=== PATIENT | female | born 1930 | race Caucasian/White ===

== ENCOUNTER 2018-06-17 11:48 | Inpatient (IN) | payer MEDICARE ==
--- NOTE | 2018-06-17 12:09 | ED ---
General Adult HPI - General Stated complaint: Bradycardia Time Seen by Provider: 06/17/18 11:54 Source: patient, EMS, RN notes reviewed, old records reviewed - History of Present Illness Initial comments: 88-year-old female presenting with syncopal episode and altered level of consciousness. Patient found by EMS to be bradycardic with a long periods of sinus pause in asystole. This did correspond with her altered level consc iousness and syncope and near syncope. History is limited by the patient. She denies chest pain. She is alert and oriented although slow to respond. EMS reports stable blood pressure during transport. She had recent admission at an outside hospital, unknown exactly what this admission was related to. I will attempt to obtain further history from patient's family. - Related Data Home Medications Medication Instructions Recorded Confirmed ALPRAZolam [Xanax] 0.25 mg PO BID 06/17/18 06/17/18 Acarbose [Precose] 25 mg PO AC-SUPPER 06/17/18 06/17/18 Aspirin EC [Ecotrin Low Dose] 81 mg PO DAILY 06/17/18 06/17/18 Atorvastatin [Lipitor] 20 mg PO HS 06/17/18 06/17/18 Cholecalciferol [Vitamin D3 (25 1,000 unit PO DAILY 06/17/18 06/17/18 Mcg = 1000 Iu)] Diltiazem HCl [Cartia Xt] 180 mg PO DAILY 06/17/18 06/17/18 Gabapentin [Neurontin] 100 mg PO HS 06/17/18 06/17/18 Hydrocortisone Pr Cream 1 applic RECTAL DAILY 06/17/18 06/17/18 [Proctosol-Hc 2.5%] Levothyroxine Sodium [Synthroid] 88 mcg PO DAILY 06/17/18 06/17/18 Lisinopril [Zestril] 20 mg PO BID 06/17/18 06/17/18 Magnesium Oxide [Mag-Ox] 250 mg PO DAILY 06/17/18 06/17/18 Nitroglycerin [Nitro-Time] 2.5 mg PO DAILY 06/17/18 06/17/18 Omeprazole [PriLOSEC] 20 mg PO AC-BID 06/17/18 06/17/18 Sertraline HCl [Zoloft] 25 mg PO DAILY 06/17/18 06/17/18 Simethicone [Gas-X] 125 mg PO HS 06/17/18 06/17/18 glipiZIDE [Glucotrol] 5 mg PO DAILY 06/17/18 06/17/18 metFORMIN HCL [Glucophage] 1,000 mg PO BID 06/17/18 06/17/18 traMADol HCL [Ultram] 50 mg PO Q6HR PRN 06/17/18 06/17/18 Allergies Allergy/AdvReac Type Severity Reaction Status Date / Time amoxicillin Allergy Unknown Verified 06/17/18 12:00 Iodinated Contrast- Oral and Allergy Unknown Verified 06/17/18 12:00 IV Dye sulfamethoxazole Allergy Unknown Verified 06/17/18 12:00 [From ] trimethoprim [From ] Allergy Unknown Verified 06/17/18 12:00 Review of Systems ROS Statement: Those systems with pertinent positive or pertinent negative responses have been documented in the HPI. ROS Other: All systems not noted in ROS Statement are negative. General Exam General appearance: lethargic Head exam: Present: atraumatic, normocephalic Eye exam: Present: normal appearance, PERRL ENT exam: Present: mucous membranes dry Neck exam: Present: normal inspection. Absent: tenderness, meningismus Respiratory exam: Present: normal lung sounds bilaterally. Absent: respiratory distress, wheezes Cardiovascular Exam: Present: regular rate, normal rhythm Extremities exam: Present: normal capillary refill, pedal edema (trace) Neurological exam: Present: alert, oriented X3 (Slow to respond). Absent: motor sensory deficit Skin exam: Present: warm, intact, diaphoretic. Absent: cyanosis Course Vital Signs 06/17/18 11:56 Temperature 97.6 F Pulse Rate 90 Respiratory 18 Rate Blood Pressure 149/85 O2 Sat by Pulse 95 Oximetry EKG Findings - EKG Comments: EKG Findings:: EKG: Normal sinus rhythm, right bundle-branch block T-wave inversion, no ST segment elevation. Rate of 93, VA interval 192, QRS duration 138, QTC 489 Medical Decision Making - Medical Decision Making 88-year-old female with syncopal episode, bradycardia with sinus as. Patient is evaluated upon arrival by EMS. She is in normal sinus rhythm at this time. Blood pressure stable. She is alert and oriented but slow to respond. While in the emergency department, patient does have prolonged period of sinus pause in asystole. This is intermixed with sinus rhythm. Patient does become diaphoretic, pale with these episodes. She is given atropine with minimal improvement. She is started on dopamine and transcutaneous pacing. I discussed case with Dr. Ybarra , patient will be taken emergently to the [facility] for intravenous pacing. She will be maintained on transcutaneous pacing. I did have a long discussion with the patient's family regarding CODE STATUS, patient does not want intubation, she is okay with pacemaker. Patient's given morphine, Versed, and calcium gluconate, magnesium, and dopamine in the emergency department. Case discussed with admitting physician Dr. Guerra. - Lab Data Result diagrams: 06/17/18 12:15 06/17/18 12:15 Lab Results 06/17/18 06/17/18 06/17/18 Range/Units 12:15 12:15 12:15 WBC 11.1 H (3.8-10.6) k/uL RBC 4.58 (3.80-5.40) m/uL Hgb 12.2 (11.4-16.0) gm/dL Hct 37.9 (34.0-46.0) % MCV 82.7 (80.0-100.0) fL MCH 26.7 (25.0-35.0) pg MCHC 32.2 (31.0-37.0) g/dL RDW 16.8 H (11.5-15.5) % Plt Count 243 (150-450) k/uL Neutrophils % 73 % Lymphocytes % 17 % Monocytes % 6 % Eosinophils % 1 % Basophils % 0 % Neutrophils # 8.1 H (1.3-7.7) k/uL Lymphocytes # 1.9 (1.0-4.8) k/uL Monocytes # 0.7 (0-1.0) k/uL Eosinophils # 0.1 (0-0.7) k/uL Basophils # 0.0 (0-0.2) k/uL Anisocytosis Slight PT (9.0-12.0) sec INR (<1.2) APTT (22.0-30.0) sec Sodium 133 L (137-145) mmol/L Potassium 4.9 (3.5-5.1) mmol/L Chloride 99 (98-107) mmol/L Carbon Dioxide 23 (22-30) mmol/L Anion Gap 11 mmol/L BUN 21 H (7-17) mg/dL Creatinine 0.79 (0.52-1.04) mg/dL Est GFR (CKD-EPI)AfAm 79 (>60 ml/min/1.73 sqM) Est GFR (CKD-EPI)NonAf 69 (>60 ml/min/1.73 sqM) Glucose 116 H (74-99) mg/dL Calcium 9.6 (8.4-10.2) mg/dL Magnesium 1.5 L (1.6-2.3) mg/dL Total Bilirubin 0.4 (0.2-1.3) mg/dL AST 19 (14-36) U/L ALT 29 (9-52) U/L Alkaline Phosphatase 129 H (38-126) U/L Troponin I <0.012 (0.000-0.034) ng/mL Total Protein 6.8 (6.3-8.2) g/dL Albumin 4.1 (3.5-5.0) g/dL 06/17/18 Range/Units 12:26 WBC (3.8-10.6) k/uL RBC (3.80-5.40) m/uL Hgb (11.4-16.0) gm/dL Hct (34.0-46.0) % MCV (80.0-100.0) fL MCH (25.0-35.0) pg MCHC (31.0-37.0) g/dL RDW (11.5-15.5) % Plt Count (150-450) k/uL Neutrophils % % Lymphocytes % % Monocytes % % Eosinophils % % Basophils % % Neutrophils # (1.3-7.7) k/uL Lymphocytes # (1.0-4.8) k/uL Monocytes # (0-1.0) k/uL Eosinophils # (0-0.7) k/uL Basophils # (0-0.2) k/uL Anisocytosis PT 10.2 (9.0-12.0) sec INR 0.9 (<1.2) APTT 20.9 L (22.0-30.0) sec Sodium (137-145) mmol/L Potassium (3.5-5.1) mmol/L Chloride (98-107) mmol/L Carbon Dioxide (22-30) mmol/L Anion Gap mmol/L BUN (7-17) mg/dL Creatinine (0.52-1.04) mg/dL Est GFR (CKD-EPI)AfAm (>60 ml/min/1.73 sqM) Est GFR (CKD-EPI)NonAf (>60 ml/min/1.73 sqM) Glucose (74-99) mg/dL Calcium (8.4-10.2) mg/dL Magnesium (1.6-2.3) mg/dL Total Bilirubin (0.2-1.3) mg/dL AST (14-36) U/L ALT (9-52) U/L Alkaline Phosphatase (38-126) U/L Troponin I (0.000-0.034) ng/mL Total Protein (6.3-8.2) g/dL Albumin (3.5-5.0) g/dL Critical Care Time Critical Care Time: Yes Total Critical Care Time: 35 Disposition Clinical Impression: Bradycardia, Sinus pause Disposition: ADMITTED IP TO THIS [facility] Condition: Serious Is patient prescribed a controlled substance at d/c from ED?: No Referrals: David Guerra MD [Primary Care Provider] - 1-2 days Decision to Admit Reason: Admit from EC Decision Date: 06/17/18 Decision Time: 13:19
[2018-06-17 12:29] LABS: Anisocytosis Slight; Basophils % (A) 0 %; Eosinophils # (A) 0.1 k/uL (0-0.7); Eosinophils % (A) 1 %; HCT 37.9 % (34.0-46.0); HGB 12.2 gm/dL (11.4-16.0); Lymphocytes # (A) 1.9 k/uL (1.0-4.8); Lymphocytes % (A) 17 %; MCH 26.7 pg (25.0-35.0); MCHC 32.2 g/dL (31.0-37.0); MCV 82.7 fL (80.0-100.0); Mean Platelet Volume 7.5; Monocytes # (A) 0.7 k/uL (0-1.0); Monocytes % (A) 6 %; Neutrophils # (A) 8.1 k/uL (1.3-7.7); Neutrophils % (A) 73 %; Platelet Count 243 k/uL (150-450); RBC 4.58 m/uL (3.80-5.40); RDW 16.8 % (11.5-15.5); WBC 11.1 k/uL (3.8-10.6)
[2018-06-17 12:50] LABS: Albumin 4.1 g/dL (3.5-5.0); Calcium 9.6 mg/dL (8.4-10.2); Magnesium 1.5 mg/dL (1.6-2.3); Potassium 4.9 mmol/L (3.5-5.1); Total Bilirubin 0.4 mg/dL (0.2-1.3); Total Protein 6.8 g/dL (6.3-8.2)
[2018-06-17] MEDS ORDERED: CALCIUM GLUCONATE 1 GM in SODIUM CHLORIDE 0.9% 100 ML IVPB ONE (12:55)
[2018-06-17] MEDS ORDERED: MORPHINE SULFATE 2 MG/ML SYRINGE IVP STA (12:58)
[2018-06-17] MEDS ORDERED: MIDAZOLAM (PF) 2 MG/2 ML VIAL IV ONE (12:59)
[2018-06-17] MEDS ORDERED: MIDAZOLAM 1 MG/ML 5 ML VIAL IV STA (12:59)
[2018-06-17] MEDS ORDERED: MORPHINE SULFATE 2 MG/ML SYRINGE IVP PRN (12:59)
[2018-06-17 13:01] LABS: INR 0.9 (<1.2); Prothrombin Time 10.2 sec (9.0-12.0)
[2018-06-17 13:07] LABS: Partial Thromboplastin Time 20.9 sec (22.0-30.0)
[2018-06-17] MEDS ORDERED: DOPamine DRIP 800 MG in DEXTROSE/WATER 1 250ML.BAG IV ONE (13:11)
--- NOTE | 2018-06-17 13:12 | XR ---
EXAMINATION TYPE: XR chest 1V portable DATE OF EXAM: 06/17/2018 COMPARISON: NONE HISTORY: Dysrhythmia, bradycardia TECHNIQUE: Single frontal view of the chest is obtained. FINDINGS: Exam is expiratory and rotated. Heart may be enlarged. Patchy perihilar density is present , difficult to exclude retrocardiac density. There is no evident pneumothorax. There are overlying ca rdiac leads and artifact. Interstitium appears prominently. Arthropathy noted in the left shoulder. IMPRESSION: Expiratory rotated exam. Difficult to exclude pulmonary venous hypertension and intersti tial edema, possible left lower lobe pneumonia or atelectasis, follow-up PA and lateral chest x-ray r ecommended.
[2018-06-17] MEDS ORDERED: NALOXONE 0.4 MG/ML 1 ML VIAL IV PRN (13:13)
[2018-06-17] MEDS ORDERED: MORPHINE SULFATE 4 MG/ML SYRINGE IVP PRN (13:14)
[2018-06-17] MEDS: MAGNESIUM SULFATE-D5W PMX 1 GM in DEXTROSE/WATER 1 100ML.BAG IVPB SCH ×2 (13:32→17:07)
[2018-06-17] MEDS ORDERED: LIDOCAINE 2% INJ 20 MG/ML SQ ONE (14:36)
--- NOTE | 2018-06-17 14:45 | P.CRDCN ---
History of Present Illness Consult date: 06/17/18 Requesting physician: David Guerra Consult reason: sycope Chief complaint: Syncope History of present illness: This is an 88 stroke female who follows regularly with Dr. Brooks in [facility] office. She has a known history of severe aortic stenosis, she also underwent a cardiac catheterization which revealed severe disease involving the distal left main with a complex plaque involving the takeoff of the circumflex and LAD. History of diabetes, hypertension, hyperlipidemia. Patient presents to the hospital on this occasion with a syncopal episode and altered level of consciousness. On EMS arrival the patient was found to be bradycardic with long periods of sinus pauses and asystole. These episodes didn't correspond with her altered level of consciousness as well as syncope or near syncope. Most of the history was obtained from the daughter and who are at bedside. In the emergency room, patient did go into asystole, external pacemaker was applied. Chest x-ray showed expiratory rotated exam. Difficult to exclude pulmonary venous hypertension and interstitial edema, possible left lower lobe pneumonia or atelectasis. Initial EKG prior to the asystole showed a normal sinus rhythm with a right bundle branch block pattern and nonspecific ST-T wave changes. B lood pressure at present 148/80 with a heart rate 50, 90% on room air. White blood cell count 11.1, hemoglobin 12.2, platelet count 243. Sodium 133, potassium 4.9, BUN 21 and creatinine 0.7. Magnesium on admission 1.5. Troponin 0.012. Past Medical History Past Medical History: Diabetes Mellitus, Hyperlipidemia, Hypertension Additional Past Medical History / Comment(s): arterial stenosis History of Any Multi-Drug Resistant Organisms: None Reported Past Surgical History: Cholecystectomy, Orthopedic Surgery Past Psychological History: No Psychological Hx Reported Smoking Status: Former smoker Past Alcohol Use History: None Reported Past Drug Use History: None Reported Medications and Allergies Home Medications Medication Instructions Recorded Confirmed Type ALPRAZolam [Xanax] 0.25 mg PO BID 06/17/18 06/17/18 History Acarbose [Precose] 25 mg PO AC-SUPPER 06/17/18 06/17/18 History Aspirin EC [Ecotrin Low Dose] 81 mg PO DAILY 06/17/18 06/17/18 History Atorvastatin [Lipitor] 20 mg PO HS 06/17/18 06/17/18 History Cholecalciferol [Vitamin D3 (25 1,000 unit PO DAILY 06/17/18 06/17/18 History Mcg = 1000 Iu)] Diltiazem HCl [Cartia Xt] 180 mg PO DAILY 06/17/18 06/17/18 History Gabapentin [Neurontin] 100 mg PO HS 06/17/18 06/17/18 History Hydrocortisone Pr Cream 1 applic RECTAL DAILY 06/17/18 06/17/18 History [Proctosol-Hc 2.5%] Levothyroxine Sodium [Synthroid] 88 mcg PO DAILY 06/17/18 06/17/18 History Lisinopril [Zestril] 20 mg PO BID 06/17/18 06/17/18 History Magnesium Oxide [Mag-Ox] 250 mg PO DAILY 06/17/18 06/17/18 History Nitroglycerin [Nitro-Time] 2.5 mg PO DAILY 06/17/18 06/17/18 History Omeprazole [PriLOSEC] 20 mg PO AC-BID 06/17/18 06/17/18 History Sertraline HCl [Zoloft] 25 mg PO DAILY 06/17/18 06/17/18 History Simethicone [Gas-X] 125 mg PO HS 06/17/18 06/17/18 History glipiZIDE [Glucotrol] 5 mg PO DAILY 06/17/18 06/17/18 History metFORMIN HCL [Glucophage] 1,000 mg PO BID 06/17/18 06/17/18 History traMADol HCL [Ultram] 50 mg PO Q6HR PRN 06/17/18 06/17/18 History Allergies Allergy/AdvReac Type Severity Reaction Status Date / Time amoxicillin Allergy Unknown Verified 06/17/18 12:00 Iodinated Contrast- Oral and Allergy Unknown Verified 06/17/18 12:00 IV Dye sulfamethoxazole Allergy Unknown Verified 06/17/18 12:00 [From ] trimethoprim [From ] Allergy Unknown Verified 06/17/18 12:00 Physical Exam Vitals: Vital Signs Temp Pulse Resp BP Pulse Ox 06/17/18 11:56 97.6 F 90 18 149/85 95 Intake and Output 06/16/18 06/17/18 06/17/18 22:59 06:59 14:59 Other: Weight 103.873 kg PHYSICAL EXAMINATION: GENERAL: 88-year-old female, mildly sedated, in no acute distress at the time of my examination HEENT: Head is atraumatic, normocephalic. Pupils equal, round. Sclera anicter ic. Conjunctiva are clear. Mucous membranes of the mouth are moist. Neck is supple. There is no elevated jugular venous pressure. No carotid bruit is heard. HEART EXAMINATION: S1 and S2 1 systolic ejection murmur is heard CHEST EXAMINATION: Lungs are clear to auscultation and precussion. No chest wall tenderness is noted on palpation or with deep breathing. ABDOMEN: Soft, obese, nontender. Bowel sounds are heard. No organomegaly noted. EXTREMITIES: 2+ peripheral pulses with no evidence of peripheral edema and no calf tenderness noted. NEUROLOGIC [patient is mildly sedated Results 06/17/18 12:15 06/17/18 12:15 Cardiac Enzymes 06/17/18 06/17/18 Range/Units 12:15 12:15 AST 19 (14-36) U/L Troponin I <0.012 (0.000-0.034) ng/mL Coagulation 06/17/18 Range/Units 12:26 PT 10.2 (9.0-12.0) sec APTT 20.9 L (22.0-30.0) sec CBC 06/17/18 Range/Units 12:15 WBC 11.1 H (3.8-10.6) k/uL RBC 4.58 (3.80-5.40) m/uL Hgb 12.2 (11.4-16.0) gm/dL Hct 37.9 (34.0-46.0) % Plt Count 243 (150-450) k/uL Comprehensive Metabolic Panel 06/17/18 Range/Units 12:15 Sodium 133 L (137-145) mmol/L Potassium 4.9 (3.5-5.1) mmol/L Chloride 99 (98-107) mmol/L Carbon Dioxide 23 (22-30) mmol/L BUN 21 H (7-17) mg/dL Creatinine 0.79 (0.52-1.04) mg/dL Glucose 116 H (74-99) mg/dL Calcium 9.6 (8.4-10.2) mg/dL AST 19 (14-36) U/L ALT 29 (9-52) U/L Alkaline Phosphatase 129 H (38-126) U/L Total Protein 6.8 (6.3-8.2) g/dL Albumin 4.1 (3.5-5.0) g/dL Current Medications Generic Name Dose Route Start Last Admin Trade Name Freq PRN Reason Stop Dose Admin Magnesium Sulfate/Dextrose 1 100 mls @ 100 mls/hr 06/17/18 13:00 06/17/18 13:32 gm/ IV Solution IVPB 06/17/18 14:59 100 mls/hr Q1H FRANK Administration Dopamine HCl/Dextrose 800 mg/ 250 mls @ 3.895 mls/hr 06/17/18 13:11 06/17/18 13:15 IV Solution IV 06/18/18 13:10 2 mcg/kg/min .Q24H ONE 3.895 mls/hr Administration Protocol 2 MCG/KG/MIN Morphine Sulfate 2 mg 06/17/18 12:59 06/17/18 13:01 Morphine Sulfate (Inj) IVP 2 mg ONCE PRN Administration Pain Morphine Sulfate 4 mg 06/17/18 13:14 06/17/18 13:17 Morphine Sulfate (Inj) IVP 4 mg ONCE PRN Administration Pain Naloxone HCl 0.2 mg 06/17/18 13:13 Narcan IV Q2M PRN Opioid Reversal Intake and Output 06/16/18 06/17/18 06/17/18 22:59 06:59 14:59 Other: Weight 103.873 kg Patient Weight 06/18/18 06:59 Weight 103.873 kg 06/17/18 12:15 06/17/18 12:15 EKG Interpretations (text) Initial EKG on presentation showed normal sinus rhythm with right bundle branch block pattern, subsequent EKG showed asystole Assessment and Plan Plan: Assessment and plan #1 syncope, evidence of asystole on EKG. External pacemaker has been applied and dopamine was initiated. #2 severe aortic stenosis #3 coronary artery disease, patient's cardiac catheterization revealed severe disease involving the distal left main with a complex plaque involving the takeoff of the circumflex and LAD #3 diabetes #4 hypertension #5 hyperlipidemia Plan Patient will be taken to the cardiac catheterization lab to undergo temporary pacemaker implantation, she will require permanent pacemaker. This was discussed with the and the daughter in detail. The patient is otherwise in no code and does not want to have any invasive procedures performed, they are willing to have a pacemaker placed. DNP note has been reviewed, I agree with a documented findings and plan of care. Patient was seen and examined.
[2018-06-17 15:28] LABS: Glucose,Whole Blood 169 mg/dL (75-99)
[2018-06-17 17:06] LABS: Amorphous Sediment,Urine Rare /hpf; Appearance,Urine Clear (Clear); Bilirubin,Urine Negative (Negative); Blood,Urine Negative (Negative); Color,Urine Yellow; Glucose,Urine (UA) Negative (Negative); Hyaline Casts,Urine 3 /lpf (0-2); Ketones,Urine Negative (Negative); Leukocyte Esterase,Urine Moderate (Negative); Mucus,Urine Rare /hpf; Nitrite,Urine Negative (Negative); Protein,Urine Negative (Negative); RBC,Urine <1 /hpf (0-5); Specific Gravity,Urine 1.012 (1.001-1.035); Squamous Epithelial Cell,Urine <1 /hpf (0-4); Urobilinogen,Urine <2.0 mg/dL (<2.0)
[2018-06-17] MEDS ORDERED: metFORMIN 500 MG TAB PO SCH (17:30)
[2018-06-17] MEDS: ACARBOSE 25 MG TAB PO SCH (18:00)
[2018-06-17] MEDS: metFORMIN 500 MG TAB PO SCH (18:00)
[2018-06-17] MEDS ORDERED: LISINOPRIL 20 MG TAB PO SCH (21:00)
[2018-06-17] MEDS ORDERED: SODIUM CHLORIDE 0.9% 1,000 ML IV SCH (21:45)
[2018-06-17] MEDS: SODIUM CHLORIDE 0.9% 1,000 ML IV SCH (22:04)
[2018-06-17] MEDS: DOPamine DRIP 800 MG in DEXTROSE/WATER 1 250ML.BAG IV SCH (22:13)
[2018-06-17] MEDS: ASPIRIN 81 MG PO SCH (22:20)
[2018-06-17] MEDS: ATORVASTATIN 20 MG TAB PO SCH (22:21)
[2018-06-17] MEDS: GABAPENTIN 100 MG CAP PO SCH (22:21)
--- NOTE | 2018-06-17 22:34 | HP ---
HISTORY AND PHYSICAL HISTORY: Mrs. Zhou is an 88-year-old female is brought in for syncope. HISTORY OF PRESENT ILLNESS: The patient apparently was at home this morning, visiting nurse was coming into the house. Her went to open the door and when he came back apparently patient had slumped over in her chair and was unable to be aroused. EMS was called. She was found apparently to be bradycardic and was brought by EMS to the emergency room here at [facility]. The patient has had a temporary pacemaker placed. PAST MEDICAL HISTORY: Positive for severe aortic stenosis and also underlying coronary artery disease with some left main involvement and she was deemed to be a nonsurgical candidate. She does have underlying comorbidities with being treated for diabetes, hypertension, hyperlipidemia. She is obese. She does have polyarthritis and she does have an essential tremor. History of hypothyroidism. HOME MEDICATIONS: 1. Alprazolam 0.25 twice a day. 2. Acarbose 25 mg before supper. 3. Aspirin 81 mg daily. 4. Lipitor 20 mg. 5. Vitamin D3, 1000 units daily. 6. Diltiazem 180 mg daily. 7. Neurontin 100 mg at bedtime. 8. Hydrocortisone cream as needed. 9. Levothyroxine 88 mcg. 10.Lisinopril 20 mg twice a day. 11.Mag-Ox 250 daily. 12.Nitroglycerin 2.5 mg has been started recently because of recurrent chest pain. 13.Prilosec 20 mg before meals twice a day. 14.Zoloft 25 mg daily recently started for depression and anxiety. 15.Simethicone 125 mg at bedtime. 16.Glucotrol 5 mg daily for her blood sugar. 17.Metformin 1000 mg twice a day. 18.Tramadol 500 mg every 6 hours for her chronic polyarthritis pain. ALLERGIES: PENICILLIN, CONTRAST, SULFA. PREVIOUS SURGERIES: Cholecystectomy and previous orthopedic surgery. REVIEW OF SYSTEMS: As mentioned in history of present illness. Patient has had some recurrent chest discomfort somewhat with exertion. No unusual headaches. She was nauseated today with this episode, but on the whole no unusual nausea, vomiting or unusual bowel symptomatology. She does has had some recent frequent urination and possible urinary tract infection. Cultures are pending. FAMILY HISTORY: Positive for heart disease, diabetes. There is a history of alcoholism. SOCIAL HISTORY: She is a former smoker. She lives locally in the area with her along with a daughter that watches over them too. PHYSICAL EXAMINATION: Presently, she is lying in bed in the intensive care unit. Overall, appears comfortable, in no acute distress. Responding appropriately. Last vital signs showed a pulse in the 70s, respirations of 12, blood pressure 116/96, and she was 94% saturated. Temperature 97.5. Head and neck exam unremarkable. Extraocular movements intact. Neck is not stiff. Lungs were clear to auscultation. Heart tones were for the most part regular without murmur, although somewhat distant. Abdomen is obese but nontender. Breast and pelvic exam deferred. Extremities revealed grade 1 pedal edema. Neurologically she is alert and oriented. Cranial nerves intact. No focal deficits noted. LAB TESTING: White count of 11, hemoglobin 12.2 and a platelet count of 243. INR 0.9 with a PTT of 20.9. Sodium 133, potassium 4.9, BUN of 21, creatinine 0.79, giving her GFR 69, blood sugar of 116, calcium was 9.6, magnesium slightly low at 1.5, alkaline phosphatase was 129. Troponin was less than 0.012. TSH was normal at 3.8. Urinalysis has revealed moderate leukocytes, leukocyte esterase, but only 14 white cells. The patient's chest x-ray is reported as rotated exam. Possible left lower lobe atelectasis. Her EKG revealed a sinus rhythm, right bundle branch block pattern. IMPRESSION: Syncope with asystole apparently on monitor pattern, now status post temporary pacemaker placed. She does have underlying severe aortic stenosis and coronary artery disease, which is considered to be nonoperable. She does have comorbidities and is being treated for diabetes, hypertension, hyperlipidemia. She does have underlying obesity and polyarthritis resulting in gait disturbances and underlying hypothyroidism on replacement therapy. At this point, discussed with the patient's spouse and daughter at bedside. Will await further recommendations from Cardiology regarding pacemaker. Urine culture is pending. Continue other home medications as per Cardiology. Prognosis guarded at this point. MMODL / IJN: [id number] / MTDD
[2018-06-17] MEDS: SIMETHICONE 80 MG CHEWABLE PO SCH (23:01)
--- NOTE | 2018-06-17 23:49 | PCN ---
PROCEDURE NOTE DATE OF SERVICE: June 17, 2018 PERFORMING PHYSICIAN: Dominick Ybarra MD. PROCEDURE PERFORMED: Successful placement of transvenous temporary pacemaker from right femoral right fem femoral approach. 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 COMPLICATION: None. LEVEL OF SEDATION: Moderate with sedation length of 10 minutes. PROCEDURE DESCRIPTION: After obtaining an informed consent, the patient was brought to cardiac lab engineer. The right common femoral vein was cannulated using micropuncture technique and a micropuncture wire passed easily. Then I placed a 6-[place] sheath in the right common femoral vein. After that I did advanced transvenous temporary pacemaker under fluoroscopy guidance to the right atrial and the right ventricle. I did set up the pacemaker to be at rate of 70 as a backup as well as at 5 of number. Going. CONCLUSION: 1. Successful placement of transvenous temporary pacemaker from right femoral approach. POSTPROCEDURE MANAGEMENT: 1. The patient needs to have a permanent pacemaker. 2. Follow up with the patient indication. MMODL / IJN: [id number] /
[2018-06-18 06:21] LABS: Anisocytosis Slight; Basophils % (A) 0 %; Eosinophils # (A) 0.1 k/uL (0-0.7); Eosinophils % (A) 1 %; HCT 34.9 % (34.0-46.0); Lymphocytes # (A) 1.2 k/uL (1.0-4.8); Lymphocytes % (A) 10 %; MCH 26.5 pg (25.0-35.0); MCHC 31.7 g/dL (31.0-37.0); MCV 83.6 fL (80.0-100.0); Mean Platelet Volume 7.1; Monocytes # (A) 0.7 k/uL (0-1.0); Monocytes % (A) 6 %; Neutrophils # (A) 9.6 k/uL (1.3-7.7); Neutrophils % (A) 82 %; Platelet Count 219 k/uL (150-450); RBC 4.17 m/uL (3.80-5.40); RDW 16.4 % (11.5-15.5); WBC 11.8 k/uL (3.8-10.6)
[2018-06-18] MEDS: ACETAMINOPHEN TAB 325 MG TAB PO PRN (06:32)
[2018-06-18] MEDS: LEVOTHYROXINE 88 MCG TAB PO SCH (06:32)
[2018-06-18] MEDS: PANTOPRAZOLE 40 MG TABLET PO SCH (06:32)
[2018-06-18 06:33] LABS: Calcium 9.3 mg/dL (8.4-10.2); Magnesium 2.2 mg/dL (1.6-2.3); Potassium 5.6 mmol/L (3.5-5.1)
--- NOTE | 2018-06-18 07:19 | P.PN ---
Subjective Progress Note Date: 06/18/18 Principal diagnosis: Complete heart block This is a pleasant 88-year-old female patient with a past medical history significant for severe aortic stenosis, severe coronary artery disease involving the left main, as well as multiple comorbid conditions, was admitted to the hospital with syncopal episode. She was found to be in and out complete heart block. She underwent yesterday a temporary pacemaker. In the past, the patient refused to have any treatment for the aortic stenosis. On follow-up with her today, she is feeling overall better. She denies any chest pain or chest discomfort at this point. She still requiring the temporary pacer. She is in process to undergo permanent pacemaker later on today. The creatinine is a slightly worse and her blood pressure has been on the low side. Part of it, that she was having intermittent episodes of complete heart block. Objective - Vital Signs Vital signs: Vital Signs Temp 97.6 F 06/18/18 04:00 Pulse 70 06/18/18 07:00 Resp 18 06/18/18 07:00 BP 108/55 06/18/18 07:00 Pulse Ox 95 06/18/18 07:00 Intake & Output 06/17/18 06/18/18 06/18/18 18:59 06:59 18:59 Intake Total 1405 100 Output Total 335 215 15 Balance -335 1190 85 Weight 103.873 kg 110.2 kg Intake: IV 1155 100 Magnesium Sulfate-D5w Pmx 100 1 gm In Dextrose/Water 1 100ml.bag @ 100 mls/hr IVPB Q1H FR[facility] Rx#: [id number] Sodium Chloride 0.9% 1, 675 100 000 ml @ 100 mls/hr IV . Q10H FRANK Rx#:[id number] Sodium Chloride 0.9% 1, 380 000 ml @ 20 mls/hr IV . Q24H FRANK Rx#:[id number] Oral 250 Output: Urine 335 215 15 Other: Voiding Method Indwelling Catheter Indwelling Catheter - Constitutional General appearance: Present: no acute distress - Respiratory Respiratory: bilateral: CTA - Cardiovascular Rhythm: regular Heart sounds: normal: S1, S2 - Labs CBC & Chem 7: 06/18/18 05:36 06/18/18 05:36 Labs: Abnormal Lab Results - Last 24 Hours (Table) 06/17/18 06/17/18 06/17/18 Range/Units 12:15 12:15 12:26 WBC 11.1 H (3.8-10.6) k/uL Hgb (11.4-16.0) gm/dL RDW 16.8 H (11.5-15.5) % Neutrophils # 8.1 H (1.3-7.7) k/uL APTT 20.9 L (22.0-30.0) sec Sodium 133 L (137-145) mmol/L Potassium (3.5-5.1) mmol/L BUN 21 H (7-17) mg/dL Glucose 116 H (74-99) mg/dL POC Glucose (mg/dL) (75-99) mg/dL Magnesium 1.5 L (1.6-2.3) mg/dL Alkaline Phosphatase 129 H (38-126) U/L Ur Leukocyte Esterase (Negative) Urine WBC (0-5) /hpf Urine WBC Clumps (None) /hpf Amorphous Sediment (None) /hpf Hyaline Casts (0-2) /lpf Urine Mucus (None) /hpf 06/17/18 06/17/18 06/18/18 Range/Units 15:00 15:24 05:36 WBC 11.8 H (3.8-10.6) k/uL Hgb 11.0 L (11.4-16.0) gm/dL RDW 16.4 H (11.5-15.5) % Neutrophils # 9.6 H (1.3-7.7) k/uL APTT (22.0-30.0) sec Sodium (137-145) mmol/L Potassium (3.5-5.1) mmol/L BUN (7-17) mg/dL Glucose (74-99) mg/dL POC Glucose (mg/dL) 169 H (75-99) mg/dL Magnesium (1.6-2.3) mg/dL Alkaline Phosphatase (38-126) U/L Ur Leukocyte Esterase Moderate H (Negative) Urine WBC 14 H (0-5) /hpf Urine WBC Clumps Occasional H (None) /hpf Amorphous Sediment Rare H (None) /hpf Hyaline Casts 3 H (0-2) /lpf Urine Mucus Rare H (None) /hpf 06/18/18 Range/Units 05:36 WBC (3.8-10.6) k/uL Hgb (11.4-16.0) gm/dL RDW (11.5-15.5) % Neutrophils # (1.3-7.7) k/uL APTT (22.0-30.0) sec Sodium 131 L (137-145) mmol/L Potassium 5.6 H (3.5-5.1) mmol/L BUN 29 H (7-17) mg/dL Glucose 137 H (74-99) mg/dL POC Glucose (mg/dL) (75-99) mg/dL Magnesium (1.6-2.3) mg/dL Alkaline Phosphatase (38-126) U/L Ur Leukocyte Esterase (Negative) Urine WBC (0-5) /hpf Urine WBC Clumps (None) /hpf Amorphous Sediment (None) /hpf Hyaline Casts (0-2) /lpf Urine Mucus (None) /hpf Microbiology - Last 24 Hours (Table) 06/17/18 15:00 Urine Culture - Preliminary Urine,Voided Assessment and Plan Assessment: Assessment #1 complete heart block #2 intermittent episodes of syncope secondary to complete heart block #3 known severe aortic stenosis, patient refused any further intervention on the aortic valve #4 known severe coronary artery disease involving the left main coronary artery #5 acute on chronic renal failure Plan #1 hold the blood pressure medications #2 increase the IV fluid 100 mL per hour #3 continue the dopamine for now #4 the patient is going to undergo a permanent pacemaker later on today
[2018-06-18] MEDS ORDERED: fentaNYL (PF) 50 MCG/ML 2 ML AMP IVP PRN (08:01)
[2018-06-18] MEDS: metFORMIN 500 MG TAB PO SCH ×2 (08:30→17:08)
[2018-06-18] MEDS: glipiZIDE 5 MG TAB PO SCH (08:31)
--- NOTE | 2018-06-18 08:31 | P.PN ---
Progress Note - Text The patient is an 88-year-old female who was brought in by EMS yesterday from home with syncopal episodes and complete heart block. The patient underwent temporary pacemaker placement yesterday. She is presently in the intensive care unit. She is on low flow dopamine. Patient remains in the intensive care unit. She is alert and oriented and responding well to questions. She complains of some back pain but denies any chest pain or unusual shortness of breath. She did have some nausea yesterday with her medications. Feels better in that regard today. The patient is a obese female with aortic stenosis and coronary artery disease for which patient and family have declined surgical intervention because of the risk involved. She also has underlying diabetes, hypertension and hyperlipidemia along with diffuse osteoarthritis and limited mobility. Vital signs reveal temperature 97.6 with a pulse of 70 and respirations 18. Blood pressure 108/55 and she is 95% saturated. Lung and heart exam was clear and regular at this time. Abdomen is obese but soft and nontender. No unusual edema. She is alert and oriented without cranial nerves are focal deficits. Intention tremors present. Laboratory White count 11.8 with a hemoglobin 11 and a platelet count of 219. Sodium is 131 with an elevated potassium of 5.6. BUN of 29 with creatinine of 1.04 given her GFR of 49. Blood sugar this morning was 137. Urine culture report pending. Urine output apparently has been 20-30 mL an hour. Impression and plans Discussed with patient and nursing staff today. Plans are for permanent pacemaker as per cardiology. Discussed with staff regarding holding her diabetic medications and doing Accu- Cheks and coverage as needed through the day. Further recommendations pending clinical response and results. Prognosis is guarded.
[2018-06-18] MEDS ORDERED: ASPIRIN 81 MG PO SCH (09:00)
[2018-06-18] MEDS ORDERED: DILTIAZEM CD 180 MG CAP.ER.24H PO SCH (09:00)
[2018-06-18] MEDS ORDERED: ONDANSETRON 4 MG/2 ML VIAL IVP STA (09:51)
--- NOTE | 2018-06-18 10:17 | CDI ---
Documentation Clarification Form Date: 06/18/2018 10:07:16 AM From: Nelsy Esquivel RN CCDS Admit Date: 06/17/2018 1:13:00 PM Patient Name: Lea Zhou I Visit Number: [id number] Discharge Date: ATTENTION: The Clinical Documentation Specialists (CDI) and [facility] Coding Staff appreciate your assistance in clarifying documentation. Please respond to the clarification below the line at the bottom and electronically sign. The CDI & [facility] Coding staff will review the response and follow-up if needed. Please note: Queries are made part of the Legal Health Record. If you have any questions, please contact the author of this message via ITS. Dr. Dominick Ybarra Patient was admitted with complete heart block. History/Risk Factors: 88 year old female presents to the ED via EMS for altered level of consciousness. Medical History DM, Severe Aortic Stenosis , CAD, HTN Clinical Indicators: On admission BUN 21, / CR 0.79 / GFR 69 Current BUN 29, /CR 1.04 /GFR 49: Patients Baseline BUN/CR/GFR: Unknown/ Not documented Treatment: increased 0.9ns ivfl from 20cc/hr to 100cc/hr, In order to capture the severity of condition, please clarify if the condition signifies: * CKD Stage 1 (GFR > 90) * CKD Stage 2 (GFR 60-89) * CKD Stage 3 (GFR 30-59) * Other, please specify * Unable to determine (Last Revision: May 2017) MTDD
[2018-06-18] MEDS: NITROGLYCERIN EXTENDED RELEASE 2.5 MG CAPSULE.ER PO SCH (10:44)
[2018-06-18] MEDS: MAGNESIUM OXIDE 400 MG TAB PO SCH (10:45)
[2018-06-18] MEDS: HYDROCORTISONE 2.5% RECTAL CREAM 30 GM TUBE RECTAL SCH (10:45)
[2018-06-18] MEDS: CHOLECALCIFEROL 1,000 UNIT TAB PO SCH (10:45)
[2018-06-18] MEDS: SERTRALINE 25 MG TAB PO SCH (11:36)
[2018-06-18] MEDS: traMADol 50 MG TAB PO PRN ×2 (11:36→19:26)
[2018-06-18 11:58] LABS: Glucose,Whole Blood 145 mg/dL (75-99)
[2018-06-18] MEDS: INSULIN ASPART (NovoLOG) 100 UNIT/ML VIAL SQ SCH ×2 (12:23→17:16)
[2018-06-18] MEDS: DOCUSATE 100 MG CAP PO SCH ×2 (14:38→21:17)
[2018-06-18 16:48] LABS: Glucose,Whole Blood 148 mg/dL (75-99)
[2018-06-18] MEDS: ACARBOSE 25 MG TAB PO SCH (17:07)
[2018-06-18] MEDS: SODIUM CHLORIDE 0.9% 1,000 ML IV SCH ×5 (17:17→21:17)
[2018-06-18 20:30] LABS: Glucose,Whole Blood 119 mg/dL (75-99)
[2018-06-18] MEDS ORDERED: DOCUSATE 100 MG CAP PO SCH (21:00)
[2018-06-18] MEDS: ATORVASTATIN 20 MG TAB PO SCH (21:17)
[2018-06-18] MEDS: GABAPENTIN 100 MG CAP PO SCH (21:17)
[2018-06-18] MEDS: ASPIRIN 81 MG PO SCH (21:17)
[2018-06-18] MEDS: SIMETHICONE 80 MG CHEWABLE PO SCH (21:17)
[2018-06-18] MEDS: ONDANSETRON 4 MG/2 ML VIAL IVP PRN (22:25)
[2018-06-18] MEDS: DOPamine DRIP 800 MG in DEXTROSE/WATER 1 250ML.BAG IV SCH (22:34)
[2018-06-19] MEDS: INSULIN ASPART (NovoLOG) 100 UNIT/ML VIAL SQ SCH ×5 (00:57→23:41)
[2018-06-19 01:08] LABS: Glucose,Whole Blood 117 mg/dL (75-99)
[2018-06-19 06:33] LABS: Glucose,Whole Blood 111 mg/dL (75-99)
--- NOTE | 2018-06-19 06:43 | P.PN ---
Subjective Progress Note Date: 06/19/18 Principal diagnosis: Complete heart block This is a pleasant 88-year-old female patient with a past medical history significant for severe aortic stenosis, severe coronary artery disease involving the left main, as well as multiple comorbid conditions, was admitted to the hospital with syncopal episode. She was found to be in and out complete heart block. She underwent yesterday a temporary pacemaker. In the past, the patient refused to have any treatment for the aortic stenosis. On follow-up with the patient today, June 192018, the patient is feeling better overall. Her intrinsic rhythm is overriding the pacemaker and currently she is in normal sinus rhythm with heart rate in the 80s. She is going to undergo a permanent pacemaker later on today. The urine output has improved compared to yesterday. Objective - Vital Signs Vital signs: Vital Signs Temp 98.4 F 06/19/18 04:01 Pulse 81 06/19/18 06:00 Resp 11 L 06/19/18 06:00 BP 148/57 06/19/18 06:00 Pulse Ox 97 06/19/18 06:00 Intake & Output 06/18/18 06/18/18 06/19/18 06:59 18:59 06:59 Intake Total 1405 1200 1200 Output Total 566 724 8196 Balance 1190 795 -945 Weight 110.2 kg 109.3 kg Intake: IV 1155 1200 1200 Magnesium Sulfate-D5w Pmx 100 1 gm In Dextrose/Water 1 100ml.bag @ 100 mls/hr IVPB Q1H [facility]ANK Rx#: [id number] Sodium Chloride 0.9% 1, 675 1200 1200 000 ml @ 100 mls/hr IV . Q10H [facility]ANK Rx#:[id number] Sodium Chloride 0.9% 1, 380 000 ml @ 20 mls/hr IV . Q24H FRANK Rx#:[id number] Oral 250 Output: Urine 542 226 5567 Other: Voiding Method Indwelling Catheter Indwelling Catheter Indwelling Catheter - Constitutional General appearance: Present: no acute distress - Respiratory Respiratory: bilateral: CTA - Cardiovascular Rhythm: regular Heart sounds: normal: S1, S2 Abnormal Heart Sounds: Present: systolic murmur - Labs CBC & Chem 7: 06/18/18 05:36 06/18/18 05:36 Labs: Abnormal Lab Results - Last 24 Hours (Table) 05/05/0406/18/18 06/18/18 Range/Units 11:54 16:45 20:27 POC Glucose (mg/dL) 145 H 148 H 119 H (75-99) mg/dL 06/19/18 06/19/18 Range/Units 00:54 06:29 POC Glucose (mg/dL) 117 H 111 H (75-99) mg/dL Microbiology - Last 24 Hours (Table) 06/17/18 15:00 Urine Culture - Preliminary Urine,Voided Group D Enterococcus Assessment and Plan Assessment: Assessment #1 complete heart block #2 intermittent episodes of syncope secondary to complete heart block #3 known severe aortic stenosis, patient refused any further intervention on the aortic valve #4 known severe coronary artery disease involving the left main coronary artery #5 acute on chronic renal failure Plan #1 continue the current medical regimen #2 the patient is going to undergo permanent pacemaker later on today
[2018-06-19] MEDS: SODIUM CHLORIDE 0.9% 1,000 ML IV SCH ×6 (06:44→23:30)
[2018-06-19 06:57] LABS: Anisocytosis Slight; Basophils % (A) 0 %; Eosinophils # (A) 0.1 k/uL (0-0.7); Eosinophils % (A) 1 %; HCT 35.8 % (34.0-46.0); HGB 11.7 gm/dL (11.4-16.0); Lymphocytes # (A) 1.4 k/uL (1.0-4.8); Lymphocytes % (A) 17 %; MCH 27.3 pg (25.0-35.0); MCHC 32.8 g/dL (31.0-37.0); MCV 83.2 fL (80.0-100.0); Mean Platelet Volume 6.5; Monocytes # (A) 0.6 k/uL (0-1.0); Monocytes % (A) 7 %; Neutrophils # (A) 6.1 k/uL (1.3-7.7); Neutrophils % (A) 72 %; Platelet Count 189 k/uL (150-450); RDW 16.1 % (11.5-15.5); WBC 8.4 k/uL (3.8-10.6)
[2018-06-19] MEDS ORDERED: diphenhydrAMINE 50 MG/ML 1 ML VIAL IVP ONE ×2 (07:00→08:34)
[2018-06-19] MEDS ORDERED: methylPREDNISolone SOD SUCCI 125 MG/2 ML VIAL IV ONE (07:00)
[2018-06-19 07:11] LABS: Glucose,Whole Blood 107 mg/dL (75-99)
[2018-06-19 07:19] LABS: Albumin 3.5 g/dL (3.5-5.0); Calcium 8.8 mg/dL (8.4-10.2); Potassium 5.2 mmol/L (3.5-5.1); Total Bilirubin 0.5 mg/dL (0.2-1.3)
[2018-06-19] MEDS ORDERED: fentaNYL (PF) 50 MCG/ML 2 ML AMP ONE (07:54)
[2018-06-19] MEDS ORDERED: LIDOCAINE 1% INJ 10MG/ML (20 ML MDV) ONE ×2 (07:54)
[2018-06-19] MEDS ORDERED: CLINDAMYCIN 600 MG in SODIUM CHLORIDE 0.9% IRRIGATIO 250 ML IRRIGATION ONE (08:00)
[2018-06-19] MEDS ORDERED: CLINDAMYCIN 900 MG in DEXTROSE 5% IN WATER 50 ML IVPB ONE ×2 (08:00)
[2018-06-19] MEDS ORDERED: SODIUM CHLORIDE 0.9% 250 ML IV ONE (08:20)
[2018-06-19] MEDS ORDERED: SODIUM CHLORIDE 0.9% 500 ML 500 ML IV ONE (08:20)
[2018-06-19] MEDS ORDERED: diphenhydrAMINE 50 MG/ML 1 ML VIAL ONE (08:33)
[2018-06-19] MEDS: fentaNYL (PF) 50 MCG/ML 2 ML AMP IV ONE ×2 (08:34→09:31)
[2018-06-19] MEDS ORDERED: IOPAMIDOL-250 50ML BTL IV ONE (08:38)
[2018-06-19 08:45] LABS: Partial Thromboplastin Time 24.8 sec (22.0-30.0); Prothrombin Time 10.4 sec (9.0-12.0)
[2018-06-19] MEDS ORDERED: LIDOCAINE 1% INJ 10MG/ML (20 ML MDV) SQ ONE ×2 (08:53→08:58)
[2018-06-19] MEDS ORDERED: HYDROmorphone 1 MG/ML 1 ML SYRINGE IVP ONE (09:00)
--- NOTE | 2018-06-19 10:10 | P.PCN ---
Date of Procedure: 06/19/18 Preoperative Diagnosis: Asystole, syncope Postoperative Diagnosis: The same Procedure(s) Performed: Single-chamber permanent pacemaker implantation, axillary venography Description of Procedure: HISTORY: This is a 88-year-old female with history of coronary artery disease including left main and also severe aortic stenosis being evaluated for possible TAVR. She is admitted now to the hospital with episodes of asystole and syn cope. Patient had a temporary pacemaker. She is advised to have permanent pacemaker implantation. Patient has severe back problem and having trouble staying on the bed. We decided to proceed with a single-chamber permanent pacemaker implantation. Patient currently having her own sinus rhythm with right bundle-branch block. CONSENT:I have discussed the risks, benefits and alternative therapies for the above-mentioned procedure and for both sedation/analgesia as well as necessary blood product administration, if indicated, as they pertain to this patient. The patient has indicated understanding and acceptance of the risks and procedures discussed. PROCEDURE: Patient was brought to the lab in a fasting state. Patient was prepped and draped in the usual fashion. Patient was given IV sedation with fentanyl and landed. The skin below the left clavicle was infiltrated with lidocaine. An incision was made parallel to deltopectoral groove was deepened until the pectoral fascia was exposed. A pocket was created by blunt dissection and cautery. Axillary venography was performed to delineate the course of the axillary vein. A single venous stick was performed into extrathoracic portion of the axillary vein and a single sheath was advanced over the guidewires and left in subclavian vein. Conscious Sedation: Versed []mg Fentanyl 75 g and 0.5 of Dilaudid Duration 65 minutes LEADS: VENTRICULAR: Is is manufactured by [employer]. Model number is 5076-52. Serial number is [id number]. The ventricular lead is maneuvered l with help of a straight and curved stylets into the left ventricle apical region. Satisfactory position was obtained and threshold measurements were made. THRESHOLDS: VENTRICLE:The minimum patient threshold was 0.5 at pulse width of 0.4. The impedance is 11:30. R-wave: 18. The leads and pulse generator remained in the pocket after it was washed with antibiotics. Pocket was closed in the usual fashion. The fascia was closed with 2-0 Prolene ,the subcutaneous tissue was closed with 3-0 Prolene and the skin was closed with 4-0 Prolene.The temporary pacemaker was removed under fluoroscopy the end of the procedure PROGRAMMING: MODE: VVI RATE: 50- 110 OUTPUT: Ventricle: 3.5 V FINAL IMPRESSION: #1. Successful implantation of single-chamber permanent pacemaker #2. Axillary venography #3. Removal of temporary pacemaker under fluoroscopy. COMPLICATIONS: None PLAN: A monitored on the telemetry unit. Prophylactic antibacterial be continued. Chest x-ray in the morning
--- NOTE | 2018-06-19 10:37 | P.PN ---
Progress Note - Text The patient is a 88-year-old female who was brought in 2 days previous from home with complete heart block and syncopal episodes. Patient immediately had a temporary pacemaker placed and today is to have a permanent pace maker placed. Vital signs reveal temperature 98.4 with a pulse of 77 respirations 22 and blood pressure 144/66 and she is 98% saturated. Overall she is alert and oriented. In no acute distress. Laboratory Sodium is 134 with a potassium of 5.2. BUN of 19 with a creatinine 0.83 given a GFR of 64. Blood sugar this morning was 111. Calcium 8.8. INR 1.0 with a PTT of 24.8 White count of 8.4 with a hemoglobin 11.7 and a platelet count of 189. Impressions and plans Patient for a permanent pacemaker placement today. Continue present medications as per cardiology. Occupational physical therapies have been consulted. Dr. Goldberg cloud automation tester for me over the weekend if any concerns or problems should arise.
[2018-06-19 10:41] LABS: Glucose,Whole Blood 164 mg/dL (75-99)
[2018-06-19] MEDS: ONDANSETRON 4 MG/2 ML VIAL IVP PRN ×2 (11:15→18:34)
[2018-06-19] MEDS: PANTOPRAZOLE 40 MG TABLET PO SCH (11:15)
[2018-06-19] MEDS: NITROGLYCERIN EXTENDED RELEASE 2.5 MG CAPSULE.ER PO SCH (11:47)
[2018-06-19] MEDS: LEVOTHYROXINE 88 MCG TAB PO SCH (12:04)
[2018-06-19] MEDS: MAGNESIUM OXIDE 400 MG TAB PO SCH (12:04)
[2018-06-19] MEDS: metFORMIN 500 MG TAB PO SCH ×2 (12:05→18:27)
[2018-06-19] MEDS: glipiZIDE 5 MG TAB PO SCH (12:05)
[2018-06-19] MEDS: HYDROCORTISONE 2.5% RECTAL CREAM 30 GM TUBE RECTAL SCH (12:06)
[2018-06-19 12:18] LABS: Glucose,Whole Blood 172 mg/dL (75-99)
[2018-06-19] MEDS: SERTRALINE 25 MG TAB PO SCH (12:43)
[2018-06-19] MEDS: DOCUSATE 100 MG CAP PO SCH ×2 (15:07→19:49)
[2018-06-19] MEDS: CHOLECALCIFEROL 1,000 UNIT TAB PO SCH (15:07)
[2018-06-19] MEDS: CLINDAMYCIN 900 MG in DEXTROSE 5% IN WATER 50 ML IVPB SCH ×4 (15:27→21:11)
[2018-06-19 17:38] LABS: Glucose,Whole Blood 176 mg/dL (75-99)
[2018-06-19] MEDS: ACARBOSE 25 MG TAB PO SCH (18:27)
[2018-06-19 19:39] LABS: Glucose,Whole Blood 221 mg/dL (75-99)
[2018-06-19] MEDS: ATORVASTATIN 20 MG TAB PO SCH (19:48)
[2018-06-19] MEDS: GABAPENTIN 100 MG CAP PO SCH (19:49)
[2018-06-19] MEDS: ASPIRIN 81 MG PO SCH (19:49)
[2018-06-19] MEDS: SIMETHICONE 80 MG CHEWABLE PO SCH (19:49)
[2018-06-19 23:54] LABS: Glucose,Whole Blood 185 mg/dL (75-99)
[2018-06-20] MEDS: CLINDAMYCIN 900 MG in DEXTROSE 5% IN WATER 50 ML IVPB SCH ×4 (02:28→12:30)
[2018-06-20] MEDS: SODIUM CHLORIDE 0.9% 1,000 ML IV SCH ×4 (03:41→19:36)
[2018-06-20 06:13] LABS: Glucose,Whole Blood 132 mg/dL (75-99)
[2018-06-20] MEDS: LEVOTHYROXINE 88 MCG TAB PO SCH (06:15)
[2018-06-20] MEDS: PANTOPRAZOLE 40 MG TABLET PO SCH (06:15)
[2018-06-20] MEDS: metFORMIN 500 MG TAB PO SCH ×2 (06:15→18:23)
[2018-06-20] MEDS: INSULIN ASPART (NovoLOG) 100 UNIT/ML VIAL SQ SCH ×2 (06:15→18:22)
[2018-06-20] MEDS: ONDANSETRON 4 MG/2 ML VIAL IVP PRN ×2 (06:20→12:30)
[2018-06-20 06:49] LABS: Anisocytosis Slight; Basophils % (A) 0 %; Eosinophils % (A) 0 %; HCT 32.5 % (34.0-46.0); HGB 10.6 gm/dL (11.4-16.0); Lymphocytes # (A) 1.3 k/uL (1.0-4.8); Lymphocytes % (A) 8 %; MCH 26.9 pg (25.0-35.0); MCHC 32.8 g/dL (31.0-37.0); Mean Platelet Volume 6.9; Monocytes # (A) 1.3 k/uL (0-1.0); Monocytes % (A) 7 %; Neutrophils # (A) 14.6 k/uL (1.3-7.7); Neutrophils % (A) 83 %; Platelet Count 233 k/uL (150-450); RBC 3.96 m/uL (3.80-5.40); RDW 16.2 % (11.5-15.5); WBC 17.5 k/uL (3.8-10.6)
[2018-06-20 07:02] LABS: Calcium 8.3 mg/dL (8.4-10.2)
[2018-06-20 07:03] LABS: Prothrombin Time 10.6 sec (9.0-12.0)
--- NOTE | 2018-06-20 08:01 | XR ---
EXAMINATION TYPE: XR chest 2V DATE OF EXAM: 06/20/2018 HISTORY: Lead placement check. REFERENCE: Previous study dated 06/17/2018. FINDINGS: A unipolar pacemaker is been inserted via a left subclavian approach. Its tip overlies the right ventricle. There is no evidence of pneumothorax. The heart is mildly enlarged. The lungs are clear. Pleural spaces are clear. Note is made of an azygo s lobe and fissure. IMPRESSION: SATISFACTORY PACEMAKER LEAD PLACEMENT.
[2018-06-20] MEDS: CHOLECALCIFEROL 1,000 UNIT TAB PO SCH (09:38)
[2018-06-20] MEDS: SERTRALINE 25 MG TAB PO SCH (09:38)
[2018-06-20] MEDS: glipiZIDE 5 MG TAB PO SCH (09:38)
[2018-06-20] MEDS: MAGNESIUM OXIDE 400 MG TAB PO SCH (09:38)
[2018-06-20] MEDS: NITROGLYCERIN EXTENDED RELEASE 2.5 MG CAPSULE.ER PO SCH (09:41)
[2018-06-20] MEDS: HYDROCORTISONE 2.5% RECTAL CREAM 30 GM TUBE RECTAL SCH (09:41)
--- NOTE | 2018-06-20 10:36 | P.PN ---
Subjective Progress Note Date: 06/20/18 Principal diagnosis: Complete heart block This is a pleasant 88-year-old female patient with a past medical history significant for severe aortic stenosis, severe coronary artery disease involving the left main, as well as multiple comorbid conditions, was admitted to the hospital with syncopal episode. She was found to be in and out complete heart block. She underwent yesterday a temporary pacemaker. In the past, the patient refused to have any treatment for the aortic stenosis. On follow-up with the patient today, June 202018, the patient overall is feeling better. She has been struggling was constipation. She underwent a permanent pacemaker implantation yesterday. The chest x-ray from today came in to be unremarkable with satisfactory lead placement. Objective - Vital Signs Vital signs: Vital Signs Temp 98.2 F 06/20/18 05:00 Pulse 59 L 06/20/18 05:00 Resp 20 06/20/18 05:00 BP 115/60 06/20/18 05:00 Pulse Ox 94 L 06/20/18 05:00 Intake & Output 06/19/18 06/20/18 06/20/18 18:59 06:59 18:59 Intake Total 741 1800 Output Total 435 603 Balance 306 1197 Weight 109.3 kg 105.5 kg Intake: IV 691 1100 Sodium Chloride 0.9% 1, 260 1100 000 ml @ 100 mls/hr IV . Q10H FRANK Rx#:[id number] Intake, IV Titration 50 100 Amount Clindamycin 900 mg In 50 100 Dextrose 5% in Water 50 ml @ 50 mls/hr IVPB Q6H FRANK Rx#:[id number] Oral 600 Output: Urine 435 600 Stool 3 Other: Voiding Method Indwelling Catheter Indwelling Catheter # Bowel Movements 4 - Constitutional General appearance: Present: no acute distress - Respiratory Respiratory: bilateral: CTA - Cardiovascular Rhythm: regular Heart sounds: normal: S1 Abnormal Heart Sounds: Present: systolic murmur - Labs CBC & Chem 7: 06/20/18 06:02 06/20/18 06:02 Labs: Abnormal Lab Results - Last 24 Hours (Table) 06/19/18 06/19/18 06/19/18 Range/Units 10:38 12:15 17:24 WBC (3.8-10.6) k/uL Hgb (11.4-16.0) gm/dL Hct (34.0-46.0) % RDW (11.5-15.5) % Neutrophils # (1.3-7.7) k/uL Monocytes # (0-1.0) k/uL Sodium (137-145) mmol/L BUN (7-17) mg/dL Glucose (74-99) mg/dL POC Glucose (mg/dL) 164 H 172 H 176 H (75-99) mg/dL Calcium (8.4-10.2) mg/dL 06/19/18 06/19/18 06/20/18 Range/Units 19:37 23:34 05:46 WBC (3.8-10.6) k/uL Hgb (11.4-16.0) gm/dL Hct (34.0-46.0) % RDW (11.5-15.5) % Neutrophils # (1.3-7.7) k/uL Monocytes # (0-1.0) k/uL Sodium (137-145) mmol/L BUN (7-17) mg/dL Glucose (74-99) mg/dL POC Glucose (mg/dL) 221 H 185 H 132 H (75-99) mg/dL Calcium (8.4-10.2) mg/dL 06/20/18 06/20/18 Range/Units 06:02 06:02 WBC 17.5 H (3.8-10.6) k/uL Hgb 10.6 L (11.4-16.0) gm/dL Hct 32.5 L (34.0-46.0) % RDW 16.2 H (11.5-15.5) % Neutrophils # 14.6 H (1.3-7.7) k/uL Monocytes # 1.3 H (0-1.0) k/uL Sodium 133 L (137-145) mmol/L BUN 24 H (7-17) mg/dL Glucose 126 H (74-99) mg/dL POC Glucose (mg/dL) (75-99) mg/dL Calcium 8.3 L (8.4-10.2) mg/dL Microbiology - Last 24 Hours (Table) 06/17/18 15:00 Urine Culture - Final Urine,Voided Enterococcus faecalis Assessment and Plan Assessment: Assessment #1 complete heart block and status post permanent pacemaker #2 intermittent episodes of syncope secondary to complete heart block #3 known severe aortic stenosis, patient refused any further intervention on the aortic valve #4 known severe coronary artery disease involving the left main coronary artery #5 acute on chronic renal failure Plan #1 continue the current medical regimen #2 follow-up with the patient
--- NOTE | 2018-06-20 11:01 | P.PN ---
Progress Note - Text The patient is a 88-year-old female who presented to 3 days previous with the episodes of complete heart block associated with syncope. The patient has undergone immediate temporary pacemaker placed and yesterday underwent permanent pacemaker placement. Patient is alert and oriented this morning. Denies any chest pain or shortness of breath. Mostly complaining of abdominal discomfort and nausea. Apparently she had some constipation which cleared earlier today. She still having some cramps. Coronary to family member she has had some anxiety also. Vital signs show a temperature 98.2 with a pulse of 59 respiratory rate of 20 and blood pressure 115/60 and she is 94% saturated on 2 L. Lung and heart exam is clear and regular. Abdomen is obese with positive bowel sounds. Mild lower quadrant tenderness but no rebound or guarding. Patient does have some [id number] distal edema in the extremities. No neurological deficits. Laboratory White count is elevated at 17.5 with a hemoglobin 10.6 and a platelet count of 233. INR was 1.0. Sodium is 133 with potassium of 5.0. BUN of 24 with creatinine 0.85 giving her a GFR of 63. Blood sugar was 126. Chest x-ray this morning showed good lead placement for her pacemaker. Impressions and plans The patient is now status post pacemaker placement. Hopefully we can increase her activity although she does have comorbidities with under her underlying obesity and degenerative joint disease along with aortic stenosis left main coronary artery disease which she has declined surgical intervention in the past due to risks involved. Discussed with patient and spouse and daughter in the room this morning. Further recommendations pending clinical improvement.
[2018-06-20 11:50] LABS: Glucose,Whole Blood 97 mg/dL (75-99)
[2018-06-20] MEDS: ALPRAZolam 0.25 MG TAB PO SCH ×2 (12:30→22:55)
[2018-06-20 17:21] LABS: Glucose,Whole Blood 73 mg/dL (75-99)
[2018-06-20] MEDS: DOCUSATE 100 MG CAP PO SCH ×2 (18:22→19:48)
[2018-06-20] MEDS: ACARBOSE 25 MG TAB PO SCH (18:23)
[2018-06-20] MEDS ORDERED: MENTHOL-ZINC OXIDE OINT 113 GM TUBE TOPICAL PRN (18:44)
[2018-06-20] MEDS: SIMETHICONE 80 MG CHEWABLE PO SCH (19:47)
[2018-06-20] MEDS: ATORVASTATIN 20 MG TAB PO SCH (19:47)
[2018-06-20] MEDS: GABAPENTIN 100 MG CAP PO SCH (19:47)
[2018-06-20] MEDS: ASPIRIN 81 MG PO SCH (19:47)
[2018-06-20 20:08] LABS: Glucose,Whole Blood 134 mg/dL (75-99)
[2018-06-20] MEDS: ACETAMINOPHEN TAB 325 MG TAB PO PRN (20:51)
[2018-06-20] MEDS ORDERED: ALPRAZolam 0.25 MG TAB PO SCH (21:00)
[2018-06-20 22:58] LABS: Glucose,Whole Blood 103 mg/dL (75-99)
[2018-06-21] MEDS: SODIUM CHLORIDE 0.9% 1,000 ML IV SCH ×2 (00:54→11:53)
[2018-06-21] MEDS: INSULIN ASPART (NovoLOG) 100 UNIT/ML VIAL SQ SCH ×5 (00:54→23:05)
[2018-06-21 06:42] LABS: Glucose,Whole Blood 109 mg/dL (75-99)
[2018-06-21] MEDS: metFORMIN 500 MG TAB PO SCH ×2 (06:44→17:19)
[2018-06-21] MEDS: LEVOTHYROXINE 88 MCG TAB PO SCH (06:44)
[2018-06-21] MEDS: PANTOPRAZOLE 40 MG TABLET PO SCH ×2 (06:44→20:52)
[2018-06-21] MEDS ORDERED: VANCOMYCIN IV PER PHARMACY 1 EACH MISC MISCELLANE PRN (08:28)
--- NOTE | 2018-06-21 08:30 | P.PN ---
Progress Note - Text The patient is an 88-year-old female who 4 days ago presented to the emergency room with complete heart block intermittently and syncopal episodes at home. Patient had a permanent pacemaker placed 2 days ago. This morning she is sitting at the side of the bed. She states she feels better. No complaints of chest pain or shortness of breath. is present. Patient does relate some urinary incontinence. Vital signs show a temperature 98.2 with a pulse of 82 and respirations 18. Blood pressure 135/66 and she is 95% saturated Lung and heart examination is clear. Abdomen nontender. She does have some grade 1 edema No neurological deficits although she has a upper extremity tremor more so on the right. Blood sugars 109 this morning. Impressions and plans Patient has grown out an enterococcus on her urinalysis. She is ALLERGIC to penicillin. Vancomycin to be added per pharmacy. Physical therapy to evaluate today. Continue present cardiac medications pending cardiac review.
[2018-06-21 08:47] LABS: Anisocytosis Slight; Basophils % (A) 0 %; Eosinophils # (A) 0.1 k/uL (0-0.7); Eosinophils % (A) 1 %; HCT 30.4 % (34.0-46.0); HGB 9.7 gm/dL (11.4-16.0); Lymphocytes # (A) 1.1 k/uL (1.0-4.8); Lymphocytes % (A) 11 %; MCH 26.7 pg (25.0-35.0); MCHC 31.9 g/dL (31.0-37.0); MCV 83.7 fL (80.0-100.0); Monocytes # (A) 0.6 k/uL (0-1.0); Monocytes % (A) 6 %; Neutrophils # (A) 7.8 k/uL (1.3-7.7); Neutrophils % (A) 81 %; Platelet Count 183 k/uL (150-450); RBC 3.62 m/uL (3.80-5.40); RDW 16.4 % (11.5-15.5); WBC 9.7 k/uL (3.8-10.6)
[2018-06-21] MEDS: glipiZIDE 5 MG TAB PO SCH (09:00)
[2018-06-21] MEDS: CHOLECALCIFEROL 1,000 UNIT TAB PO SCH (09:00)
[2018-06-21] MEDS: SERTRALINE 25 MG TAB PO SCH (09:00)
[2018-06-21] MEDS: MAGNESIUM OXIDE 400 MG TAB PO SCH (09:00)
[2018-06-21] MEDS: NITROGLYCERIN EXTENDED RELEASE 2.5 MG CAPSULE.ER PO SCH ×2 (09:00→22:23)
[2018-06-21 09:01] LABS: Calcium 8.3 mg/dL (8.4-10.2); Potassium 4.5 mmol/L (3.5-5.1)
[2018-06-21] MEDS: DOCUSATE 100 MG CAP PO SCH ×2 (09:01→20:53)
[2018-06-21] MEDS: ALPRAZolam 0.25 MG TAB PO SCH ×3 (09:01→20:56)
[2018-06-21] MEDS: VANCOMYCIN 1,750 MG in SODIUM CHLORIDE 0.9% 500 ML 500 ML IVPB SCH (09:41)
[2018-06-21] MEDS: ACETAMINOPHEN TAB 325 MG TAB PO PRN ×2 (11:47→18:25)
[2018-06-21] MEDS: HYDROCORTISONE 2.5% RECTAL CREAM 30 GM TUBE RECTAL SCH (11:51)
--- NOTE | 2018-06-21 12:17 | P.PN ---
Subjective Progress Note Date: 06/21/18 This is an 88 stroke female who follows regularly with Dr. Brooks in the office. She has a known history of severe aortic stenosis, she also underwent a cardiac catheterization which revealed severe disease involving the distal left main with a complex plaque involving the takeoff of the circumflex and LAD. History of diabetes, hypertension, hyperlipidemia. Patient presents to the hospital on this occasion with a syncopal episode and altered level of consciousness. On EMS arrival the patient was found to be bradycardic with long periods of sinus pauses and asystole. These episodes didn't correspond with her altered level of consciousness as well as syncope or near syncope. Most of the history was obtained from the daughter and who are at bedside. In the emergency room, patient did go into asystole, external pacemaker was applied. Chest x-ray showed expiratory rotated exam. Difficult to exclude pulmonary venous hypertension and interstitial edema, possible left lower lobe pneumonia or atelectasis. Initial EKG prior to the asystole showed a normal sinus rhythm with a right bundle branch block pattern and nonspecific ST-T wave changes. Blood pressure at present 148/80 with a heart rate 50, 90% on room air. White blood cell count 11.1, hemoglobin 12.2, platelet count 243. Sodium 133, potassium 4.9, BUN 21 and creatinine 0.7. Magnesium on admission 1.5. Troponin 0.012. 06/21/2018 Patient underwent implantation of a permanent pacemaker, device was interrogated and is functioning appropriately. Chest x-ray did not reveal any evidence of a pneumothorax. She was seen and examined this morning, has been up ambulating with physical therapy or [facility]sey today. Overall feels well. She does state that she had some mild nausea earlier. No dizziness or lightheadedness. Blood pressure 146/60 with a heart rate in the 80s, 98% on room air. Objective - Vital Signs Vital signs: Vital Signs Temp 97.5 F L 06/21/18 11:58 Pulse 82 06/21/18 11:58 Resp 18 06/21/18 11:58 BP 147/65 06/21/18 11:58 Pulse Ox 98 06/21/18 11:58 Intake & Output 06/20/18 06/21/18 06/21/18 18:59 06:59 18:59 Intake Total 1700 240 Output Total 3 0 Balance -3 1700 240 Weight 107.9 kg Intake: IV 1100 Sodium Chloride 0.9% 1, 1100 000 ml @ 100 mls/hr IV . Q10H [facility] Rx#:[id number] Oral 600 240 Output: Urine 2 Stool 1 0 Other: Voiding Method Indwelling Catheter Diaper Diaper Incontinent Incontinent # Voids 1 # Bowel Movements 1 - Exam PHYSICAL EXAMINATION: GENERAL: 88-year-old female, in no acute distress at the time of my examination HEENT: Head is atraumatic, normocephalic. Pupils equal, round. Sclera anicteric. Conjunctiva are clear. Mucous membranes of the mouth are moist. Neck is supple. There is no elevated jugular venous pressure. No carotid bruit is heard. HEART EXAMINATION: S1 and S2 1 systolic ejection murmur is heard CHEST EXAMINATION: Lungs are clear to auscultation and precussion. No chest wall tenderness is noted on palpation or with deep breathing. It of pacemaker implantation dressing is dry and intact ABDOMEN: Soft, obese, nontender. Bowel sounds are heard. No organomegaly noted. EXTREMITIES: 2+ peripheral pulses with no evidence of peripheral edema and no calf tenderness noted. NEUROLOGIC alert and oriented 3 - Labs CBC & Chem 7: 06/21/18 07:55 06/21/18 07:55 Labs: Abnormal Lab Results - Last 24 Hours (Table) 06/20/18 06/20/18 06/20/18 Range/Units 17:02 20:07 22:57 RBC (3.80-5.40) m/uL Hgb (11.4-16.0) gm/dL Hct (34.0-46.0) % RDW (11.5-15.5) % Neutrophils # (1.3-7.7) k/uL Sodium (137-145) mmol/L Carbon Dioxide (22-30) mmol/L Glucose (74-99) mg/dL POC Glucose (mg/dL) 73 L 134 H 103 H (75-99) mg/dL Calcium (8.4-10.2) mg/dL 06/21/18 06/21/18 06/21/18 Range/Units 06:41 07:55 07:55 RBC 3.62 L (3.80-5.40) m/uL Hgb 9.7 L (11.4-16.0) gm/dL Hct 30.4 L (34.0-46.0) % RDW 16.4 H (11.5-15.5) % Neutrophils # 7.8 H (1.3-7.7) k/uL Sodium 131 L (137-145) mmol/L Carbon Dioxide 21 L (22-30) mmol/L Glucose 157 H (74-99) mg/dL POC Glucose (mg/dL) 109 H (75-99) mg/dL Calcium 8.3 L (8.4-10.2) mg/dL Assessment and Plan Plan: Assessment and plan #1 syncope, evidence of asystole on EKG. EVELINE post implantation of a permanent pacemaker. #2 severe aortic stenosis #3 coronary artery disease, patient's cardiac catheterization revealed severe disease involving the distal left main with a complex plaque involving the takeoff of the circumflex and LAD #3 diabetes #4 hypertension #5 hyperlipidemia Plan From cardiology's perspective, we'll recommend to continue the patient on her current medications. DNP note has been reviewed, I agree with a documented findings and plan of care. Patient was seen and examined.
[2018-06-21 12:40] LABS: Glucose,Whole Blood 99 mg/dL (75-99)
[2018-06-21] MEDS: NITROGLYCERIN SL TABS 0.4 MG TAB SUBLINGUAL PRN ×2 (15:06→15:13)
[2018-06-21 17:07] LABS: Glucose,Whole Blood 102 mg/dL (75-99)
[2018-06-21] MEDS: ACARBOSE 25 MG TAB PO SCH (17:19)
[2018-06-21 20:24] LABS: Glucose,Whole Blood 116 mg/dL (75-99)
[2018-06-21] MEDS: ASPIRIN 81 MG PO SCH (20:52)
[2018-06-21] MEDS: ATORVASTATIN 20 MG TAB PO SCH (20:52)
[2018-06-21] MEDS: GABAPENTIN 100 MG CAP PO SCH (20:52)
[2018-06-21] MEDS: SIMETHICONE 80 MG CHEWABLE PO SCH (22:25)
[2018-06-21 22:58] LABS: Glucose,Whole Blood 96 mg/dL (75-99)
[2018-06-22 06:01] LABS: Glucose,Whole Blood 102 mg/dL (75-99)
[2018-06-22] MEDS: INSULIN ASPART (NovoLOG) 100 UNIT/ML VIAL SQ SCH ×4 (06:07→23:40)
[2018-06-22] MEDS: LEVOTHYROXINE 88 MCG TAB PO SCH (06:32)
[2018-06-22] MEDS: metFORMIN 500 MG TAB PO SCH ×2 (06:33→17:11)
[2018-06-22] MEDS: PANTOPRAZOLE 40 MG TABLET PO SCH ×2 (06:33→17:12)
[2018-06-22 07:34] LABS: Anisocytosis Slight; Basophils % (A) 0 %; Eosinophils # (A) 0.2 k/uL (0-0.7); Eosinophils % (A) 2 %; HGB 9.9 gm/dL (11.4-16.0); Lymphocytes # (A) 1.2 k/uL (1.0-4.8); Lymphocytes % (A) 15 %; MCH 27.3 pg (25.0-35.0); MCHC 32.9 g/dL (31.0-37.0); Mean Platelet Volume 7.6; Monocytes # (A) 0.5 k/uL (0-1.0); Monocytes % (A) 6 %; Neutrophils # (A) 6.1 k/uL (1.3-7.7); Neutrophils % (A) 75 %; Platelet Count 186 k/uL (150-450); RBC 3.61 m/uL (3.80-5.40); RDW 16.6 % (11.5-15.5); WBC 8.2 k/uL (3.8-10.6)
[2018-06-22 07:37] LABS: Calcium 8.5 mg/dL (8.4-10.2); Potassium 4.4 mmol/L (3.5-5.1)
--- NOTE | 2018-06-22 07:49 | P.PN ---
Progress Note - Text The patient is an 88-year-old female who presented to the emergency room with complete heart block and syncopal episodes at home. Patient has received a permanent pacemaker 3 days previous. Yesterday afternoon she developed some anterior chest pain after eating. She did have some soreness to percussion in the area. Patient was given nitroglycerin. Her Protonix was increased. She was given Tylenol for pain. Apparently EKG did not show any changes. Long- acting nitroglycerin was increased in dosage. This morning she is sitting up in her chair in her room. States she feels better. States she slept well. Temperature 98.3 with a pulse of 75 and respirations 19. Blood pressure 130/69 and she is 95% saturated on 2 L nasal cannula. Lung and heart exam are generally clear Heart tones were regular. Abdomen nontender. Grade 1 edema present. No neurological deficits except for a tension tremor. Laboratory White count 8.2 with a hemoglobin 9.9 and platelet count 186. Sodium 136 with a potassium 4.4. BUN of 11 with a creatinine of 0.82 given her GFR of 65. Blood sugar 102. Impressions and plans Patient presented with complete heart block and syncope and now with permanent pacemaker placed. She does have underlying coronary artery disease and aortic stenosis. Has declined surgery because of the risk involved at her age. We will attempt with physical therapy today to see if she can ambulate. Social service and discharge planning. She does have some postsurgical blood loss anemia with hemoglobin 9.9. Ferrous sulfate lunches been initiated. Presently we'll continue vancomycin for her resistant enterococcus urinary tract infection.
[2018-06-22] MEDS: DOPamine DRIP 800 MG in DEXTROSE/WATER 1 250ML.BAG IV SCH (08:01)
--- NOTE | 2018-06-22 08:06 | CDI ---
Documentation Clarification Form Date: 06/22/2018 7:55:54 AM From: Nelsy Esquivel RN CCDS Admit Date: 06/17/2018 1:13:00 PM Patient Name: Lea Zhou I Visit Number: [id number] Discharge Date: ATTENTION: The Clinical Documentation Specialists (CDI) and [facility] Coding Staff appreciate your assistance in clarifying documentation. Please respond to the clarification below the line at the bottom and electronically sign. The CDI & [facility] Coding staff will review the response and follow-up if needed. Please note: Queries are made part of the Legal Health Record. If you have any questions, please contact the author of this message via ITS. Dr. David Guerra The possible UTI was documented in the H & P , but is not consistently noted in subsequent documentation. History/Risk Factors: 88 year old female presents to the ED with complete heart block. Clinical Indicators: Urinary incontinence. Urine Culture Enterococcus faecalis Treatment: Vancomycin ivpb Please clarify if the above diagnosis was: * Present/active and treated this admission * Ruled out * Other, please specify * Clinically unable to determine (Last Revision: November 2017-New) positive cystitis POA and treated on this admission. RRD MTDD
[2018-06-22] MEDS: NITROGLYCERIN EXTENDED RELEASE 2.5 MG CAPSULE.ER PO SCH ×3 (08:23→21:37)
[2018-06-22] MEDS: ALPRAZolam 0.25 MG TAB PO SCH ×2 (08:23→20:29)
[2018-06-22] MEDS: SERTRALINE 25 MG TAB PO SCH (08:23)
[2018-06-22] MEDS: CHOLECALCIFEROL 1,000 UNIT TAB PO SCH (08:23)
[2018-06-22] MEDS: MAGNESIUM OXIDE 400 MG TAB PO SCH (08:23)
[2018-06-22] MEDS: VANCOMYCIN 1,750 MG in SODIUM CHLORIDE 0.9% 500 ML 500 ML IVPB SCH (08:24)
[2018-06-22] MEDS: glipiZIDE 5 MG TAB PO SCH (08:24)
[2018-06-22] MEDS: DOCUSATE 100 MG CAP PO SCH ×2 (08:24→20:29)
[2018-06-22] MEDS: ACETAMINOPHEN TAB 325 MG TAB PO PRN (08:25)
[2018-06-22] MEDS: HYDROCORTISONE 2.5% RECTAL CREAM 30 GM TUBE RECTAL SCH (08:30)
[2018-06-22 11:40] LABS: Glucose,Whole Blood 91 mg/dL (75-99)
[2018-06-22] MEDS: FERROUS SULFATE 325 MG TAB PO SCH (12:09)
--- NOTE | 2018-06-22 12:35 | P.PN ---
Subjective Progress Note Date: 06/22/18 This is an 88 stroke female who follows regularly with Dr. Brooks in the office. She has a known history of severe aortic stenosis, she also underwent a cardiac catheterization which revealed severe disease involving the distal left main with a complex plaque involving the takeoff of the circumflex and LAD. History of diabetes, hypertension, hyperlipidemia. Patient presents to the hospital on this occasion with a syncopal episode and altered level of consciousness. On EMS arrival the patient was found to be bradycardic with long periods of sinus pauses and asystole. These episodes didn't correspond with her altered level of consciousness as well as syncope or near syncope. Most of the history was obtained from the daughter and who are at bedside. In the emergency room, patient did go into asystole, external pacemaker was applied. Chest x-ray showed expiratory rotated exam. Difficult to exclude pulmonary venous hypertension and interstitial edema, possible left lower lobe pneumonia or atelectasis. Initial EKG prior to the asystole showed a normal sinus rhythm with a right bundle branch block pattern and nonspecific ST-T wave changes. Blood pressure at present 148/80 with a heart rate 50, 90% on room air. White blood cell count 11.1, hemoglobin 12.2, platelet count 243. Sodium 133, potassium 4.9, BUN 21 and creatinine 0.7. Magnesium on admission 1.5. Troponin 0.012. 06/21/2018 Patient underwent implantation of a permanent pacemaker, device was interrogated and is functioning appropriately. Chest x-ray did not reveal any evidence of a pneumothorax. She was seen and examined this morning, has been up ambulating with physical therapy or [facility]sey today. Overall feels well. She does state that she had some mild nausea earlier. No dizziness or lightheadedness. Blood pressure 146/60 with a heart rate in the 80s, 98% on room air. 06/22/2018 Patient seen and examined this morning, blood pressure 144/60 with a heart rate in the 70s, 99% on room air. Arrangements are being made for discharge. We'll make her a follow-up appointment in the office and with the device clinic. Objective - Vital Signs Vital signs: Vital Signs Temp 97.5 F L 06/22/18 12:00 Pulse 72 06/22/18 12:00 Resp 20 06/22/18 12:00 BP 144/62 06/22/18 12:00 Pulse Ox 99 06/22/18 12:00 Intake & Output 06/21/18 06/22/18 06/22/18 18:59 06:59 18:59 Intake Total 360 1450 120 Output Total 0 150 Balance 360 1300 120 Weight 107.8 kg Intake: Intake, IV Titration 550 Amount Sodium Chloride 0.9% 1, 550 000 ml @ 50 mls/hr IV . Q20H [facility] Rx#:[id number] Oral 360 900 120 Output: Urine 150 Stool 0 Other: Voiding Method Diaper Diaper Diaper Incontinent Incontinent Incontinent # Voids 3 1 # Bowel Movements 1 - Exam PHYSICAL EXAMINATION: GENERAL: 88-year-old female, in no acute distress at the time of my examination HEENT: Head is atraumatic, normocephalic. Pupils equal, round. Sclera anicteric. Conjunctiva are clear. Mucous membranes of the mouth are moist. Neck is supple. There is no elevated jugular venous pressure. No carotid brui t is heard. HEART EXAMINATION: S1 and S2 1 systolic ejection murmur is heard CHEST EXAMINATION: Lungs are clear to auscultation and precussion. No chest wall tenderness is noted on palpation or with deep breathing. It of pacemaker implantation dressing is dry and intact ABDOMEN: Soft, obese, nontender. Bowel sounds are heard. No organomegaly noted. EXTREMITIES: 2+ peripheral pulses with no evidence of peripheral edema and no calf tenderness noted. NEUROLOGIC alert and oriented 3 - Labs CBC & Chem 7: 06/22/18 06:00 06/22/18 06:00 Labs: Abnormal Lab Results - Last 24 Hours (Table) 06/21/18 06/21/18 06/22/18 Range/Units 17:05 20:22 05:59 RBC (3.80-5.40) m/uL Hgb (11.4-16.0) gm/dL Hct (34.0-46.0) % RDW (11.5-15.5) % Sodium (137-145) mmol/L POC Glucose (mg/dL) 102 H 116 H 102 H (75-99) mg/dL 06/22/18 06/22/18 Range/Units 06:00 06:00 RBC 3.61 L (3.80-5.40) m/uL Hgb 9.9 L (11.4-16.0) gm/dL Hct 30.0 L (34.0-46.0) % RDW 16.6 H (11.5-15.5) % Sodium 136 L (137-145) mmol/L POC Glucose (mg/dL) (75-99) mg/dL Assessment and Plan Plan: Assessment and plan #1 syncope, evidence of asystole on EKG. EVELINE post implantation of a permanent pacemaker. #2 severe aortic stenosis #3 coronary artery disease, patient's cardiac catheterization revealed severe disease involving the distal left main with a complex plaque involving the takeoff of the circumflex and LAD #3 diabetes #4 hypertension #5 hyperlipidemia Plan From cardiology's perspective, we'll recommend to continue the patient on her current medications. She may be able to be discharged once cleared by primary. We'll make her a follow-up appointment with Dr. Brooks in the device clinic in the office. DNP note has been reviewed, I agree with a documented findings and plan of care. Patient was seen and examined.
[2018-06-22 16:52] LABS: Glucose,Whole Blood 78 mg/dL (75-99)
[2018-06-22] MEDS: ACARBOSE 25 MG TAB PO SCH (17:11)
[2018-06-22] MEDS: SODIUM CHLORIDE 0.9% 1,000 ML IV SCH (17:12)
[2018-06-22] MEDS: ATORVASTATIN 20 MG TAB PO SCH (20:29)
[2018-06-22] MEDS: GABAPENTIN 100 MG CAP PO SCH (20:29)
[2018-06-22] MEDS: ASPIRIN 81 MG PO SCH (20:29)
[2018-06-22] MEDS: SIMETHICONE 80 MG CHEWABLE PO SCH (20:35)
[2018-06-22 23:41] LABS: Glucose,Whole Blood 105 mg/dL (75-99)
[2018-06-23] MEDS: traMADol 50 MG TAB PO PRN (05:24)
[2018-06-23] MEDS: LEVOTHYROXINE 88 MCG TAB PO SCH (05:24)
[2018-06-23 06:51] LABS: Glucose,Whole Blood 126 mg/dL (75-99)
[2018-06-23] MEDS: INSULIN ASPART (NovoLOG) 100 UNIT/ML VIAL SQ SCH ×3 (06:53→16:20)
[2018-06-23] MEDS: metFORMIN 500 MG TAB PO SCH ×2 (06:59→17:15)
[2018-06-23] MEDS: PANTOPRAZOLE 40 MG TABLET PO SCH ×2 (07:00→17:15)
[2018-06-23 07:21] LABS: Calcium 8.9 mg/dL (8.4-10.2); Potassium 4.5 mmol/L (3.5-5.1)
--- NOTE | 2018-06-23 07:50 | P.PN ---
Progress Note - Text The patient is a 88-year-old female who resented to the emergency room with syncopal episodes at home and complete heart block. Patient has had a permanent pacemaker placed. She is sitting up in her chair eating breakfast. Denies chest pain or shortness of breath. No nausea or vomiting. Vital signs show a temperature 90.8 with a pulse of 76 and respirations 16. Blood pressure 143/66 and she is 99% saturated on room air. Lung and heart exam was clear. Abdomen nontender. No unusual edema. Laboratory Sodium is 135 with a potassium 4.5. GFR 69 and blood sugar 105 this morning. Yesterday her Precose and metformin were held in the evening. Impressions and plans Patient overall is slowly improving. Review of physical therapy notes are recommending subacute rehab. Discussed with patient and she is somewhat hesitant and is wondering whether she can return home with home physical therapy. 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 In his elderly state and a he can handle her at her present condition. Apparently she is getting up to the bathroom with assistance at this time. Possible discharge soon but we'll await further recommendations from physical therapy and discharge planning. Likely can DC her antibiotics upon discharge so patient would not need discharge IV antibiotics.
[2018-06-23] MEDS: MAGNESIUM OXIDE 400 MG TAB PO SCH (09:02)
[2018-06-23] MEDS: FERROUS SULFATE 325 MG TAB PO SCH (09:02)
[2018-06-23] MEDS: NITROGLYCERIN EXTENDED RELEASE 2.5 MG CAPSULE.ER PO SCH ×3 (09:02→21:48)
[2018-06-23] MEDS: SERTRALINE 25 MG TAB PO SCH (09:03)
[2018-06-23] MEDS: VANCOMYCIN 1,750 MG in SODIUM CHLORIDE 0.9% 500 ML 500 ML IVPB SCH (09:03)
[2018-06-23] MEDS: glipiZIDE 5 MG TAB PO SCH (09:03)
[2018-06-23] MEDS: CHOLECALCIFEROL 1,000 UNIT TAB PO SCH (09:03)
[2018-06-23] MEDS: DOCUSATE 100 MG CAP PO SCH ×2 (09:03→19:51)
[2018-06-23] MEDS: ALPRAZolam 0.25 MG TAB PO SCH ×2 (09:03→20:03)
[2018-06-23] MEDS: ACETAMINOPHEN TAB 325 MG TAB PO PRN ×2 (09:05→21:50)
[2018-06-23 11:30] LABS: Glucose,Whole Blood 113 mg/dL (75-99)
[2018-06-23] MEDS: SODIUM CHLORIDE 0.9% 1,000 ML IV SCH (11:33)
--- NOTE | 2018-06-23 13:02 | P.PN ---
Subjective Progress Note Date: 06/23/18 This is an 88 stroke female who follows regularly with Dr. Brooks in the office. She has a known history of severe aortic stenosis, she also underwent a cardiac catheterization which revealed severe disease involving the distal left main with a complex plaque involving the takeoff of the circumflex and LAD. History of diabetes, hypertension, hyperlipidemia. Patient presents to the hospital on this occasion with a syncopal episode and altered level of consciousness. On EMS arrival the patient was found to be bradycardic with long periods of sinus pauses and asystole. These episodes didn't correspond with her altered level of consciousness as well as syncope or near syncope. Most of the history was obtained from the daughter and who are at bedside. In the emergency room, patient did go into asystole, external pacemaker was applied. Chest x-ray showed expiratory rotated exam. Difficult to exclude pulmonary venous hypertension and interstitial edema, possible left lower lobe pneumonia or atelectasis. Initial EKG prior to the asystole showed a normal sinus rhythm with a right bundle branch block pattern and nonspecific ST-T wave changes. Blood pressure at present 148/80 with a heart rate 50, 90% on room air. White blood cell count 11.1, hemoglobin 12.2, platelet count 243. Sodium 133, potassium 4.9, BUN 21 and creatinine 0.7. Magnesium on admission 1.5. Troponin 0.012. 06/21/2018 Patient underwent implantation of a permanent pacemaker, device was interrogated and is functioning appropriately. Chest x-ray did not reveal any evidence of a pneumothorax. She was seen and examined this morning, has been up ambulating with physical therapy or [facility] today. Overall feels well. She does state that she had some mild nausea earlier. No dizziness or lightheadedness. Blood pressure 146/60 with a heart rate in the 80s, 98% on room air. 06/22/2018 Patient seen and examined this morning, blood pressure 144/60 with a heart rate in the 70s, 99% on room air. Arrangements are being made for discharge. We'll make her a follow-up appointment in the office and with the device clinic. 06/23/2018 Patient seen and examined this morning, up ambulating with physical therapy and doing quite well. Anticipating discharge home soon Objective - Vital Signs Vital signs: Vital Signs Temp 97.5 F L 06/23/18 11:37 Pulse 64 06/23/18 11:37 Resp 18 06/23/18 11:37 BP 161/68 06/23/18 11:37 Pulse Ox 97 06/23/18 11:37 Intake & Output 06/22/18 06/23/18 06/23/18 18:59 06:59 18:59 Intake Total 360 120 Output Total 0 Balance 360 0 120 Weight 107.8 kg 107.4 kg Intake: Oral 360 120 Output: Stool 0 Other: Voiding Method Diaper Diaper Toilet Incontinent Incontinent Diaper Incontinent # Voids 1 2 1 # Bowel Movements 1 1 0 - Exam PHYSICAL EXAMINATION: GENERAL: 88-year-old female, in no acute distress at the time of my examination HEENT: Head is atraumatic, normocephalic. Pupils equal, round. Sclera anicteric. Conjunctiva are clear. Mucous membranes of the mouth are moist. Neck is supple. There is no elevated jugular venous pressure. No carotid bruit is heard. HEART EXAMINATION: S1 and S2 1 systolic ejection murmur is heard CHEST EXAMINATION: Lungs are clear to auscultation and precussion. No chest wall tenderness is noted on palpation or with deep breathing. It of pacemaker implantation dressing is dry and intact ABDOMEN: Soft, obese, nontender. Bowel sounds are heard. No organomegaly noted. EXTREMITIES: 2+ peripheral pulses with no evidence of peripheral edema and no calf tenderness noted. NEUROLOGIC alert and oriented 3 - Labs CBC & Chem 7: 06/22/18 06:00 06/23/18 06:27 Labs: Abnormal Lab Results - Last 24 Hours (Table) 06/22/18 06/23/18 06/23/18 Range/Units 23:39 06:27 06:50 Sodium 135 L (137-145) mmol/L Glucose 104 H (74-99) mg/dL POC Glucose (mg/dL) 105 H 126 H (75-99) mg/dL 06/23/18 Range/Units 11:28 Sodium (137-145) mmol/L Glucose (74-99) mg/dL POC Glucose (mg/dL) 113 H (75-99) mg/dL Assessment and Plan Plan: Assessment and plan #1 syncope, evidence of asystole on EKG. EVELINE post implantation of a permanent pacemaker. #2 severe aortic stenosis #3 coronary artery disease, patient's cardiac catheterization revealed severe disease involving the distal left main with a complex plaque involving the takeoff of the circumflex and LAD #3 diabetes #4 hypertension #5 hyperlipidemia Plan From cardiology's perspective, we'll recommend to continue the patient on her current medications. She may be able to be discharged once cleared by primary. We'll make her a follow-up appointment with Dr. Brooks in the device clinic in the office. We will follow her along with you now on an as-needed basis only, please don't hesitate to call with any questions. DNP note has been reviewed, I agree with a documented findings and plan of care. Patient was seen and examined.
[2018-06-23 16:16] LABS: Glucose,Whole Blood 119 mg/dL (75-99)
[2018-06-23] MEDS: ACARBOSE 25 MG TAB PO SCH (17:15)
[2018-06-23] MEDS: HYDROCORTISONE 2.5% RECTAL CREAM 30 GM TUBE RECTAL SCH (17:17)
[2018-06-23] MEDS: ASPIRIN 81 MG PO SCH (20:04)
[2018-06-23] MEDS: GABAPENTIN 100 MG CAP PO SCH (20:04)
[2018-06-23] MEDS: SIMETHICONE 80 MG CHEWABLE PO SCH (20:04)
[2018-06-23] MEDS: ATORVASTATIN 20 MG TAB PO SCH (20:04)
[2018-06-23 23:30] LABS: Glucose,Whole Blood 109 mg/dL (75-99)
[2018-06-24] MEDS: INSULIN ASPART (NovoLOG) 100 UNIT/ML VIAL SQ SCH ×3 (00:09→12:25)
[2018-06-24] MEDS: LEVOTHYROXINE 88 MCG TAB PO SCH (06:27)
[2018-06-24 06:48] LABS: Glucose,Whole Blood 127 mg/dL (75-99)
[2018-06-24 07:21] LABS: Calcium 9.2 mg/dL (8.4-10.2); Potassium 4.5 mmol/L (3.5-5.1)
[2018-06-24] MEDS: SODIUM CHLORIDE 0.9% 1,000 ML IV SCH (07:27)
--- NOTE | 2018-06-24 07:36 | P.PN ---
Progress Note - Text The patient is an 88-year-old female who was admitted with syncopal episodes related to complete heart block. Patient initially received temporary and then a permanent pacemaker. She does have multiple comorbidities that include her obesity, degenerative joint disease. Patient also had underlying coronary artery disease and severe aortic stenosis for which she has declined surgical intervention. Patient also does have a urinary tract infection that has been treated with vancomycin for enterococcus faecalis. This morning she is sitting up in her recliner in her room. States she had a good night he rested well. Denies any unusual shortness of breath or chest pain. Vital signs show temperature 97.5 with a pulse of 73 and respirations 15. Blood pressure 139/68 and she is 97% saturated on room air. Lung and heart examination is clear and regular. Abdomen is nontender. No edema. She is alert and oriented without focal deficits neurologically. Laboratory Sodium was 135 with potassium 4.5 and a BUN of 10 with a creatinine 0.76 given her GFR of 72. Blood sugar was 108. Calcium normal at 9.2. Vancomycin level XIII.7. Impressions and plans As stated above. Discussed with patient and this morning. Personal social service family has declined subacute rehab and would like patient to return to home with home nursing and home physical therapies. She will be continued on her previous home medications. She is to follow up in office early next week. Family can call if any questions or concerns. Once again discussed with family and nursing staff this morning. Overall prognosis is still guarded in light of her age and multiple medical concerns as stated above. Patient will not be continued on any further antibiotics upon discharge.
[2018-06-24] MEDS ORDERED: VANCOMYCIN TROUGH DUE 1 EACH MISC MISCELLANE ONE (08:00)
[2018-06-24 08:05] VITALS: TEMP 98.7
[2018-06-24] MEDS: DOCUSATE 100 MG CAP PO SCH (08:06)
[2018-06-24] MEDS: metFORMIN 500 MG TAB PO SCH (08:12)
[2018-06-24] MEDS ORDERED: LISINOPRIL 10 MG TAB PO STA ×2 (08:12→12:31)
[2018-06-24] MEDS: NITROGLYCERIN EXTENDED RELEASE 2.5 MG CAPSULE.ER PO SCH ×2 (08:13→15:05)
[2018-06-24] MEDS: ALPRAZolam 0.25 MG TAB PO SCH (08:13)
[2018-06-24] MEDS: CHOLECALCIFEROL 1,000 UNIT TAB PO SCH (08:13)
[2018-06-24] MEDS: PANTOPRAZOLE 40 MG TABLET PO SCH (08:13)
[2018-06-24] MEDS: SERTRALINE 25 MG TAB PO SCH (08:13)
[2018-06-24] MEDS: glipiZIDE 5 MG TAB PO SCH (08:13)
[2018-06-24] MEDS: MAGNESIUM OXIDE 400 MG TAB PO SCH (08:13)
[2018-06-24] MEDS: ACETAMINOPHEN TAB 325 MG TAB PO PRN (08:57)
[2018-06-24] MEDS: VANCOMYCIN 1,750 MG in SODIUM CHLORIDE 0.9% 500 ML 500 ML IVPB SCH (10:20)
[2018-06-24] MEDS ORDERED: amLODIPine 5 MG TAB PO SCH (10:30)
[2018-06-24] MEDS: HYDROCORTISONE 2.5% RECTAL CREAM 30 GM TUBE RECTAL SCH (10:55)
[2018-06-24 11:44] VITALS: PULSE 61; RESP 18
[2018-06-24 11:57] VITALS: BMI 44.6
[2018-06-24 12:01] LABS: Glucose,Whole Blood 77 mg/dL (75-99)
[2018-06-24] MEDS ORDERED: amLODIPine 5 MG TAB PO ONE (12:30)
[2018-06-24] MEDS: FERROUS SULFATE 325 MG TAB PO SCH (12:56)
[2018-06-24 15:04] VITALS: BP 154/65
--- NOTE | 2018-06-25 08:50 | DS ---
DISCHARGE SUMMARY Mrs. Zhou is an 88-year-old female who presented after episodes of passing out at home, found to be in complete heart block and was brought by EMS to the emergency room. Initially, Cardiology was consulted and patient was taken for a temporary pacemaker placement, subsequently requiring a permanent pacemaker placed. Please see notes by Cardiology. The patient was initially cared for a few days in the intensive care unit, then moved to the stepdown cardiac floor where she was seen by Physical and Occupational therapy. She was also found to have a Enterococcus faecalis urinary track infection, which was fairly resistant and treated with IV vancomycin. With her therapy and with some time graduall patient's physical stamina improved and she was able to ambulate Subacute rehab was initially offered, but patient's and family wanted patient to return home with home care and arrangements were made for full medications headache. MEDICATIONS: Consisted of lisinopril 20 mg daily and amlodipine 10 mg daily. She is also on Xanax, alprazolam 0.25 twice a day. Carbos 25 mg before supper, aspirin 81 mg daily, atorvastatin 20 mg at bedtime, vitamin D3 one thousand units daily, Neurontin 100 mg at bedtime. She uses Proctosol cream rectally as needed, levothyroxine 88 mcg daily, Mag oxide 125 mg 2 a day, nitroglycerin 2.5 extended release daily, omeprazole twp 20 mg tablets at bedtime. Zoloft 20 mg daily. Simethicone or Gas-X 125 mg, glipizide 5 mg 2 tablets daily, metformin 2 tablets twice a day, and tramadol 50 mg q.6 hours p.r.n. for pain. She was to stop her diltiazem 180 mg daily and lisinopril. FINAL DISCHARGE DIAGNOSIS: 1. Complete heart block with syncopal episodes and now status post permanent pacemaker placement. 2. Urinary tract infection with enterococcus, resolved and treated. 3. There is a history of severe aortic stenosis and also history of underlying coronary artery disease with some left main involvement. The patient has declined surgical intervention. Also diabetes, hypertension, obesity, hyperlipidemia, polyarthritis, essential tremor, and hypothyroidism. 4. Diet will be diabetic diet. ACTIVITIES: As tolerated. Follow up in office with myself and Cardiology associates over the next week. Patient to call if any questions, concerns, or problems. MMODL / IJN: [id number] / MIGUEL ANGEL
[2018-06-25] MEDS ORDERED: amLODIPine 10 MG TAB PO SCH (09:00)
== END 2018-06-24 15:40 | disposition home health service (06) | DRG 242 ==
LOC: EC 11:48 → 2SICU 13:13 → 3SCARD 06-19 15:01 → 2SICU 06-19 15:02 → 3SCARD 06-19 16:20
PROVIDERS: ADMIT Internal Medicine; ATTEND Internal Medicine
PROC: 5A1223Z Performance of Cardiac Pacing, Continuous (ICD-10-PCS; 2018-06-17)
PROC: 02HK3JZ Insertion of Pacemaker Lead into Right Ventricle, Percutaneous Approach (ICD-10-PCS; 2018-06-19)
PROC: 0JH604Z Insertion of Pacemaker, Single Chamber into Chest Subcutaneous Tissue and Fascia, Open Approach (ICD-10-PCS; principal; 2018-06-19 08:30)
DX: I44.2 Atrioventricular block, complete (principal); I46.9 Cardiac arrest, cause unspecified; N17.9 Acute kidney failure, unspecified; Z68.41 Body mass index [BMI] 40.0-44.9, adult; D62 Acute posthemorrhagic anemia; R00.1 Bradycardia, unspecified; E11.22 Type 2 diabetes mellitus with diabetic chronic kidney disease; N30.90 Cystitis, unspecified without hematuria; I45.10 Unspecified right bundle-branch block; I35.0 Nonrheumatic aortic (valve) stenosis; I25.10 Atherosclerotic heart disease of native coronary artery without angina pectoris; N18.9 Chronic kidney disease, unspecified; I12.9 Hypertensive chronic kidney disease with stage 1 through stage 4 chronic kidney disease, or unspecified chronic kidney disease; E78.5 Hyperlipidemia, unspecified; E66.9 Obesity, unspecified; K59.00 Constipation, unspecified; R60.9 Edema, unspecified; M19.90 Unspecified osteoarthritis, unspecified site; R32 Unspecified urinary incontinence; F32.9 Major depressive disorder, single episode, unspecified; F41.9 Anxiety disorder, unspecified; G25.0 Essential tremor; E03.9 Hypothyroidism, unspecified; B95.2 Enterococcus as the cause of diseases classified elsewhere; Z71.3 Dietary counseling and surveillance; Z79.82 Long term (current) use of aspirin; Z79.899 Other long term (current) drug therapy; Z79.890 Hormone replacement therapy; Z79.84 Long term (current) use of oral hypoglycemic drugs; Z90.49 Acquired absence of other specified parts of digestive tract; Z87.891 Personal history of nicotine dependence; Z88.2 Allergy status to sulfonamides; Z88.8 Allergy status to other drugs, medicaments and biological substances; Z88.0 Allergy status to penicillin; Z91.041 Radiographic dye allergy status; Z83.3 Family history of diabetes mellitus; Z81.1 Family history of alcohol abuse and dependence
CPT/HCPCS: 33207; 33210; 36415; 71045; 71046; 80048; 80053; 80202; 81001; 83735; 84443; 84484; 85025; 85610; 85730; 87077; 87086; 87186; 96365; 96368; 96372; 96375; 99291

== ENCOUNTER 2018-06-29 07:53 | Observation (INO) | payer MEDICARE ==
[2018-06-29] MEDS ORDERED: ASPIRIN 81 MG PO STA (08:16)
[2018-06-29] MEDS ORDERED: NITROGLYCERIN OINT 1 INCH/GM PACKET TOPICAL STA (08:16)
--- NOTE | 2018-06-29 08:23 | ED ---
General Adult HPI - General Chief complaint: Dizziness Stated complaint: chest heaviness/vertigo/near syncope Time Seen by Provider: 06/29/18 08:00 Source: patient, EMS, RN notes reviewed Mode of arrival: EMS Limitations: physical limitation - History of Present Illness Initial comments: This is an 88-year-old female presents emergency Department complaining of being very lightheaded and thought she might pass out. Patient states she also had chest heaviness at this time and it lasted for an hour until she received nitroglycerin from the emesis. Patient states the sensation as a heaviness on her upper chest. Patient states she did not radiate anywhere. Patient states she was more short of breath when it was ongoing. Patient denied any diaph oretic episodes patient denies any nausea. Patient any vomiting. Patient denies any recent fever chills or cough per patient denies any syncopal episode but didn't feel like she might pass out. Patient denied headache patient denies any numbness weakness. Patient denies abdominal pain patient denies any vomiting or diarrhea. Patient states she has no chest heaviness at this time. - Related Data Home Medications Medication Instructions Recorded Confirmed ALPRAZolam [Xanax] 0.25 mg PO BID 06/17/18 06/29/18 Acarbose [Precose] 25 mg PO AC-SUPPER 06/17/18 06/29/18 Aspirin EC [Ecotrin Low Dose] 81 mg PO AC-SUPPER 06/17/18 06/29/18 Atorvastatin [Lipitor] 20 mg PO HS 06/17/18 06/29/18 Cholecalciferol [Vitamin D3 (25 1,000 unit PO DAILY 06/17/18 06/29/18 Mcg = 1000 Iu)] Gabapentin [Neurontin] 100 mg PO HS 06/17/18 06/29/18 Hydrocortisone Pr Cream 1 applic RECTAL DAILY 06/17/18 06/29/18 [Proctosol-Hc 2.5%] Levothyroxine Sodium [Synthroid] 88 mcg PO DAILY 06/17/18 06/29/18 Magnesium Oxide [Mag-Ox] 125 mg PO BID 06/17/18 06/29/18 Nitroglycerin [Nitro-Time] 2.5 mg PO DAILY 06/17/18 06/29/18 Omeprazole [PriLOSEC] 40 mg PO HS 06/17/18 06/29/18 Sertraline HCl [Zoloft] 25 mg PO DAILY 06/17/18 06/29/18 Simethicone [Gas-X] 125 mg PO HS 06/17/18 06/29/18 glipiZIDE [Glucotrol] 5 mg PO DAILY 06/17/18 06/29/18 metFORMIN HCL [Glucophage] 250 mg PO BID 06/17/18 06/29/18 traMADol HCL [Ultram] 50 mg PO Q6HR PRN 06/17/18 06/29/18 Previous Rx's Medication Instructions Recorded Lisinopril [Prinivil] 20 mg PO DAILY #30 tablet 06/24/18 amLODIPine BESYLATE [Norvasc] 10 mg PO DAILY #30 tablet 06/24/18 Allergies Allergy/AdvReac Type Severity Reaction Status Date / Time amoxicillin Allergy Unknown Verified 06/29/18 08:07 Iodinated Contrast- Oral and Allergy Unknown Verified 06/29/18 08:07 IV Dye metoclopramide [From Reglan] Allergy Unknown Verified 06/29/18 08:07 sulfamethoxazole Allergy Unknown Verified 06/29/18 08:07 [From Septra] trimethoprim [From Septra] Allergy Unknown Verified 06/29/18 08:07 ampicillin AdvReac Nausea & Verified 06/29/18 08:07 Vomiting cephalexin AdvReac Nausea & Verified 06/29/18 08:07 Vomiting Review of Systems ROS Statement: Those systems with pertinent positive or pertinent negative responses have been documented in the HPI. ROS Other: All systems not noted in ROS Statement are negative. Past Medical History Past Medical History: Diabetes Mellitus, Hyperlipidemia, Hypertension Additional Past Medical History / Comment(s): arterial stenosis History of Any Multi-Drug Resistant Organisms: None Reported Past Surgical History: Cholecystectomy, Orthopedic Surgery Past Anesthesia/Blood Transfusion Reactions: No Reported Reaction Past Psychological History: No Psychological Hx Reported Smoking Status: Former smoker Past Alcohol Use History: None Reported Past Drug Use History: None Reported General Exam - General Exam Comments Initial Comments: GENERAL: Patient is well-developed and well-nourished. Patient is nontoxic and well- hydrated and is in mild distress. ENT: Neck is soft and supple. No significant lymphadenopathy is noted. Oropharynx is clear. Moist mucous membranes. Neck has full range of motion without eliciting any pain. EYES: The sclera were anicteric and conjunctiva were pink and moist. Extraocular movements were intact and pupils were equal round and reactive to light. Eyelids were unremarkable. PULMONARY: Unlabored respirations. Good breath sounds bilaterally. No audible rales rhonchi or wheezing was noted. CARDIOVASCULAR: There is a regular rate and rhythm without any murmurs gallops or rubs. ABDOMEN: Soft and nontender with normal bowel sounds. SKIN: Skin is clear with no lesions or rashes and otherwise unremarkable. NEUROLOGIC: Patient is alert and oriented x3. Cranial nerves II through XII are grossly intact. Motor and sensory are also intact. Normal speech, volume and content. Symmetrical smile. MUSCULOSKELETAL: Normal extremities with adequate strength and full range of motion. No lower extremity swelling or edema. No calf tenderness. LYMPHATICS: No significant lymphadenopathy is noted PSYCHIATRIC: Normal psychiatric evaluation. Normal interpersonal interactions appears functionally intact in deals appropriately with others. No signs of depression. No signs of anxiety. Limitations: physical limitation Course Vital Signs 06/29/18 06/29/18 06/29/18 08:00 08:02 09:00 Temperature 97.9 F Pulse Rate 71 89 78 Respiratory 18 19 20 Rate Blood Pressure 150/77 150/77 155/87 O2 Sat by Pulse 97 98 96 Oximetry 06/29/18 06/29/18 09:30 10:00 Temperature Pulse Rate 63 58 L Respiratory 19 18 Rate Blood Pressure 125/64 129/57 O2 Sat by Pulse 97 98 Oximetry Medical Decision Making - Medical Decision Making EKG shows normal sinus rhythm at 94 bpm NH interval is 166 QRS is 132 QT interval 390 QTC is 487. Patient's EKG shows a right bundle branch block. Patient's EKG is unchanged from previous EKGs. Chest x-ray shows no acute abnormality. Patient has unstable angina and nitroglycerin did help her pain. I started her on heparin emergency department continued heparin and aspirin and Nitropaste on the floor. I spoke with Dr. Guerra he agreed to admit the patient admitted the patient wrote admitting orders I consult cardiology. - Lab Data Result diagrams: 06/29/18 08:14 06/29/18 08:14 Lab Results 06/29/18 06/29/18 06/29/18 Range/Units 08:14 08:14 08:14 WBC 9.9 (3.8-10.6) k/uL RBC 4.15 (3.80-5.40) m/uL Hgb 11.3 L (11.4-16.0) gm/dL Hct 34.8 (34.0-46.0) % MCV 83.6 (80.0-100.0) fL MCH 27.2 (25.0-35.0) pg MCHC 32.5 (31.0-37.0) g/dL RDW 17.0 H (11.5-15.5) % Plt Count 220 (150-450) k/uL Neutrophils % 72 % Lymphocytes % 20 % Monocytes % 5 % Eosinophils % 1 % Basophils % 0 % Neutrophils # 7.1 (1.3-7.7) k/uL Lymphocytes # 2.0 (1.0-4.8) k/uL Monocytes # 0.5 (0-1.0) k/uL Eosinophils # 0.1 (0-0.7) k/uL Basophils # 0.0 (0-0.2) k/uL Anisocytosis Slight PT 10.2 (9.0-12.0) sec INR 0.9 (<1.2) APTT 23.4 (22.0-30.0) sec Sodium 135 L (137-145) mmol/L Potassium 4.7 (3.5-5.1) mmol/L Chloride 98 (98-107) mmol/L Carbon Dioxide 26 (22-30) mmol/L Anion Gap 11 mmol/L BUN 19 H (7-17) mg/dL Creatinine 0.82 (0.52-1.04) mg/dL Est GFR (CKD-EPI)AfAm 75 (>60 ml/min/1.73 sqM) Est GFR (CKD-EPI)NonAf 65 (>60 ml/min/1.73 sqM) Glucose 163 H (74-99) mg/dL Calcium 9.9 (8.4-10.2) mg/dL Magnesium 1.5 L (1.6-2.3) mg/dL Total Bilirubin 0.4 (0.2-1.3) mg/dL AST 18 (14-36) U/L ALT 22 (9-52) U/L Alkaline Phosphatase 98 (38-126) U/L Troponin I (0.000-0.034) ng/mL Total Protein 6.4 (6.3-8.2) g/dL Albumin 3.9 (3.5-5.0) g/dL 06/29/18 Range/Units 08:14 WBC (3.8-10.6) k/uL RBC (3.80-5.40) m/uL Hgb (11.4-16.0) gm/dL Hct (34.0-46.0) % MCV (80.0-100.0) fL MCH (25.0-35.0) pg MCHC (31.0-37.0) g/dL RDW (11.5-15.5) % Plt Count (150-450) k/uL Neutrophils % % Lymphocytes % % Monocytes % % Eosinophils % % Basophils % % Neutrophils # (1.3-7.7) k/uL Lymphocytes # (1.0-4.8) k/uL Monocytes # (0-1.0) k/uL Eosinophils # (0-0.7) k/uL Basophils # (0-0.2) k/uL Anisocytosis PT (9.0-12.0) sec INR (<1.2) APTT (22.0-30.0) sec Sodium (137-145) mmol/L Potassium (3.5-5.1) mmol/L Chloride (98-107) mmol/L Carbon Dioxide (22-30) mmol/L Anion Gap mmol/L BUN (7-17) mg/dL Creatinine (0.52-1.04) mg/dL Est GFR (CKD-EPI)AfAm (>60 ml/min/1.73 sqM) Est GFR (CKD-EPI)NonAf (>60 ml/min/1.73 sqM) Glucose (74-99) mg/dL Calcium (8.4-10.2) mg/dL Magnesium (1.6-2.3) mg/dL Total Bilirubin (0.2-1.3) mg/dL AST (14-36) U/L ALT (9-52) U/L Alkaline Phosphatase (38-126) U/L Troponin I <0.012 (0.000-0.034) ng/mL Total Protein (6.3-8.2) g/dL Albumin (3.5-5.0) g/dL Critical Care Time Critical Care Time: Yes Total Critical Care Time: 35 Disposition Clinical Impression: Unstable angina, Near syncope Disposition: ADMITTED IP TO THIS HOSP Referrals: David Guerra MD [Primary Care Provider] - 1-2 days Time of Disposition: 10:14
[2018-06-29 08:32] LABS: Anisocytosis Slight; Basophils % (A) 0 %; Eosinophils # (A) 0.1 k/uL (0-0.7); Eosinophils % (A) 1 %; HCT 34.8 % (34.0-46.0); HGB 11.3 gm/dL (11.4-16.0); Lymphocytes % (A) 20 %; MCH 27.2 pg (25.0-35.0); MCHC 32.5 g/dL (31.0-37.0); MCV 83.6 fL (80.0-100.0); Mean Platelet Volume 7.3; Monocytes # (A) 0.5 k/uL (0-1.0); Monocytes % (A) 5 %; Neutrophils # (A) 7.1 k/uL (1.3-7.7); Neutrophils % (A) 72 %; Platelet Count 220 k/uL (150-450); RBC 4.15 m/uL (3.80-5.40); WBC 9.9 k/uL (3.8-10.6)
[2018-06-29 08:37] LABS: Albumin 3.9 g/dL (3.5-5.0); Calcium 9.9 mg/dL (8.4-10.2); Magnesium 1.5 mg/dL (1.6-2.3); Potassium 4.7 mmol/L (3.5-5.1); Total Bilirubin 0.4 mg/dL (0.2-1.3); Total Protein 6.4 g/dL (6.3-8.2)
[2018-06-29 08:38] LABS: INR 0.9 (<1.2); Partial Thromboplastin Time 23.4 sec (22.0-30.0); Prothrombin Time 10.2 sec (9.0-12.0)
--- NOTE | 2018-06-29 08:40 | XR ---
EXAMINATION TYPE: XR chest 2V DATE OF EXAM: 06/29/2018 COMPARISON: 06/20/2018 HISTORY: 88-year-old female with chest pain TECHNIQUE: AP and lateral views FINDINGS: Left anterior chest wall pacemaker generator with right ventricular lead. Heart mildly enlarged. Norm al variant azygos fissure. There is some perihilar densities. No sizable effusion. Possible posterior basilar opacity on the lateral view though assessment is limited due to large patient body habitus a nd low lung volumes. IMPRESSION: Low lung volumes and mild cardiomegaly and perihilar densities, possible mild pulmonary vascular allie estion. Posterior basilar opacity on the lateral view could represent atelectasis or developing infil trate.
[2018-06-29] MEDS ORDERED: NITROGLYCERIN SL TABS 0.4 MG TAB SUBLINGUAL PRN (10:14)
[2018-06-29] MEDS ORDERED: HEPARIN SODIUM,PORCINE 5,000 UNIT/ML 1 ML VIAL IV ONE (10:14)
[2018-06-29] MEDS ORDERED: HEPARIN SOD,PORK IN 0.45% NACL 25,000 UNIT in 0.45% NACL 1 250ML.BAG IV SCH (10:15)
[2018-06-29 11:40] VITALS: BMI 44.3
[2018-06-29] MEDS ORDERED: NITROGLYCERIN OINT 1 INCH/GM PACKET TOPICAL SCH (12:00)
[2018-06-29 16:45] LABS: Glucose,Whole Blood 77 mg/dL (75-99)
[2018-06-29] MEDS: ACARBOSE 25 MG TAB PO SCH (18:58)
[2018-06-29] MEDS ORDERED: HEPARIN SODIUM,PORCINE 5,000 UNIT/ML 1 ML VIAL IV PRN (19:26)
[2018-06-29] MEDS: SIMETHICONE 80 MG CHEWABLE PO SCH (20:17)
[2018-06-29] MEDS: PANTOPRAZOLE 40 MG TABLET PO SCH (20:17)
[2018-06-29] MEDS: METOPROLOL TARTRATE 12.5 MG TAB PO SCH (20:17)
[2018-06-29] MEDS: ATORVASTATIN 20 MG TAB PO SCH (20:17)
[2018-06-29] MEDS: ALPRAZolam 0.25 MG TAB PO SCH (20:17)
[2018-06-29] MEDS: MAG HYDROX/AL HYDROX/SIMETH 30 ML CUP PO PRN (20:19)
[2018-06-29 20:44] LABS: Glucose,Whole Blood 147 mg/dL (75-99)
[2018-06-29] MEDS ORDERED: GABAPENTIN 100 MG CAP PO SCH (21:00)
[2018-06-29] MEDS: MAGNESIUM OXIDE PO SCH (22:27)
--- NOTE | 2018-06-30 04:09 | HP ---
HISTORY AND PHYSICAL Mrs. Zhou is an 88-year-old female who this morning was getting up and developed chest pressure, lightheadedness and some vertigo type sensations. HISTORY OF PRESENT ILLNESS: The patient had was hospitalized recently with complete heart block requiring a pacemaker placed and she does have underlying history of aortic stenosis and coronary artery disease with involvement of the left main for which in the past, she has declined any surgical intervention. The patient had done well at home until the episode of chest pressure. She apparently was very weak and EMS in transport had given her some nitroglycerin. The pressure lasted at least until she got to the emergency room. She was somewhat nauseated and short of breath associated with this. She did not have any vomiting, cough, or hemoptysis, fever or chills. PAST MEDICAL HISTORY: As stated above with the history of recent permanent pacemaker placed for complete heart block and syncope, and the underlying history of atherosclerotic heart disease and aortic stenosis with some apparent left main involvement on previous catheterization. She does have underlying diabetes, hypertension, hyperlipidemia, obesity, some polyosteoarthritis. She does have hypothyroidism and essential tremor. HOME MEDICATIONS: Include acarbose 25 mg daily at supper, Maalox 30 mL q.4 hours p.r.n. for heart pain, alprazolam 0.25 twice a day. Amlodipine 10 mg daily, aspirin 325 mg daily, Lipitor 20 mg at q.h.s., vitamin D 3000 units daily, Neurontin 100 mg at q.h.s., Glucotrol/glipizide 5 mg daily. Levothyroxine 88 mcg daily. Lisinopril 20 mg daily. Mag-Ox 125 mg twice a day. Nitroglycerin or nitro time 2.5 mg once a day. Omeprazole 40 mg at bedtime. Zoloft 20 mg daily. She takes simethicone Gas-X 125 mg at q.h.s., metformin 250 mg twice a day, and tramadol 50 mg q.6 hours p.r.n. for pain. ALLERGIES: THERE IS HISTORY OF PREVIOUS REACTIONS ALLERGIES TO AMOXICILLIN AND SULFA. SHE ALSO HAS PROBLEMS WITH CONTRAST DYE, ALLERGY REACTION TO REGLAN AND CEPHALEXIN, AMOXICILLIN. REVIEW OF SYSTEMS: As mentioned in history of present illness. She denied any unusual headache or visual disturbance. No fever, chills, or cough. No actual vomiting. No urinary or bowel symptoms. She does have some chronic grade 1-2 edema. FAMILY HISTORY: Positive for heart disease, diabetes. SOCIAL HISTORY: She is a former smoker. She does live with locally with her who is a primary errand runner and has a daughter and watches over them. PHYSICAL EXAMINATION: She is alert and oriented. Lying in bed, does not appear to be in any acute distress. VITAL SIGNS: Temperature 97.6, pulse 64, respirations 18, blood pressure 123/62, and she is 97% saturated on room air. HEENT is unremarkable. NECK is not stiff. No adenopathy, thyromegaly or bruits detected. LUNGS were clear. HEART tones were positive for systolic murmur. Regular rhythm. Otherwise, no marked chest wall tenderness elicited. BREASTS and pelvic exam deferred. ABDOMEN: Obese, but soft and nontender. EXTREMITIES revealed grade 1 edema and stasis changes. NEUROLOGICALLY, she is alert and oriented. Cranial nerves intact. No focal neurological changes noted. LABORATORY: Reveal a white count of 9 9, hemoglobin 11.3 and a platelet count of 220. INR was 0.9. Sodium is 135 with potassium 4.7, CO2 content 26, BUN of 19 with a creatinine of 0.82. Blood sugar was 163. Magnesium slightly low at 1.5. Troponins have been less than 0.012 twice so far. Albumin normal at 3.9. Other liver function testing was satisfactory. Chest x-ray is reported as low lung volumes, some posterior basilar opacity was consider possible atelectasis. There is also some increase in possible mild pulmonary vascular congestion. The EKG showed a normal sinus rhythm with a right bundle branch block pattern, but no definite acute ischemic changes. IMPRESSION: At this point is severe anterior chest pain associated with weakness and shortness of breath, relieved with nitroglycerin in the ambulance, consistent with a angina with this lady with previous history as stated above. Plans are to monitor. Nitrates have been initiated and she is on heparin. Further enzymes to be obtained. Cardiology consult and further recommendations and treatment pending clinical response and results of above . MMODL / IJN: [id number] / MTDD
[2018-06-30] MEDS: LEVOTHYROXINE 88 MCG TAB PO SCH (05:36)
[2018-06-30 06:41] LABS: Glucose,Whole Blood 110 mg/dL (75-99)
[2018-06-30 06:50] LABS: Cholesterol 121 mg/dL (<200); HDL Cholesterol 48 mg/dL (40-60); LDL Cholesterol,Calculated 37 mg/dL (0-99); Triglycerides 179 mg/dL (<150)
[2018-06-30 07:46] VITALS: RESP 18
--- NOTE | 2018-06-30 08:32 | P.PN ---
Progress Note - Text The patient is an 88-year-old female who presented yesterday by EMS to the emergency room with chest pressure associated with lightheadedness and some vertigo-type sensations. Patient does have a recent history of complete heart block for which a permanent pacemaker was placed. There is also history of significant aortic stenosis and coronary artery disease with left main involvement for which she has declined surgical intervention in the past. This morning patient does not have any chest pressure. States she slept well through the night. Denies any shortness of breath at rest. Vital signs show temperature 97.7 with a pulse of 59 and respirations 18. Blood pressure 123/56 and she is 97% saturated on room air. Lung and heart exam is clear and regular. Abdomen is nontender. Chronic grade 1 edema. No new focal neurological changes. Laboratory Troponin this morning is 0.015. Cholesterol total was 121 with an LDL cholesterol 37. Triglycerides mildly elevated at 179. Blood sugar was 110. PTT on heparin 51.5 Impressions This 88 showed female with a previous cardiac history of developing further chest pressure at rest. Consistent with unstable angina-type picture. Presently appears to be stable on nitrates and beta blockers. Discussed with patient and . She is presently on heparin. We'll wait for further recommendations from cardiology today. Overall prognosis still guarded.
[2018-06-30] MEDS ORDERED: NITROGLYCERIN EXTENDED RELEASE 2.5 MG CAPSULE.ER PO SCH (09:00)
[2018-06-30] MEDS ORDERED: LISINOPRIL 20 MG TAB PO SCH (09:00)
[2018-06-30] MEDS ORDERED: amLODIPine 10 MG TAB PO SCH (09:00)
[2018-06-30] MEDS ORDERED: ASPIRIN 325 MG TAB PO SCH (09:00)
[2018-06-30] MEDS: ALPRAZolam 0.25 MG TAB PO SCH ×2 (09:10→20:56)
[2018-06-30] MEDS: glipiZIDE 5 MG TAB PO SCH (09:10)
[2018-06-30] MEDS: METOPROLOL TARTRATE 12.5 MG TAB PO SCH (09:11)
[2018-06-30] MEDS: HYDROCORTISONE 2.5% RECTAL CREAM 30 GM TUBE RECTAL SCH (09:11)
[2018-06-30] MEDS: CHOLECALCIFEROL 1,000 UNIT TAB PO SCH (09:11)
[2018-06-30] MEDS: SERTRALINE 25 MG TAB PO SCH (09:12)
[2018-06-30] MEDS: MAGNESIUM OXIDE PO SCH ×2 (09:12→20:57)
[2018-06-30] MEDS ORDERED: Magnesium Replacement Protocol 1 EACH MISC MISCELLANE PRN (10:52)
--- NOTE | 2018-06-30 10:55 | P.CRDCN ---
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 She follows in the office with Dr. Ybarra and recently had a [employer] pacemaker placed with Dr. Ochoa 06/19/2018. She states she was at the office for her initial post-op check and was told her pacemaker was functioning normally, however there were some adjustments being made. She overall had been feeling well until yesterday morning while getting ready for the day she started feeling lightheaded. She states it felt she was going to pass out. There was no actual syncope or loss of consciousness. She sat down to try and catch her bearings. She then started feeling a heaviness in her chest in the midsternal region. This persisted for approximately 45 minutes and EMS was called. Upon arrival she was continuing to have chest discomfort and she was given nitroglycerin per EMS. Her symptoms sub sided shortly thereafter. She has had no further symptoms of dizziness or chest pain. She denies associated shortness of breath, palpitations, nausea, vomiting or diaphoresis. EKG reveals sinus mechanism with a right bundle branch block. Chest x-ray reveals low lung volumes, mild cardiomegaly, mild pulmonary vascular congestion and possible developing infiltrate. Laboratory data reviewed, LDL 37, HDL 48, cardiac enzymes negative 3, WBC 9.9, hemoglobin 11.3, platelets 220, sodium 135, potassium 4.7, creatinine 0.82, magnesium 1.5. Current cardiac medications include aspirin 81 mg daily, atorvastatin 20 mg daily, lisinopril 20 mg daily, amlodipine 10 mg daily. At the time of my exam: CONSTITUTIONAL: Denies fever. Denies chills. EYES: Denies blurred vision. Denies vision changes. Denies eye pain. EARS, NOSE, MOUTH & THROAT: Denies headache. Denies sore throat. Denies ear pain. CARDIOVASCULAR: Denies chest pain. Denies shortness of breath. Denies orthopnea. Denies PND. Denies palpitations. RESPIRATORY: Denies cough. GASTROINTESTINAL: Denies abdominal pain. Denies diarrhea. Denies constipation. Denies nausea. Denies vomiting. MUSCULOSKELETAL: Denies myalgias. INTEGUMENTARY: Denies pruitis. Denies rash. NEUROLOGIC: Denies numbness. Denies tingling. Denies weakness. PSYCHIATRIC: Denies anxiety. Denies depression. ENDOCRINE: Denies fatigue. Denies weight change. Denies polydipsia. Denies polyurina. GENITOURINARY: Denies burning, hematuria or urgency with micturation. HEMATOLOGIC: Denies history of anemia. Denies bleeding. Blood pressure 123/56 heart rate 59 afebrile maintaining oxygen saturation on room air GENERAL: This is a 88-year-old female in no apparent distress at the time of my examination. Morbidly obese. HEENT: Head is atraumatic, normocephalic. Pupils are equal, round. Sclerae anicteric. Conjunctivae are clear. Mucous membranes of the mouth are moist. Neck is supple. There is no jugular venous distention. No carotid bruit is heard. LUNGS: Clear to auscultation no wheezes, rales or rhonchi. No chest wall tenderness is noted on palpation or with deep breathing. Diminished bilaterally. HEART: Regular rate and rhythm with systolic ejection murmur at the base, no rubs or gallops. S1 and S2 heard. Left anterior pacemaker insertion site is cl page, dry and intact with no evidence of erythema, drainage and is nontender. ABDOMEN: Soft, nontender. Bowel sounds are heard. No organomegaly noted. EXTREMITIES: 1+ bilateral lower extremity pitting edema. No calf tenderness noted. VASCULAR: Radial and dorsalis pedis pulses palpated, no evidence of clubbing. NEUROLOGIC: Patient is awake, alert and oriented x3. ASSESSMENT Presyncopal episode, no loss of consciousness Chest discomfort, atypical for angina. An acute coronary event has been ruled out. Hypomagnesemia Aortic stenosis Coronary artery disease, maximum medical therapy recommended Hypertension Dyslipidemia PLAN An acute coronary event has been ruled out. Discontinue heparin infusion and nitro-paste. Interrogate pacemaker. Discussion had with the office and when she was in for her initial pacemaker evaluation it was determined her pacemaker lower rate is set at 50 and at that time she was utilizing her pacemaker only 1% of the time. There were no changes made at that time. Obtain 2D echocardiogram and doppler study to assess cardiac structure and function. Replace magnesium per protocol. Symptoms possibly related to an acute arrhythmia or secondary to aortic steno sis. Further recommendations to follow based on clinical course. Thank you kindly for this consultation. Nurse Practitioner note has been reviewed, I agree with a documented findings and plan of care. Patient was seen and examined. Past Medical History Past Medical History: Coronary Artery Disease (CAD), Diabetes Mellitus, Eye Disorder, GERD/Reflux, Hyperlipidemia, Hypertension, Osteoarthritis (OA), Syncope, Thyroid Disorder Additional Past Medical History / Comment(s): Pt recently admitted to [facility] on 06/17/18 with syncope/CHB and had temporary then permanent pacemaker insertions, she also had a UTI/Enteroccal faecalis. Other hx: Current decub on coccyx per pt/mindy, NIDDM type II, diabetic neuropathy bilateral feet, severe aortic stenosis, polyarthritis, essential tremors, hypothyroid, bilateral cataracts, incontinence or urine and occasionally stool, constipation. History of Any Multi-Drug Resistant Organisms: None Reported Past Surgical History: Cholecystectomy, Orthopedic Surgery, Pacemaker Additional Past Surgical History / Comment(s): 06/17/18 temporary pacemaker, 06/19/18 permanent pacemaker, R knee arthrotomy d/t chip, colonoscopy. Past Anesthesia/Blood Transfusion Reactions: No Reported Reaction Type of Cardiac Device: Permanent Pacemaker Device Placement Date:: 06/19/18 Smoking Status: Former smoker - Past Family History Father Additional Family Medical History / Comment(s): Father was an alcoholic Mother Family Medical History: Asthma Additional Family Medical History / Comment(s): Mother at the age of 54yrs- pt unsure from what. Medications and Allergies Home Medications Medication Instructions Recorded Confirmed Type ALPRAZolam [Xanax] 0.25 mg PO BID 06/17/18 06/29/18 History Acarbose [Precose] 25 mg PO AC-SUPPER 06/17/18 06/29/18 History Aspirin EC [Ecotrin Low Dose] 81 mg PO AC-SUPPER 06/17/18 06/29/18 History Atorvastatin [Lipitor] 20 mg PO HS 06/17/18 06/29/18 History Cholecalciferol [Vitamin D3 (25 1,000 unit PO DAILY 06/17/18 06/29/18 History Mcg = 1000 Iu)] Gabapentin [Neurontin] 100 mg PO HS 06/17/18 06/29/18 History Hydrocortisone Pr Cream 1 applic RECTAL DAILY 06/17/18 06/29/18 History [Proctosol-Hc 2.5%] Levothyroxine Sodium [Synthroid] 88 mcg PO DAILY 06/17/18 06/29/18 History Magnesium Oxide [Mag-Ox] 125 mg PO BID 06/17/18 06/29/18 History Nitroglycerin [Nitro-Time] 2.5 mg PO DAILY 06/17/18 06/29/18 History Omeprazole [PriLOSEC] 40 mg PO HS 06/17/18 06/29/18 History Sertraline HCl [Zoloft] 25 mg PO DAILY 06/17/18 06/29/18 History Simethicone [Gas-X] 125 mg PO HS 06/17/18 06/29/18 History glipiZIDE [Glucotrol] 5 mg PO DAILY 06/17/18 06/29/18 History metFORMIN HCL [Glucophage] 250 mg PO BID 06/17/18 06/29/18 History traMADol HCL [Ultram] 50 mg PO Q6HR PRN 06/17/18 06/29/18 History Lisinopril [Prinivil] 20 mg PO DAILY #30 tablet 06/24/18 06/29/18 Rx amLODIPine BESYLATE [Norvasc] 10 mg PO DAILY #30 tablet 06/24/18 06/29/18 Rx Allergies Allergy/AdvReac Type Severity Reaction Status Date / Time amoxicillin Allergy Unknown Verified 06/29/18 08:07 Iodinated Contrast- Oral and Allergy Unknown Verified 06/29/18 08:07 IV Dye metoclopramide [From Reglan] Allergy Unknown Verified 06/29/18 08:07 sulfamethoxazole Allergy Unknown Verified 06/29/18 08:07 [From Septra] trimethoprim [From Septra] Allergy Unknown Verified 06/29/18 08:07 ampicillin AdvReac Nausea & Verified 06/29/18 08:07 Vomiting cephalexin AdvReac Nausea & Verified 06/29/18 08:07 Vomiting Physical Exam Vitals: Vital Signs Temp Pulse Pulse Resp BP BP Pulse Ox 06/30/18 07:00 97.7 F 59 L 18 123/56 97 06/30/18 04:00 97.4 F L 55 L 16 149/63 97 06/30/18 00:00 97.3 F L 55 L 16 119/50 96 06/29/18 22:21 18 06/29/18 20:00 97.6 F 64 18 123/62 97 06/29/18 16:00 98.1 F 74 17 148/74 99 06/29/18 14:34 97.3 F L 68 152/79 99 06/29/18 13:30 61 19 121/60 99 06/29/18 13:00 64 18 123/59 98 06/29/18 12:30 61 17 126/62 98 06/29/18 12:00 60 17 132/58 06/29/18 11:30 64 17 130/48 97 06/29/18 11:00 70 18 127/56 98 06/29/18 10:30 62 16 114/63 98 Intake and Output 06/29/18 06/30/18 06/30/18 22:59 06:59 14:59 Intake Total 240 Output Total 2 Balance 238 Intake: Oral 240 Output: Urine/Stool Mix 2 Other: Voiding Method Toilet Toilet Incontinent Diaper Incontinent Results 06/29/18 08:14 06/29/18 08:14 Cardiac Enzymes 06/29/18 06/29/18 Range/Units 14:54 20:30 Troponin I <0.012 0.015 (0.000-0.034) ng/mL Coagulation 06/29/18 06/30/18 Range/Units 18:35 06:01 APTT 48.9 H 51.5 H (22.0-30.0) sec Lipids 06/30/18 Range/Units 06:01 Triglycerides 179 H (<150) mg/dL Cholesterol 121 (<200) mg/dL HDL Cholesterol 48 (40-60) mg/dL Current Medications Generic Name Dose Route Start Last Admin Trade Name Freq PRN Reason Stop Dose Admin Acarbose 25 mg 06/29/18 17:30 06/29/18 18:58 Precose PO Not Given AC-SUPPER FRANK Al Hydroxide/Mg Hydroxide 30 ml 06/29/18 18:59 06/29/18 20:19 Maalox PO 30 ml Q4HR PRN Administration GI Upset Alprazolam 0.25 mg 06/29/18 21:00 06/30/18 09:10 Xanax PO 0.25 mg BID FRANK Administration Amlodipine Besylate 10 mg 06/30/18 09:00 06/30/18 09:10 Norvasc PO 10 mg DAILY FRANK Administration Aspirin 325 mg 06/30/18 09:00 06/30/18 09:10 Aspirin PO 325 mg DAILY FRANK Administration Atorvastatin Calcium 20 mg 06/29/18 21:00 06/29/18 20:17 Lipitor PO 20 mg HS FRANK Administration Cholecalciferol 1,000 unit 06/30/18 09:00 06/30/18 09:11 Vitamin D3 (25 Mcg = 1000 Iu) PO 1,000 unit DAILY FRANK Administration Gabapentin 100 mg 06/29/18 21:00 06/29/18 20:17 Neurontin PO 100 mg HS FRANK Administration Glipizide 5 mg 06/30/18 09:00 06/30/18 09:10 Glucotrol PO 5 mg DAILY FRANK Administration Heparin Sodium (Porcine) 0 unit 06/29/18 19:26 Heparin IV PER PROTOCOL PRN Low PTT Protocol Hydrocortisone 1 applic 06/30/18 09:00 06/30/18 09:11 Proctosol-Hc 2.5% RECTAL Not Given DAILY [facility] Levothyroxine Sodium 88 mcg 06/30/18 06:30 06/30/18 05:36 Synthroid PO 88 mcg DAILY@0630 FRANK Administration Lisinopril 20 mg 06/30/18 09:00 06/30/18 09:10 Zestril PO 20 mg DAILY [facility] Administration Metoprolol Tartrate 12.5 mg 06/29/18 21:00 06/30/18 09:11 Lopressor PO 12.5 mg BID [facility] Administration Nitroglycerin 0.4 mg 06/29/18 10:14 Nitrostat SUBLINGUAL Q5M PRN Chest Pain Nitroglycerin 2.5 mg 06/30/18 09:00 06/30/18 09:10 Nitro-Bid PO 2.5 mg DAILY [facility] Administration Non-Formulary Medication 125 mg 06/29/18 21:00 06/30/18 09:12 Magnesium Oxide PO Not Given BID [facility] Pantoprazole Sodium 40 mg 06/29/18 21:00 06/29/18 20:17 Protonix PO 40 mg HS FRANK Administration Sertraline HCl 25 mg 06/30/18 09:00 06/30/18 09:12 Zoloft PO 25 mg DAILY FRANK Administration Simethicone 80 mg 06/29/18 21:00 06/29/18 20:17 Mylicon Chew PO 80 mg HS FRANK Administration Tramadol HCl 50 mg 06/29/18 12:43 Ultram PO Q6HR PRN Pain Intake and Output 06/29/18 06/30/18 06/30/18 22:59 06:59 14:59 Intake Total 240 Output Total 2 Balance 238 Intake: Oral 240 Output: Urine/Stool Mix 2 Other: Voiding Method Toilet Toilet Incontinent Diaper Incontinent 06/29/18 08:14 06/29/18 08:14
[2018-06-30 11:41] LABS: Glucose,Whole Blood 180 mg/dL (75-99)
--- NOTE | 2018-06-30 12:54 | ECHOF ---
Referral Reason:cp, sob, hx aortic stenosis MEASUREMENTS -------- HEIGHT: 157.5 cm WEIGHT: 109.8 kg BP: 123/56 RVIDd: 2.9 cm (< 3.3) IVSd: 1.2 cm (0.6 - 1.1) LVIDd: 4.5 cm (3.9 - 5.3) LVPWd: 1.4 cm (0.6 - 1.1) IVSs: 1.8 cm LVIDs: 3.6 cm LVPWs: 1.8 cm LA Diam: 4.3 cm (2.7 - 3.8) LAESV Index (A-L): 35.90 ml/m Ao Diam: 3.1 cm (2.0 - 3.7) AV Cusp: 1.7 cm (1.5 - 2.6) MV EXCURSION: 6.247 mm (> 18.000) MV EF SLOPE: 18 mm/s (70 - 150) EPSS: 1.6 cm MV E Shawn: 1.65 m/s MV DecT: 530 ms MV A Shawn: 1.74 m/s MV E/A Ratio: 0.95 AV maxP.53 mmHg AV meanP.11 mmHg AR PHT: 794 ms RAP: 5.00 mmHg RVSP: 33.43 mmHg FINDINGS -------- Paced rhythm. Resting bradycardia (HR<60bpm). This was a technically adequate study. The left ventricular size is normal. There is moderate concentric left ventricular hypertrophy. O verall left ventricular systolic function is normal with, an EF between 60 - 65 %. The right ventricle is normal in size. LA is moderately dilated 34-39 ml/m2 The right atrium is normal in size. Lipomatous Hypertrophy of the atrial septum is present There is severe aortic valve sclerosis. There is mild aortic regurgitation. There is severe aorti c stenosis present. Peak/mean gradient across the Aortic Valve is 95.53mmHg / 57.11mmHg. The mitral valve leaflets are moderately thickened. Moderate mitral annular calcification present. Mild mitral regurgitation is present. The peak and mean MV gradients are 16.05mmHg 3.94mmHg as m easured by doppler. Mild mitral stenosis. Mild tricuspid regurgitation present. Right ventricular systolic pressure is normal at < 35 mmHg. The pulmonic valve was not well visualized. The aortic root size is normal. Normal inferior vena cava with normal inspiratory collapse consistent with estimated right atrial pre ssure of 5 mmHg. There is no pericardial effusion. CONCLUSIONS -------- 1. Paced rhythm. 2. Resting bradycardia (HR<60bpm). 3. This was a technically adequate study. 4. The left ventricular size is normal. 5. There is moderate concentric left ventricular hypertrophy. 6. Overall left ventricular systolic function is normal with, an EF between 60 - 65 %. 7. The right ventricle is normal in size. 8. LA is moderately dilated 34-39 ml/m2 9. The right atrium is normal in size. 10. Lipomatous Hypertrophy of the atrial septum is present 11. There is severe aortic valve sclerosis. 12. There is mild aortic regurgitation. 13. There is severe aortic stenosis present. 14. Peak/mean gradient across the Aortic Valve is 95.53mmHg / 57.11mmHg. 15. The mitral valve leaflets are moderately thickened. 16. Moderate mitral annular calcification present. 17. Mild mitral regurgitation is present. 18. The peak and mean MV gradients are 16.05mmHg 3.94mmHg as measured by doppler. 19. Mild mitral stenosis. 20. Mild tricuspid regurgitation present. 21. Right ventricular systolic pressure is normal at < 35 mmHg. 22. The pulmonic valve was not well visualized. 23. The aortic root size is normal. 24. Normal inferior vena cava with normal inspiratory collapse consistent with estimated right atrial pressure of 5 mmHg. 25. There is no pericardial effusion. WATER OPERATOR: Marva Brambila RDCS
[2018-06-30] MEDS: MAGNESIUM SULFATE-D5W PMX 1 GM in DEXTROSE/WATER 1 100ML.BAG IVPB SCH ×2 (13:38→15:19)
[2018-06-30] MEDS: FUROSEMIDE 20 MG TAB PO SCH (13:40)
[2018-06-30 16:51] LABS: Glucose,Whole Blood 103 mg/dL (75-99)
[2018-06-30] MEDS: ACARBOSE 25 MG TAB PO SCH (17:15)
[2018-06-30 20:05] LABS: Glucose,Whole Blood 134 mg/dL (75-99)
[2018-06-30] MEDS: PANTOPRAZOLE 40 MG TABLET PO SCH (20:56)
[2018-06-30] MEDS: ATORVASTATIN 20 MG TAB PO SCH (20:56)
[2018-06-30] MEDS: MAG HYDROX/AL HYDROX/SIMETH 30 ML CUP PO PRN (20:56)
[2018-06-30] MEDS: SIMETHICONE 80 MG CHEWABLE PO SCH (20:57)
[2018-07-01] MEDS: traMADol 50 MG TAB PO PRN ×2 (00:45→07:58)
[2018-07-01 01:23] LABS: Appearance,Urine Turbid (Clear); Bacteria,Urine Few /hpf; Bilirubin,Urine Negative (Negative); Blood,Urine Small (Negative); Color,Urine Light Yellow; Glucose,Urine (UA) Negative (Negative); Ketones,Urine Negative (Negative); Leukocyte Esterase,Urine Large (Negative); Mucus,Urine Rare /hpf; Nitrite,Urine Negative (Negative); PH, Urine 6.5 (5.0-8.0); Protein,Urine Negative (Negative); Specific Gravity,Urine 1.013 (1.001-1.035); Squamous Epithelial Cell,Urine 5 /hpf (0-4); Urobilinogen,Urine <2.0 mg/dL (<2.0); WBC,Urine >182 /hpf (0-5)
[2018-07-01] MEDS: LEVOTHYROXINE 88 MCG TAB PO SCH (05:11)
[2018-07-01 06:41] LABS: Glucose,Whole Blood 120 mg/dL (75-99)
[2018-07-01 07:25] VITALS: BP 153/67; PULSE 61; TEMP 97.9
[2018-07-01] MEDS: SERTRALINE 25 MG TAB PO SCH (07:58)
[2018-07-01] MEDS: CHOLECALCIFEROL 1,000 UNIT TAB PO SCH (07:58)
[2018-07-01] MEDS: FUROSEMIDE 20 MG TAB PO SCH (07:59)
[2018-07-01] MEDS: glipiZIDE 5 MG TAB PO SCH (07:59)
[2018-07-01] MEDS: ALPRAZolam 0.25 MG TAB PO SCH (07:59)
[2018-07-01] MEDS: HYDROCORTISONE 2.5% RECTAL CREAM 30 GM TUBE RECTAL SCH (08:00)
[2018-07-01] MEDS: MAGNESIUM OXIDE PO SCH (08:03)
--- NOTE | 2018-07-01 08:44 | P.DS ---
Providers Date of admission: 06/29/18 10:15 Attending physician: David Guerra Consults: 06/29/18 10:15 Consult Physician Urgent Consulting Provider: [facility] Consult Reason/Comments: Unstable angina Do you want consulting provider notified?: Yes Primary care physician: David Guerra The patient is an 88-year-old female who presented 2 days previous to the emergency room with chest pressure along with weakness and presyncopal type symptomatology where she was feeling like passing out. Vertigo type sensations also. Patient has a history of coronary artery disease with a complex lesion involving circumflex and LAD along with history of aortic stenosis and recent permanent pacemaker placement for syncope and complete heart block. Other underlying comorbidities include her obesity, diabetes, hypertension, hyperlipidemia and probably osteoarthritis. She does have hypothyroidism and an essential tremor. Initial laboratory workup was negative for acute ischemia as her troponins remained normal. The CBC was unremarkable. Sodium 135 with a potassium 4.7. BUN of 19 with creatinine 0.8 to and initial blood sugar 163. Slightly low magnesium at 1.5. Chest x-ray showed some possible atelectasis. Some possible congestion. EKG showed a normal sinus rhythm and a right bundle alexx block without acute changes. Patient was seen by cardiology and it was felt that her pain was atypical for angina. She was placed on beta blockers. She has not had recurrence of her chest pressure symptomatology. At this point plans are to discharge to home and we will continue her metoprolol succinate 25 mg daily Other home medications include Acarbose 25 mg at supper Maalox 30 mL as needed for gastroesophageal reflux Amlodipine 5 mg daily Lisinopril 10 mg daily Tramadol 50 mg every 6 hours when necessary for pain Metformin 250 mg twice a day for her diabetes Glipizide 5 mg daily Génesis: 25 mg at at bedtime Zoloft 25 mg daily Prilosec 40 mg at at bedtime Mag-Ox 125 mg twice a day Levothyroxine 88 g daily Hydrocortisone cream applied perirectally daily as needed Vitamin D 3000 units daily Atorvastatin 20 mg at at bedtime Aspirin 81 mg daily Alprazolam 0.25 twice a day for anxiety. Continue her diabetic diet at home and activities as tolerated without exertional or strenuous activities. Discharge diagnoses 1. New onset chest pain atypical in nature, related to arrhythmia or secondary to aortic stenosis per cardiology. 2. Coronary artery disease and aortic stenosis as previously described at heart catheterization. Patient has declined in the past for surgical intervention. 3. Permanent pace maker placement for complete heart block and syncope earlier this month. 4. Diabetes type 2 5. Hypertension 6. Hyperlipidemia 7. Obesity 8. Polio osteoarthritis 9. Hypothyroidism 10. Essential tremor The patient will be set up for follow-up in my office along with cardiology follow-up. Prognosis still overall guarded in light of advanced AIDS and serious medical problems as delineated above. Plan - Discharge Summary Discharge Rx Participant: No New Discharge Prescriptions: Discontinued Nitroglycerin [Nitro-Time] 2.5 mg PO DAILY No Action Cholecalciferol [Vitamin D3 (25 Mcg = 1000 Iu)] 1,000 unit PO DAILY traMADol HCL [Ultram] 50 mg PO Q6HR PRN PRN Reason: Pain Omeprazole [PriLOSEC] 40 mg PO HS Magnesium Oxide [Mag-Ox] 125 mg PO BID Aspirin EC [Ecotrin Low Dose] 81 mg PO AC-SUPPER Sertraline HCl [Zoloft] 25 mg PO DAILY Hydrocortisone Pr Cream [Proctosol-Hc 2.5%] 1 applic RECTAL DAILY Atorvastatin [Lipitor] 20 mg PO HS Levothyroxine Sodium [Synthroid] 88 mcg PO DAILY ALPRAZolam [Xanax] 0.25 mg PO BID metFORMIN HCL [Glucophage] 250 mg PO BID glipiZIDE [Glucotrol] 5 mg PO DAILY Simethicone [Gas-X] 125 mg PO HS Acarbose [Precose] 25 mg PO AC-SUPPER amLODIPine [Norvasc] 5 mg PO DAILY Metoprolol Succinate (ER) [Toprol XL] 25 mg PO DAILY Lisinopril [Zestril] 10 mg PO DAILY Discharge Medication List ALPRAZolam [Xanax] 0.25 mg PO BID 06/17/18 [History] Acarbose [Precose] 25 mg PO AC-SUPPER 06/17/18 [History] Aspirin EC [Ecotrin Low Dose] 81 mg PO AC-SUPPER 06/17/18 [History] Atorvastatin [Lipitor] 20 mg PO HS 06/17/18 [History] Cholecalciferol [Vitamin D3 (25 Mcg = 1000 Iu)] 1,000 unit PO DAILY 06/17/18 [History] Hydrocortisone Pr Cream [Proctosol-Hc 2.5%] 1 applic RECTAL DAILY 06/17/18 [History] Levothyroxine Sodium [Synthroid] 88 mcg PO DAILY 06/17/18 [History] Magnesium Oxide [Mag-Ox] 125 mg PO BID 06/17/18 [History] Omeprazole [PriLOSEC] 40 mg PO HS 06/17/18 [History] Sertraline HCl [Zoloft] 25 mg PO DAILY 06/17/18 [History] Simethicone [Gas-X] 125 mg PO HS 06/17/18 [History] glipiZIDE [Glucotrol] 5 mg PO DAILY 06/17/18 [History] metFORMIN HCL [Glucophage] 250 mg PO BID 06/17/18 [History] traMADol HCL [Ultram] 50 mg PO Q6HR PRN 06/17/18 [History] Lisinopril [Zestril] 10 mg PO DAILY 06/30/18 [History] Metoprolol Succinate (ER) [Toprol XL] 25 mg PO DAILY 06/30/18 [History] amLODIPine [Norvasc] 5 mg PO DAILY 06/30/18 [History] Follow up Appointment(s)/Referral(s): Dominick Ybarra MD [STAFF PHYSICIAN] - 2 Weeks David Guerra MD [Primary Care Provider] - 1-2 days
[2018-07-01] MEDS ORDERED: amLODIPine 5 MG TAB PO SCH (09:00)
[2018-07-01] MEDS ORDERED: ASPIRIN 81 MG PO SCH (09:00)
[2018-07-01] MEDS ORDERED: METOPROLOL SUCCINATE (ER) 25 MG TAB.ER.24H PO SCH (09:00)
[2018-07-01] MEDS ORDERED: LISINOPRIL 10 MG TAB PO SCH (09:00)
== END 2018-07-01 11:15 | disposition home or self-care (01) ==
LOC: EC 07:53 → 1SOBS 10:15
PROVIDERS: ADMIT Internal Medicine; ATTEND Internal Medicine
DX: R07.89 Other chest pain (principal); I11.9 Hypertensive heart disease without heart failure; I35.0 Nonrheumatic aortic (valve) stenosis; E83.42 Hypomagnesemia; I25.10 Atherosclerotic heart disease of native coronary artery without angina pectoris; R55 Syncope and collapse; R11.0 Nausea; G25.0 Essential tremor; E11.40 Type 2 diabetes mellitus with diabetic neuropathy, unspecified; E03.9 Hypothyroidism, unspecified; E78.5 Hyperlipidemia, unspecified; K21.9 Gastro-esophageal reflux disease without esophagitis; I45.10 Unspecified right bundle-branch block; M15.9 Polyosteoarthritis, unspecified; R53.1 Weakness; E66.9 Obesity, unspecified; R60.9 Edema, unspecified; R32 Unspecified urinary incontinence; K59.00 Constipation, unspecified; E66.01 Morbid (severe) obesity due to excess calories; Z68.41 Body mass index [BMI] 40.0-44.9, adult; F41.9 Anxiety disorder, unspecified; Z95.0 Presence of cardiac pacemaker; Z79.84 Long term (current) use of oral hypoglycemic drugs; Z79.890 Hormone replacement therapy; Z79.82 Long term (current) use of aspirin; Z79.899 Other long term (current) drug therapy; Z88.0 Allergy status to penicillin; Z88.1 Allergy status to other antibiotic agents; Z88.2 Allergy status to sulfonamides; Z88.8 Allergy status to other drugs, medicaments and biological substances; Z91.041 Radiographic dye allergy status; Z90.49 Acquired absence of other specified parts of digestive tract; Z87.440 Personal history of urinary (tract) infections; Z87.891 Personal history of nicotine dependence; Z83.3 Family history of diabetes mellitus; Z82.49 Family history of ischemic heart disease and other diseases of the circulatory system; Z81.1 Family history of alcohol abuse and dependence; Z82.5 Family history of asthma and other chronic lower respiratory diseases
CPT/HCPCS: 96366 ×3; 96367; 96376; 96365; 99291; 36415; 94760 ×2; 93005; 93306; 97162; 80061; 80053; 83735 ×2; 84484; 85025; 85610; 85730 ×2; 81001; 71046; G0378 ×3; J1644 ×2; J3475

== ENCOUNTER 2018-11-24 05:13 | Observation (INO) | payer MEDICARE ==
--- NOTE | 2018-11-24 05:37 | ED ---
SOB HPI - History of Present Illness MD Complaint: shortness of breath Onset/Timin -: month(s) Severity: severe Consistency: constant Improves With: nothing Worsens With: nothing Known History Of: congestive heart failure Associated Symptoms: denies other symptoms <Jona Mcbride - Last Filed: 11/24/18 06:03> <Britany Juan - Last Filed: 11/25/18 12:05> - General Stated Complaint: SOB Time Seen by Provider: 11/24/18 05:30 - History of Present Illness Initial Comments: This patient is an 88-year-old woman who presents to emergency department to be evaluated for shortness of breath. The patient states this is been going on for number of months, since she had a pacemaker placed in June. The patient is not having chest pain. She has not noticed any fevers, chill or cough. There is an element of orthopnea. Patient has not noted any increase in leg edema. She does have some bilateral edema at baseline. The patient has not noted a change in urination or bowel movements. (Jona Mcbride) - Related Data Home Medications Medication Instructions Recorded Confirmed ALPRAZolam [Xanax] 0.25 mg PO BID 06/17/18 11/24/18 Acarbose [Precose] 25 mg PO AC-SUPPER 06/17/18 11/24/18 Aspirin EC [Ecotrin Low Dose] 81 mg PO AC-SUPPER 06/17/18 11/24/18 Atorvastatin [Lipitor] 20 mg PO HS 06/17/18 11/24/18 Cholecalciferol [Vitamin D3 (25 1,000 unit PO HS 06/17/18 11/24/18 Mcg = 1000 Iu)] Hydrocortisone Pr Cream 1 applic RECTAL DAILY 06/17/18 11/24/18 [Proctosol-Hc 2.5%] Levothyroxine Sodium [Synthroid] 88 mcg PO DAILY 06/17/18 11/24/18 Magnesium Oxide [Mag-Ox] 125 mg PO BID 06/17/18 11/24/18 Sertraline HCl [Zoloft] 25 mg PO DAILY 06/17/18 11/24/18 Simethicone [Gas-X] 125 mg PO HS 06/17/18 11/24/18 metFORMIN HCL [Glucophage] 250 mg PO BID 06/17/18 11/24/18 traMADol HCL [Ultram] 50 mg PO Q6HR PRN 06/17/18 11/24/18 Lisinopril [Zestril] 10 mg PO DAILY 06/30/18 11/24/18 Metoprolol Succinate (ER) [Toprol 25 mg PO DAILY 06/30/18 11/24/18 XL] Gabapentin [Neurontin] 100 mg PO HS 11/24/18 11/24/18 Maalox 2 tab PO PC-SUPPER 11/24/18 11/24/18 amLODIPine [Norvasc] 10 mg PO DAILY 11/24/18 11/24/18 Previous Rx's Medication Instructions Recorded Furosemide [Lasix] 40 mg PO BID #45 tablet 11/25/18 Omeprazole 40 mg PO DAILY #30 capsule. 11/25/18 Allergies Allergy/AdvReac Type Severity Reaction Status Date / Time amoxicillin Allergy Unknown Verified 11/24/18 07:22 Iodinated Contrast Media Allergy Unknown Verified 11/24/18 07:22 [Iodinated Contrast- Oral and IV Dye] metoclopramide [From Reglan] Allergy Unknown Verified 11/24/18 07:22 sulfamethoxazole Allergy Unknown Verified 11/24/18 07:22 [From Septra] trimethoprim [From Septra] Allergy Unknown Verified 11/24/18 07:22 ampicillin AdvReac Nausea & Verified 11/24/18 07:22 Vomiting cephalexin AdvReac Nausea & Verified 11/24/18 07:22 Vomiting levofloxacin AdvReac SHAKING,PUGA Verified 11/24/18 07:22 ICS Review of Systems ROS Other: All systems not noted in ROS Statement are negative. Constitutional: Denies: fever, chills Respiratory: Reports: dyspnea. Denies: cough, wheezes, hemoptysis Cardiovascular: Reports: orthopnea, edema. Denies: chest pain, palpitations, syncope Gastrointestinal: Denies: abdominal pain, vomiting, diarrhea Genitourinary: Denies: dysuria, hematuria Musculoskeletal: Denies: back pain Skin: Denies: rash Neurological: Denies: headache <Jona Mcbride - Last Filed: 11/24/18 06:03> ROS Other: All systems not noted in ROS Statement are negative. <Britany Juan - Last Filed: 11/25/18 12:05> ROS Statement: Those systems with pertinent positive or pertinent negative responses have been documented in the HPI. Past Medical History Past Medical History: Coronary Artery Disease (CAD), Diabetes Mellitus, Eye Disorder, GERD/Reflux, Hyperlipidemia, Hypertension, Osteoarthritis (OA), Syncope, Thyroid Disorder Additional Past Medical History / Comment(s): Pt recently admitted to [facility] on 06/17/18 with syncope/CHB and had temporary then permanent pacemaker insertions, she also had a UTI/Enteroccal faecalis. Other hx: Current decub on coccyx per pt/mindy, NIDDM type II, diabetic neuropathy bilateral feet, severe aortic stenosis, polyarthritis, essential tremors, hypothyroid, bilateral cataracts, incontinence or urine and occasionally stool, constipation. History of Any Multi-Drug Resistant Organisms: ESBL Date of last positivie culture/infection: 07/21/18 MDRO Source:: ESBL URINE Past Surgical History: Cholecystectomy, Orthopedic Surgery, Pacemaker Additional Past Surgical History / Comment(s): 06/17/18 temporary pacemaker, 06/19/18 permanent pacemaker, R knee arthrotomy d/t chip, colonoscopy. Past Anesthesia/Blood Transfusion Reactions: No Reported Reaction Type of Cardiac Device: Permanent Pacemaker Device Placement Date:: 06/19/18 Smoking Status: Former smoker - Past Family History Father Additional Family Medical History / Comment(s): Father was an alcoholic Mother Family Medical History: Asthma Additional Family Medical History / Comment(s): Mother at the age of 54yrs- pt unsure from what. <KarizullyJona - Last Filed: 11/24/18 06:03> General Exam General appearance: alert, in no apparent distress, obese Head exam: Present: atraumatic, normocephalic Eye exam: Present: normal appearance. Absent: scleral icterus, conjunctival injection ENT exam: Present: normal oropharynx Respiratory exam: Present: rales (Bilateral bases). Absent: respiratory distress, wheezes, rhonchi, stridor, accessory muscle use, decreased breath sounds Cardiovascular Exam: Present: regular rate, normal rhythm, systolic murmur. Absent: diastolic murmur, rubs, gallop GI/Abdominal exam: Present: soft. Absent: distended, tenderness, guarding, rebound, mass Extremities exam: Present: normal inspection, normal capillary refill, pedal edema (There is mild edema up to the mid pretibial areas bilaterally). Absent: calf tenderness Back exam: Present: normal inspection Neurological exam: Present: alert Skin exam: Present: warm, dry, intact, normal color. Absent: rash <Jona Mcbride - Last Filed: 11/24/18 06:03> Course Vital Signs 11/24/18 11/24/18 05:14 06:30 Temperature 97.4 F L 98.7 F Pulse Rate 60 60 Respiratory 18 18 Rate Blood Pressure 145/64 147/54 O2 Sat by Pulse 96 96 Oximetry Medical Decision Making - Lab Data Result diagrams: 11/24/18 05:34 11/24/18 05:34 - EKG Data -: EKG Interpreted by Nv Rate: normal (Paced rhythm at 67 bpm) <Jona Mcbride - Last Filed: 11/24/18 06:03> - Lab Data Result diagrams: 11/24/18 05:34 11/25/18 06:42 <Britany Juan - Last Filed: 11/25/18 12:05> - Medical Decision Making I spoke with Dr. Cason regarding Dr. Do admission and she accepted the patient. Orders had already been placed by Dr. Do (Britany Juan) - Lab Data Lab Results 11/24/18 11/24/18 11/24/18 Range/Units 05:34 05:34 05:34 WBC 9.2 (3.8-10.6) k/uL RBC 4.77 (3.80-5.40) m/uL Hgb 11.6 (11.4-16.0) gm/dL Hct 36.3 (34.0-46.0) % MCV 76.0 L (80.0-100.0) fL MCH 24.4 L (25.0-35.0) pg MCHC 32.1 (31.0-37.0) g/dL RDW 17.0 H (11.5-15.5) % Plt Count 235 (150-450) k/uL Neutrophils % 72 % Lymphocytes % 20 % Monocytes % 5 % Eosinophils % 1 % Basophils % 0 % Neutrophils # 6.6 (1.3-7.7) k/uL Lymphocytes # 1.8 (1.0-4.8) k/uL Monocytes # 0.5 (0-1.0) k/uL Eosinophils # 0.1 (0-0.7) k/uL Basophils # 0.0 (0-0.2) k/uL Hypochromasia Slight Anisocytosis Slight Microcytosis Slight PT 10.9 (9.0-12.0) sec INR 1.0 (<1.2) APTT 23.3 (22.0-30.0) sec Sample Site ABG pH (7.35-7.45) ABG pCO2 (35-45) mmHg ABG pO2 (83-108) mmHg ABG HCO3 (21-25) mmol/L ABG Total CO2 (19-24) mmol/L ABG O2 Saturation (94-97) % ABG Base Excess mmol/L Zeferino Test FiO2 % Sodium 134 L (137-145) mmol/L Potassium 4.3 (3.5-5.1) mmol/L Chloride 95 L (98-107) mmol/L Carbon Dioxide 28 (22-30) mmol/L Anion Gap 11 mmol/L BUN 14 (7-17) mg/dL Creatinine 0.90 (0.52-1.04) mg/dL Est GFR (CKD-EPI)AfAm 67 (>60 ml/min/1.73 sqM) Est GFR (CKD-EPI)NonAf 58 (>60 ml/min/1.73 sqM) Glucose 142 H (74-99) mg/dL Calcium 9.2 (8.4-10.2) mg/dL Magnesium 1.4 L (1.6-2.3) mg/dL Total Bilirubin 0.6 (0.2-1.3) mg/dL AST 14 (14-36) U/L ALT 13 (9-52) U/L Alkaline Phosphatase 126 (38-126) U/L Troponin I (0.000-0.034) ng/mL NT-Pro-B Natriuret Pep pg/mL Total Protein 6.5 (6.3-8.2) g/dL Albumin 3.8 (3.5-5.0) g/dL 11/24/18 11/24/18 11/24/18 Range/Units 05:34 05:34 05:55 WBC (3.8-10.6) k/uL RBC (3.80-5.40) m/uL Hgb (11.4-16.0) gm/dL Hct (34.0-46.0) % MCV (80.0-100.0) fL MCH (25.0-35.0) pg MCHC (31.0-37.0) g/dL RDW (11.5-15.5) % Plt Count (150-450) k/uL Neutrophils % % Lymphocytes % % Monocytes % % Eosinophils % % Basophils % % Neutrophils # (1.3-7.7) k/uL Lymphocytes # (1.0-4.8) k/uL Monocytes # (0-1.0) k/uL Eosinophils # (0-0.7) k/uL Basophils # (0-0.2) k/uL Hypochromasia Anisocytosis Microcytosis PT (9.0-12.0) sec INR (<1.2) APTT (22.0-30.0) sec Sample Site Right Radial ABG pH 7.47 H (7.35-7.45) ABG pCO2 38 (35-45) mmHg ABG pO2 79 L (83-108) mmHg ABG HCO3 28 H (21-25) mmol/L ABG Total CO2 29 H (19-24) mmol/L ABG O2 Saturation 94.4 (94-97) % ABG Base Excess 3.9 mmol/L Zeferino Test Yes FiO2 28 % Sodium (137-145) mmol/L Potassium (3.5-5.1) mmol/L Chloride (98-107) mmol/L Carbon Dioxide (22-30) mmol/L Anion Gap mmol/L BUN (7-17) mg/dL Creatinine (0.52-1.04) mg/dL Est GFR (CKD-EPI)AfAm (>60 ml/min/1.73 sqM) Est GFR (CKD-EPI)NonAf (>60 ml/min/1.73 sqM) Glucose (74-99) mg/dL Calcium (8.4-10.2) mg/dL Magnesium (1.6-2.3) mg/dL Total Bilirubin (0.2-1.3) mg/dL AST (14-36) U/L ALT (9-52) U/L Alkaline Phosphatase (38-126) U/L Troponin I 0.016 (0.000-0.034) ng/mL NT-Pro-B Natriuret Pep 4300 pg/mL Total Protein (6.3-8.2) g/dL Albumin (3.5-5.0) g/dL Disposition <Jona Mcbride - Last Filed: 11/24/18 06:03> Is patient prescribed a controlled substance at d/c from ED?: No Decision to Admit Reason: Admit from EC Decision Date: 11/24/18 Decision Time: 07:12 <Britany Juan - Last Filed: 11/25/18 12:05> Clinical Impression: Congestive heart failure Disposition: ADMITTED IP TO THIS HOSP Condition: Stable
[2018-11-24 05:47] LABS: Anisocytosis Slight; Basophils % (A) 0 %; Eosinophils # (A) 0.1 k/uL (0-0.7); Eosinophils % (A) 1 %; HCT 36.3 % (34.0-46.0); HGB 11.6 gm/dL (11.4-16.0); Hypochromasia Slight; Lymphocytes # (A) 1.8 k/uL (1.0-4.8); Lymphocytes % (A) 20 %; MCH 24.4 pg (25.0-35.0); MCHC 32.1 g/dL (31.0-37.0); Mean Platelet Volume 6.6; Microcytosis Slight; Monocytes # (A) 0.5 k/uL (0-1.0); Monocytes % (A) 5 %; Neutrophils # (A) 6.6 k/uL (1.3-7.7); Neutrophils % (A) 72 %; Platelet Count 235 k/uL (150-450); RBC 4.77 m/uL (3.80-5.40); WBC 9.2 k/uL (3.8-10.6)
--- NOTE | 2018-11-24 05:48 | XR ---
EXAMINATION TYPE: XR chest 1V portable DATE OF EXAM: 11/24/2018 COMPARISON: 06/29/2018 HISTORY: Dyspnea TECHNIQUE: Single frontal view of the chest is obtained. FINDINGS: There is mild pulmonary vascular congestion. There is some blunting of the costophrenic an gles. There is left axillary pacemaker. There are chest leads. IMPRESSION: There is mild congestive heart failure with right pleural effusion slightly worse than l ast exam. Small left pleural effusion.
[2018-11-24 05:56] LABS: Albumin 3.8 g/dL (3.5-5.0); Calcium 9.2 mg/dL (8.4-10.2); Magnesium 1.4 mg/dL (1.6-2.3); Partial Thromboplastin Time 23.3 sec (22.0-30.0); Potassium 4.3 mmol/L (3.5-5.1); Prothrombin Time 10.9 sec (9.0-12.0); Total Bilirubin 0.6 mg/dL (0.2-1.3); Total Protein 6.5 g/dL (6.3-8.2)
[2018-11-24 05:59] LABS: ABG Base Excess 3.9 mmol/L; ABG HCO3 28 mmol/L (21-25); ABG Oxygen Saturation 94.4 % (94-97); ABG PCO2 38 mmHg (35-45); ABG PH 7.47 (7.35-7.45); ABG PO2 79 mmHg (83-108); ABG TCO2 29 mmol/L (19-24); Allen Test Performed? Yes
[2018-11-24] MEDS ORDERED: FUROSEMIDE 10 MG/ML 4 ML VIAL IV STA (06:54)
[2018-11-24] MEDS: FUROSEMIDE 10 MG/ML 4 ML VIAL IV SCH ×2 (07:28→16:30)
[2018-11-24] MEDS ORDERED: metFORMIN 500 MG TAB PO SCH (07:30)
[2018-11-24] MEDS: LEVOTHYROXINE 88 MCG TAB PO SCH (08:27)
[2018-11-24] MEDS: HEPARIN SODIUM,PORCINE 5,000 UNIT/ML 1 ML VIAL SQ SCH ×2 (08:27→20:19)
[2018-11-24 08:28] LABS: Glucose,Whole Blood 124 mg/dL (75-99)
[2018-11-24] MEDS: amLODIPine 5 MG TAB PO SCH (08:28)
[2018-11-24] MEDS: METOPROLOL SUCCINATE (ER) 25 MG TAB.ER.24H PO SCH (08:28)
[2018-11-24] MEDS: LISINOPRIL 10 MG TAB PO SCH (08:28)
[2018-11-24] MEDS ORDERED: ALPRAZolam 0.25 MG TAB PO PRN (09:00)
[2018-11-24] MEDS ORDERED: glipiZIDE 5 MG TAB PO SCH (09:00)
[2018-11-24] MEDS ORDERED: INFLUENZA VACCINE (6 MOS+) 60 MCG/0.5 ML SYRINGE IM ONE (09:30)
--- NOTE | 2018-11-24 10:50 | P.CRDCN ---
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 She follows in the office with Dr. Ybarra , patient underwent im plantation of a permanent pacemaker, [employer], with Dr. Ochoa in June of this year, according to the daughter, since that time the patient has had some symptoms of shortness of breath but never seemed to really improve. Recently the patient has. To be more short of breath than her usual and for this reason came to the emergency room for further evaluation and treatment. Chest x-ray on presentation here did show mild congestive cardiac failure with a right-sided pleural effusion, worse than prior exam, small left pleural effusion. EKG showed a ventricular paced rhythm. Patient had an echo cardiac gram with Doppler study performed in June which revealed an ejection fraction of 60-65%. Lipomatous hypertrophy of the atrial septum present, severe aortic stenosis. Blood pressure 146/50 with a heart rate in the 60s, 96% on 2 L of oxygen. White blood cell count 9.2, hemoglobin 11.6, platelet count 235. Sodium 134, potassium 4.3, BUN 14 and creatinine 0.9. Magnesium 1.4, troponin 0.016, BNP level 4300. At the time of my examination this morning, the patient continues to complain of feeling short of breath Past Medical History Past Medical History: Coronary Artery Disease (CAD), Diabetes Mellitus, Eye Disorder, GERD/Reflux, Hyperlipidemia, Hypertension, Osteoarthritis (OA), Syncope, Thyroid Disorder Additional Past Medical History / Comment(s): Syncope/CHB and had temporary then permanent pacemaker, currently has 3 small decub on coccyx per pt/mindy, NIDDM type II, diabetic neuropathy bilateral feet, severe aortic stenosis, polyarthritis, essential tremors, hypothyroid, bilateral cataracts, incontinence or urine and occasionally stool, constipation, UTI. History of Any Multi-Drug Resistant Organisms: ESBL Date of last positivie culture/infection: 07/21/18 MDRO Source:: ESBL URINE Past Surgical History: Cholecystectomy, Heart Catheterization, Orthopedic Surgery, Pacemaker Additional Past Surgical History / Comment(s): 06/17/18 temporary pacemaker, 06/19/18 permanent pacemaker, R knee arthrotomy d/t chip, colonoscopy. Past Anesthesia/Blood Transfusion Reactions: No Reported Reaction Type of Cardiac Device: Permanent Pacemaker Device Placement Date:: 06/19/18 Smoking Status: Former smoker - Past Family History Father Additional Family Medical History / Comment(s): Father was an alcoholic Mother Family Medical History: Asthma Additional Family Medical History / Comment(s): Mother at the age of 54yrs- pt unsure from what. Medications and Allergies Home Medications Medication Instructions Recorded Confirmed Type ALPRAZolam [Xanax] 0.25 mg PO BID 06/17/18 11/24/18 History Acarbose [Precose] 25 mg PO AC-SUPPER 06/17/18 11/24/18 History Aspirin EC [Ecotrin Low Dose] 81 mg PO AC-SUPPER 06/17/18 11/24/18 History Atorvastatin [Lipitor] 20 mg PO HS 06/17/18 11/24/18 History Cholecalciferol [Vitamin D3 (25 1,000 unit PO HS 06/17/18 11/24/18 History Mcg = 1000 Iu)] Hydrocortisone Pr Cream 1 applic RECTAL DAILY 06/17/18 11/24/18 History [Proctosol-Hc 2.5%] Levothyroxine Sodium [Synthroid] 88 mcg PO DAILY 06/17/18 11/24/18 History Magnesium Oxide [Mag-Ox] 125 mg PO BID 06/17/18 11/24/18 History Omeprazole [PriLOSEC] 40 mg PO HS 06/17/18 11/24/18 History Sertraline HCl [Zoloft] 25 mg PO DAILY 06/17/18 11/24/18 History Simethicone [Gas-X] 125 mg PO HS 06/17/18 11/24/18 History metFORMIN HCL [Glucophage] 250 mg PO BID 06/17/18 11/24/18 History traMADol HCL [Ultram] 50 mg PO Q6HR PRN 06/17/18 11/24/18 History Lisinopril [Zestril] 10 mg PO DAILY 06/30/18 11/24/18 History Metoprolol Succinate (ER) [Toprol 25 mg PO DAILY 06/30/18 11/24/18 History XL] Furosemide [Lasix] 20 mg PO DAILY 11/24/18 11/24/18 History Gabapentin [Neurontin] 100 mg PO HS 11/24/18 11/24/18 History Maalox 2 tab PO PC-SUPPER 11/24/18 11/24/18 History amLODIPine [Norvasc] 10 mg PO DAILY 11/24/18 11/24/18 History Allergies Allergy/AdvReac Type Severity Reaction Status Date / Time amoxicillin Allergy Unknown Verified 11/24/18 07:22 Iodinated Contrast Media Allergy Unknown Verified 11/24/18 07:22 [Iodinated Contrast- Oral and IV Dye] metoclopramide [From Reglan] Allergy Unknown Verified 11/24/18 07:22 sulfamethoxazole Allergy Unknown Verified 11/24/18 07:22 [From Septra] trimethoprim [From Septra] Allergy Unknown Verified 11/24/18 07:22 ampicillin AdvReac Nausea & Verified 11/24/18 07:22 Vomiting cephalexin AdvReac Nausea & Verified 11/24/18 07:22 Vomiting levofloxacin AdvReac SHAKING,PUGA Verified 11/24/18 07:22 ICS Physical Exam Vitals: Vital Signs Temp Pulse Resp BP Pulse Ox 11/24/18 06:30 98.7 F 60 18 147/54 96 11/24/18 05:14 97.4 F L 60 18 145/64 96 Intake and Output 11/23/18 11/24/18 11/24/18 22:59 06:59 14:59 Other: Weight 98.883 kg GENERAL: This is a 88-year-old female in no apparent distress at the time of my examination. Morbidly obese. HEENT: Head is atraumatic, normocephalic. Pupils are equal, round. Sclerae anicteric. Conjunctivae are clear. Mucous membranes of the mouth are moist. Neck is supple. There is no jugular venous distention. No carotid bruit is heard. LUNGS: Clear to auscultation no wheezes, rales or rhonchi. No chest wall tenderness is noted on palpation or with deep breathing. Diminished bilaterally. HEART: Regular rate and rhythm with systolic ejection murmur at the base, no rubs or gallops. S1 and S2 heard. Left anterior pacemaker insertion site is clean, dry and intact with no evidence of erythema, drainage and is nontender. ABDOMEN: Soft, nontender. Bowel sounds are heard. No organomegaly noted. EXTREMITIES: 1+ bilateral lower extremity pitting edema. No calf tenderness noted. VASCULAR: Radial and dorsalis pedis pulses palpated, no evidence of clubbing. NEUROLOGIC: Patient is awake, alert and oriented x3. Results 11/24/18 05:34 11/24/18 05:34 Cardiac Enzymes 11/24/18 11/24/18 Range/Units 05:34 05:34 AST 14 (14-36) U/L Troponin I 0.016 (0.000-0.034) ng/mL Coagulation 11/24/18 Range/Units 05:34 PT 10.9 (9.0-12.0) sec APTT 23.3 (22.0-30.0) sec CBC 11/24/18 Range/Units 05:34 WBC 9.2 (3.8-10.6) k/uL RBC 4.77 (3.80-5.40) m/uL Hgb 11.6 (11.4-16.0) gm/dL Hct 36.3 (34.0-46.0) % Plt Count 235 (150-450) k/uL Comprehensive Metabolic Panel 11/24/18 Range/Units 05:34 Sodium 134 L (137-145) mmol/L Potassium 4.3 (3.5-5.1) mmol/L Chloride 95 L (98-107) mmol/L Carbon Dioxide 28 (22-30) mmol/L BUN 14 (7-17) mg/dL Creatinine 0.90 (0.52-1.04) mg/dL Glucose 142 H (74-99) mg/dL Calcium 9.2 (8.4-10.2) mg/dL AST 14 (14-36) U/L ALT 13 (9-52) U/L Alkaline Phosphatase 126 (38-126) U/L Total Protein 6.5 (6.3-8.2) g/dL Albumin 3.8 (3.5-5.0) g/dL Current Medications Generic Name Dose Route Start Last Admin Trade Name Freq PRN Reason Stop Dose Admin Acarbose 25 mg 11/24/18 17:30 Precose PO AC-SUPPER FRANK Alprazolam 0.25 mg 11/24/18 09:00 Xanax PO BID PRN Anxiety Amlodipine Besylate 5 mg 11/24/18 09:00 11/24/18 08:28 Norvasc PO 5 mg DAILY [facility] Administration Aspirin 81 mg 11/24/18 17:30 Aspirin PO AC-SUPPER [facility] Atorvastatin Calcium 20 mg 11/24/18 21:00 Lipitor PO HS [facility] Cholecalciferol 1,000 unit 11/24/18 09:00 Vitamin D3 (25 Mcg = 1000 Iu) PO DAILY [facility] Furosemide 40 mg 11/24/18 07:00 11/24/18 07:28 Lasix IV Not Given Q12H [facility] Glipizide 5 mg 11/24/18 09:00 11/24/18 08:50 Glucotrol PO Not Given DAILY [facility] Heparin Sodium (Porcine) 5,000 unit 11/24/18 09:00 11/24/18 08:27 Heparin SQ 5,000 unit Q12HR [facility] Administration Influenza Virus Vaccine Quadrival 60 mcg 11/24/18 09:30 Flulaval Vaccine [id number] IM 11/24/18 09:31 .ONCE ONE Levothyroxine Sodium 88 mcg 11/24/18 09:00 11/24/18 08:27 Synthroid PO 88 mcg DAILY@0630 [facility] Administration Lisinopril 10 mg 11/24/18 09:00 11/24/18 08:28 Zestril PO 10 mg DAILY [facility] Administration Magnesium Oxide 400 mg 11/24/18 09:00 Mag-Ox PO DAILY [facility] Metformin HCl 250 mg 11/24/18 07:30 11/24/18 08:49 Glucophage PO Not Given BID-W/MEALS [facility] Metoprolol Succinate 25 mg 11/24/18 09:00 11/24/18 08:28 Toprol Xl PO 25 mg DAILY [facility] Administration Pantoprazole Sodium 40 mg 11/24/18 21:00 Protonix PO HS [facility] Sertraline HCl 25 mg 11/24/18 09:00 Zoloft PO DAILY [facility] Sodium Chloride 10 ml 11/24/18 09:00 11/24/18 08:50 Saline Flush IV Not Given BID [facility] Tramadol HCl 50 mg 11/24/18 06:58 Ultram PO Q6HR PRN Pain Intake and Output 11/23/18 11/24/18 11/24/18 22:59 06:59 14:59 Other: Weight 98.883 kg 11/24/18 05:34 11/24/18 05:34 EKG Interpretations (text) EKG shows a ventricular paced rhythm. Assessment and Plan Plan: ASSESSMENT and plan #1 shortness of breath, just a cardiac failure, diastolic acute on chronic #2 severe Aortic stenosis #3 Coronary artery disease, maximum medical therapy recommended #4 Hypertension #5 Dyslipidemia #6 prior pacemaker implantation Plan We will obtain an echocardiogram with Doppler study, continue IV Lasix and interrogate pacemaker, plan for possible discharge home in 24 hours if stable. DNP note has been reviewed, I agree with a documented findings and plan of care. Patient was seen and examined.
[2018-11-24 11:45] VITALS: BMI 41.7
[2018-11-24 11:50] LABS: Glucose,Whole Blood 120 mg/dL (75-99)
--- NOTE | 2018-11-24 12:28 | ECHOF ---
Referral Reason:Heart Failure MEASUREMENTS -------- HEIGHT: 157.5 cm WEIGHT: 98.9 kg BP: 147/54 RVIDd: 3.5 cm (< 3.3) IVSd: 1.1 cm (0.6 - 1.1) LVIDd: 5.6 cm (3.9 - 5.3) LVPWd: 1.3 cm (0.6 - 1.1) IVSs: 1.6 cm LVIDs: 4.2 cm LVPWs: 1.7 cm LA Diam: 5.5 cm (2.7 - 3.8) LAESV Index (A-L): 46.49 ml/m Ao Diam: 1.9 cm (2.0 - 3.7) LA Diam: 4.6 cm (2.7 - 3.8) MV E Shawn: 0.69 m/s MV DecT: 344 ms MV A Shawn: 0.88 m/s MV E/A Ratio: 0.78 AV maxP.02 mmHg AV meanP.25 mmHg FINDINGS -------- Paced rhythm. This was a techncally difficult study with suboptimal views, , Lumason utilized for enhancement of im ages. The left ventricular size is normal. There is mild concentric left ventricular hypertrophy. Overa ll left ventricular systolic function is mildly impaired with, an EF between 45 - 50 %. Left ventri cular fillimg pressure cannot be estimated due to paced rhythm. Septal wall motion is delayed, and consistent with ventricular pacing. The right ventricle is mild to moderately enlarged. The left atrium is markedly dilated. LA is severely dilated >40 ml/m2 The right atrial size is normal. 5.0mg OF Lumason UTLIZED: 2 OR MORE WALL SEGMENTS NOT VISUALIZED. There is severe aortic stenosis present. Peak/mean gradient across the Aortic Valve is 120.02mmHg / 75.25mmHg. Mild mitral annular calcification present. Cfgn-ct-maochmve mitral regurgitation is present. The peak and mean MV gradients are 15.19mmHg 5.00mmHg as measured by doppler. Mild mitral stenosis. Mild tricuspid regurgitation present. Right ventricular systolic pressure is normal at < 35 mmHg. There is no evidence of pulmonary hypertension. The pulmonic valve was not well visualized. The aortic root size is normal. There is no pericardial effusion. CONCLUSIONS -------- 1. Paced rhythm. 2. This was a techncally difficult study with suboptimal views, , Lumason utilized for enhancement of images. 3. The left ventricular size is normal. 4. There is mild concentric left ventricular hypertrophy. 5. Left ventricular fillimg pressure cannot be estimated due to paced rhythm. 6. Septal wall motion is delayed, and consistent with ventricular pacing. 7. The right ventricle is mild to moderately enlarged. 8. The left atrium is markedly dilated. 9. LA is severely dilated >40 ml/m2 10. The right atrial size is normal. 11. 5.0mg OF Lumason UTLIZED: 2 OR MORE WALL SEGMENTS NOT VISUALIZED. 12. There is severe aortic stenosis present. 13. Peak/mean gradient across the Aortic Valve is 120.02mmHg / 75.25mmHg. 14. Mild mitral annular calcification present. 15. Cnsa-po-rpsjspip mitral regurgitation is present. 16. The peak and mean MV gradients are 15.19mmHg 5.00mmHg as measured by doppler. 17. Mild tricuspid regurgitation present. 18. Right ventricular systolic pressure is normal at < 35 mmHg. 19. There is no evidence of pulmonary hypertension. 20. The pulmonic valve was not well visualized. 21. The aortic root size is normal. 22. There is no pericardial effusion. CHECKER AND PACKER: Christine Hankins RDCS
[2018-11-24] MEDS: MAGNESIUM OXIDE 400 MG TAB PO SCH (13:53)
[2018-11-24] MEDS: SERTRALINE 25 MG TAB PO SCH (13:53)
[2018-11-24] MEDS: CHOLECALCIFEROL 1,000 UNIT TAB PO SCH (13:53)
[2018-11-24] MEDS ORDERED: MAG HYDROX/AL HYDROX/SIMETH 30 ML CUP PO PRN (13:54)
--- NOTE | 2018-11-24 14:45 | P.HPIM ---
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 She reports that over the past 1 month in particular, the SOB has been limiting even the most basic ADLs such as going to the bathroom. The patient notes some chest heaviness though denied nausea, vomiting, diaphoresis, or dizziness. The patient underwent an extensive evaluation in the ED w/ WBC count 9.2, Hgb 11.6, platelets 235, Trop 126, BNP 4300, BUN 14, and Cr 0.90. CXR revealed mild CHF w/ small L pleural effusion. EKG as reviewed by me revealed a V-paced rhythm @ 67 bpm. The patient was admitted for acute CHF exacerbation and cardiology evaluation. Review of Systems Pertinent positives and negatives as discussed in HPI, a complete review of s ystems was performed and all other systems are negative. Past Medical History Past Medical History: Coronary Artery Disease (CAD), Diabetes Mellitus, Eye Disorder, GERD/Reflux, Hyperlipidemia, Hypertension, Osteoarthritis (OA), Syncope, Thyroid Disorder Additional Past Medical History / Comment(s): Syncope/CHB and had temporary then permanent pacemaker, currently has 3 small decub on coccyx per pt/mindy, NIDDM type II, diabetic neuropathy bilateral feet, severe aortic stenosis, polyarthritis, essential tremors, hypothyroid, bilateral cataracts, incontinence or urine and occasionally stool, constipation, UTI. History of Any Multi-Drug Resistant Organisms: ESBL Date of last positivie culture/infection: 07/21/18 MDRO Source:: ESBL URINE Past Surgical History: Cholecystectomy, Heart Catheterization, Orthopedic Surgery, Pacemaker Additional Past Surgical History / Comment(s): 06/17/18 temporary pacemaker, 06/19/18 permanent pacemaker, R knee arthrotomy d/t chip, colonoscopy. Past Anesthesia/Blood Transfusion Reactions: No Reported Reaction Type of Cardiac Device: Permanent Pacemaker Device Placement Date:: 06/19/18 Smoking Status: Former smoker - Past Family History Father Additional Family Medical History / Comment(s): Father was an alcoholic Mother Family Medical History: Asthma Additional Family Medical History / Comment(s): Mother at the age of 54yrs- pt unsure from what. Medications and Allergies Home Medications Medication Instructions Recorded Confirmed Type ALPRAZolam [Xanax] 0.25 mg PO BID 06/17/18 11/24/18 History Acarbose [Precose] 25 mg PO AC-SUPPER 06/17/18 11/24/18 History Aspirin EC [Ecotrin Low Dose] 81 mg PO AC-SUPPER 06/17/18 11/24/18 History Atorvastatin [Lipitor] 20 mg PO HS 06/17/18 11/24/18 History Cholecalciferol [Vitamin D3 (25 1,000 unit PO HS 06/17/18 11/24/18 History Mcg = 1000 Iu)] Hydrocortisone Pr Cream 1 applic RECTAL DAILY 06/17/18 11/24/18 History [Proctosol-Hc 2.5%] Levothyroxine Sodium [Synthroid] 88 mcg PO DAILY 06/17/18 11/24/18 History Magnesium Oxide [Mag-Ox] 125 mg PO BID 06/17/18 11/24/18 History Omeprazole [PriLOSEC] 40 mg PO HS 06/17/18 11/24/18 History Sertraline HCl [Zoloft] 25 mg PO DAILY 06/17/18 11/24/18 History Simethicone [Gas-X] 125 mg PO HS 06/17/18 11/24/18 History metFORMIN HCL [Glucophage] 250 mg PO BID 06/17/18 11/24/18 History traMADol HCL [Ultram] 50 mg PO Q6HR PRN 06/17/18 11/24/18 History Lisinopril [Zestril] 10 mg PO DAILY 06/30/18 11/24/18 History Metoprolol Succinate (ER) [Toprol 25 mg PO DAILY 06/30/18 11/24/18 History XL] Furosemide [Lasix] 20 mg PO DAILY 11/24/18 11/24/18 History Gabapentin [Neurontin] 100 mg PO HS 11/24/18 11/24/18 History Maalox 2 tab PO PC-SUPPER 11/24/18 11/24/18 History amLODIPine [Norvasc] 10 mg PO DAILY 11/24/18 11/24/18 History Allergies Allergy/AdvReac Type Severity Reaction Status Date / Time amoxicillin Allergy Unknown Verified 11/24/18 07:22 Iodinated Contrast Media Allergy Unknown Verified 11/24/18 07:22 [Iodinated Contrast- Oral and IV Dye] metoclopramide [From Reglan] Allergy Unknown Verified 11/24/18 07:22 sulfamethoxazole Allergy Unknown Verified 11/24/18 07:22 [From Septra] trimethoprim [From Septra] Allergy Unknown Verified 11/24/18 07:22 ampicillin AdvReac Nausea & Verified 11/24/18 07:22 Vomiting cephalexin AdvReac Nausea & Verified 11/24/18 07:22 Vomiting levofloxacin AdvReac SHAKING,PUGA Verified 11/24/18 07:22 ICS Physical Exam Vitals: Vital Signs Temp Pulse Pulse Resp BP BP Pulse Ox 11/24/18 12:00 97.4 F L 50 L 16 140/65 98 11/24/18 09:45 97.6 F 54 L 16 175/72 98 11/24/18 06:30 98.7 F 60 18 147/54 96 11/24/18 05:14 97.4 F L 60 18 145/64 96 Intake and Output 11/23/18 11/24/18 11/24/18 22:59 06:59 14:59 Other: # Voids 1 Weight 98.883 kg 103.5 kg General: non toxic, no distress, appears at stated age, obese Derm: no unusual rashes/lesions no unusual ecchymoses, warm, dry Head: atraumatic, normocephalic, symmetric Eyes: EOMI, no lid lag, anicteric sclera, pupils equal round reactive to light ENT: Nose and ears atraumatic, no thrush, no pharyngeal erythema Neck: No thyromegaly, no cervical lymphadenopathy, trachea midline, supple Mouth: no lip lesion, mucus membranes moist Cardiovascular: S1S2 reg, systolic ejection murmur, positive posterior tibial pulse bilateral, 1 + sarahy LE edema, capillary refill less than 2 seconds Lungs: CTA bilateral, no rhonchi, no rales , no accessory muscle use Abdominal: soft, nontender to palpation, no guarding, no appreciable organomegaly, normal bowel sounds Ext: no gross muscle atrophy, muscle strength 4 out of 5 in all 4 extremities grossly, no contractures, Neuro: CN II-XI grossly intact, light touch intact all 4 extremities, finger to nose within normal limits, Psych: Alert, oriented, appropriate affect Results CBC & Chem 7: 11/24/18 05:34 11/24/18 05:34 Labs: Abnormal Lab Results - Last 24 Hours (Table) 11/24/18 11/24/18 11/24/18 Range/Units 05:34 05:34 05:55 MCV 76.0 L (80.0-100.0) fL MCH 24.4 L (25.0-35.0) pg RDW 17.0 H (11.5-15.5) % ABG pH 7.47 H (7.35-7.45) ABG pO2 79 L (83-108) mmHg ABG HCO3 28 H (21-25) mmol/L ABG Total CO2 29 H (19-24) mmol/L Sodium 134 L (137-145) mmol/L Chloride 95 L (98-107) mmol/L Glucose 142 H (74-99) mg/dL POC Glucose (mg/dL) (75-99) mg/dL Magnesium 1.4 L (1.6-2.3) mg/dL 11/24/18 11/24/18 Range/Units 08:27 11:47 MCV (80.0-100.0) fL MCH (25.0-35.0) pg RDW (11.5-15.5) % ABG pH (7.35-7.45) ABG pO2 (83-108) mmHg ABG HCO3 (21-25) mmol/L ABG Total CO2 (19-24) mmol/L Sodium (137-145) mmol/L Chloride (98-107) mmol/L Glucose (74-99) mg/dL POC Glucose (mg/dL) 124 H 120 H (75-99) mg/dL Magnesium (1.6-2.3) mg/dL Thrombosis Risk Factor Assmnt - Choose All That Apply Any of the Below Risk Factors Present?: Yes Each Factor Represents 1 point: Heart failure (<1month), Obesity (BMI >25), Swollen legs (current) Other Risk Factors: Yes Each Risk Factor Represents 3 Points: Age 75 years or older Other congenital or acquired thrombophilia - If yes, enter type in comment: No Thrombosis Risk Factor Assessment Total Risk Factor Score: 6 Thrombosis Risk Factor Assessment Level: High Risk Assessment and Plan Plan: 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 in setting of severe aortic stenosis -Cardiology recommendations appreciated -Continue with Lasix 40 mg IV push every 12 hourly -Monitor electrolytes -Daily weights, fluid restriction -Echocardiogram reviewed Coronary artery disease -C/w Aspirin, Lipitor Type 2 DM -Hold oral hypoglycemics -TODD with FS HTN -C/w Norvasc, Lisinopril, Toprol HLD -C/w Lipitor Hypothyroidism -C/w Levothyroxin DVT prophylaxis -Heparin The patient is admitted with an anticipated less than 2 midnight stay for evaluation of CHF exacerbation CODE STATUS: No Code Discussed with: Patient, Daughter Anticipated discharge date: 11/26/[address]: Home A total of 40 minutes was spent on the care of this complex patient more than 5 0% of the time was spent in counseling and care coordination.
[2018-11-24 16:29] LABS: Glucose,Whole Blood 115 mg/dL (75-99)
[2018-11-24] MEDS: traMADol 50 MG TAB PO PRN ×2 (16:33→21:49)
[2018-11-24] MEDS: INSULIN ASPART (NovoLOG) 100 UNIT/ML VIAL SQ SCH (16:35)
[2018-11-24] MEDS ORDERED: ACARBOSE 25 MG TAB PO SCH (17:30)
[2018-11-24] MEDS ORDERED: ASPIRIN 81 MG PO SCH (17:30)
[2018-11-24] MEDS ORDERED: PANTOPRAZOLE 40 MG TABLET PO SCH (21:00)
[2018-11-24] MEDS ORDERED: ATORVASTATIN 20 MG TAB PO SCH (21:00)
[2018-11-24 21:19] LABS: Glucose,Whole Blood 109 mg/dL (75-99)
[2018-11-24] MEDS: MAGNESIUM SULFATE-D5W PMX 1 GM in DEXTROSE/WATER 1 100ML.BAG IVPB SCH ×2 (22:00→22:54)
[2018-11-25] MEDS: MAGNESIUM SULFATE-D5W PMX 1 GM in DEXTROSE/WATER 1 100ML.BAG IVPB SCH
[2018-11-25 05:27] VITALS: RESP 16
[2018-11-25] MEDS: LEVOTHYROXINE 88 MCG TAB PO SCH (06:17)
[2018-11-25] MEDS: INSULIN ASPART (NovoLOG) 100 UNIT/ML VIAL SQ SCH ×2 (06:17→12:17)
[2018-11-25] MEDS: FUROSEMIDE 10 MG/ML 4 ML VIAL IV SCH (06:17)
[2018-11-25 06:30] LABS: Glucose,Whole Blood 94 mg/dL (75-99)
[2018-11-25] MEDS ORDERED: PANTOPRAZOLE 40 MG TABLET PO SCH (06:30)
[2018-11-25 07:50] LABS: Magnesium 2.2 mg/dL (1.6-2.3)
[2018-11-25] MEDS: LISINOPRIL 10 MG TAB PO SCH (08:25)
[2018-11-25] MEDS: amLODIPine 5 MG TAB PO SCH (08:25)
[2018-11-25] MEDS: MAGNESIUM OXIDE 400 MG TAB PO SCH (08:25)
[2018-11-25] MEDS: CHOLECALCIFEROL 1,000 UNIT TAB PO SCH (08:25)
[2018-11-25] MEDS: METOPROLOL SUCCINATE (ER) 25 MG TAB.ER.24H PO SCH (08:25)
[2018-11-25] MEDS: HEPARIN SODIUM,PORCINE 5,000 UNIT/ML 1 ML VIAL SQ SCH (08:26)
[2018-11-25] MEDS: SERTRALINE 25 MG TAB PO SCH (08:26)
[2018-11-25] MEDS ORDERED: FUROSEMIDE 40 MG TAB PO SCH (09:00)
[2018-11-25 11:38] VITALS: BP 138/64; PULSE 50; TEMP 97.3
--- NOTE | 2018-11-25 11:50 | PN ---
PROGRESS NOTE Mrs. Zhou is doing much better. Breathing is easier, denies chest pain. She has significant aortic stenosis and patient is reluctant and also she was thought not to be a good candidate for TAVR, reasons are unclear. However, patient is also reluctant. Vitals are stable. Breathing is easier. JVD is about 1 cm. No carotid bruit. S1, S2 with ejection systolic murmur audible, second heart sound is not very well heard. Lungs are clear. Abdomen and lower extremity exam unchanged. Plan is to switch her from IV to oral Lasix at 40 mg in the morning, 20 mg in the afternoon, increase activity and discharge her today. MMODL / IJN: [id number] /
[2018-11-25 11:56] LABS: Glucose,Whole Blood 104 mg/dL (75-99)
--- NOTE | 2018-11-25 12:35 | P.DS ---
Providers Date of admission: 11/24/18 07:14 Expected date of discharge: 11/25/18 Attending physician: Tang Watson MD Consults: 11/24/18 06:56 Consult Physician Routine Consulting Provider: Dominick Ybarra Consult Reason/Comments: CHF exacerbation. 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 She reported that over the past 1 month in particular, the SOB had been limiting even the most basic ADLs such as going to the bathroom. The patient noted some chest heaviness though denied nausea, vomiting, diaphoresis, or dizziness. The patient underwent an extensive evaluation in the ED w/ WBC count 9.2, Hgb 11.6, platelets 235, Trop 126, BNP 4300, BUN 14, and Cr 0.90. CXR revealed mild CHF w/ small L pleural effusion. EKG as reviewed by me revealed a V-paced rhythm @ 67 bpm. The patient was admitted for acute CHF exacerbation and cardiology evaluation. Cardiology evaluated the patient and increased her dose of Lasix. The patient's breathing status gradually improved. She was seen and evaluated at the bedside on the day of discharge. She noted that she feels her breathing is back to her baseline. She denied chest discomfort, nausea, vomiting, dizziness, or diaphoresis. She further denied fever, or chills. She is agreeable and ready for discharge to home. Physical Examination General: Non-toxic, in no acute distress, appears stated age, normal weight HEENT: NC/AT, anicteric sclerae, moist conjunctiva, no lid-lag, PERRLA Cardiovascular: S1/S2 wnl, no murmurs, rubs, or gallops Lungs: Clear to auscultation, normal respiratory effort, no accessory muscle use Abdominal: Soft, non-tender, non-distended, no guarding, rebound, or rigidity Skin: Warm, dry Extremities: Trace LE edema sarahy, no contractures Psychiatric: Alert and oriented to person, place and time, appropriate affect Neuro: CN II-XII grossly intact, Strength 4/5 in all 4 extremities, Speech intact, Sensation to light touch grossly intact throughout Discharge diagnosis: Acute combined systolic and diastolic CHF exacerbation in setting of severe aortic stenosis; coronary artery disease; type 2 diabetes mellitus; hypertension; hyperlipidemia; hypothyroidism A total of 35 minutes of time were spent preparing this complex discharge s manuel. Patient Condition at Discharge: Stable Plan - Discharge Summary Discharge Rx Participant: No New Discharge Prescriptions: New Furosemide [Lasix] 40 mg PO BID #45 tablet Omeprazole 40 mg PO DAILY #30 capsule.dr Continue Cholecalciferol [Vitamin D3 (25 Mcg = 1000 Iu)] 1,000 unit PO HS traMADol HCL [Ultram] 50 mg PO Q6HR PRN PRN Reason: Pain Magnesium Oxide [Mag-Ox] 125 mg PO BID Aspirin EC [Ecotrin Low Dose] 81 mg PO AC-SUPPER Sertraline HCl [Zoloft] 25 mg PO DAILY Hydrocortisone Pr Cream [Proctosol-Hc 2.5%] 1 applic RECTAL DAILY Atorvastatin [Lipitor] 20 mg PO HS Levothyroxine Sodium [Synthroid] 88 mcg PO DAILY ALPRAZolam [Xanax] 0.25 mg PO BID metFORMIN HCL [Glucophage] 250 mg PO BID Simethicone [Gas-X] 125 mg PO HS Acarbose [Precose] 25 mg PO AC-SUPPER Metoprolol Succinate (ER) [Toprol XL] 25 mg PO DAILY Lisinopril [Zestril] 10 mg PO DAILY Gabapentin [Neurontin] 100 mg PO HS amLODIPine [Norvasc] 10 mg PO DAILY Maalox 2 tab PO PC-SUPPER Discontinued Omeprazole [PriLOSEC] 40 mg PO HS Furosemide [Lasix] 20 mg PO DAILY Discharge Medication List ALPRAZolam [Xanax] 0.25 mg PO BID 06/17/18 [History] Acarbose [Precose] 25 mg PO AC-SUPPER 06/17/18 [History] Aspirin EC [Ecotrin Low Dose] 81 mg PO AC-SUPPER 06/17/18 [History] Atorvastatin [Lipitor] 20 mg PO HS 06/17/18 [History] Cholecalciferol [Vitamin D3 (25 Mcg = 1000 Iu)] 1,000 unit PO HS 06/17/18 [History] Hydrocortisone Pr Cream [Proctosol-Hc 2.5%] 1 applic RECTAL DAILY 06/17/18 [History] Levothyroxine Sodium [Synthroid] 88 mcg PO DAILY 06/17/18 [History] Magnesium Oxide [Mag-Ox] 125 mg PO BID 06/17/18 [History] Sertraline HCl [Zoloft] 25 mg PO DAILY 06/17/18 [History] Simethicone [Gas-X] 125 mg PO HS 06/17/18 [History] metFORMIN HCL [Glucophage] 250 mg PO BID 06/17/18 [History] traMADol HCL [Ultram] 50 mg PO Q6HR PRN 06/17/18 [History] Lisinopril [Zestril] 10 mg PO DAILY 06/30/18 [History] Metoprolol Succinate (ER) [Toprol XL] 25 mg PO DAILY 06/30/18 [History] Gabapentin [Neurontin] 100 mg PO HS 11/24/18 [History] Maalox 2 tab PO PC-SUPPER 11/24/18 [History] amLODIPine [Norvasc] 10 mg PO DAILY 11/24/18 [History] Furosemide [Lasix] 40 mg PO BID #45 tablet 11/25/18 [Rx] Omeprazole 40 mg PO DAILY #30 capsule. 11/25/18 [Rx] Follow up Appointment(s)/Referral(s): [facility], [NON-STAFF] - Dominick Ybarra MD [STAFF PHYSICIAN] - 12/07/18 2:45 pm (Thursday) Catherine Ricardo MD [STAFF PHYSICIAN] - 1-2 Days (Office will call you with a follow up appointment. Message left.) Patient Instructions/Handouts: Heart Failure (DC), Aortic Stenosis (DC) Activity/Diet/Wound Care/Special Instructions: Cardiology cleared patient for discharge. Take blood glucose twice daily and check blood pressure twice daily. Please bring these readings into your follow up appointments. Take your omeprazole in the morning instead of at bedtime to prevent stomach upset and nausea with meals throughout the day. Palliative Care through [facility] - [phone] - nurse practitioner only - will receive nursing and therapy services through [facility] Discharge Disposition: HOME WITH HOME HEALTH SERVICES
[2018-11-25] MEDS ORDERED: FUROSEMIDE 20 MG TAB PO SCH (15:00)
== END 2018-11-25 13:24 | disposition home health service (06) ==
LOC: EC 05:13 → 3SCARD 07:14
PROVIDERS: ADMIT Family Medicine; ATTEND Family Medicine
DX: I11.0 Hypertensive heart disease with heart failure (principal); I50.41 Acute combined systolic (congestive) and diastolic (congestive) heart failure; K21.9 Gastro-esophageal reflux disease without esophagitis; I25.10 Atherosclerotic heart disease of native coronary artery without angina pectoris; E78.5 Hyperlipidemia, unspecified; E11.40 Type 2 diabetes mellitus with diabetic neuropathy, unspecified; I35.0 Nonrheumatic aortic (valve) stenosis; G25.0 Essential tremor; E03.9 Hypothyroidism, unspecified; R32 Unspecified urinary incontinence; I44.30 Unspecified atrioventricular block; L89.152 Pressure ulcer of sacral region, stage 2; M13.0 Polyarthritis, unspecified; K59.00 Constipation, unspecified; H26.9 Unspecified cataract; E66.01 Morbid (severe) obesity due to excess calories; Z68.36 Body mass index [BMI] 36.0-36.9, adult; Z79.899 Other long term (current) drug therapy; Z79.82 Long term (current) use of aspirin; Z79.890 Hormone replacement therapy; Z79.84 Long term (current) use of oral hypoglycemic drugs; Z88.0 Allergy status to penicillin; Z88.2 Allergy status to sulfonamides; Z88.8 Allergy status to other drugs, medicaments and biological substances; Z88.1 Allergy status to other antibiotic agents; Z91.041 Radiographic dye allergy status; Z87.440 Personal history of urinary (tract) infections; Z86.79 Personal history of other diseases of the circulatory system; Z16.12 Extended spectrum beta lactamase (ESBL) resistance; Z90.49 Acquired absence of other specified parts of digestive tract; Z95.0 Presence of cardiac pacemaker; Z87.891 Personal history of nicotine dependence; Z81.1 Family history of alcohol abuse and dependence; Z82.5 Family history of asthma and other chronic lower respiratory diseases; Z66 Do not resuscitate; Z23 Encounter for immunization
CPT/HCPCS: 96376 ×2; 96365; 96366 ×2; 96372 ×2; 96375; 99285; 36415; 36600; 93005; 97162; 97166; 83880; 80053; 80048; 82805; 83735 ×2; 84484; 85025; 85610; 85730; 87086; 71045; 90686; G0378 ×2; C8929; G0008; J1644 ×2; J1940 ×2; J3475 ×2; Q9950; 93306

== ENCOUNTER 2018-12-10 13:18 | Emergency (ER) | payer MEDICARE ==
[2018-12-10 13:37] VITALS: TEMP 97.6
--- NOTE | 2018-12-10 14:20 | ED ---
Fall HPI - General Chief Complaint: Fall Stated Complaint: Fall with head injury Time Seen by Provider: 12/10/18 13:58 Source: patient, EMS Mode of arrival: EMS - History of Present Illness Initial Comments: Patient is a 88-year-old female presenting to the emergency department with a chief complaint of a fall. Patient reports she woke up this morning and felt lightheaded. She went to the bathroom and as she attempted to sit down on the toilet lightheadedness increased and she fell down and hitting her head on the shower door. Patient reports EMS was contacted and they brought her to the ED. Patient reports on the way here she developed nausea and was given 4 mg of Zo herberth. Currently patient reports a mild headache but denies any cervical pain, chest pain, shortness of breath, nausea, vomiting, abdominal pain or any extremity pain. Patient is not on blood thinners. Patient denies blurry vision. - Related Data Home Medications Medication Instructions Recorded Confirmed ALPRAZolam [Xanax] 0.25 mg PO BID 06/17/18 11/24/18 Acarbose [Precose] 25 mg PO AC-SUPPER 06/17/18 11/24/18 Aspirin EC [Ecotrin Low Dose] 81 mg PO AC-SUPPER 06/17/18 11/24/18 Atorvastatin [Lipitor] 20 mg PO HS 06/17/18 11/24/18 Cholecalciferol [Vitamin D3 (25 1,000 unit PO HS 06/17/18 11/24/18 Mcg = 1000 Iu)] Hydrocortisone Pr Cream 1 applic RECTAL DAILY 06/17/18 11/24/18 [Proctosol-Hc 2.5%] Levothyroxine Sodium [Synthroid] 88 mcg PO DAILY 06/17/18 11/24/18 Magnesium Oxide [Mag-Ox] 125 mg PO BID 06/17/18 11/24/18 Sertraline HCl [Zoloft] 25 mg PO DAILY 06/17/18 11/24/18 Simethicone [Gas-X] 125 mg PO HS 06/17/18 11/24/18 metFORMIN HCL [Glucophage] 250 mg PO BID 06/17/18 11/24/18 traMADol HCL [Ultram] 50 mg PO Q6HR PRN 06/17/18 11/24/18 Lisinopril [Zestril] 10 mg PO DAILY 06/30/18 11/24/18 Metoprolol Succinate (ER) [Toprol 25 mg PO DAILY 06/30/18 11/24/18 XL] Gabapentin [Neurontin] 100 mg PO HS 11/24/18 11/24/18 Maalox 2 tab PO PC-SUPPER 11/24/18 11/24/18 amLODIPine [Norvasc] 10 mg PO DAILY 11/24/18 11/24/18 Previous Rx's Medication Instructions Recorded Furosemide [Lasix] 40 mg PO BID #45 tablet 11/25/18 Omeprazole 40 mg PO DAILY #30 capsule. 11/25/18 Allergies Allergy/AdvReac Type Severity Reaction Status Date / Time amoxicillin Allergy Unknown Verified 11/24/18 07:22 Iodinated Contrast Media Allergy Unknown Verified 11/24/18 07:22 [Iodinated Contrast- Oral and IV Dye] metoclopramide [From Reglan] Allergy Unknown Verified 11/24/18 07:22 sulfamethoxazole Allergy Unknown Verified 11/24/18 07:22 [From Septra] trimethoprim [From Septra] Allergy Unknown Verified 11/24/18 07:22 ampicillin AdvReac Nausea & Verified 11/24/18 07:22 Vomiting cephalexin AdvReac Nausea & Verified 11/24/18 07:22 Vomiting levofloxacin AdvReac SHAKING,PUGA Verified 11/24/18 07:22 ICS Review of Systems ROS Statement: Those systems with pertinent positive or pertinent negative responses have been documented in the HPI. ROS Other: All systems not noted in ROS Statement are negative. Past Medical History Past Medical History: Coronary Artery Disease (CAD), Diabetes Mellitus, Eye Disorder, GERD/Reflux, Hyperlipidemia, Hypertension, Osteoarthritis (OA), Syncope, Thyroid Disorder Additional Past Medical History / Comment(s): Syncope/CHB and had temporary then permanent pacemaker, currently has 3 small decub on coccyx per pt/mindy, NIDDM type II, diabetic neuropathy bilateral feet, severe aortic stenosis, polyarthritis, essential tremors, hypothyroid, bilateral cataracts, incontinence or urine and occasionally stool, constipation, UTI. History of Any Multi-Drug Resistant Organisms: ESBL Date of last positivie culture/infection: 07/21/18 MDRO Source:: ESBL URINE Past Surgical History: Cholecystectomy, Heart Catheterization, Orthopedic Surge ry, Pacemaker Additional Past Surgical History / Comment(s): 06/17/18 temporary pacemaker, 06/19/18 permanent pacemaker, R knee arthrotomy d/t chip, colonoscopy. Past Anesthesia/Blood Transfusion Reactions: No Reported Reaction Type of Cardiac Device: Permanent Pacemaker Device Placement Date:: 06/19/18 Past Psychological History: Anxiety, Depression Smoking Status: Former smoker - Past Family History Father Additional Family Medical History / Comment(s): Father was an alcoholic Mother Family Medical History: Asthma Additional Family Medical History / Comment(s): Mother at the age of 54yrs- pt unsure from what. General Exam Limitations: no limitations General appearance: alert, in no apparent distress, obese Head exam: Present: atraumatic, normocephalic, normal inspection. Absent: other (Negative hemotympanum, negative Romo sign, negative periorbital ecchymosis.) Eye exam: Present: normal appearance, PERRL, EOMI. Absent: scleral icterus, conjunctival injection Pupils: Present: normal accommodation ENT exam: Present: normal exam, normal oropharynx, mucous membranes moist, TM's normal bilaterally, normal external ear exam Neck exam: Present: normal inspection, full ROM Respiratory exam: Present: normal lung sounds bilaterally Cardiovascular Exam: Present: regular rate, normal rhythm, systolic murmur Extremities exam: Present: normal inspection, full ROM Back exam: Present: normal inspection, full ROM Neurological exam: Present: alert, oriented X3 Psychiatric exam: Present: normal affect, normal mood Skin exam: Present: warm, intact, normal color Course Vital Signs 12/10/18 13:28 Temperature 97.6 F Pulse Rate 61 Respiratory 18 Rate Blood Pressure 116/59 O2 Sat by Pulse 97 Oximetry Medical Decision Making - Medical Decision Making Patient is an 88-year-old female presenting to the emergency department with a chief complaint of a fall. Patient felt lightheaded today and fell causing a head injury. On physical examination I cannot detect any signs of trauma on the head. CT of the brain and C-spine is negative for acute fractures, this locations, intracranial hemorrhage, space-occupying lesions or midline shift. Patient reports the lightheadedness gradually disappeared. Patient is not on blood thinners. Laboratory results indicate mild hyponatremia, hypochloremia and increased BUN. I suspect the patient to be mildly dehydrated which could be secondary to the Lasix that she takes daily. Patient given fluids. Orthostatics in supine and standing position were obtained. Patient denies any chest pain, shortness of breath, coughing, nausea, light headedness, dizziness at this time. The takes care of the patient at home and he is comfortable taking the patient home. Strict return parameters were thoroughly discussed with patient and who are understanding and agreeable. Case discussed physician. - Lab Data Result diagrams: 12/10/18 15:15 12/10/18 15:15 Lab Results 12/10/18 12/10/18 Range/Units 15:15 15:15 WBC 9.3 (3.8-10.6) k/uL RBC 4.96 (3.80-5.40) m/uL Hgb 11.9 (11.4-16.0) gm/dL Hct 37.6 (34.0-46.0) % MCV 75.8 L (80.0-100.0) fL MCH 23.9 L (25.0-35.0) pg MCHC 31.5 (31.0-37.0) g/dL RDW 16.5 H (11.5-15.5) % Plt Count 265 (150-450) k/uL Anisocytosis Slight Microcytosis Slight Sodium 131 L (137-145) mmol/L Potassium 5.1 (3.5-5.1) mmol/L Chloride 93 L (98-107) mmol/L Carbon Dioxide 28 (22-30) mmol/L Anion Gap 10 mmol/L BUN 23 H (7-17) mg/dL Creatinine 1.02 (0.52-1.04) mg/dL Est GFR (CKD-EPI)AfAm 58 (>60 ml/min/1.73 sqM) Est GFR (CKD-EPI)NonAf 50 (>60 ml/min/1.73 sqM) Glucose 109 H (74-99) mg/dL Calcium 9.3 (8.4-10.2) mg/dL Total Bilirubin 0.4 (0.2-1.3) mg/dL AST 16 (14-36) U/L ALT 13 (9-52) U/L Alkaline Phosphatase 117 (38-126) U/L Total Protein 6.5 (6.3-8.2) g/dL Albumin 3.6 (3.5-5.0) g/dL - EKG Data EKG Comments: Ventricular paced rhythm Ventricular rate 50, QRS duration 166, QT/QTC 530/483 Disposition Clinical Impression: Fall Disposition: HOME SELF-CARE Condition: Stable Instructions (If sedation given, give patient instructions): Fall Prevention for Older Adults (ED) Additional Instructions: Please follow up with primary care. Please return to emergency department if symptoms worsen. Please drink lots of fluids. Is patient prescribed a controlled substance at d/c from ED?: No Referrals: Catherine Ricardo MD [Primary Care Provider] - 1-2 days Time of Disposition: 16:52
--- NOTE | 2018-12-10 15:03 | CT ---
EXAMINATION TYPE: CT brain sherita lafleur DATE OF EXAM: 12/10/2018 COMPARISON: None HISTORY: fall CT DLP: 1428.[address] of the brain was performed. The ventricles, basal cisterns and sulci overlying the cerebral convexities demonstrate mild to moder ate enlargement. There is no evidence for intracranial hemorrhage or sulcal effacement. There is decreased attenuatio n about the periventricular white matter and deep white matter of both cerebral hemispheres, compatib le with chronic small vessel ischemia. No mass effects are seen. If symptoms persist consider MRI. Osseous calvarium is intact. IMPRESSION: 1. Age related atrophic and chronic small vessel ischemic change without acute intracranial process seen at this time. CT Cervical Spine: Unenhanced CT of the cervical spine was performed with bone and soft tissue window settings submitted . Coronal and sagittal reconstruction is obtained. There is normal alignment and prevertebral soft tissues. No evidence for acute cervical fracture . Mo derate to severe degenerative disc space narrowing and spondylosis noted both ventrally and dorsally. Biapical scarring. IMPRESSION: 1. No evidence for acute fracture or subluxation of the cervical spine.
[2018-12-10 15:25] LABS: Anisocytosis Slight; HCT 37.6 % (34.0-46.0); HGB 11.9 gm/dL (11.4-16.0); MCH 23.9 pg (25.0-35.0); MCHC 31.5 g/dL (31.0-37.0); MCV 75.8 fL (80.0-100.0); Mean Platelet Volume 6.6; Microcytosis Slight; Platelet Count 265 k/uL (150-450); RBC 4.96 m/uL (3.80-5.40); RDW 16.5 % (11.5-15.5); WBC 9.3 k/uL (3.8-10.6)
[2018-12-10 15:35] LABS: Albumin 3.6 g/dL (3.5-5.0); Calcium 9.3 mg/dL (8.4-10.2); Potassium 5.1 mmol/L (3.5-5.1); Total Bilirubin 0.4 mg/dL (0.2-1.3); Total Protein 6.5 g/dL (6.3-8.2)
[2018-12-10] MEDS ORDERED: SODIUM CHLORIDE 0.9% 500 ML 500 ML IV STA (16:24)
[2018-12-10 18:25] VITALS: BP 178/69; PULSE 85; RESP 20
== END 2018-12-10 18:25 | disposition home or self-care (01) ==
LOC: EC 13:18
DX: Z04.3 Encounter for examination and observation following other accident (principal); E87.1 Hypo-osmolality and hyponatremia; E87.8 Other disorders of electrolyte and fluid balance, not elsewhere classified; I25.10 Atherosclerotic heart disease of native coronary artery without angina pectoris; E11.40 Type 2 diabetes mellitus with diabetic neuropathy, unspecified; E78.5 Hyperlipidemia, unspecified; I10 Essential (primary) hypertension; K21.9 Gastro-esophageal reflux disease without esophagitis; E03.9 Hypothyroidism, unspecified; F41.9 Anxiety disorder, unspecified; F32.9 Major depressive disorder, single episode, unspecified; Z79.84 Long term (current) use of oral hypoglycemic drugs; Z79.890 Hormone replacement therapy; Z79.899 Other long term (current) drug therapy; Z79.82 Long term (current) use of aspirin; Z88.0 Allergy status to penicillin; Z88.1 Allergy status to other antibiotic agents; Z88.2 Allergy status to sulfonamides; Z91.041 Radiographic dye allergy status; Z88.8 Allergy status to other drugs, medicaments and biological substances; Z95.0 Presence of cardiac pacemaker
CPT/HCPCS: 36415; 70450; 72125; 80053; 85027; 93005; 96360; 99284

== ENCOUNTER 2019-02-25 08:46 | Inpatient (IN) | payer MEDICARE ==
[2019-02-25 09:49] LABS: Anisocytosis Slight; Basophils # (A) 0.1 k/uL (0-0.2); Basophils % (A) 1 %; Eosinophils # (A) 0.1 k/uL (0-0.7); Eosinophils % (A) 1 %; HCT 38.3 % (34.0-46.0); HGB 12.3 gm/dL (11.4-16.0); Lymphocytes # (A) 1.3 k/uL (1.0-4.8); Lymphocytes % (A) 14 %; MCH 24.8 pg (25.0-35.0); MCHC 32.1 g/dL (31.0-37.0); MCV 77.2 fL (80.0-100.0); Mean Platelet Volume 8.5; Microcytosis Slight; Monocytes # (A) 0.6 k/uL (0-1.0); Monocytes % (A) 7 %; Neutrophils # (A) 6.8 k/uL (1.3-7.7); Neutrophils % (A) 76 %; Platelet Count 261 k/uL (150-450); RBC 4.96 m/uL (3.80-5.40); RDW 16.6 % (11.5-15.5)
[2019-02-25 10:01] LABS: Partial Thromboplastin Time 22.9 sec (22.0-30.0); Prothrombin Time 10.6 sec (9.0-12.0)
[2019-02-25 10:02] LABS: Albumin 3.8 g/dL (3.5-5.0); Calcium 9.5 mg/dL (8.4-10.2); Magnesium 1.5 mg/dL (1.6-2.3); Potassium 4.8 mmol/L (3.5-5.1); Total Bilirubin 0.6 mg/dL (0.2-1.3); Total Protein 6.9 g/dL (6.3-8.2)
[2019-02-25 10:21] LABS: Appearance,Urine Cloudy (Clear); Bacteria,Urine Many /hpf; Bilirubin,Urine Negative (Negative); Blood,Urine Negative (Negative); Color,Urine Light Yellow; Glucose,Urine (UA) Negative (Negative); Hyaline Casts,Urine 7 /lpf (0-2); Ketones,Urine Negative (Negative); Leukocyte Esterase,Urine Large (Negative); Mucus,Urine Rare /hpf; Nitrite,Urine Negative (Negative); PH, Urine 6.5 (5.0-8.0); Protein,Urine Negative (Negative); RBC,Urine 1 /hpf (0-5); Specific Gravity,Urine 1.007 (1.001-1.035); Squamous Epithelial Cell,Urine <1 /hpf (0-4); Urobilinogen,Urine <2.0 mg/dL (<2.0); WBC,Urine 115 /hpf (0-5)
--- NOTE | 2019-02-25 10:23 | XR ---
EXAMINATION TYPE: XR chest 2V DATE OF EXAM: 02/25/2019 COMPARISON: Chest x-ray November 24, 2018 and older x-rays. HISTORY: Chest pain. TECHNIQUE: Frontal and lateral views of the chest are obtained. FINDINGS: Redemonstration of vesicles lobe/fissure. Persistent cardiomegaly with atherosclerotic aor ta and single lead pacemaker. Central vascular congestion identified similar to prior study. Persiste nt fairly moderate-sized right pleural effusion not significantly changed from most recent x-ray. Ass ociated right basilar atelectasis and/or infiltrate. Left lung remains clear. Deformity bilateral mark ulders again seen. IMPRESSION: Cardiomegaly with central vascular congestion redemonstrated. Correlate for CHF exacerba tion. Persistence of fairly moderate-sized right pleural effusion not significantly changed from prio r x-ray. Presence of unilateral effusion is concerning and may warrant further clinical workup. Unila teral effusion new from older studies June 2018.
--- NOTE | 2019-02-25 12:17 | ED ---
Female Urogenital HPI - General Chief complaint: Urogenital Stated complaint: Uti/not able to urinate Time Seen by Provider: 02/25/19 09:00 Source: patient Mode of arrival: ambulatory Limitations: no limitations - History of Present Illness Initial comments: The patient is an 89-year-old female with past medical history of coronary artery disease, heart failure, pacemaker placement who presents to the emergency department from Dr. Araujo's office and Dr. Araujo states that the patient came to her office today for increasing weight gain. She has gained approximately 7 pounds over this past week. She also has exertional shortness of breath and uri nary retention. Reports that she hasn't urinated well over the past 3 days. History of similar. Admits to increased lower extremity swelling. Denies any abdominal pain. No dysuria or hematuria. Denies any changes in her bowel movements to include diarrhea, constipation, melanotic stools or hematochezia. Reports to a history of congestive heart failure. She is on Lasix. Takes 40 mg in the morning and 20 mg at night. Has not missed any doses. He does not wear oxygen. No history of COPD. Denies any chest pain. No history of DVT or PE. Denies fevers, cough or congestion. Dr. Araujo did refer the patient to the ER for evaluation of congestive heart failure and urinary retention. There are no alleviating, precipitating or modifying factors - Related Data Home Medications Medication Instructions Recorded Confirmed ALPRAZolam [Xanax] 0.25 mg PO HS 06/17/18 03/06/19 Acarbose [Precose] 25 mg PO AC-SUPPER 06/17/18 03/06/19 Aspirin EC [Ecotrin Low Dose] 81 mg PO AC-SUPPER 06/17/18 03/06/19 Atorvastatin [Lipitor] 20 mg PO HS 06/17/18 03/06/19 Cholecalciferol [Vitamin D3 (25 1,000 unit PO HS 06/17/18 03/06/19 Mcg = 1000 Iu)] Hydrocortisone Pr Cream 1 applic RECTAL DAILY 06/17/18 03/06/19 [Proctosol-Hc 2.5%] Levothyroxine Sodium [Synthroid] 88 mcg PO DAILY 06/17/18 03/06/19 Magnesium Oxide [Mag-Ox] 125 mg PO BID 06/17/18 03/06/19 Sertraline HCl [Zoloft] 25 mg PO DAILY 06/17/18 03/06/19 Simethicone [Gas-X] 125 mg PO HS 06/17/18 03/06/19 metFORMIN HCL [Glucophage] 250 mg PO BID 06/17/18 03/06/19 traMADol HCL [Ultram] 50 mg PO BID 06/17/18 03/06/19 Lisinopril [Zestril] 10 mg PO DAILY 06/30/18 03/06/19 Metoprolol Succinate (ER) [Toprol 25 mg PO DAILY 06/30/18 03/06/19 XL] Gabapentin [Neurontin] 100 mg PO HS 11/24/18 03/06/19 Maalox 2 tab PO PC-SUPPER 11/24/18 03/06/19 amLODIPine [Norvasc] 10 mg PO DAILY 11/24/18 03/06/19 Furosemide [Lasix] 20 mg PO DAILY@1600 02/25/19 03/06/19 Furosemide [Lasix] 40 mg PO QAM 02/25/19 03/06/19 Omeprazole 40 mg PO DAILY@1900 03/06/19 03/06/19 Previous Rx's Medication Instructions Recorded Nitrofurantoin Monohyd/M-Cryst 100 mg PO BID #17 cap 02/27/19 [Macrobid] Allergies Allergy/AdvReac Type Severity Reaction Status Date / Time amoxicillin Allergy Unknown Verified 03/06/19 18:36 Iodinated Contrast Media Allergy Unknown Verified 03/06/19 18:36 [Iodinated Contrast- Oral and IV Dye] metoclopramide [From Reglan] Allergy Unknown Verified 03/06/19 18:36 sulfamethoxazole Allergy Unknown Verified 03/06/19 18:36 [From Septra] trimethoprim [From Septra] Allergy Unknown Verified 03/06/19 18:36 ampicillin AdvReac Nausea & Verified 03/06/19 18:36 Vomiting cephalexin AdvReac Nausea & Verified 03/06/19 18:36 Vomiting levofloxacin AdvReac SHAKING,PUGA Verified 03/06/19 18:36 ICS Review of Systems ROS Statement: Those systems with pertinent positive or pertinent negative responses have been documented in the HPI. ROS Other: All systems not noted in ROS Statement are negative. Past Medical History Past Medical History: Coronary Artery Disease (CAD), Diabetes Mellitus, Eye Disorder, GERD/Reflux, Hyperlipidemia, Hypertension, Osteoarthritis (OA), Syncope, Thyroid Disorder Additional Past Medical History / Comment(s): Syncope/CHB and had temporary then permanent pacemaker, currently has 3 small decub on coccyx per pt/mindy, NIDDM type II, diabetic neuropathy bilateral feet, severe aortic stenosis, polyarthritis, essential tremors, hypothyroid, bilateral cataracts, incontinence or urine and occasionally stool, constipation, UTI. History of Any Multi-Drug Resistant Organisms: ESBL Date of last positivie culture/infection: 07/21/18 MDRO Source:: ESBL URINE Past Surgical History: Cholecystectomy, Heart Catheterization, Orthopedic Surgery, Pacemaker Additional Past Surgical History / Comment(s): 06/17/18 temporary pacemaker, 06/19/18 permanent pacemaker, R knee arthrotomy d/t chip, colonoscopy. Past Anesthesia/Blood Transfusion Reactions: No Reported Reaction Type of Cardiac Device: Permanent Pacemaker Device Placement Date:: 06/19/18 Past Psychological History: Anxiety, Depression Smoking Status: Former smoker - Past Family History Father Additional Family Medical History / Comment(s): Father was an alcoholic Mother Family Medical History: Asthma Additional Family Medical History / Comment(s): Mother at the age of 54yrs- pt unsure from what. General Exam Limitations: no limitations General appearance: alert, in no apparent distress Head exam: Present: atraumatic, normocephalic, normal inspection Eye exam: Present: normal appearance, PERRL, EOMI. Absent: scleral icterus, conjunctival injection, periorbital swelling ENT exam: Present: normal exam, mucous membranes moist Neck exam: Present: normal inspection. Absent: tenderness, meningismus, lymphadenopathy Respiratory exam: Present: rales. Absent: respiratory distress, wheezes, rhonchi, stridor Cardiovascular Exam: Present: regular rate, normal rhythm, normal heart sounds. Absent: systolic murmur, diastolic murmur, rubs, gallop, clicks GI/Abdominal exam: Present: soft, normal bowel sounds. Absent: distended, tenderness, guarding, rebound, rigid Extremities exam: Present: full ROM, normal capillary refill, pedal edema. Absent: tenderness, joint swelling, calf tenderness Back exam: Present: normal inspection Neurological exam: Present: alert, oriented X3, CN II-XII intact Psychiatric exam: Present: normal affect, normal mood Skin exam: Present: warm, dry, intact, normal color. Absent: rash Course Vital Signs 02/25/19 02/25/19 02/25/19 08:59 11:04 12:06 Temperature 97.4 F L 97.4 F L 97.5 F L Pulse Rate 59 L 50 L 50 L Respiratory 18 16 16 Rate Blood Pressure 97/52 102/86 105/73 O2 Sat by Pulse 95 97 96 Oximetry 02/25/19 13:24 Temperature Pulse Rate 50 L Respiratory 18 Rate Blood Pressure 115/77 O2 Sat by Pulse 96 Oximetry Medical Decision Making - Medical Decision Making Upon arrival of the patient was placed into room 18. She is hooked up to continuous pulse ox and cardiac monitoring. Peripheral IV was established. Laboratory studies were conducted. The patient was bladder scanned and did reveal 410 mL of urine or bladder. Because of this we did insert a Price catheter. Laboratory studies demonstrate a normal CBC. Coag admission studies are normal. CMP shows a sodium of 133, chloride of 92. Glucose is 106. BNP is 4840. Troponin is negative. Urinalysis shows large leukocyte esterase, 1:15 white blood cells, few white blood cell clumps and many bacteria. I did obtain a blood culture. The patient was given a dose of Macrobid as I did review her previous culture results. It does demonstrate ESBL which did appear sensitive to Macrobid. The patient also has multiple medication ALLERGIES including antibiotics therefore I do believe this is the best treatment until culture is obtained. I did complete a chest x-ray which is demonstrating cardiomegaly with central vascular congestion. As the patient does take 40 mg of Lasix in the morning and 20 mg that night I did recommend providing the patient with 60 mg twice daily to help with her diuresis. I did recommend hospital admission for UTI and CHF exacerbation. A call discuss case with Dr. Roman who accepted admission. The patient does have a low magnesium level and therefore I did replace this. She was in agreement with her treatment plan and she was transferred to the floor in hemodynamically stable condition - Lab Data Result diagrams: 02/25/19 09:26 02/27/19 05:34 Lab Results 02/25/19 02/25/19 02/25/19 Range/Units 09:26 09:26 09:26 WBC 9.0 (3.8-10.6) k/uL RBC 4.96 (3.80-5.40) m/uL Hgb 12.3 (11.4-16.0) gm/dL Hct 38.3 (34.0-46.0) % MCV 77.2 L (80.0-100.0) fL MCH 24.8 L (25.0-35.0) pg MCHC 32.1 (31.0-37.0) g/dL RDW 16.6 H (11.5-15.5) % Plt Count 261 (150-450) k/uL Neutrophils % 76 % Lymphocytes % 14 % Monocytes % 7 % Eosinophils % 1 % Basophils % 1 % Neutrophils # 6.8 (1.3-7.7) k/uL Lymphocytes # 1.3 (1.0-4.8) k/uL Monocytes # 0.6 (0-1.0) k/uL Eosinophils # 0.1 (0-0.7) k/uL Basophils # 0.1 (0-0.2) k/uL Anisocytosis Slight Microcytosis Slight PT (9.0-12.0) sec INR (<1.2) APTT (22.0-30.0) sec Sodium 133 L (137-145) mmol/L Potassium 4.8 (3.5-5.1) mmol/L Chloride 92 L (98-107) mmol/L Carbon Dioxide 28 (22-30) mmol/L Anion Gap 13 mmol/L BUN 19 H (7-17) mg/dL Creatinine 1.02 (0.52-1.04) mg/dL Est GFR (CKD-EPI)AfAm 57 (>60 ml/min/1.73 sqM) Est GFR (CKD-EPI)NonAf 50 (>60 ml/min/1.73 sqM) Glucose 106 H (74-99) mg/dL Calcium 9.5 (8.4-10.2) mg/dL Magnesium 1.5 L (1.6-2.3) mg/dL Total Bilirubin 0.6 (0.2-1.3) mg/dL AST 20 (14-36) U/L ALT 11 (4-34) U/L Alkaline Phosphatase 142 H (38-126) U/L Troponin I (0.000-0.034) ng/mL NT-Pro-B Natriuret Pep 4840 pg/mL Total Protein 6.9 (6.3-8.2) g/dL Albumin 3.8 (3.5-5.0) g/dL Urine Color Urine Appearance (Clear) Urine pH (5.0-8.0) Ur Specific Bradley (1.001-1.035) Urine Protein (Negative) Urine Glucose (UA) (Negative) Urine Ketones (Negative) Urine Blood (Negative) Urine Nitrite (Negative) Urine Bilirubin (Negative) Urine Urobilinogen (<2.0) mg/dL Ur Leukocyte Esterase (Negative) Urine RBC (0-5) /hpf Urine WBC (0-5) /hpf Urine WBC Clumps (None) /hpf Ur Squamous Epith Cells (0-4) /hpf Urine Bacteria (None) /hpf Hyaline Casts (0-2) /lpf Urine Mucus (None) /hpf 02/25/19 02/25/19 02/25/19 Range/Units 09:26 09:26 09:45 WBC (3.8-10.6) k/uL RBC (3.80-5.40) m/uL Hgb (11.4-16.0) gm/dL Hct (34.0-46.0) % MCV (80.0-100.0) fL MCH (25.0-35.0) pg MCHC (31.0-37.0) g/dL RDW (11.5-15.5) % Plt Count (150-450) k/uL Neutrophils % % Lymphocytes % % Monocytes % % Eosinophils % % Basophils % % Neutrophils # (1.3-7.7) k/uL Lymphocytes # (1.0-4.8) k/uL Monocytes # (0-1.0) k/uL Eosinophils # (0-0.7) k/uL Basophils # (0-0.2) k/uL Anisocytosis Microcytosis PT 10.6 (9.0-12.0) sec INR 1.0 (<1.2) APTT 22.9 (22.0-30.0) sec Sodium (137-145) mmol/L Potassium (3.5-5.1) mmol/L Chloride (98-107) mmol/L Carbon Dioxide (22-30) mmol/L Anion Gap mmol/L BUN (7-17) mg/dL Creatinine (0.52-1.04) mg/dL Est GFR (CKD-EPI)AfAm (>60 ml/min/1.73 sqM) Est GFR (CKD-EPI)NonAf (>60 ml/min/1.73 sqM) Glucose (74-99) mg/dL Calcium (8.4-10.2) mg/dL Magnesium (1.6-2.3) mg/dL Total Bilirubin (0.2-1.3) mg/dL AST (14-36) U/L ALT (4-34) U/L Alkaline Phosphatase (38-126) U/L Troponin I <0.012 (0.000-0.034) ng/mL NT-Pro-B Natriuret Pep pg/mL Total Protein (6.3-8.2) g/dL Albumin (3.5-5.0) g/dL Urine Color Light Yellow Urine Appearance Cloudy H (Clear) Urine pH 6.5 (5.0-8.0) Ur Specific Bradley 1.007 (1.001-1.035) Urine Protein Negative (Negative) Urine Glucose (UA) Negative (Negative) Urine Ketones Negative (Negative) Urine Blood Negative (Negative) Urine Nitrite Negative (Negative) Urine Bilirubin Negative (Negative) Urine Urobilinogen <2.0 (<2.0) mg/dL Ur Leukocyte Esterase Large H (Negative) Urine RBC 1 (0-5) /hpf Urine WBC 115 H (0-5) /hpf Urine WBC Clumps Few H (None) /hpf Ur Squamous Epith Cells <1 (0-4) /hpf Urine Bacteria Many H (None) /hpf Hyaline Casts 7 H (0-2) /lpf Urine Mucus Rare H (None) /hpf - EKG Data EKG Comments: EKG demonstrates a ventricularly paced rhythm with a rate of 50. QRS 162. QTC of 474. Pacemaker appears to capture peripherally. There is a wide complex rhythm with no sgarbossa the criteria Disposition Clinical Impression: Urinary tract infection, Urinary retention, Pulmonary edema, CHF (congestive heart failure), Bradycardia Disposition: ADMITTED IP TO THIS [facility] Condition: Stable Is patient prescribed a controlled substance at d/c from ED?: No Decision to Admit Reason: Admit from EC Decision Date: 02/25/19 Decision Time: 12:50
[2019-02-25] MEDS ORDERED: FUROSEMIDE 10 MG/ML 10 ML VIAL IV STA (12:31)
[2019-02-25] MEDS ORDERED: NALOXONE 0.4 MG/ML 1 ML VIAL IV PRN (12:51)
[2019-02-25] MEDS ORDERED: MAGNESIUM SULFATE-D5W PMX 1 GM in DEXTROSE/WATER 1 100ML.BAG IVPB ONE ×2 (12:52→16:30)
[2019-02-25] MEDS: NITROFURANTOIN MONOHYD/M-CRYST 100 MG CAP PO SCH ×2 (14:00→21:05)
--- NOTE | 2019-02-25 16:08 | P.HPIM ---
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 The patient reports that she was in her usual state of health until 3 days ago when she suddenly couldn't urinate. She notes gaining weight during this time and states that this hasn't happened to her in the past. She states that with previous UTIs, she would normally get some dysuria. She currently is denying dysuria, frequency, or urgency. She further denied abdominal pain, chest pain, SOB, na usea, vomiting, diarrhea, or sick contacts. She ambulates with a walker at home and lives with her and has a home-health aid. She underwent an extensive evaluation in the ED w/ CXR showing R sided pleural effusion and UA which was consistent with UTI. Laboratory evaluation revealed a Troponin < 0.012, BNP 4840, Mg 1.5, WBC 9.0, Hgb 12.3, Na 13, K 4.8, BUN 19, Cr 1.02, and Glucose 106. She is being admitted to the medicine service for management of UTI. Review of Systems Pertinent positives and negatives as discussed in HPI, a complete review of systems was performed and all other systems are negative. Past Medical History Past Medical History: Coronary Artery Disease (CAD), Diabetes Mellitus, Eye Disorder, GERD/Reflux, Hyperlipidemia, Hypertension, Osteoarthritis (OA), Syncope, Thyroid Disorder Additional Past Medical History / Comment(s): Syncope/CHB and had temporary then permanent pacemaker, currently has 3 small decub on coccyx per pt/mindy, NIDDM type II, diabetic neuropathy bilateral feet, severe aortic stenosis, polyarthritis, essential tremors, hypothyroid, bilateral cataracts, incontinence or urine and occasionally stool, constipation, UTI. History of Any Multi-Drug Resistant Organisms: ESBL Date of last positivie culture/infection: 07/21/18 MDRO Source:: ESBL URINE Past Surgical History: Cholecystectomy, Heart Catheterization, Orthopedic Surgery, Pacemaker Additional Past Surgical History / Comment(s): 06/17/18 temporary pacemaker, 06/19/18 permanent pacemaker, R knee arthrotomy d/t chip, colonoscopy. Past Anesthesia/Blood Transfusion Reactions: No Reported Reaction Type of Cardiac Device: Permanent Pacemaker Device Placement Date:: 06/19/18 Past Psychological History: Anxiety, Depression Smoking Status: Former smoker - Past Family History Father Additional Family Medical History / Comment(s): Father was an alcoholic Mother Family Medical History: Asthma Additional Family Medical History / Comment(s): Mother at the age of 54yrs- pt unsure from what. Medications and Allergies Home Medications Medication Instructions Recorded Confirmed Type ALPRAZolam [Xanax] 0.25 mg PO HS 06/17/18 02/25/19 History Acarbose [Precose] 25 mg PO AC-SUPPER 06/17/18 02/25/19 History Aspirin EC [Ecotrin Low Dose] 81 mg PO AC-SUPPER 06/17/18 02/25/19 History Atorvastatin [Lipitor] 20 mg PO HS 06/17/18 02/25/19 History Cholecalciferol [Vitamin D3 (25 1,000 unit PO HS 06/17/18 02/25/19 History Mcg = 1000 Iu)] Hydrocortisone Pr Cream 1 applic RECTAL DAILY 06/17/18 02/25/19 History [Proctosol-Hc 2.5%] Levothyroxine Sodium [Synthroid] 88 mcg PO DAILY 06/17/18 02/25/19 History Magnesium Oxide [Mag-Ox] 125 mg PO BID 06/17/18 02/25/19 History Sertraline HCl [Zoloft] 25 mg PO DAILY 06/17/18 02/25/19 History Simethicone [Gas-X] 125 mg PO HS 06/17/18 02/25/19 History metFORMIN HCL [Glucophage] 250 mg PO BID 06/17/18 02/25/19 History traMADol HCL [Ultram] 50 mg PO BID 06/17/18 02/25/19 History Lisinopril [Zestril] 10 mg PO DAILY 06/30/18 02/25/19 History Metoprolol Succinate (ER) [Toprol 25 mg PO DAILY 06/30/18 02/25/19 History XL] Gabapentin [Neurontin] 100 mg PO HS 11/24/18 02/25/19 History Maalox 2 tab PO PC-SUPPER 11/24/18 02/25/19 History amLODIPine [Norvasc] 10 mg PO DAILY 11/24/18 02/25/19 History Omeprazole 40 mg PO DAILY #30 capsule. 11/25/18 02/25/19 Rx Furosemide [Lasix] 20 mg PO DAILY@1600 02/25/19 02/25/19 History Furosemide [Lasix] 40 mg PO QAM 02/25/19 02/25/19 History Allergies Allergy/AdvReac Type Severity Reaction Status Date / Time amoxicillin Allergy Unknown Verified 02/25/19 12:50 Iodinated Contrast Media Allergy Unknown Verified 02/25/19 12:50 [Iodinated Contrast- Oral and IV Dye] metoclopramide [From Reglan] Allergy Unknown Verified 02/25/19 12:50 sulfamethoxazole Allergy Unknown Verified 02/25/19 12:50 [From Septra] trimethoprim [From Septra] Allergy Unknown Verified 02/25/19 12:50 ampicillin AdvReac Nausea & Verified 02/25/19 12:50 Vomiting cephalexin AdvReac Nausea & Verified 02/25/19 12:50 Vomiting levofloxacin AdvReac SHAKING,PUGA Verified 02/25/19 12:50 ICS Physical Exam Vitals: Vital Signs Temp Pulse Pulse Resp BP BP Pulse Ox 02/25/19 13:59 97.7 F 50 L 18 119/51 94 L 02/25/19 13:43 98 F 02/25/19 13:24 50 L 18 115/77 96 02/25/19 12:06 97.5 F L 50 L 16 105/73 96 02/25/19 11:04 97.4 F L 50 L 16 102/86 97 02/25/19 08:59 97.4 F L 59 L 18 97/52 95 Intake and Output 02/25/19 02/25/19 02/25/19 06:59 14:59 22:59 Output Total 421 Balance -421 Output: Post Void Residual 421 Other: Weight 210 kg General: non toxic, no distress, appears at stated age, normal weight Derm: no unusual rashes/lesions no unusual ecchymoses, warm, dry Head: atraumatic, normocephalic, symmetric Eyes: EOMI, no lid lag, anicteric sclera, pupils equal round reactive to light ENT: Nose and ears atraumatic, no thrush, no pharyngeal erythema Neck: No thyromegaly, no cervical lymphadenopathy, trachea midline, supple Mouth: no lip lesion, mucus membranes moist Cardiovascular: S1S2 reg, no murmur, positive posterior tibial pulse bilateral, 2+ sarahy LE edema, capillary refill less than 2 seconds Lungs: Bibasilar rales R>L, no rhonchi, no accessory muscle use Abdominal: soft, nontender to palpation, no guarding, no appreciable organomegaly, normal bowel sounds Ext: no gross muscle atrophy, muscle strength 4 out of 5 in all 4 extremities grossly, no contractures, Neuro: CN II-XI grossly intact, light touch intact all 4 extremities, resting and active hand tremor Psych: Alert, oriented, appropriate affect Results CBC & Chem 7: 02/25/19 09:26 02/25/19 09:26 Labs: Abnormal Lab Results - Last 24 Hours (Table) 02/25/19 02/25/19 02/25/19 Range/Units 09:26 09:26 09:45 MCV 77.2 L (80.0-100.0) fL MCH 24.8 L (25.0-35.0) pg RDW 16.6 H (11.5-15.5) % Sodium 133 L (137-145) mmol/L Chloride 92 L (98-107) mmol/L BUN 19 H (7-17) mg/dL Glucose 106 H (74-99) mg/dL Magnesium 1.5 L (1.6-2.3) mg/dL Alkaline Phosphatase 142 H (38-126) U/L Urine Appearance Cloudy H (Clear) Ur Leukocyte Esterase Large H (Negative) Urine WBC 115 H (0-5) /hpf Urine WBC Clumps Few H (None) /hpf Urine Bacteria Many H (None) /hpf Hyaline Casts 7 H (0-2) /lpf Urine Mucus Rare H (None) /hpf Thrombosis Risk Factor Assmnt - Choose All That Apply Any of the Below Risk Factors Present?: Yes Each Factor Represents 1 point: Heart failure (<1month), Obesity (BMI >25) Other Risk Factors: Yes Each Risk Factor Represents 3 Points: Age 75 years or older Other congenital or acquired thrombophilia - If yes, enter type in comment: No Thrombosis Risk Factor Assessment Total Risk Factor Score: 5 Thrombosis Risk Factor Assessment Level: High Risk Assessment and Plan Plan: UTI w/ hx of ESBL Klebsiella -C/w Macrobid -F/u Urine cultures -C/w landis for now due to urinary retention and do a voiding trial in am Acute systolic CHF exacerbation -C/w Lasix 60 mg IVP q12h -Cardiac monitoring -Monitor BMP -I/Os, daily weights, fluid restriction Persistent R sided pleural effusion -Will plan for drainage Hypomagnasemia -Replace and monitor Chronic conditions: Hypothyroidism, HTN, HLD, CAD -C/w home meds DVT prophylaxis -Heparin The patient is admitted with an anticipated less than 2 midnight stay for evaluation of UTI CODE STATUS: No Code Discussed with: Patient, Anticipated discharge date: 1-[address]: Home A total of 40 minutes was spent on the care of this complex patient more than 50% of the time was spent in counseling and care coordination.
[2019-02-25 16:54] LABS: Glucose,Whole Blood 139 mg/dL (75-99)
[2019-02-25] MEDS: INSULIN ASPART (NovoLOG) 100 UNIT/ML VIAL SQ SCH (17:00)
[2019-02-25] MEDS: ASPIRIN 81 MG PO SCH (17:04)
[2019-02-25] MEDS: ACARBOSE 25 MG TAB PO SCH (17:57)
[2019-02-25 20:23] LABS: Glucose,Whole Blood 127 mg/dL (75-99)
[2019-02-25] MEDS: traMADol 50 MG TAB PO SCH (21:05)
[2019-02-25] MEDS: GABAPENTIN 100 MG CAP PO SCH (21:05)
[2019-02-25] MEDS: ATORVASTATIN 20 MG TAB PO SCH (21:05)
[2019-02-25] MEDS: ALPRAZolam 0.25 MG TAB PO SCH (21:05)
[2019-02-25] MEDS: FUROSEMIDE 10 MG/ML 10 ML VIAL IV SCH (21:06)
[2019-02-26] MEDS: HEPARIN SODIUM,PORCINE 5,000 UNIT/ML 1 ML VIAL SQ SCH ×4 (00:36→23:09)
[2019-02-26 06:18] LABS: Glucose,Whole Blood 110 mg/dL (75-99)
[2019-02-26] MEDS: INSULIN ASPART (NovoLOG) 100 UNIT/ML VIAL SQ SCH ×3 (06:19→17:10)
[2019-02-26] MEDS: LEVOTHYROXINE 88 MCG TAB PO SCH (06:40)
[2019-02-26 06:41] LABS: Calcium 8.8 mg/dL (8.4-10.2); Potassium 4.2 mmol/L (3.5-5.1)
[2019-02-26 09:12] VITALS: PULSE 50
[2019-02-26] MEDS: traMADol 50 MG TAB PO SCH ×2 (09:22→20:44)
[2019-02-26] MEDS: METOPROLOL SUCCINATE (ER) 25 MG TAB.ER.24H PO SCH (09:22)
[2019-02-26] MEDS: SERTRALINE 25 MG TAB PO SCH (09:24)
[2019-02-26] MEDS: NITROFURANTOIN MONOHYD/M-CRYST 100 MG CAP PO SCH ×2 (09:24→20:44)
[2019-02-26] MEDS: FUROSEMIDE 10 MG/ML 10 ML VIAL IV SCH ×2 (09:24→20:45)
[2019-02-26 12:16] LABS: Glucose,Whole Blood 119 mg/dL (75-99)
[2019-02-26] MEDS: amLODIPine 10 MG TAB PO SCH (12:44)
[2019-02-26 13:13] VITALS: BMI 38.5
[2019-02-26 15:47] LABS: Glucose,Whole Blood 114 mg/dL (75-99)
[2019-02-26] MEDS: LISINOPRIL 10 MG TAB PO SCH (16:41)
--- NOTE | 2019-02-26 17:00 | P.PN ---
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 The patient reported that she was in her usual state of health until 3 days prior when she suddenly couldn't urinate. She notes gaining weight during this time and states that this hasn't happened to her in the past. She states that with previous UTIs, she would normally get some dysuria. She currently is denying dysuria, frequency, or urgency. She further denied abdominal pain, chest pain, SOB, nausea, vomiting, diarrhea, or sick contacts. She ambulates with a walker at home and lives with her and has a home-health aid. She underwent an extensive evaluation in the ED w/ CXR showing R sided pleural effusion and UA which was consistent with UTI. Laboratory evaluation revealed a Troponin < 0.012, BNP 4840, Mg 1.5, WBC 9.0, Hgb 12.3, Na 13, K 4.8, BUN 19, Cr 1.02, and Glucose 106. She was admitted to the medicine service for management of UTI. The patient was seen and examined at the bedside on 02/26. She reported feeling well, though continues to have the Price and is eager to try to urinate on her own. She denied fever, chills, nausea, vomiting, chest pain, or shortness of breath. Objective - Vital Signs Vital signs: Vital Signs Temp 98.8 F 02/26/19 15:30 Pulse 50 L 02/26/19 15:30 Resp 20 02/26/19 15:30 BP 129/59 02/26/19 15:30 Pulse Ox 96 02/26/19 15:30 Intake & Output 02/25/19 02/26/19 02/26/19 18:59 06:59 18:59 Intake Total 840 720 Output Total 1321 825 600 Balance -481 -825 120 Weight 95.4 kg 95.4 kg Intake: Oral 840 720 Output: Urine 900 825 600 Post Void Residual 421 Other: Voiding Method Indwelling Catheter Indwelling Catheter Indwelling Catheter # Voids 1 # Bowel Movements 0 - Exam General: Non-toxic, in no acute distress, appears stated age HEENT: NC/AT, anicteric sclerae, moist conjunctiva, no lid-lag, PERRLA Cardiovascular: S1/S2 wnl, systolic murmur, rubs, or gallops Lungs: Mild bibasilar rales R>L, normal respiratory effort, no accessory muscle use Abdominal: Soft, non-tender, non-distended, no guarding, rebound, or rigidity Skin: Warm, dry Extremities: 1+ edema lower extremities bilaterally, no contractures Psychiatric: Alert and oriented to person, place and time, appropriate affect Neuro: CN II-XII grossly intact, Strength 4/5 in all 4 extremities, Speech intact, Sensation to light touch grossly intact throughout - Labs CBC & Chem 7: 02/25/19 09:26 02/26/19 05:50 Labs: Abnormal Lab Results - Last 24 Hours (Table) 02/25/19 02/26/19 02/26/19 Range/Units 20:22 05:50 06:17 Sodium 131 L (137-145) mmol/L Chloride 93 L (98-107) mmol/L BUN 19 H (7-17) mg/dL Glucose 104 H (74-99) mg/dL POC Glucose (mg/dL) 127 H 110 H (75-99) mg/dL 02/26/19 02/26/19 Range/Units 12:06 15:45 Sodium (137-145) mmol/L Chloride (98-107) mmol/L BUN (7-17) mg/dL Glucose (74-99) mg/dL POC Glucose (mg/dL) 119 H 114 H (75-99) mg/dL Microbiology - Last 24 Hours (Table) 02/25/19 09:45 Urine Culture - Final Urine,Voided Strep agalactiae - (group b) Assessment and Plan Plan: UTI w/ hx of ESBL Klebsiella -C/w Macrobid for now -F/u Urine cultures -Price removed following interview and the patient is currently incontinent. Will give patient some time to regain bladder control. Acute systolic CHF exacerbation -Decrease Lasix to 40 mg IVP q12h -Cardiac monitoring -Monitor BMP -I/Os, daily weights, fluid restriction Persistent R sided pleural effusion -Will plan for drainage Hypomagnasemia -Replace and monitor Chronic conditions: Hypothyroidism, HTN, HLD, CAD -C/w home meds DVT prophylaxis -Heparin Discussed with: Patient, Anticipated discharge date: 1-[address]: Home
[2019-02-26 17:06] LABS: Glucose,Whole Blood 118 mg/dL (75-99)
[2019-02-26] MEDS: ACARBOSE 25 MG TAB PO SCH (17:17)
[2019-02-26] MEDS: ASPIRIN 81 MG PO SCH (17:31)
[2019-02-26 20:01] LABS: Glucose,Whole Blood 127 mg/dL (75-99)
[2019-02-26] MEDS: ATORVASTATIN 20 MG TAB PO SCH (20:44)
[2019-02-26] MEDS: GABAPENTIN 100 MG CAP PO SCH (20:44)
[2019-02-26] MEDS: ALPRAZolam 0.25 MG TAB PO SCH (20:44)
[2019-02-27 06:17] LABS: Glucose,Whole Blood 107 mg/dL (75-99)
[2019-02-27] MEDS: INSULIN ASPART (NovoLOG) 100 UNIT/ML VIAL SQ SCH ×2 (06:18→12:19)
[2019-02-27 06:21] LABS: Calcium 8.7 mg/dL (8.4-10.2)
[2019-02-27] MEDS: LEVOTHYROXINE 88 MCG TAB PO SCH (07:00)
[2019-02-27 08:35] VITALS: RESP 20; TEMP 98.2
[2019-02-27] MEDS: NITROFURANTOIN MONOHYD/M-CRYST 100 MG CAP PO SCH (08:55)
[2019-02-27] MEDS: METOPROLOL SUCCINATE (ER) 25 MG TAB.ER.24H PO SCH (08:55)
[2019-02-27] MEDS: LISINOPRIL 10 MG TAB PO SCH (08:55)
[2019-02-27] MEDS: HEPARIN SODIUM,PORCINE 5,000 UNIT/ML 1 ML VIAL SQ SCH (08:55)
[2019-02-27] MEDS: traMADol 50 MG TAB PO SCH (08:55)
[2019-02-27] MEDS: SERTRALINE 25 MG TAB PO SCH ×2 (08:56→08:59)
[2019-02-27] MEDS: FUROSEMIDE 10 MG/ML 10 ML VIAL IV SCH (08:56)
[2019-02-27 12:13] VITALS: BP 105/56
[2019-02-27] MEDS: amLODIPine 10 MG TAB PO SCH (12:19)
[2019-02-27 12:33] LABS: Glucose,Whole Blood 127 mg/dL (75-99)
--- NOTE | 2019-02-27 15:24 | P.DS ---
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 The patient reported that she was in her usual state of health until 3 days prior when she suddenly couldn't urinate. She notes gaining weight during this time and states that this hasn't happened to her in the past. She states that with previous UTIs, she would normally get some dysuria. She currently is denying dysuria, frequency, or urgency. She further denied abdominal pain, chest pain, SOB, nausea, vomiting, diarrhea, or sick contacts. She ambulates with a walker at home and lives with her and has a home-health aid. She underwent an extensive evaluation in the ED w/ CXR showing R sided pleural effusion and UA which was consistent with UTI. Laboratory evaluation revealed a Troponin < 0.012, BNP 4840, Mg 1.5, WBC 9.0, Hgb 12.3, Na 13, K 4.8, BUN 19, Cr 1.02, and Glucose 106. She was admitted to the medicine service for management of UTI. A landis was placed on 02/25 which was subsequently removed on 02/26. The patient remained incontinent of her urine thereafter. She noted that she is normally incontinent and uses adult diapers at home continuously. Discussed with the patient that her incontinence will likely improve gradually. The patient noted that she wishes to be discharged home as she will be able to manage the incontinence and continue taking her oral abxs. She was in good spirits and denied active complaints. Also discussed the patient's persistent pleural effusion. The patient stated that at her current age, she doesn't wish to undergo any procedures. She noted that she will discuss it with her PCP. Denied dysuria, fever, chills, nausea, vomiting, chest pain, or SOB. Discussed with the patient the need for close follow-up with her PCP. The patient already has an appt with Dr Ricardo and Dr Ybarra and will be following up shortly. Physical Examination General: Non-toxic, in no acute distress, appears stated age HEENT: NC/AT, anicteric sclerae, moist conjunctiva, no lid-lag, PERRLA Cardiovascular: S1/S2 wnl, systolic murmur, rubs, or gallops Lungs: Mild bibasilar rales R>L, normal respiratory effort, no accessory muscle use Abdominal: Soft, non-tender, non-distended, no guarding, rebound, or rigidity Skin: Warm, dry Extremities: 1+ edema lower extremities bilaterally, no contractures Psychiatric: Alert and oriented to person, place and time, appropriate affect Neuro: CN II-XII grossly intact, Strength 4/5 in all 4 extremities, Speech intact, Sensation to light touch grossly intact throughout Discharge diagnosis: UTI; Urinary incontinence; Acute systolic CHF exacerbation; Hypomagasemia; HLD, HTN, CAD A total of 40 minutes of time were spent preparing this complex discharge summary. Patient Condition at Discharge: Stable Plan - Discharge Summary Discharge Rx Participant: No New Discharge Prescriptions: New Nitrofurantoin Monohyd/M-Cryst [Macrobid] 100 mg PO BID #17 cap Continue Cholecalciferol [Vitamin D3 (25 Mcg = 1000 Iu)] 1,000 unit PO HS traMADol HCL [Ultram] 50 mg PO BID Magnesium Oxide [Mag-Ox] 125 mg PO BID Aspirin EC [Ecotrin Low Dose] 81 mg PO AC-SUPPER Sertraline HCl [Zoloft] 25 mg PO DAILY Hydrocortisone Pr Cream [Proctosol-Hc 2.5%] 1 applic RECTAL DAILY Atorvastatin [Lipitor] 20 mg PO HS Levothyroxine Sodium [Synthroid] 88 mcg PO DAILY ALPRAZolam [Xanax] 0.25 mg PO HS metFORMIN HCL [Glucophage] 250 mg PO BID Simethicone [Gas-X] 125 mg PO HS Acarbose [Precose] 25 mg PO AC-SUPPER Metoprolol Succinate (ER) [Toprol XL] 25 mg PO DAILY Lisinopril [Zestril] 10 mg PO DAILY Gabapentin [Neurontin] 100 mg PO HS amLODIPine [Norvasc] 10 mg PO DAILY Maalox 2 tab PO PC-SUPPER Omeprazole 40 mg PO DAILY #30 capsule. Furosemide [Lasix] 20 mg PO DAILY@1600 Furosemide [Lasix] 40 mg PO QAM Discharge Medication List ALPRAZolam [Xanax] 0.25 mg PO HS 06/17/18 [History] Acarbose [Precose] 25 mg PO AC-SUPPER 06/17/18 [History] Aspirin EC [Ecotrin Low Dose] 81 mg PO AC-SUPPER 06/17/18 [History] Atorvastatin [Lipitor] 20 mg PO HS 06/17/18 [History] Cholecalciferol [Vitamin D3 (25 Mcg = 1000 Iu)] 1,000 unit PO HS 06/17/18 [History] Hydrocortisone Pr Cream [Proctosol-Hc 2.5%] 1 applic RECTAL DAILY 06/17/18 [History] Levothyroxine Sodium [Synthroid] 88 mcg PO DAILY 06/17/18 [History] Magnesium Oxide [Mag-Ox] 125 mg PO BID 06/17/18 [History] Sertraline HCl [Zoloft] 25 mg PO DAILY 06/17/18 [History] Simethicone [Gas-X] 125 mg PO HS 06/17/18 [History] metFORMIN HCL [Glucophage] 250 mg PO BID 06/17/18 [History] traMADol HCL [Ultram] 50 mg PO BID 06/17/18 [History] Lisinopril [Zestril] 10 mg PO DAILY 06/30/18 [History] Metoprolol Succinate (ER) [Toprol XL] 25 mg PO DAILY 06/30/18 [History] Gabapentin [Neurontin] 100 mg PO HS 11/24/18 [History] Maalox 2 tab PO PC-SUPPER 11/24/18 [History] amLODIPine [Norvasc] 10 mg PO DAILY 11/24/18 [History] Omeprazole 40 mg PO DAILY #30 capsule.dr 11/25/18 [Rx] Furosemide [Lasix] 20 mg PO DAILY@1600 02/25/19 [History] Furosemide [Lasix] 40 mg PO QAM 02/25/19 [History] Nitrofurantoin Monohyd/M-Cryst [Macrobid] 100 mg PO BID #17 cap 02/27/19 [Rx] Follow up Appointment(s)/Referral(s): Dominick Ybarra MD [STAFF PHYSICIAN] - 1 Week (PLEASE CALL THURSDAY AM WHEN OFFICES ARE OPEN FOR APPONTMENT TIME) Catherine Ricardo MD [Primary Care Provider] - 1-2 days (PLEASE CALL THURSDAY AM WHEN OFFICES ARE OPEN FOR APPOINTMENT TIME) Patient Instructions/Handouts: Heart Failure (DC), Urinary Tract Infection in Women (DC), Acute Urinary Retention in Women (GEN) Discharge Disposition: HOME SELF-CARE
[2019-02-27] MEDS ORDERED: SERTRALINE 25 MG TAB PO SCH (21:00)
== END 2019-02-27 13:13 | disposition home or self-care (01) | DRG 689 ==
LOC: EC 08:46 → 3SCARD 12:52
PROVIDERS: ADMIT Internal Medicine; ATTEND Internal Medicine
DX: N39.0 Urinary tract infection, site not specified (principal); I50.23 Acute on chronic systolic (congestive) heart failure; I44.2 Atrioventricular block, complete; B95.1 Streptococcus, group B, as the cause of diseases classified elsewhere; E03.9 Hypothyroidism, unspecified; E11.40 Type 2 diabetes mellitus with diabetic neuropathy, unspecified; E78.5 Hyperlipidemia, unspecified; E83.42 Hypomagnesemia; F32.9 Major depressive disorder, single episode, unspecified; F41.9 Anxiety disorder, unspecified; G25.0 Essential tremor; I11.0 Hypertensive heart disease with heart failure; I25.10 Atherosclerotic heart disease of native coronary artery without angina pectoris; I35.0 Nonrheumatic aortic (valve) stenosis; M13.0 Polyarthritis, unspecified; R32 Unspecified urinary incontinence; Z79.84 Long term (current) use of oral hypoglycemic drugs; Z79.890 Hormone replacement therapy; Z79.899 Other long term (current) drug therapy; Z81.1 Family history of alcohol abuse and dependence; Z82.5 Family history of asthma and other chronic lower respiratory diseases; Z86.19 Personal history of other infectious and parasitic diseases; Z87.440 Personal history of urinary (tract) infections; Z87.891 Personal history of nicotine dependence; Z95.0 Presence of cardiac pacemaker; H26.9 Unspecified cataract; Z66 Do not resuscitate; L89.152 Pressure ulcer of sacral region, stage 2; Z90.49 Acquired absence of other specified parts of digestive tract; Z88.0 Allergy status to penicillin; Z88.2 Allergy status to sulfonamides; Z88.1 Allergy status to other antibiotic agents; Z91.041 Radiographic dye allergy status
CPT/HCPCS: 36415; 51702; 51798; 71046; 80048; 80053; 81001; 83735; 83880; 84484; 85025; 85610; 85730; 87086; 93005; 96365; 96375; 99285

== ENCOUNTER 2019-03-06 18:28 | Inpatient (IN) | payer MEDICARE ==
[2019-03-06] MEDS ORDERED: SODIUM CHLORIDE 0.9% 1,000 ML IV STA (18:46)
--- NOTE | 2019-03-06 18:59 | ED ---
General Adult HPI - General Chief complaint: Shortness of Breath Stated complaint: OBDULIO Time Seen by Provider: 03/06/19 18:29 Source: patient Mode of arrival: EMS Limitations: no limitations - History of Present Illness Initial comments: Dictation was produced using [employer] dictation software. please excuse any grammatical, word or spelling errors. Chief Complaint: 89-year-old female with past medical history of coronary artery disease, aortic stenosis, diabetes, dyslipidemia hypertension presents with redness of breath. History of Present Illness: 89-year-old female presents today with shortness of breath. Patient was just discharged from the hospital one week ago for a similar complaint. She is here today for 1 day of shortness of breath. Patient is a poor historian. Patient reports that she's had shortness of breath like this in the past. States that this time is typical of her usual dyspnea. Patient denies history of COPD. She does report a history of coronary artery disease. Patient has a pain complaints at this time. EMS was concerned about COPD exacerbation provided her with a breathing treatment. Patient reports feeling better after breathing treatment. Patient does report swelling of feet. The ROS documented in this emergency department record has been reviewed and confirmed by me. Those systems with pertinent positive or negative responses have been documented in the HPI. All other systems are other negative and/or noncontributory. PHYSICAL EXAM: General Impression: Alert and oriented x3, not in acute distress HEENT: Normocephalic atraumatic, extra-ocular movements intact, pupils equal and reactive to light bilaterally, mucous membranes moist. Cardiovascular: Heart regular rate and rhythm, S1&S2 audible, no murmurs, rubs or gallops Chest: Mild lung freckling worse at the posterior lung bases Abdomen: Bowel sounds present, abdomen soft, non-tender, non-distended, no organomegaly Musculoskeletal: Pulses present and equal in all extremities, 2+ pitting edema Motor: no focal deficits noted Neurological: CN II-XII grossly intact, no focal motor or sensory deficits noted Skin: Intact with no visualized rashes Psych: Normal affect and mood ED course: 89-year-old female with multiple comorbidities presents today with chief complaint of dyspnea. All signs upon arrival shows heart rate of 56, rest of vital signs within acceptable limits. Patient's well-appearing at bedside. She does have pitting edema in freckling of the lungs. She doesn't appear significantly dyspneic at this time. EMS reports to give her breathing treatment with improvement of her breathing symptoms. Chart review was performed. Patient was just discharged one week ago she was admitted for urinary retention. In November of last year patient was found to have severe aortic stenosis however she is not a candidate for aortic valve replacement. Patient is on multiple medications. Her medications were reviewed. He does not take any anticoagulation medications. Daughter at bedside reports that there is significant concern about patient's care at home. She states that she lives by herself with her who is also advanced in age. and daughter report that is becoming increasingly difficult to care for the patient given that she requires a lot of assistance.Laboratory evaluation obtained. CBC is unremarkable. Coag panel unremarkable. D-dimer is 3.34. Sodium 131. Magnesium is 1.4. Prematurity peptide of 5000. Chest x-ray is nonacute however there is redundant demonstr ation of large right pleural effusion. Given elevated d-dimer CT angios obtained demonstrating large pleural effusion concerns for pulmonary edema. Patient given some Lasix. Patient reevaluated bedside. She does not appear to be in any sort of respiratory distress although she continues to complain of shortness of breath. It appears that her labs appear to be within her baseline. Disposition options were discussed with family. They requested that they be admitted to inpatient with request for possible alf or rehab facility transfer ultimately. I believe this is reasonable disposition given that patient does not have a safe discharge to home. EKG interpretation: Ventricular rate 6-7, paced rhythm, QRS 166. QT 483 No ID prolongation, no QTC prolongation, no ST or T-wave changes noted. EKG compared to 02/25/2019 showing no changes. Overall, this EKG is unremarkable - Related Data Home Medications Medication Instructions Recorded Confirmed ALPRAZolam [Xanax] 0.25 mg PO HS 06/17/18 03/06/19 Acarbose [Precose] 25 mg PO AC-SUPPER 06/17/18 03/06/19 Aspirin EC [Ecotrin Low Dose] 81 mg PO AC-SUPPER 06/17/18 03/06/19 Atorvastatin [Lipitor] 20 mg PO HS 06/17/18 03/06/19 Cholecalciferol [Vitamin D3 (25 1,000 unit PO HS 06/17/18 03/06/19 Mcg = 1000 Iu)] Hydrocortisone Pr Cream 1 applic RECTAL DAILY 06/17/18 03/06/19 [Proctosol-Hc 2.5%] Levothyroxine Sodium [Synthroid] 88 mcg PO DAILY 06/17/18 03/06/19 Magnesium Oxide [Mag-Ox] 125 mg PO BID 06/17/18 03/06/19 Sertraline HCl [Zoloft] 25 mg PO DAILY 06/17/18 03/06/19 Simethicone [Gas-X] 125 mg PO HS 06/17/18 03/06/19 metFORMIN HCL [Glucophage] 250 mg PO BID 06/17/18 03/06/19 traMADol HCL [Ultram] 50 mg PO BID 06/17/18 03/06/19 Lisinopril [Zestril] 10 mg PO DAILY 06/30/18 03/06/19 Metoprolol Succinate (ER) [Toprol 25 mg PO DAILY 06/30/18 03/06/19 XL] Gabapentin [Neurontin] 100 mg PO HS 11/24/18 03/06/19 Maalox 2 tab PO PC-SUPPER 11/24/18 03/06/19 amLODIPine [Norvasc] 10 mg PO DAILY 11/24/18 03/06/19 Furosemide [Lasix] 20 mg PO DAILY@1600 02/25/19 03/06/19 Furosemide [Lasix] 40 mg PO QAM 02/25/19 03/06/19 Omeprazole 40 mg PO DAILY@1900 03/06/19 03/06/19 Previous Rx's Medication Instructions Recorded Nitrofurantoin Monohyd/M-Cryst 100 mg PO BID #17 cap 02/27/19 [Macrobid] Allergies Allergy/AdvReac Type Severity Reaction Status Date / Time amoxicillin Allergy Unknown Verified 03/06/19 18:36 Iodinated Contrast Media Allergy Unknown Verified 03/06/19 18:36 [Iodinated Contrast- Oral and IV Dye] metoclopramide [From Reglan] Allergy Unknown Verified 03/06/19 18:36 sulfamethoxazole Allergy Unknown Verified 03/06/19 18:36 [From Septra] trimethoprim [From ] Allergy Unknown Verified 03/06/19 18:36 ampicillin AdvReac Nausea & Verified 03/06/19 18:36 Vomiting cephalexin AdvReac Nausea & Verified 03/06/19 18:36 Vomiting levofloxacin AdvReac SHAKING,PUGA Verified 03/06/19 18:36 ICS Review of Systems ROS Statement: Those systems with pertinent positive or pertinent negative responses have been documented in the HPI. ROS Other: All systems not noted in ROS Statement are negative. Past Medical History Past Medical History: Coronary Artery Disease (CAD), Diabetes Mellitus, Eye Disorder, GERD/Reflux, Hyperlipidemia, Hypertension, Osteoarthritis (OA), Syncope, Thyroid Disorder Additional Past Medical History / Comment(s): Syncope/CHB and had temporary then permanent pacemaker, currently has 3 small decub on coccyx per pt/mindy, NIDDM ty pe II, diabetic neuropathy bilateral feet, severe aortic stenosis, polyarthritis, essential tremors, hypothyroid, bilateral cataracts, incontinence or urine and occasionally stool, constipation, UTI. History of Any Multi-Drug Resistant Organisms: ESBL Date of last positivie culture/infection: 07/21/18 MDRO Source:: ESBL URINE Past Surgical History: Cholecystectomy, Heart Catheterization, Orthopedic Surgery, Pacemaker Additional Past Surgical History / Comment(s): 06/17/18 temporary pacemaker, 06/19/18 permanent pacemaker, R knee arthrotomy d/t chip, colonoscopy. Past Anesthesia/Blood Transfusion Reactions: No Reported Reaction Type of Cardiac Device: Permanent Pacemaker Device Placement Date:: 06/19/18 Past Psychological History: Anxiety, Depression Smoking Status: Former smoker - Past Family History Father Additional Family Medical History / Comment(s): Father was an alcoholic Mother Family Medical History: Asthma Additional Family Medical History / Comment(s): Mother at the age of 54yrs- pt unsure from what. General Exam Limitations: no limitations Course Vital Signs 03/06/19 03/06/19 03/06/19 18:31 19:10 20:06 Temperature 98.1 F 98.3 F Pulse Rate 56 L 49 L Respiratory 24 24 18 Rate Blood Pressure 122/56 123/81 O2 Sat by Pulse 100 98 Oximetry 03/06/19 21:04 Temperature Pulse Rate 51 L Respiratory 20 Rate Blood Pressure 120/47 O2 Sat by Pulse 99 Oximetry Medical Decision Making - Lab Data Result diagrams: 03/06/19 18:46 03/06/19 18:46 Lab Results 03/06/19 03/06/19 03/06/19 Range/Units 18:46 18:46 18:46 WBC 7.6 (3.8-10.6) k/uL RBC 5.18 (3.80-5.40) m/uL Hgb 12.9 (11.4-16.0) gm/dL Hct 40.4 (34.0-46.0) % MCV 78.0 L (80.0-100.0) fL MCH 24.9 L (25.0-35.0) pg MCHC 31.9 (31.0-37.0) g/dL RDW 17.0 H (11.5-15.5) % Plt Count 203 (150-450) k/uL Neutrophils % 66 % Lymphocytes % 21 % Monocytes % 8 % Eosinophils % 2 % Basophils % 1 % Neutrophils # 5.0 (1.3-7.7) k/uL Lymphocytes # 1.6 (1.0-4.8) k/uL Monocytes # 0.6 (0-1.0) k/uL Eosinophils # 0.1 (0-0.7) k/uL Basophils # 0.0 (0-0.2) k/uL Anisocytosis Slight Microcytosis Slight PT (9.0-12.0) sec INR (<1.2) APTT (22.0-30.0) sec D-Dimer (<0.60) mg/L FEU Sodium 131 L (137-145) mmol/L Potassium 4.3 (3.5-5.1) mmol/L Chloride 92 L (98-107) mmol/L Carbon Dioxide 28 (22-30) mmol/L Anion Gap 11 mmol/L BUN 23 H (7-17) mg/dL Creatinine 1.07 H (0.52-1.04) mg/dL Est GFR (CKD-EPI)AfAm 54 (>60 ml/min/1.73 sqM) Est GFR (CKD-EPI)NonAf 47 (>60 ml/min/1.73 sqM) Glucose 112 H (74-99) mg/dL Calcium 8.8 (8.4-10.2) mg/dL Magnesium 1.4 L (1.6-2.3) mg/dL Total Bilirubin 0.5 (0.2-1.3) mg/dL AST 19 (14-36) U/L ALT 12 (4-34) U/L Alkaline Phosphatase 136 H (38-126) U/L Troponin I (0.000-0.034) ng/mL NT-Pro-B Natriuret Pep 5010 pg/mL Total Protein 6.6 (6.3-8.2) g/dL Albumin 3.6 (3.5-5.0) g/dL 03/06/19 03/06/19 Range/Units 18:46 18:46 WBC (3.8-10.6) k/uL RBC (3.80-5.40) m/uL Hgb (11.4-16.0) gm/dL Hct (34.0-46.0) % MCV (80.0-100.0) fL MCH (25.0-35.0) pg MCHC (31.0-37.0) g/dL RDW (11.5-15.5) % Plt Count (150-450) k/uL Neutrophils % % Lymphocytes % % Monocytes % % Eosinophils % % Basophils % % Neutrophils # (1.3-7.7) k/uL Lymphocytes # (1.0-4.8) k/uL Monocytes # (0-1.0) k/uL Eosinophils # (0-0.7) k/uL Basophils # (0-0.2) k/uL Anisocytosis Microcytosis PT 10.3 (9.0-12.0) sec INR 1.0 (<1.2) APTT 21.2 L (22.0-30.0) sec D-Dimer 3.34 H (<0.60) mg/L FEU Sodium (137-145) mmol/L Potassium (3.5-5.1) mmol/L Chloride (98-107) mmol/L Carbon Dioxide (22-30) mmol/L Anion Gap mmol/L BUN (7-17) mg/dL Creatinine (0.52-1.04) mg/dL Est GFR (CKD-EPI)AfAm (>60 ml/min/1.73 sqM) Est GFR (CKD-EPI)NonAf (>60 ml/min/1.73 sqM) Glucose (74-99) mg/dL Calcium (8.4-10.2) mg/dL Magnesium (1.6-2.3) mg/dL Total Bilirubin (0.2-1.3) mg/dL AST (14-36) U/L ALT (4-34) U/L Alkaline Phosphatase (38-126) U/L Troponin I <0.012 (0.000-0.034) ng/mL NT-Pro-B Natriuret Pep pg/mL Total Protein (6.3-8.2) g/dL Albumin (3.5-5.0) g/dL Disposition Clinical Impression: Debility Disposition: ADMITTED IP TO THIS HOSP Condition: Fair Referrals: Catherine Ricardo MD [Primary Care Provider] - 1-2 days Decision Time: 22:39
[2019-03-06 19:18] LABS: Anisocytosis Slight; Basophils % (A) 1 %; Eosinophils # (A) 0.1 k/uL (0-0.7); Eosinophils % (A) 2 %; HCT 40.4 % (34.0-46.0); HGB 12.9 gm/dL (11.4-16.0); Lymphocytes # (A) 1.6 k/uL (1.0-4.8); Lymphocytes % (A) 21 %; MCH 24.9 pg (25.0-35.0); MCHC 31.9 g/dL (31.0-37.0); Mean Platelet Volume 7.8; Microcytosis Slight; Monocytes # (A) 0.6 k/uL (0-1.0); Monocytes % (A) 8 %; Neutrophils % (A) 66 %; Platelet Count 203 k/uL (150-450); RBC 5.18 m/uL (3.80-5.40); WBC 7.6 k/uL (3.8-10.6)
[2019-03-06 19:27] LABS: Albumin 3.6 g/dL (3.5-5.0); Calcium 8.8 mg/dL (8.4-10.2); Magnesium 1.4 mg/dL (1.6-2.3); Potassium 4.3 mmol/L (3.5-5.1); Total Bilirubin 0.5 mg/dL (0.2-1.3); Total Protein 6.6 g/dL (6.3-8.2)
[2019-03-06 19:57] LABS: D-Dimer 3.34 mg/L FEU (<0.60); Partial Thromboplastin Time 21.2 sec (22.0-30.0); Prothrombin Time 10.3 sec (9.0-12.0)
[2019-03-06] MEDS ORDERED: MAGNESIUM OXIDE 400 MG TAB PO STA (20:11)
--- NOTE | 2019-03-06 20:15 | XR ---
EXAMINATION: XR chest 2V DATE AND TIME: 03/06/2019 7:53 PM CLINICAL INDICATION: PHH; difficulty breathing TECHNIQUE: Departmental protocol COMPARISON: 02/25/2019 FINDINGS: Cardiac pacemaker and EKG leads. The previously seen massive right pleural effusion is redemonstrated; it rises up to the level of the right hilum, as it did on the prior study. It has similar overall appearance when compared to the pr ior study. If anything, slight interval increase in the right pleural effusion when compared to the p rior study. Currently, only the right upper lung zone is inflated. There is complete atelectasis of t he right mid and lower lobes. The mediastinum is midline. There is moderate enlargement of the cardiac silhouette, unchanged. On the left, the lung is clear and well expanded and the left pleural space is negative. No acute skeletal or soft tissue findings are evident. There are no abnormal gas collections. IMPRESSION: 1. Similar radiographic abnormalities, as discussed. 2. No new process.
[2019-03-06] MEDS ORDERED: diphenhydrAMINE 50 MG/ML 1 ML VIAL IVP STA (20:16)
[2019-03-06] MEDS ORDERED: FAMOTIDINE 20 MG/2 ML VIAL IV STA (20:16)
[2019-03-06] MEDS ORDERED: methylPREDNISolone SOD SUCCI 125 MG/2 ML VIAL IV STA (20:16)
[2019-03-06] MEDS ORDERED: LORazepam 2 MG/ML INJ IV STA (21:13)
--- NOTE | 2019-03-06 21:20 | CT ---
EXAMINATION TYPE: CT angio chest w con and with 3-D reconstruction renderings DATE OF EXAM: 03/06/2019 8:46 PM COMPARISON: None HISTORY: Dyspnea, elevated d-dimer. CT DLP: 716.1 mGycm Automated exposure control for dose reduction was used. CONTRAST: CTA scan of the thorax is performed with IV Contrast, patient injected with 80 mL of Isovue 370, pulmonary embolism protocol. . FINDINGS: There is prominent respiratory motion artifact limiting visualization. AIRWAYS AND LUNGS AND PLEURAL SPACES: There is a large right pleural effusion, with passive atelectas is of the right middle lobe and the right lower lobe and a component of the posterior segment right u pper lobe. The lungs demonstrate a dependent groundglass opacity pattern throughout the inflated lung parenchyma bilaterally, consistent with interstitial phase pulmonary edema. There are no abnormal gas collections. Partial filling defect noted dependently and contiguously within the lower most trachea and right robert nstem bronchus. Because of the respiratory motion artifact this is difficult to characterize. It coul d be phlegm. Repeat CT assessment following treatment recommended. MEDIASTINUM: Patient respiratory artifact limits visualization of the pulmonary arterial tree. There is satisfactory enhancement of the pulmonary artery and its branches, there are no definite defects t o suggest pulmonary embolism as seen. No acute aortic findings. There is moderate cardiomegaly. No pe ricardial effusion. Prominent left and right coronary calcifications noted in addition to mitral and aortic valve plane calcifications. No adenopathy. OTHER: No additional significant abnormality is seen. IMPRESSION: 1. NEGATIVE FOR PULMONARY EMBOLISM IS SEEN. 2. MASSIVE RIGHT PLEURAL EFFUSION WITH PASSIVE ATELECTASIS. 3. INTERSTITIAL PHASE CARDIOGENIC PULMONARY EDEMA PATTERN. Follow up CT advised as above.
[2019-03-06] MEDS ORDERED: FUROSEMIDE 10 MG/ML 4 ML VIAL IV STA (21:32)
[2019-03-06] MEDS ORDERED: NALOXONE 0.4 MG/ML 1 ML VIAL IV PRN (22:39)
--- NOTE | 2019-03-06 23:08 | P.HPIM ---
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 The patient is present with her family. Apparently the patient since her previous discharge has had no significant improvement despite being compliant discharge Lasix dosing, the patient has had difficulty breathing and lower extremity swelling and has been increasingly weak and fatigued. At baseline the patient is able to get up and transfer but is largely wheelchair- bound in the last few days she's been unable to get up and her has been unable to care for her. Daughter is stating that she's concerned for the patient's care and is open to fpc placement. The patient denies chest pain, denies palpitations, reports cough 1 day. Review of records indicate a echocardiogram done 11/24/18 that showed an EF of 45-50%, with severe aortic stenosis, severely dilated left atrium, mild to moderate MR In the ER the patient had a comprehensive workup sodium 131, BUN 23 creatinine 1.07, magnesium 1.4, troponin less than 0.012, NT proBNP 5010, d-dimer 3.34, EKG paced ventricular rate 67, chest x-ray showing new no new process similar appearance to prior study with slight interval increase in the right pleural effusion with complete atelectasis of the right mid and lower lobes, CTA of the chest was negative for pulmonary embolism, noted massive right pleural effusion with passive atelectasis, and interstitial phase Cardizem and pulmonary edema pattern. The patient was given a loading dose of Lasix and recommended for admission Review of Systems Pertinent positives per HPI all other review of systems are otherwise negative Past Medical History Past Medical History: Coronary Artery Disease (CAD), Diabetes Mellitus, Eye Disorder, GERD/Reflux, Hyperlipidemia, Hypertension, Osteoarthritis (OA), Syncope, Thyroid Disorder Additional Past Medical History / Comment(s): Syncope/CHB and had temporary then permanent pacemaker, currently has 3 small decub on coccyx per pt/mindy, NIDDM type II, diabetic neuropathy bilateral feet, severe aortic stenosis, polyarthritis, essential tremors, hypothyroid, bilateral cataracts, incontinence or urine and occasionally stool, constipation, UTI. History of Any Multi-Drug Resistant Organisms: ESBL Date of last positivie culture/infection: 07/21/18 MDRO Source:: ESBL URINE Past Surgical History: Cholecystectomy, Heart Catheterization, Orthopedic Surgery, Pacemaker Additional Past Surgical History / Comment(s): 06/17/18 temporary pacemaker, 06/19 permanent pacemaker, R knee arthrotomy d/t chip, colonoscopy. Past Anesthesia/Blood Transfusion Reactions: No Reported Reaction Type of Cardiac Device: Permanent Pacemaker Device Placement Date:: 06/19/18 Past Psychological History: Anxiety, Depression Smoking Status: Former smoker - Past Family History Father Additional Family Medical History / Comment(s): Father was an alcoholic Mother Family Medical History: Asthma Additional Family Medical History / Comment(s): Mother at the age of 54yrs- pt unsure from what. Medications and Allergies Home Medications Medication Instructions Recorded Confirmed Type ALPRAZolam [Xanax] 0.25 mg PO HS 06/17/18 03/06/19 History Acarbose [Precose] 25 mg PO AC-SUPPER 06/17/18 03/06/19 History Aspirin EC [Ecotrin Low Dose] 81 mg PO AC-SUPPER 06/17/18 03/06/19 History Atorvastatin [Lipitor] 20 mg PO HS 06/17/18 03/06/19 History Cholecalciferol [Vitamin D3 (25 1,000 unit PO HS 06/17/18 03/06/19 History Mcg = 1000 Iu)] Hydrocortisone Pr Cream 1 applic RECTAL DAILY 06/17/18 03/06/19 History [Proctosol-Hc 2.5%] Levothyroxine Sodium [Synthroid] 88 mcg PO DAILY 06/17/18 03/06/19 History Magnesium Oxide [Mag-Ox] 125 mg PO BID 06/17/18 03/06/19 History Sertraline HCl [Zoloft] 25 mg PO DAILY 06/17/18 03/06/19 History Simethicone [Gas-X] 125 mg PO HS 06/17/18 03/06/19 History metFORMIN HCL [Glucophage] 250 mg PO BID 06/17/18 03/06/19 History traMADol HCL [Ultram] 50 mg PO BID 06/17/18 03/06/19 History Lisinopril [Zestril] 10 mg PO DAILY 06/30/18 03/06/19 History Metoprolol Succinate (ER) [Toprol 25 mg PO DAILY 06/30/18 03/06/19 History XL] Gabapentin [Neurontin] 100 mg PO HS 11/24/18 03/06/19 History Maalox 2 tab PO PC-SUPPER 11/24/18 03/06/19 History amLODIPine [Norvasc] 10 mg PO DAILY 11/24/18 03/06/19 History Furosemide [Lasix] 20 mg PO DAILY@1600 02/25/19 03/06/19 History Furosemide [Lasix] 40 mg PO QAM 02/25/19 03/06/19 History Nitrofurantoin Monohyd/M-Cryst 100 mg PO BID #17 cap 02/27/19 03/06/19 Rx [Macrobid] Omeprazole 40 mg PO DAILY@1900 03/06/19 03/06/19 History Allergies Allergy/AdvReac Type Severity Reaction Status Date / Time amoxicillin Allergy Unknown Verified 03/06/19 18:36 Iodinated Contrast Media Allergy Unknown Verified 03/06/19 18:36 [Iodinated Contrast- Oral and IV Dye] metoclopramide [From Reglan] Allergy Unknown Verified 03/06/19 18:36 sulfamethoxazole Allergy Unknown Verified 03/06/19 18:36 [From Septra] trimethoprim [From Septra] Allergy Unknown Verified 03/06/19 18:36 ampicillin AdvReac Nausea & Verified 03/06/19 18:36 Vomiting cephalexin AdvReac Nausea & Verified 03/06/19 18:36 Vomiting levofloxacin AdvReac SHAKING,PUGA Verified 03/06/19 18:36 ICS Physical Exam Vitals: Vital Signs Temp Pulse Resp BP Pulse Ox 03/06/19 21:04 51 L 20 120/47 99 03/06/19 20:06 98.3 F 49 L 18 123/81 98 03/06/19 19:10 24 03/06/19 18:31 98.1 F 56 L 24 122/56 100 Intake and Output 03/06/19 03/06/19 03/06/19 06:59 14:59 22:59 Other: # Voids 1 Weight 91.626 kg Constitutional: No acute distress, conversant, pleasant Eyes: Anicteric sclerae, moist conjunctiva, no lid-lag, PERRLA ENMT: NC/AT,Oropharynx clear, no erythema, exudates Neck:Supple, FROM, no masses, or JVD, No carotid bruits; No thyromegaly Lungs: Diminished in the bases right greater than left, crackles in the left lower brennan Cardiovascular: Heart regular in rate and rhythm, holosystolic murmur, gallops, 2+ peripheral pitting edema Abdominal: Soft Nontender, nom distended, no guarding, no rebound or rigidity, Normoactive bowel sounds No hepatomegaly, No splenomegaly, No palpable mass No abdominal wall hernia noted Skin: Normal temperature, tone, texture, turgor, No induration No subcutaneous nodules, No rash, lesions, No ulcers Extremities:No digital cyanosis No clubbing, Pedal pulses intact and symmetrical Radial pulses intac, No calf tenderness Psychiatric: Alert and oriented to person, place and time, Appropriate affect Intact judgement Neuro: Muscles Strength 5/5 in all 4 extremities, Sensation to light touch grossly present throughout, Cranial nerves II-XII grossly intact. No focal sensory deficits Results CBC & Chem 7: 03/06/19 18:46 03/06/19 18:46 Labs: Abnormal Lab Results - Last 24 Hours (Table) 03/06/19 03/06/19 03/06/19 Range/Units 18:46 18:46 18:46 MCV 78.0 L (80.0-100.0) fL MCH 24.9 L (25.0-35.0) pg RDW 17.0 H (11.5-15.5) % APTT 21.2 L (22.0-30.0) sec D-Dimer 3.34 H (<0.60) mg/L FEU Sodium 131 L (137-145) mmol/L Chloride 92 L (98-107) mmol/L BUN 23 H (7-17) mg/dL Creatinine 1.07 H (0.52-1.04) mg/dL Glucose 112 H (74-99) mg/dL Magnesium 1.4 L (1.6-2.3) mg/dL Alkaline Phosphatase 136 H (38-126) U/L Assessment and Plan Assessment: Acute on chronic combined systolic and diastolic CHF exacerbation Right pleural effusion with atelectasis type 2 diabetes hypomagnesemia Severe aortic stenosis Valvular heart disease Plan: The patient is admitted anticipated greater than 2 midnight stay with acute on chronic combined systolic and diastolic CHF exacerbation after presenting with dyspnea elevated NT proBNP 5010, evidence on imaging of pulmonary edema along with large right pleural effusion and hypervolemic exam in the setting of valvular heart disease and severe aortic stenosis. We'll continue diuresis with Lasix 40 mg IV q12, with daily BMPs, resume ANGIE inhibitor, and Toprol-XL. Plan to consult cardiology, will consult pulmonary for possible thoracocentesis. We'll discontinue steroids as this is unlikely a COPD exacerbation. Replace her magnesium, Initiate Accu-Cheks every before meals at bedtime with correctional scale insulin coverage. Consult PTOT CODE STATUS: DO NOT INTUBATE Surrogate decision-maker Alexsander POA: Clemencia Andrea Discussed plan of care with: Patient family Anticipated discharge: 2-[address]: [facility] Prophylaxis: SCDs/PPI therapy
[2019-03-07] MEDS: ALPRAZolam 0.25 MG TAB PO SCH ×2 (00:52→20:24)
[2019-03-07] MEDS: PANTOPRAZOLE 40 MG TABLET PO SCH ×2 (01:12→20:25)
[2019-03-07] MEDS: GABAPENTIN 100 MG CAP PO SCH ×2 (01:12→20:26)
[2019-03-07] MEDS: CHOLECALCIFEROL 1,000 UNIT TAB PO SCH ×2 (01:13→20:25)
[2019-03-07] MEDS: ATORVASTATIN 20 MG TAB PO SCH ×2 (01:13→20:25)
[2019-03-07] MEDS: MAGNESIUM SULFATE-D5W PMX 1 GM in DEXTROSE/WATER 1 100ML.BAG IVPB SCH ×3 (01:13→03:45)
[2019-03-07] MEDS: LEVOTHYROXINE 88 MCG TAB PO SCH (05:50)
[2019-03-07 07:46] LABS: Calcium 8.4 mg/dL (8.4-10.2); Magnesium 2.7 mg/dL (1.6-2.3); Potassium 4.8 mmol/L (3.5-5.1)
[2019-03-07] MEDS: FUROSEMIDE 10 MG/ML 4 ML VIAL IV SCH ×2 (07:46→20:26)
[2019-03-07] MEDS: amLODIPine 10 MG TAB PO SCH (07:46)
[2019-03-07] MEDS: SERTRALINE 25 MG TAB PO SCH (07:46)
[2019-03-07] MEDS: LISINOPRIL 10 MG TAB PO SCH (07:46)
[2019-03-07] MEDS: traMADol 50 MG TAB PO SCH ×2 (07:46→20:24)
[2019-03-07] MEDS: METOPROLOL SUCCINATE (ER) 25 MG TAB.ER.24H PO SCH (07:46)
[2019-03-07 07:49] LABS: Glucose,Whole Blood 187 mg/dL (75-99)
[2019-03-07] MEDS: HYDROCORTISONE 2.5% RECTAL CREAM 30 GM TUBE RECTAL SCH (07:58)
[2019-03-07] MEDS: INSULIN ASPART (NovoLOG) 100 UNIT/ML VIAL SQ SCH ×4 (08:30→20:32)
[2019-03-07] MEDS ORDERED: MAGNESIUM OXIDE PO SCH (09:00)
[2019-03-07] MEDS ORDERED: LEVOTHYROXINE 88 MCG TAB PO SCH (09:00)
[2019-03-07] MEDS ORDERED: metFORMIN 500 MG TAB PO SCH (09:00)
[2019-03-07 12:01] LABS: Glucose,Whole Blood 148 mg/dL (75-99)
[2019-03-07] MEDS: SPIRONOLACTONE 25 MG TAB PO SCH (12:45)
--- NOTE | 2019-03-07 13:17 | US ---
EXAMINATION TYPE: US chest DATE OF EXAM: 03/07/2019 COMPARISON: CT dated 03/06/2019 CLINICAL HISTORY: Markings for thoracentesis by pulmonary staff. Right pleural effusion TECHNIQUE: Targeted ultrasound of the posterior lower right hemithorax EXAM MEASUREMENTS: Right Pleural Effusion pocket size: 11.6 cm Right skin surface to fluid distance: 4.5 cm Right side marked for possible thoracentesis outside the dept. Pulmonologists are able to review the images in the patient?s EMR. Limited scanning of the posterior right chest IMPRESSIONS: Large right pleural effusion
--- NOTE | 2019-03-07 14:40 | P.PN ---
Subjective Progress Note Date: 03/07/19 The patient is an 89-year-old female with a PMH of coronary artery disease, combined systolic and diastolic CHF, high-grade AV block status post pacemaker, severe aortic stenosis, hyperlipidemia, type 2 diabetes mellitus, hypertension, and hypothyroidism presented to the ED for SOB. The patient was recently admitted a week prior for UTI and CHF exacerbation. The patient reported that since discharge, she had worsening lower extremity edema and shortness of breath despite compliance with her Lasix. The patient lives with her who has been unable to care for her due to his own advanced age. The family noted that they are open to considering placement in a assisted due to the patient's advanced age and difficulty in her ADLs. The patient also reported continued urinary incontinence along with intermittent retention. The patient underwent an extensive evaluation in the emergency room with a chest CTA which revealed massive right-sided pleural effusion with atelectasis along with pulmonary edema. Laboratory evaluation revealed a troponin of less than 0.012, BNP 5010, BUN 23, creatinine 1.07, WBC count 7.6, hemoglobin 12.9, and platelets 203. The patient was admitted for further management. Pulmonary was consulted for possible thoracentesis and cardiology for acute CHF exacerbation. Patient was seen and examined with daughter (CRAIG) at the bedside and 03/07. She reported that her edema and her breathing has improved since admission. She denied chest pain, fever, chills, nausea, or vomiting. Objective - Vital Signs Vital signs: Vital Signs Temp 97.9 F 03/07/19 04:35 Pulse 56 L 03/07/19 04:35 Resp 20 03/07/19 04:35 BP 159/82 03/07/19 04:35 Pulse Ox 98 03/07/19 04:35 Intake & Output 03/06/19 03/07/19 03/07/19 18:59 06:59 18:59 Intake Total 100 240 Output Total 654 Balance -554 240 Weight 91.626 kg 94.347 kg Intake: Oral 100 240 Output: Post Void Residual 654 Other: Voiding Method Diaper Diaper Incontinent Incontinent # Voids 2 # Bowel Movements 0 - Exam General: Non-toxic, in no acute distress, appears stated age, obese HEENT: NC/AT, anicteric sclerae, moist conjunctiva, no lid-lag, PERRLA Cardiovascular: S1/S2 wnl, loud systolic murmur, rubs, or gallops Lungs: Bibasilar rales R>L, some scattered ronchi, normal respiratory effort, no accessory muscle use Abdominal: Soft, non-tender, non-distended, no guarding, rebound, or rigidity Skin: Warm, dry Extremities: 2+ sarahy LE edema to hips, no contractures Psychiatric: Alert and oriented to person, place and time, appropriate affect Neuro: CN II-XII grossly intact, no focal neuro deficits - Labs CBC & Chem 7: 03/06/19 18:46 03/07/19 07:07 Labs: Abnormal Lab Results - Last 24 Hours (Table) 03/06/19 03/06/19 03/06/19 Range/Units 18:46 18:46 18:46 MCV 78.0 L (80.0-100.0) fL MCH 24.9 L (25.0-35.0) pg RDW 17.0 H (11.5-15.5) % APTT 21.2 L (22.0-30.0) sec D-Dimer 3.34 H (<0.60) mg/L FEU Sodium 131 L (137-145) mmol/L Chloride 92 L (98-107) mmol/L BUN 23 H (7-17) mg/dL Creatinine 1.07 H (0.52-1.04) mg/dL Glucose 112 H (74-99) mg/dL POC Glucose (mg/dL) (75-99) mg/dL Magnesium 1.4 L (1.6-2.3) mg/dL Alkaline Phosphatase 136 H (38-126) U/L 03/07/19 03/07/19 Range/Units 07:07 07:48 MCV (80.0-100.0) fL MCH (25.0-35.0) pg RDW (11.5-15.5) % APTT (22.0-30.0) sec D-Dimer (<0.60) mg/L FEU Sodium 132 L (137-145) mmol/L Chloride 93 L (98-107) mmol/L BUN 24 H (7-17) mg/dL Creatinine 1.09 H (0.52-1.04) mg/dL Glucose 189 H (74-99) mg/dL POC Glucose (mg/dL) 187 H (75-99) mg/dL Magnesium 2.7 H (1.6-2.3) mg/dL Alkaline Phosphatase (38-126) U/L Assessment and Plan Plan: Acute combined systolic and diastolic CHF exacerbation -Cardiology consulted -C/w Lasix IV q12h -I/Os -Daily weights -Fluid restriction -Monitor electrolytes -C/w Spironolactone R sided pleural effusion -Pulmonary consulted for thoracentesis Urinary retention -Price placed due to concomitant I/Os -Urology consulted -Patient completed abx course from previous admission [facility] -Monitor BMP -Possibly due to cardiorenal syndrome Debility -PT consult -Social work/case management consult for possible placement Chronic conditions: HTN, HLD, CAD, Hypothyroidism, Type 2 DM -C/w home meds -Hold oral hypoglycemics -Lispro insulin sliding scale with blood glucose monitoring DVT prophylaxis -Heparin Discussed with: Patient, , daughter Anticipated discharge date: 2-[address]: [facility] A total of 35 minutes was spent on the care of this complex patient more than 50% of the time was spent in counseling and care coordination.
[2019-03-07 16:56] LABS: Glucose,Whole Blood 174 mg/dL (75-99)
[2019-03-07] MEDS: HEPARIN SODIUM,PORCINE 5,000 UNIT/ML 1 ML VIAL SQ SCH ×2 (17:03→23:18)
[2019-03-07] MEDS ORDERED: ASPIRIN 81 MG PO SCH (17:30)
[2019-03-07] MEDS: ACARBOSE 25 MG TAB PO SCH (17:37)
--- NOTE | 2019-03-07 18:00 | P.GSCN ---
History of Present Illness Consult date: 03/07/19 Reason for Consult: Urinary retention History of present illness: The patient is an 89-year-old female admitted through the emergency room last night for evaluation of increasing shortness of breath. The patient was found to have pulmonary edema and a large right pleural effusion. She has been treated with diuretics and there are plans for a thoracentesis tomorrow. The patient complained of the inability to void other than very small amounts and was bladder scanned several times this morning and had a persistently elevated postvoid residual of between 350 and 400 cc. A Price catheter was placed and I was asked to see the patient for further evaluation. The history is per my discussion with the patient, a discussion with her daughter and a review of the old records. She had been in the hospital between 02/25 and 02/27 and at that time also complained of difficulty voiding. A catheter was inserted on 02/25 and reportedly drained approximately 400 cc. She had no dysuria prior to being admitted and a urine culture grew group B strep which was treated with Macrobid. The patient's catheter was removed on 02/26 and according to the nursing notes the patient was voiding but was incontinent of urine. A post void residual was not checked prior to her discharge. The patient has a history of intermittent episodes of urinary retention in the past. She usually voids every 3-4 hours during the day and is incontinent at night. She has had periodic urinary tract infections in 2019 but many of these were not associated with symptoms. Her bowels have been moving normally over the last few days. Review of Systems - Constitutional Reports fatigue, Denies chills, Denies fever - Cardiovascular Reports edema, Reports shortness of breath - Gastrointestinal Denies abdominal pain, Denies change in bowel habits Past Medical History Past Medical History: Coronary Artery Disease (CAD), Diabetes Mellitus, Eye Disorder, GERD/Reflux, Hyperlipidemia, Hypertension, Osteoarthritis (OA), Sy ncope, Thyroid Disorder Additional Past Medical History / Comment(s): Syncope/CHB and had temporary then permanent pacemaker, currently has 3 small decub on coccyx per pt/mindy, NIDDM type II, diabetic neuropathy bilateral feet, severe aortic stenosis, polyarthritis, essential tremors, hypothyroid, bilateral cataracts, incontinence or urine and occasionally stool, constipation, UTI. History of Any Multi-Drug Resistant Organisms: ESBL Year Discovered:: 07/21/18 MDRO Source:: ESBL URINE Past Surgical History: Cholecystectomy, Heart Catheterization, Orthopedic Surgery, Pacemaker Additional Past Surgical History / Comment(s): 06/17/18 temporary pacemaker, 06/19/18 permanent pacemaker, R knee arthrotomy d/t chip, colonoscopy. Past Anesthesia/Blood Transfusion Reactions: No Reported Reaction Type of Cardiac Device: Permanent Pacemaker Device Placement Date:: 06/19/18 Past Psychological History: Anxiety, Depression Smoking Status: Former smoker - Past Family History Father Additional Family Medical History / Comment(s): Father was an alcoholic Mother Family Medical History: Asthma Additional Family Medical History / Comment(s): Mother at the age of 54yrs- pt unsure from what. Medications and Allergies Home Medications Medication Instructions Recorded Confirmed Type ALPRAZolam [Xanax] 0.25 mg PO HS 06/17/18 03/06/19 History Acarbose [Precose] 25 mg PO AC-SUPPER 06/17/18 03/06/19 History Aspirin EC [Ecotrin Low Dose] 81 mg PO AC-SUPPER 06/17/18 03/06/19 History Atorvastatin [Lipitor] 20 mg PO HS 06/17/18 03/06/19 History Cholecalciferol [Vitamin D3 (25 1,000 unit PO HS 06/17/18 03/06/19 History Mcg = 1000 Iu)] Hydrocortisone Pr Cream 1 applic RECTAL DAILY 06/17/18 03/06/19 History [Proctosol-Hc 2.5%] Levothyroxine Sodium [Synthroid] 88 mcg PO DAILY 06/17/18 03/06/19 History Magnesium Oxide [Mag-Ox] 125 mg PO BID 06/17/18 03/06/19 History Sertraline HCl [Zoloft] 25 mg PO DAILY 06/17/18 03/06/19 History Simethicone [Gas-X] 125 mg PO HS 06/17/18 03/06/19 History metFORMIN HCL [Glucophage] 250 mg PO BID 06/17/18 03/06/19 History traMADol HCL [Ultram] 50 mg PO BID 06/17/18 03/06/19 History Lisinopril [Zestril] 10 mg PO DAILY 06/30/18 03/06/19 History Metoprolol Succinate (ER) [Toprol 25 mg PO DAILY 06/30/18 03/06/19 History XL] Gabapentin [Neurontin] 100 mg PO HS 11/24/18 03/06/19 History Maalox 2 tab PO PC-SUPPER 11/24/18 03/06/19 History amLODIPine [Norvasc] 10 mg PO DAILY 11/24/18 03/06/19 History Furosemide [Lasix] 20 mg PO DAILY@1600 02/25/19 03/06/19 History Furosemide [Lasix] 40 mg PO QAM 02/25/19 03/06/19 History Nitrofurantoin Monohyd/M-Cryst 100 mg PO BID #17 cap 02/27/19 03/06/19 Rx [Macrobid] Omeprazole 40 mg PO DAILY@1900 03/06/19 03/06/19 History Allergies Allergy/AdvReac Type Severity Reaction Status Date / Time amoxicillin Allergy Unknown Verified 03/06/19 18:36 Iodinated Contrast Media Allergy Unknown Verified 03/06/19 18:36 [Iodinated Contrast- Oral and IV Dye] metoclopramide [From Reglan] Allergy Unknown Verified 03/06/19 18:36 sulfamethoxazole Allergy Unknown Verified 03/06/19 18:36 [From Septra] trimethoprim [From Octra] Allergy Unknown Verified 03/06/19 18:36 ampicillin AdvReac Nausea & Verified 03/06/19 18:36 Vomiting cephalexin AdvReac Nausea & Verified 03/06/19 18:36 Vomiting levofloxacin AdvReac SHAKING,PUGA Verified 03/06/19 18:36 ICS Surgical - Exam Vital Signs Temp Pulse Resp BP Pulse Ox 98.1 F 56 L 24 122/56 100 03/06/19 18:31 03/06/19 18:31 03/06/19 18:31 03/06/19 18:31 03/06/19 18:31 - General no distress, obese - ENT no hearing loss - Neck no masses, no lymphadectomy - Respiratory other (Minimal shortness of breath) - Abdomen Abdomen: soft, non tender, no organomegaly Results - Labs 03/06/19 18:46 03/07/19 07:07 Abnormal Lab Results - Last 24 Hours (Table) 03/06/19 03/06/19 03/06/19 Range/Units 18:46 18:46 18:46 MCV 78.0 L (80.0-100.0) fL MCH 24.9 L (25.0-35.0) pg RDW 17.0 H (11.5-15.5) % APTT 21.2 L (22.0-30.0) sec D-Dimer 3.34 H (<0.60) mg/L FEU Sodium 131 L (137-145) mmol/L Chloride 92 L (98-107) mmol/L BUN 23 H (7-17) mg/dL Creatinine 1.07 H (0.52-1.04) mg/dL Glucose 112 H (74-99) mg/dL POC Glucose (mg/dL) (75-99) mg/dL Magnesium 1.4 L (1.6-2.3) mg/dL Alkaline Phosphatase 136 H (38-126) U/L 03/07/19 03/07/19 03/07/19 Range/Units 07:07 07:48 11:59 MCV (80.0-100.0) fL MCH (25.0-35.0) pg RDW (11.5-15.5) % APTT (22.0-30.0) sec D-Dimer (<0.60) mg/L FEU Sodium 132 L (137-145) mmol/L Chloride 93 L (98-107) mmol/L BUN 24 H (7-17) mg/dL Creatinine 1.09 H (0.52-1.04) mg/dL Glucose 189 H (74-99) mg/dL POC Glucose (mg/dL) 187 H 148 H (75-99) mg/dL Magnesium 2.7 H (1.6-2.3) mg/dL Alkaline Phosphatase (38-126) U/L 03/07/19 Range/Units 16:55 MCV (80.0-100.0) fL MCH (25.0-35.0) pg RDW (11.5-15.5) % APTT (22.0-30.0) sec D-Dimer (<0.60) mg/L FEU Sodium (137-145) mmol/L Chloride (98-107) mmol/L BUN (7-17) mg/dL Creatinine (0.52-1.04) mg/dL Glucose (74-99) mg/dL POC Glucose (mg/dL) 174 H (75-99) mg/dL Magnesium (1.6-2.3) mg/dL Alkaline Phosphatase (38-126) U/L Diabetes panel 03/06/19 03/07/19 Range/Units 18:46 07:07 Sodium 131 L 132 L (137-145) mmol/L Potassium 4.3 4.8 (3.5-5.1) mmol/L Chloride 92 L 93 L (98-107) mmol/L Carbon Dioxide 28 30 (22-30) mmol/L BUN 23 H 24 H (7-17) mg/dL Creatinine 1.07 H 1.09 H (0.52-1.04) mg/dL Glucose 112 H 189 H (74-99) mg/dL Calcium 8.8 8.4 (8.4-10.2) mg/dL AST 19 (14-36) U/L ALT 12 (4-34) U/L Alkaline Phosphatase 136 H (38-126) U/L Total Protein 6.6 (6.3-8.2) g/dL Albumin 3.6 (3.5-5.0) g/dL Calcium panel 03/06/19 03/07/19 Range/Units 18:46 07:07 Calcium 8.8 8.4 (8.4-10.2) mg/dL Albumin 3.6 (3.5-5.0) g/dL Pituitary panel 03/06/19 03/07/19 Range/Units 18:46 07:07 Sodium 131 L 132 L (137-145) mmol/L Potassium 4.3 4.8 (3.5-5.1) mmol/L Chloride 92 L 93 L (98-107) mmol/L Carbon Dioxide 28 30 (22-30) mmol/L BUN 23 H 24 H (7-17) mg/dL Creatinine 1.07 H 1.09 H (0.52-1.04) mg/dL Glucose 112 H 189 H (74-99) mg/dL Calcium 8.8 8.4 (8.4-10.2) mg/dL Adrenal panel 03/06/19 03/07/19 Range/Units 18:46 07:07 Sodium 131 L 132 L (137-145) mmol/L Potassium 4.3 4.8 (3.5-5.1) mmol/L Chloride 92 L 93 L (98-107) mmol/L Carbon Dioxide 28 30 (22-30) mmol/L BUN 23 H 24 H (7-17) mg/dL Creatinine 1.07 H 1.09 H (0.52-1.04) mg/dL Glucose 112 H 189 H (74-99) mg/dL Calcium 8.8 8.4 (8.4-10.2) mg/dL Total Bilirubin 0.5 (0.2-1.3) mg/dL AST 19 (14-36) U/L ALT 12 (4-34) U/L Alkaline Phosphatase 136 H (38-126) U/L Total Protein 6.6 (6.3-8.2) g/dL Albumin 3.6 (3.5-5.0) g/dL Assessment and Plan (1) Incomplete bladder emptying Narrative/Plan: The patient has a long history of incomplete bladder emptying with periodic urinary retention. The source of this is not clear. The patient was not uncomfortable with 400 cc in her bladder and I suspect her bladder has been chronically overdistended which results in a persistently elevated postvoid residual. Unfortunately there are no great options for treatment. The patient is unable to perform self-catheterization due to her obesity and generalized we akness. She could be tried on an alpha-oscar like tamsulosin however this may worsen her fluid retention. For the time being a Price catheter should be left. This will help as far as monitoring the patient's diuresis. Once the need for the Price catheter as ended she can have a voiding trial but her postvoid residuals should be monitored with the bladder scan unit. According to the patient's daughter it is likely that she will be transferred to a rehabilitation unit when she is discharged from the hospital. If she remains unable to void then a longer period of catheter drainage may need to be considered. Current Visit: Yes Status: Acute Code(s): R33.9 - RETENTION OF URINE, UNSPECIFIED SNOMED Code(s): 641574443
--- NOTE | 2019-03-07 18:56 | CONS ---
CONSULTATION PULMONARY/CRITICAL CARE CONSULTATION: DATE OF SERVICE: 03/07/2019 This is an 89-year-old female who was admitted to the hospital via EMS through the emergency room with shortness of breath. She apparently has a history of CAD, aortic stenosis, diabetes, obesity, hyperlipidemia, hypertension, and presented and saw Dr. Nuñez in the emergency room with shortness of breath. She was discharged from the hospital one week prior for a similar complaint. The patient is a very poor historian. Much of the history is obtained from the chart and from the family members in the room. The patient does have on chest x-ray a large right-sided pleural effusion. We did an ultrasound. There was a tappable fluid accumulation in the right chest. The family would be in agreement to do the thoracentesis as long as there was adequate fluid to remove. This would certainly help her with her breathing. The patient denied any chest pain or chest discomfort. There was no fever or chills. There was no cough or phlegm production. No nausea, vomiting, diarrhea or any genitourinary complaints. She does have weight gain and swelling of the feet. The patient was admitted with a diagnosis of CHF. HOME MEDICATIONS: Reviewed. They include Xanax, Precose, low-dose aspirin, Lipitor, vitamin D3, hydrocortisone cream, levothyroxine, magnesium oxide, Zoloft, Gas-X, metformin, tramadol, lisinopril, metoprolol, gabapentin, Maalox, amlodipine, Lasix and omeprazole. The patient apparently was also on Macrobid in the past. ALLERGIES: MULTIPLE. They include AMOXICILLIN, IVP DYE, REGLAN, SULFA ANTIBIOTICS, TRIMETHOPRIM, AMPICILLIN, CEPHALEXIN AND LEVAQUIN. PAST MEDICAL HISTORY: Positive for CAD, diabetes mellitus, GERD, hyperlipidemia, hypertension, osteoarthritis, syncope, hypothyroidism, decubitus ulcers, diabetic neuropathy, severe aortic stenosis, polyarthritis, essential tremors, bilateral cataracts, urinary incontinence, fecal incontinence, occasional constipation and previous UTI. SURGICAL HISTORY: Includes cholecystectomy, heart catheterization, pacemaker insertion, right knee arthrotomy, colonoscopy and some other minor procedures. SOCIAL HISTORY: Positive for previous tobacco use. She does not smoke currently. No alcohol use or illicit drug use. FAMILY HISTORY: Positive for her father who was an alcoholic. Mother with a history of asthma. REVIEW OF SYSTEMS: Not reliable. CONSTITUTIONAL: Negative. NEUROLOGIC: Negative. HEENT: Negative. CARDIOVASCULAR: Negative. PULMONARY: Shortness of breath. GI: Negative. : Negative. RHEUMATOLOGIC: Negative. IMMUNOLOGIC: Negative. ENDOCRINOLOGIC: Negative. DERMATOLOGIC: Negative. PHYSICAL EXAMINATION: VITAL SIGNS: Current vital signs are reviewed. Temperature is 97.9, heart rate 56, respiratory rate 20, blood pressure 107/63. Saturations are 98% on 3 L. GENERAL APPEARANCE: She appears in no acute distress. HEENT: HEENT examination is grossly unremarkable. Nasal oxygen in place. NECK: Supple. Full range of motion. No adenopathy or thyromegaly. Neck veins are flat. CARDIOVASCULAR: Examination reveals distant heart sounds. Heart rate about 60 beats per minute. It is regular. S1, S2 normal. No distinct murmur is noted. Heart sounds are very distant, though. LUNGS: Lungs reveal diminished breath sounds throughout, particularly in the right base. A few scattered crackles. No rhonchi or wheezes. ABDOMEN: Obese. Bowel sounds are heard. EXTREMITIES: Intact. There is significant edema. SKIN: Without rash. NEUROLOGIC: Neurologic examination is difficult to assess but appears to be relatively normal. LABS/IMAGING: Reviewed. White count 7.6, hemoglobin 12.9, hematocrit 40.4, platelet count 203,000. PT/INR normal. PTT is 21.2. D-dimer 3.34. Sodium 132, potassium 4.8, chloride 93, CO2 30. Anion gap is 9. BUN and creatinine were 24 and 1.09. Magnesium is 2.7. N- terminal proBNP 5010. Troponins were negative x1. Ultrasound of the chest reveals a large right-sided pleural effusion. Chest x-ray shows a pattern which is very similar to the prior x-ray dated February 25. She has a large right-sided pleural effusion. There is cardiomegaly. The left lung is relatively clear. There may be some minimal basilar atelectasis. A CT angiogram was done. It shows no evidence of pulmonary embolism. There is a massive right-sided pleural effusion and some mild interstitial edema. Medications are reviewed. ASSESSMENT: 1. Right-sided pleural effusion with secondary shortness of breath. 2. Congestive heart failure. 3. Obesity. 4. Coronary artery disease. 5. Diabetes mellitus. 6. History of severe aortic stenosis. 7. Gastroesophageal reflux disease. 8. Hyperlipidemia. 9. History of hypertension. 10.Degenerative joint disease. 11.History of syncope. 12.Status post pacemaker placement. 13.History of bilateral cataracts. 14.Urinary and fecal incontinence. PLAN: The patient will have an attempted thoracentesis on this admission. It is done primarily for palliation and improved respiratory status. I did explain this to the daughter. No additional recommendations are made. Will get a consent on the chart. Will plan on doing this on Thursday or Thursday of this week. MARIELLAL / FRANCINEN: [id number] /
[2019-03-07] MEDS ORDERED: PANTOPRAZOLE 40 MG TABLET PO SCH (19:00)
[2019-03-07 20:21] LABS: Glucose,Whole Blood 153 mg/dL (75-99)
[2019-03-07] MEDS: SIMETHICONE 80 MG CHEWABLE PO SCH (20:25)
[2019-03-08] MEDS: LEVOTHYROXINE 88 MCG TAB PO SCH (05:45)
[2019-03-08 07:08] LABS: Glucose,Whole Blood 105 mg/dL (75-99)
[2019-03-08] MEDS: INSULIN ASPART (NovoLOG) 100 UNIT/ML VIAL SQ SCH ×4 (07:32→20:42)
[2019-03-08] MEDS: amLODIPine 10 MG TAB PO SCH (08:39)
[2019-03-08] MEDS: LISINOPRIL 10 MG TAB PO SCH (08:39)
[2019-03-08] MEDS: SPIRONOLACTONE 25 MG TAB PO SCH (08:40)
[2019-03-08] MEDS: SERTRALINE 25 MG TAB PO SCH (08:40)
[2019-03-08] MEDS: FUROSEMIDE 10 MG/ML 4 ML VIAL IV SCH ×2 (08:40→21:07)
[2019-03-08] MEDS: traMADol 50 MG TAB PO SCH ×2 (08:41→21:07)
[2019-03-08] MEDS: HEPARIN SODIUM,PORCINE 5,000 UNIT/ML 1 ML VIAL SQ SCH ×2 (08:41→16:35)
[2019-03-08] MEDS: METOPROLOL SUCCINATE (ER) 25 MG TAB.ER.24H PO SCH (08:41)
[2019-03-08] MEDS: HYDROCORTISONE 2.5% RECTAL CREAM 30 GM TUBE RECTAL SCH (09:12)
[2019-03-08 09:15] LABS: Calcium 8.5 mg/dL (8.4-10.2); Magnesium 2.2 mg/dL (1.6-2.3); Potassium 4.4 mmol/L (3.5-5.1)
[2019-03-08] MEDS ORDERED: HYDROmorphone 0.5 MG/0.5 ML SYRINGE IVP STA (10:12)
--- NOTE | 2019-03-08 10:38 | PCN ---
PROCEDURE NOTE PROCEDURE: Right thoracentesis. PREOPERATIVE DIAGNOSIS: Right pleural effusion. POSTOPERATIVE DIAGNOSIS: Right pleural effusion. OPERATORS: Dr. Ramos, Dr. Cortez and Falguni Dent. Indication Pleural effusion. A time-out was completed verifying correct patient, procedure, site, positioning , and implant (s) or special equipment if applicable. Ultrasound guidance was used and appropriate fluid pocket was identified and marked. Patient was positioned, prepped and draped in usual sterile fashion. Lidocaine was used to anesthetize the area. A Thoracentesis catheter was introduced into the pleural space and fluid was removed. Blood loss was none. A chest x-ray was ordered to evaluate for pneumothorax. Total Fluid Removed: 1300 mL Color of Fluid: Brownish fluid Fluid was sent for appropriate laboratory tests. Patient tolerated the procedure well and there were no complications. 1300 mL of brownish fluid was removed from the right pleural space. There was a timeout and informed consent. The patient tolerated the procedure well. A chest x-ray was ordered afterwards. The posterior right side was marked by ultrasound. The fluid will be sent for analysis. It will be cytology, microbiology and chemistry. There was no immediate complication. The patient tolerated the procedure well. MMODL / IJN: [id number] / MTDD
--- NOTE | 2019-03-08 10:47 | XR ---
EXAMINATION TYPE: XR chest 1V portable DATE OF EXAM: 03/08/2019 COMPARISON: Chest x-ray and chest CT 03/06/2019 HISTORY: Status post thoracentesis TECHNIQUE: Single frontal view of the chest is obtained. FINDINGS: There is improved aeration at the right lung base compared to prior exam. No evident pneum othorax. Heart remains enlarged. Pacemaker is stable. Azygos lobe noted incidentally. IMPRESSION: No evident complication status post thoracentesis.
--- NOTE | 2019-03-08 12:00 | P.PN ---
Subjective Progress Note Date: 03/08/19 Principal diagnosis: Dyspnea secondary to right-sided pleural effusion The patient is seen today 03/08/2019 in follow-up on the regular medical floor. Ultrasound of the chest did reveal a large right-sided pleural effusion. The left lung was relatively clear. She has history of coronary artery disease, aortic stenosis, diabetes, morbid obesity, hyperlipidemia, hypertension. She had presented here to the emergency room with increasing shortness of breath approximately a week before arrival. Right-sided pleural effusion was noted and she was admitted with a diagnosis of congestive heart failure due to mildly impaired left ventricular systolic function with ejection fraction 45-50%. She is currently sitting up in a chair at the bedside. Awake and alert in no acute distress. Maintaining O2 saturations in the mid 90s on 2 L/m per nasal cannula. Objective - Vital Signs Vital signs: Vital Signs Temp 97.8 F 03/08/19 05:03 Pulse 55 L 03/08/19 08:45 Resp 20 03/08/19 05:03 BP 120/60 03/08/19 08:45 Pulse Ox 96 03/08/19 05:03 Intake & Output 03/07/19 03/08/19 03/08/19 18:59 06:59 18:59 Intake Total 240 300 Output Total 1200 Balance 240 -900 Weight 94.3 kg Intake: Oral 240 300 Output: Urine 1200 Uretheral (Price) 600 Other: Voiding Method Diaper Indwelling Catheter Indwelling Catheter Incontinent # Voids 400 # Bowel Movements 1 - Exam GENERAL EXAM: Alert, obese, pleasant 89-year-old female, on 2 L nasal cannula comfortable in no apparent distress. HEAD: Normocephalic. EYES: Normal reaction of pupils, equal size. NOSE: Clear with pink turbinates. THROAT: No erythema or exudates. NECK: No masses, no JVD. CHEST: No chest wall deformity. LUNGS: Equal air entry with crackles in the right base, diminished. CVS: S1 and S2 normal with no audible murmur, regular rhythm. ABDOMEN: No hepatosplenomegaly, normal bowel sounds, no guarding or rigidity. SPINE: No scoliosis or deformity SKIN: No rashes CENTRAL NERVOUS SYSTEM: No focal deficits, tone is normal in all 4 extremities. EXTREMITIES: There is 1-2+ peripheral edema. No clubbing, no cyanosis. Peripheral pulses are intact. - Labs CBC & Chem 7: 03/06/19 18:46 03/08/19 08:27 Labs: Abnormal Lab Results - Last 24 Hours (Table) 03/07/19 03/07/19 03/07/19 Range/Units 11:59 16:55 20:17 Sodium (137-145) mmol/L Chloride (98-107) mmol/L BUN (7-17) mg/dL Creatinine (0.52-1.04) mg/dL Glucose (74-99) mg/dL POC Glucose (mg/dL) 148 H 174 H 153 H (75-99) mg/dL 03/08/19 03/08/19 Range/Units 07:00 08:27 Sodium 132 L (137-145) mmol/L Chloride 93 L (98-107) mmol/L BUN 31 H (7-17) mg/dL Creatinine 1.19 H (0.52-1.04) mg/dL Glucose 127 H (74-99) mg/dL POC Glucose (mg/dL) 105 H (75-99) mg/dL Assessment and Plan Assessment: 1 Acute exacerbation of systolic congestive heart failure with a large right pleural effusion 2 Large right pleural effusion 3 Coronary artery disease 4 Complete heart block status post permanent pacemaker implantation 5 Diabetes mellitus, type II 6 Hypertension 7 Hyperlipidemia. 8 History of ESBL urine 9 Anxiety/depression 10 Morbid obesity Plan: The patient was seen and evaluated by Dr. Ramos. Chest x-ray and ultrasound reviewed. He did go ahead and perform a right-sided thoracentesis with 1.3 L of fluid removed. Sent for analysis and cytology. Follow-up chest x-ray reveals no evidence of pneumothorax and improved right lung aeration. I, the cosigning physician, performed a history & physical examination of the patient. Lungs sounds with crackles in the right base, diminished Maintaining good O2 saturations in the 90s on 2 L/m per nasal cannula. I discussed the assessment and plan of care with my nurse practitioner, Desiree Cortez. I attest to the above note as dictated by her.
[2019-03-08 12:05] LABS: Glucose,Whole Blood 126 mg/dL (75-99)
--- NOTE | 2019-03-08 13:08 | P.CRDCN ---
History of Present Illness History of present illness: HISTORY OF PRESENTING ILLNESS This is a pleasant 89-year-old female past medical history significant for coronary artery disease with severe disease of the distal left main with co mplex plaque involving the takeoff of the circumflex and LAD, aortic stenosis, high degree AV block s/p permanent pacemaker implantation, hypertension, dyslipidemia, chronic diastolic heart failure and diabetes mellitus. She follows in the office with [facility]. We have been asked to see in consultation for CHF exacerbation. She presented to the hospital with increased shortness of breath. Chest xray revealed a right sided pleural effusion to the level of the hilum. Similar to previous study from the previous week. CTA chest negative for PE, massive right pleural effusion and pulmonary edema. Ultrasound of the chest measured the effusion at 11.6 cm. She was here in the hospital 02/25/19 and treated for heart failure at that time. No cardiology or pulmonary consultation at that time. Per the family she has had worsening shortness of breath since that time. She denies chest pain, dizziness or palpitations. EKG is ventricular paced. Current daily cardiac medications include amlodipine 10 mg daily, toprol 25 mg daily, lisinopril 10 mg daily, lasix 40 mg in the am and 20 mg at 1600, atorvastatin 20 mg daily and aspirin 81 mg daily. Most recent echocardiogram obtained November 2018 revealed mildly impaired LV systolic function with EF 45- 50%, septal wall motion delay secondary to pacing, severely dilated LA, severe aortic stenosis with mean gradient of 75 mmHg, mild-moderate MR wit mean gra dient of 5 mmHg and mild TR. Laboratory data reviewed, WBC 7.6, hemoglobin 12.9, platelets 203, d-dimer 3.34, sodium 131, potassium 4.3, creatinine 1.07, cardiac enzymes negative 1, magnesium 1.4 and and T proBNP 5010 REVIEW OF SYSTEMS At the time of my exam: CONSTITUTIONAL: Denies fever or chills. CARDIOVASCULAR: Complains of shortness of breath. Denies chest pain, orthopnea, PND or palpitations. RESPIRATORY: Denies cough. GASTROINTESTINAL: Denies abdominal pain, diarrhea, constipation, nausea or vomiting. MUSCULOSKELETAL: Denies myalgias. NEUROLOGIC: Denies numbness, tingling or weakness. ENDOCRINE: Denies fatigue, weight change, polydipsia or polyurina. GENITOURINARY: Denies burning, hematuria or urgency with micturation. HEMATOLOGIC: Denies history of anemia or bleeding. PHYSICAL EXAMINATION Blood pressure 159/82 heart rate 56 afebrile and maintaining oxygen saturation on nasal cannula. CONSTITUTIONAL: No apparent distress. Morbidly obese. HEENT: Head is normocephalic. Pupils are equal, round. Sclerae anicteric. Mucous membranes of the mouth are moist. No JVD. No carotid bruit. CHEST EXAMINATION: Bibasilar rales, diminished greater on the right. No wheezes or rhonchi. No chest wall tenderness is noted on palpation or with deep breathing. HEART EXAMINATION: Regular rate and rhythm. S1, S2 heard. Systolic ejection murmur at the base and left sternal border, no gallops or rub. ABDOMEN: Soft, nontender. Positive bowel sounds. EXTREMITIES: 2+ peripheral pulses, 3+ bilateral lower extremity pitting edema and no calf tenderness. NEUROLOGIC EXAMINATION: Patient is awake, alert and oriented x3. ASSESSMENT Acute on chronic diastolic heart failure Pleural effusion Hypomagnesemia Aortic stenosis Mitral regurgitation Hypertension Dyslipidemia Coronary artery disease Complete heart block s/p permanent pacemaker implantation Diabetes mellitus Morbid obesity, BMI 40 PLAN Agree with IV diuresis and likely will require thoracentesis. Add aldactone 25 mg daily to her regimen. Follow renal function and electrolytes in the morning. Document accurate intake and output along with daily weights. Further recommendations to follow based on clinical course. Thank you kindly for this consultation. Nurse Practitioner note has been reviewed, I agree with a documented findings and plan of care. Patient was seen and examined. Past Medical History Past Medical History: Coronary Artery Disease (CAD), Diabetes Mellitus, Eye D isorder, GERD/Reflux, Hyperlipidemia, Hypertension, Osteoarthritis (OA), Syncope, Thyroid Disorder Additional Past Medical History / Comment(s): Syncope/CHB and had temporary then permanent pacemaker, currently has 3 small decub on coccyx per pt/mindy, NIDDM type II, diabetic neuropathy bilateral feet, severe aortic stenosis, polyarthritis, essential tremors, hypothyroid, bilateral cataracts, incontinence or urine and occasionally stool, constipation, UTI. History of Any Multi-Drug Resistant Organisms: ESBL Date of last positivie culture/infection: 07/21/18 MDRO Source:: ESBL URINE Past Surgical History: Cholecystectomy, Heart Catheterization, Orthopedic Surgery, Pacemaker Additional Past Surgical History / Comment(s): 06/17/18 temporary pacemaker, 06/19/18 permanent pacemaker, R knee arthrotomy d/t chip, colonoscopy. Past Anesthesia/Blood Transfusion Reactions: No Reported Reaction Type of Cardiac Device: Permanent Pacemaker Device Placement Date:: 06/19/18 Past Psychological History: Anxiety, Depression Smoking Status: Former smoker - Past Family History Father Additional Family Medical History / Comment(s): Father was an alcoholic Mother Family Medical History: Asthma Additional Family Medical History / Comment(s): Mother at the age of 54yrs- pt unsure from what. Medications and Allergies Home Medications Medication Instructions Recorded Confirmed Type ALPRAZolam [Xanax] 0.25 mg PO HS 06/17/18 03/06/19 History Acarbose [Precose] 25 mg PO AC-SUPPER 06/17/18 03/06/19 History Aspirin EC [Ecotrin Low Dose] 81 mg PO AC-SUPPER 06/17/18 03/06/19 History Atorvastatin [Lipitor] 20 mg PO HS 06/17/18 03/06/19 History Cholecalciferol [Vitamin D3 (25 1,000 unit PO HS 06/17/18 03/06/19 History Mcg = 1000 Iu)] Hydrocortisone Pr Cream 1 applic RECTAL DAILY 06/17/18 03/06/19 History [Proctosol-Hc 2.5%] Levothyroxine Sodium [Synthroid] 88 mcg PO DAILY 06/17/18 03/06/19 History Magnesium Oxide [Mag-Ox] 125 mg PO BID 06/17/18 03/06/19 History Sertraline HCl [Zoloft] 25 mg PO DAILY 06/17/18 03/06/19 History Simethicone [Gas-X] 125 mg PO HS 06/17/18 03/06/19 History metFORMIN HCL [Glucophage] 250 mg PO BID 06/17/18 03/06/19 History traMADol HCL [Ultram] 50 mg PO BID 06/17/18 03/06/19 History Lisinopril [Zestril] 10 mg PO DAILY 06/30/18 03/06/19 History Metoprolol Succinate (ER) [Toprol 25 mg PO DAILY 06/30/18 03/06/19 History XL] Gabapentin [Neurontin] 100 mg PO HS 11/24/18 03/06/19 History Maalox 2 tab PO PC-SUPPER 11/24/18 03/06/19 History amLODIPine [Norvasc] 10 mg PO DAILY 11/24/18 03/06/19 History Furosemide [Lasix] 20 mg PO DAILY@1600 02/25/19 03/06/19 History Furosemide [Lasix] 40 mg PO QAM 02/25/19 03/06/19 History Nitrofurantoin Monohyd/M-Cryst 100 mg PO BID #17 cap 02/27/19 03/06/19 Rx [Macrobid] Omeprazole 40 mg PO DAILY@1900 03/06/19 03/06/19 History Allergies Allergy/AdvReac Type Severity Reaction Status Date / Time amoxicillin Allergy Unknown Verified 03/06/19 18:36 Iodinated Contrast Media Allergy Unknown Verified 03/06/19 18:36 [Iodinated Contrast- Oral and IV Dye] metoclopramide [From Reglan] Allergy Unknown Verified 03/06/19 18:36 sulfamethoxazole Allergy Unknown Verified 03/06/19 18:36 [From Septra] trimethoprim [From Octra] Allergy Unknown Verified 03/06/19 18:36 ampicillin AdvReac Nausea & Verified 03/06/19 18:36 Vomiting cephalexin AdvReac Nausea & Verified 03/06/19 18:36 Vomiting levofloxacin AdvReac SHAKING,PUGA Verified 03/06/19 18:36 ICS Physical Exam Vitals: Vital Signs Temp Pulse Resp BP Pulse Ox 03/08/19 08:45 55 L 120/60 03/08/19 05:03 97.8 F 51 L 20 104/63 96 03/07/19 21:08 97.6 F 50 L 20 108/58 97 03/07/19 15:00 98.7 F 50 L 18 101/48 98 Intake and Output 03/07/19 03/08/19 03/08/19 22:59 06:59 14:59 Intake Total 200 100 Output Total 1200 Balance 200 -1100 Intake: Oral 200 100 Output: Urine 1200 Uretheral (Price) 600 Other: Voiding Method Indwelling Catheter Indwelling Catheter Weight 94.3 kg Results 03/06/19 18:46 03/08/19 08:27 Comprehensive Metabolic Panel 03/08/19 Range/Units 08:27 Sodium 132 L (137-145) mmol/L Potassium 4.4 (3.5-5.1) mmol/L Chloride 93 L (98-107) mmol/L Carbon Dioxide 28 (22-30) mmol/L BUN 31 H (7-17) mg/dL Creatinine 1.19 H (0.52-1.04) mg/dL Glucose 127 H (74-99) mg/dL Calcium 8.5 (8.4-10.2) mg/dL Current Medications Generic Name Dose Route Start Last Admin Trade Name Freq PRN Reason Stop Dose Admin Acarbose 25 mg 03/07/19 17:30 03/07/19 17:37 Precose PO 25 mg AC-SUPPER [facility] Administration Alprazolam 0.25 mg 03/06/19 23:00 03/07/19 20:24 Xanax PO 0.25 mg HS [facility] Administration Amlodipine Besylate 10 mg 03/07/19 09:00 03/08/19 08:39 Norvasc PO Not Given DAILY [facility] Atorvastatin Calcium 20 mg 03/06/19 23:00 03/07/19 20:25 Lipitor PO 20 mg HS [facility] Administration Cholecalciferol 1,000 unit 03/06/19 23:00 03/07/19 20:25 Vitamin D3 (25 Mcg = 1000 Iu) PO 1,000 unit HS [facility] Administration Furosemide 40 mg 03/07/19 09:00 03/08/19 08:40 Lasix IV 40 mg Q12HR [facility] Administration Gabapentin 100 mg 03/06/19 23:00 03/07/19 20:26 Neurontin PO 100 mg HS [facility] Administration Heparin Sodium (Porcine) 5,000 unit 03/07/19 16:00 03/08/19 08:41 Heparin SQ 5,000 unit Q8HR [facility] Administration Hydrocortisone 1 applic 03/07/19 09:00 03/08/19 09:12 Proctosol-Hc 2.5% RECTAL Not Given DAILY [facility] Insulin Aspart 0 unit 03/07/19 07:30 03/08/19 12:18 Novolog SQ Not Given [facility] Protocol Levothyroxine Sodium 88 mcg 03/07/19 06:30 03/08/19 05:45 Synthroid PO 88 mcg DAILY@0630 [facility] Administration Lisinopril 10 mg 03/07/19 09:00 03/08/19 08:39 Zestril PO Not Given DAILY [facility] Metoprolol Succinate 25 mg 03/07/19 09:00 03/08/19 08:41 Toprol Xl PO 25 mg DAILY [facility] Administration Naloxone HCl 0.2 mg 03/06/19 22:39 Narcan IV Q2M PRN Opioid Reversal Pantoprazole Sodium 40 mg 03/07/19 00:44 03/07/19 20:25 Protonix PO 40 mg DAILY@1900 [facility] Administration Sertraline HCl 25 mg 03/07/19 09:00 03/08/19 08:40 Zoloft PO 25 mg DAILY [facility] Administration Simethicone 120 mg 03/07/19 21:00 03/07/19 20:25 Mylicon Chew PO 120 mg HS [facility] Administration Spironolactone 25 mg 03/07/19 12:45 03/08/19 08:40 Aldactone PO 25 mg DAILY [facility] Administration Tramadol HCl 50 mg 03/07/19 09:00 03/08/19 08:41 Ultram PO 50 mg BID [facility] Administration Intake and Output 03/07/19 03/08/19 03/08/19 22:59 06:59 14:59 Intake Total 200 100 Output Total 1200 Balance 200 -1100 Intake: Oral 200 100 Output: Urine 1200 Uretheral (Price) 600 Other: Voiding Method Indwelling Catheter Indwelling Catheter Weight 94.3 kg 03/06/19 18:46 03/08/19 08:27
--- NOTE | 2019-03-08 13:15 | P.PN ---
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 She follows in the office with [facility]. We have been asked to see in consultation for CHF exacerbation. She presented to the hospital with increased shortness of breath. Chest xray revealed a right sided pleural effusion to the level of the hilum. Similar to previous study from the previous week. CTA chest negative for PE, massive right pleural effusion and pulmonary edema. Ultrasound of the chest measured the effusion at 11.6 cm. She was here in the hospital 02/25/19 and treated for heart failure at that time. No cardiology or pulmonary consultation at that time. Per the family she has had worsening shortness of breath since that time. She denies chest pain, dizziness or palpitations. EKG is ventricular paced. Current daily cardiac medications include amlodipine 10 mg daily, toprol 25 mg daily, lisinopril 10 mg daily, lasix 40 mg in the am and 20 mg at 1600, atorvastatin 20 mg daily and aspirin 81 mg daily. Most recent echocardiogram obtained November 2018 revealed mildly impaired LV systolic function with EF 45- 50%, septal wall motion delay secondary to pacing, severely dilated LA, severe aortic stenosis with mean gradient of 75 mmHg, mild-moderate MR wit mean gradient of 5 mmHg and mild TR. Laboratory data reviewed, WBC 7.6, hemoglobin 12.9, platelets 203, d-dimer 3.34, sodium 131, potassium 4.3, creatinine 1.07, cardiac enzymes negative 1, magnesium 1.4 and and T proBNP 5010 03/08/2019 Patient is seen and examined sitting up in bed with daughter and at the bedside. She underwent thoracentesis this morning with Dr. Ramos. They removed 1,300 cc of fluid from the right pleural effusion. She states she noticed a significant improvement in her breathing almost immediately after the procedure. She denies chest pain, dizziness or palpitations. Blood pressure 120/60 heart rate 55 afebrile and maintaining oxygen saturation on nasal cannula. She still has lower extremity edema that is improving. Laboratory data reviewed, sodium 132, potassium 4.4, creatinine 1.19 and magnesium 2.2. Currently maintained on Lasix 40 mg IV twice a day, amlodipine 10 mg daily, atorvastatin 20 mg daily, lisinopril 10 mg daily, Toprol 25 mg daily and Aldactone 25 mg daily. She is maintaining a negative fluid balance. PHYSICAL EXAMINATION CONSTITUTIONAL: No apparent distress. Morbidly obese. HEENT: Head is normocephalic. Pupils are equal, round. Sclerae anicteric. Mucous membranes of the mouth are moist. No JVD. No carotid bruit. CHEST EXAMINATION: Bibasilar rales, diminished greater on the right. No wheezes or rhonchi. No chest wall tenderness is noted on palpation or with deep breathing. HEART EXAMINATION: Regular rate and rhythm. S1, S2 heard. Systolic ejection murmur at the base and left sternal border, no gallops or rub. EXTREMITIES: 2+ peripheral pulses, 3+ bilateral lower extremity pitting edema an d no calf tenderness. ASSESSMENT Acute on chronic diastolic heart failure, EF 45-50% Pleural effusion Hypomagnesemia Aortic stenosis Mitral regurgitation Hypertension Dyslipidemia Coronary artery disease Complete heart block s/p permanent pacemaker implantation Diabetes mellitus Morbid obesity, BMI 40 PLAN Continue IV diuresis for another 24 hours. Follow renal function in the AM. Repeat chest xray tomorrow. Further recommendations to follow. Nurse Practitioner note has been reviewed, I agree with a documented findings and plan of care. Patient was seen and examined. Objective - Vital Signs Vital signs: Vital Signs Temp 97.8 F 03/08/19 05:03 Pulse 55 L 03/08/19 08:45 Resp 20 03/08/19 05:03 BP 120/60 03/08/19 08:45 Pulse Ox 96 03/08/19 05:03 Intake & Output 03/07/19 03/08/19 03/08/19 18:59 06:59 18:59 Intake Total 240 300 Output Total 1200 Balance 240 -900 Weight 94.3 kg Intake: Oral 240 300 Output: Urine 1200 Uretheral (Price) 600 Other: Voiding Method Diaper Indwelling Catheter Indwelling Catheter Incontinent # Voids 400 # Bowel Movements 1 - Labs CBC & Chem 7: 03/06/19 18:46 03/08/19 08:27 Labs: Abnormal Lab Results - Last 24 Hours (Table) 03/07/19 03/07/19 03/08/19 Range/Units 16:55 20:17 07:00 Sodium (137-145) mmol/L Chloride (98-107) mmol/L BUN (7-17) mg/dL Creatinine (0.52-1.04) mg/dL Glucose (74-99) mg/dL POC Glucose (mg/dL) 174 H 153 H 105 H (75-99) mg/dL 03/08/19 03/08/19 Range/Units 08:27 11:59 Sodium 132 L (137-145) mmol/L Chloride 93 L (98-107) mmol/L BUN 31 H (7-17) mg/dL Creatinine 1.19 H (0.52-1.04) mg/dL Glucose 127 H (74-99) mg/dL POC Glucose (mg/dL) 126 H (75-99) mg/dL
[2019-03-08 13:54] LABS: Appearance,BF Cloudy; Color,BF Orange; Nucleated Cells, Body Fluid 150 /uL; RBC, Body Fluid 3650 /uL
[2019-03-08 14:05] LABS: Mononuclear WBC,Body Fluid 97 %; Polynuclear WBC,Body Fluid 3 %; Total Cells Counted,Body Fluid 100
--- NOTE | 2019-03-08 14:06 | P.PN ---
Subjective Progress Note Date: 03/08/19 The patient is an 89-year-old female with a PMH of coronary artery disease, combined systolic and diastolic CHF, high-grade AV block status post pacemaker, severe aortic stenosis, hyperlipidemia, type 2 diabetes mellitus, hypertension, and hypothyroidism presented to the ED for SOB. The patient was recently admitted a week prior for UTI and CHF exacerbation. The patient reported that since discharge, she had worsening lower extremity edema and shortness of breath despite compliance with her Lasix. The patient lives with her who has been unable to care for her due to his own advanced age. The family noted that they are open to considering placement in a intermediate due to the patient's advanced age and difficulty in her ADLs. The patient also reported continued urinary incontinence along with intermittent retention. The patient underwent an extensive evaluation in the emergency room with a chest CTA which revealed massive right-sided pleural effusion with atelectasis along with pulmonary edema. Laboratory evaluation revealed a troponin of less than 0.012, BNP 5010, BUN 23, creatinine 1.07, WBC count 7.6, hemoglobin 12.9, and platelets 203. The patient was admitted for further management. Pulmonary was consulted for possible thoracentesis and cardiology for acute CHF exacerbation. The patient underwent a thoracentesis on 03/08 with 1300 mL of brownish fluid removed. The patient was also started on Aldactone and continued on IV Lasix by cardiology. Urology recommended continuation of Price catheter for now due to chronic urinary retention and incontinence along with the need for monitoring intake and output. Patient was seen and examined with daughter (CRAIG) at the bedside and 03/08. The patient reported that her breathing had improved significantly after she under went a thoracentesis. She was in good spirits and denied any active complaints. She was able to ambulate with the physical therapist and is agreeable with the plan for discharge to a rehab facility. She denied chest pain, shortness of breath, nausea, vomiting, fever, chills, or dysuria. Objective - Vital Signs Vital signs: Vital Signs Temp 97.8 F 03/08/19 05:03 Pulse 55 L 03/08/19 08:45 Resp 20 03/08/19 05:03 BP 120/60 03/08/19 08:45 Pulse Ox 96 03/08/19 05:03 Intake & Output 03/07/19 03/08/19 03/08/19 18:59 06:59 18:59 Intake Total 240 300 Output Total 1200 Balance 240 -900 Weight 94.3 kg Intake: Oral 240 300 Output: Urine 1200 Uretheral (Price) 600 Other: Voiding Method Diaper Indwelling Catheter Indwelling Catheter Incontinent # Voids 400 # Bowel Movements 1 - Exam General: Non-toxic, in no acute distress, appears stated age, obese HEENT: NC/AT, anicteric sclerae, moist conjunctiva, no lid-lag, PERRLA Cardiovascular: S1/S2 wnl, loud systolic murmur, rubs, or gallops Lungs: Mild bibasilar rales, normal respiratory effort, no accessory muscle use Abdominal: Soft, non-tender, non-distended, no guarding, rebound, or rigidity Skin: Warm, dry Extremities: 1+ sarahy LE edema to hips, no contractures Psychiatric: Alert and oriented to person, place and time, appropriate affect Neuro: CN II-XII grossly intact, no focal neuro deficits - Labs CBC & Chem 7: 03/06/19 18:46 03/08/19 08:27 Labs: Abnormal Lab Results - Last 24 Hours (Table) 03/07/19 03/07/19 03/08/19 Range/Units 16:55 20:17 07:00 Sodium (137-145) mmol/L Chloride (98-107) mmol/L BUN (7-17) mg/dL Creatinine (0.52-1.04) mg/dL Glucose (74-99) mg/dL POC Glucose (mg/dL) 174 H 153 H 105 H (75-99) mg/dL 03/08/19 03/08/19 Range/Units 08:27 11:59 Sodium 132 L (137-145) mmol/L Chloride 93 L (98-107) mmol/L BUN 31 H (7-17) mg/dL Creatinine 1.19 H (0.52-1.04) mg/dL Glucose 127 H (74-99) mg/dL POC Glucose (mg/dL) 126 H (75-99) mg/dL Assessment and Plan Plan: Acute combined systolic and diastolic CHF exacerbation -Cardiology conditions appreciated -C/w Lasix IV q12h -Continue with Aldactone -I/Os -Daily weights -Fluid restriction -Monitor electrolytes R sided pleural effusion status post thoracentesis -Good symptomatic improvement Urinary retention -Price placed due to concomitant I/Os -Urology conditions appreciated TENISHA -Monitor BMP -Possibly due to cardiorenal syndrome Debility -PT consult -Planned for discharge to subacute rehab Chronic conditions: HTN, HLD, CAD, Hypothyroidism, Type 2 DM -C/w home meds -Hold oral hypoglycemics -Lispro insulin sliding scale with blood glucose monitoring DVT prophylaxis -Heparin Discussed with: Patient, , daughter Anticipated discharge date: 03/[address]: [facility] A total of 35 minutes was spent on the care of this complex patient more than 50% of the time was spent in counseling and care coordination.
[2019-03-08 17:02] LABS: Glucose,Whole Blood 114 mg/dL (75-99)
[2019-03-08] MEDS: ACARBOSE 25 MG TAB PO SCH (17:34)
[2019-03-08 20:41] LABS: Glucose,Whole Blood 129 mg/dL (75-99)
[2019-03-08 21:05] LABS: Glucose, BF Source Pleural Fluid; Glucose, Body Fluid 105 mg/dL; LDH, Body Fluid Source Pleural Fluid; Total Protein, Body Fluid 2900 mg/dL
[2019-03-08] MEDS: SIMETHICONE 80 MG CHEWABLE PO SCH (21:06)
[2019-03-08] MEDS: GABAPENTIN 100 MG CAP PO SCH (21:07)
[2019-03-08] MEDS: ALPRAZolam 0.25 MG TAB PO SCH (21:07)
[2019-03-08] MEDS: CHOLECALCIFEROL 1,000 UNIT TAB PO SCH (21:07)
[2019-03-08] MEDS: PANTOPRAZOLE 40 MG TABLET PO SCH (21:07)
[2019-03-08] MEDS: ATORVASTATIN 20 MG TAB PO SCH (21:07)
[2019-03-08 21:45] VITALS: PULSE 50; RESP 22
[2019-03-09] MEDS: HEPARIN SODIUM,PORCINE 5,000 UNIT/ML 1 ML VIAL SQ SCH ×2 (00:08→08:45)
[2019-03-09] MEDS: LEVOTHYROXINE 88 MCG TAB PO SCH (05:51)
[2019-03-09 05:53] VITALS: BP 102/63; TEMP 97.9
[2019-03-09 07:06] LABS: Glucose,Whole Blood 133 mg/dL (75-99)
[2019-03-09 07:55] LABS: Calcium 8.3 mg/dL (8.4-10.2); Magnesium 1.8 mg/dL (1.6-2.3); Potassium 4.4 mmol/L (3.5-5.1)
[2019-03-09] MEDS: INSULIN ASPART (NovoLOG) 100 UNIT/ML VIAL SQ SCH ×2 (08:43→11:38)
[2019-03-09] MEDS: amLODIPine 10 MG TAB PO SCH (08:44)
[2019-03-09] MEDS: LISINOPRIL 10 MG TAB PO SCH (08:44)
[2019-03-09] MEDS: METOPROLOL SUCCINATE (ER) 25 MG TAB.ER.24H PO SCH (08:45)
[2019-03-09] MEDS: HYDROCORTISONE 2.5% RECTAL CREAM 30 GM TUBE RECTAL SCH (08:45)
[2019-03-09] MEDS: SERTRALINE 25 MG TAB PO SCH (08:45)
[2019-03-09] MEDS: FUROSEMIDE 10 MG/ML 4 ML VIAL IV SCH (08:45)
[2019-03-09] MEDS: traMADol 50 MG TAB PO SCH (08:46)
[2019-03-09] MEDS: SPIRONOLACTONE 25 MG TAB PO SCH (08:46)
[2019-03-09] MEDS ORDERED: ASPIRIN 81 MG PO SCH (09:00)
--- NOTE | 2019-03-09 10:16 | P.DS ---
Providers Date of admission: 03/06/19 22:40 Expected date of discharge: 03/09/19 Attending physician: Tang Watson MD Consults: 03/06/19 23:03 Consult Physician Routine Consulting Provider: Quyen Lee Consult Reason/Comments: Evaluate for thoracentesis Do you want consulting provider notified?: Yes 03/06/19 23:04 Consult Physician Routine Consulting Provider: Nicho Kelsey Consult Reason/Comments: CHF exacerbation Do you want consulting provider notified?: Yes 03/07/19 10:29 Consult Physician Urgent Consulting Provider: Pj Flores Consult Reason/Comments: Urinary retention Do you want consulting provider notified?: Yes Primary care physician: Catherine Ricardo [facility] Course: The patient is an 89-year-old female with a PMH of coronary artery disease, combined systolic and diastolic CHF, high-grade AV block status post pacemaker, severe aortic stenosis, hyperlipidemia, type 2 diabetes mellitus, hypertension, and hypothyroidism presented to the ED for SOB. The patient was recently admitted a week prior for UTI and CHF exacerbation. The patient reported that since discharge, she had worsening lower extremity edema and shortness of breath despite compliance with her Lasix. The patient lives with her who has been unable to care for her due to his own advanced age. The family noted that they are open to considering placement in a mcc due to the patient's advanced age and difficulty in her ADLs. The patient also reported continued urinary incontinence along with intermittent retention. The patient underwent an extensive evaluation in the emergency room with a chest CTA which revealed massive right-sided pleural effusion with atelectasis along with pulmonary edema. Laboratory evaluation revealed a troponin of less than 0.012, BNP 5010, BUN 23, creatinine 1.07, WBC count 7.6, hemoglobin 12.9, and platelets 203. The patient was admitted for further management. Pulmonary was consulted for possible thoracentesis and cardiology for acute CHF exacerbation. The patient underwent a thoracentesis on 03/08 with 1300 mL of brownish fluid removed. The patient was also started on Aldactone and continued on IV Lasix by cardiology. Urology recommended continuation of Price catheter for now due to chronic urinary retention and incontinence with intermittent voiding trials. The case was discussed with Cardiology who noted to discharge the patient on Lasix 40 mg PO bid along with Spironolactone 25 mg qd. The patient was seen and evaluated at the bedside on 03/09. She was in good spirits and noted that her breathing cont inues to be excellent following the thoracentesis. She denied additional complaints and is eager to be discharged to the rehab facility. She denied chest pain, shortness of breath, dysuria, nausea, vomiting, fever, chills, or abdominal pain. Physical Examination General: Non-toxic, in no acute distress, appears stated age, obese HEENT: NC/AT, anicteric sclerae, moist conjunctiva, no lid-lag, PERRLA Cardiovascular: S1/S2 wnl,loud systolic murmur, rubs, or gallops Lungs: Clear to auscultation, normal respiratory effort, no accessory muscle use Abdominal: Soft, non-tender, non-distended, no guarding, rebound, or rigidity Skin: Warm, dry Extremities: Trace LE edema sarahy, no contractures Psychiatric: Alert and oriented to person, place and time, appropriate affect Neuro: CN II-XII grossly intact, no focal neuro deficits noted Discharge diagnosis: Acute combined systolic and diastolic CHF exacerbation; right-sided pleural effusion status post thoracentesis; chronic urinary retention; hyponatremia, debility; hypertension; hyperlipidemia; coronary disease; hypothyroidism; type 2 diabetes mellitus A total of 40 minutes of time were spent preparing this complex discharge summary. Patient Condition at Discharge: Stable Plan - Discharge Summary New Discharge Prescriptions: New Spironolactone [Aldactone] 25 mg PO DAILY #30 tab Continue Cholecalciferol [Vitamin D3 (25 Mcg = 1000 Iu)] 1,000 unit PO HS traMADol HCL [Ultram] 50 mg PO BID Magnesium Oxide [Mag-Ox] 125 mg PO BID Aspirin EC [Ecotrin Low Dose] 81 mg PO AC-SUPPER Sertraline HCl [Zoloft] 25 mg PO DAILY Hydrocortisone Pr Cream [Proctosol-Hc 2.5%] 1 applic RECTAL DAILY Atorvastatin [Lipitor] 20 mg PO HS Levothyroxine Sodium [Synthroid] 88 mcg PO DAILY ALPRAZolam [Xanax] 0.25 mg PO HS metFORMIN HCL [Glucophage] 250 mg PO BID Simethicone [Gas-X] 125 mg PO HS Acarbose [Precose] 25 mg PO AC-SUPPER Metoprolol Succinate (ER) [Toprol XL] 25 mg PO DAILY Lisinopril [Zestril] 10 mg PO DAILY Gabapentin [Neurontin] 100 mg PO HS amLODIPine [Norvasc] 10 mg PO DAILY Maalox 2 tab PO PC-SUPPER Omeprazole 40 mg PO DAILY@1900 Changed Furosemide [Lasix] 40 mg PO BID #60 tab Discontinued Furosemide [Lasix] 20 mg PO DAILY@1600 Nitrofurantoin Monohyd/M-Cryst [Macrobid] 100 mg PO BID #17 cap Discharge Medication List ALPRAZolam [Xanax] 0.25 mg PO HS 06/17/18 [History] Acarbose [Precose] 25 mg PO AC-SUPPER 06/17/18 [History] Aspirin EC [Ecotrin Low Dose] 81 mg PO AC-SUPPER 06/17/18 [History] Atorvastatin [Lipitor] 20 mg PO HS 06/17/18 [History] Cholecalciferol [Vitamin D3 (25 Mcg = 1000 Iu)] 1,000 unit PO HS 06/17/18 [History] Hydrocortisone Pr Cream [Proctosol-Hc 2.5%] 1 applic RECTAL DAILY 06/17/18 [History] Levothyroxine Sodium [Synthroid] 88 mcg PO DAILY 06/17/18 [History] Magnesium Oxide [Mag-Ox] 125 mg PO BID 06/17/18 [History] Sertraline HCl [Zoloft] 25 mg PO DAILY 06/17/18 [History] Simethicone [Gas-X] 125 mg PO HS 06/17/18 [History] metFORMIN HCL [Glucophage] 250 mg PO BID 06/17/18 [History] traMADol HCL [Ultram] 50 mg PO BID 06/17/18 [History] Lisinopril [Zestril] 10 mg PO DAILY 06/30/18 [History] Metoprolol Succinate (ER) [Toprol XL] 25 mg PO DAILY 06/30/18 [History] Gabapentin [Neurontin] 100 mg PO HS 11/24/18 [History] Maalox 2 tab PO PC-SUPPER 11/24/18 [History] amLODIPine [Norvasc] 10 mg PO DAILY 11/24/18 [History] Omeprazole 40 mg PO DAILY@1900 03/06/19 [History] Furosemide [Lasix] 40 mg PO BID #60 tab 03/09/19 [Rx] Spironolactone [Aldactone] 25 mg PO DAILY #30 tab 03/09/19 [Rx] Follow up Appointment(s)/Referral(s): Catherine Ricardo MD [Primary Care Provider] - 1-2 days Dominick Ybarra MD [STAFF PHYSICIAN] - 1 Week Discharge Disposition: TRANSFER TO SNF/ECF
[2019-03-09 11:24] LABS: Glucose,Whole Blood 129 mg/dL (75-99)
--- NOTE | 2019-03-09 13:04 | P.PN ---
Subjective Progress Note Date: 03/09/19 Principal diagnosis: Dyspnea related to right-sided pleural effusion The patient is seen today 03/08/2019 in follow-up on the regular medical floor. Ultrasound of the chest did reveal a large right-sided pleural effusion. The left lung was relatively clear. She has history of coronary artery disease, aortic stenosis, diabetes, morbid obesity, hyperlipidemia, hypertension. She had presented here to the emergency room with increasing shortness of breath approximately a week before arrival. Right-sided pleural effusion was noted and she was admitted with a diagnosis of congestive heart failure due to mildly impaired left ventricular systolic function with ejection fraction 45-50%. She is currently sitting up in a chair at the bedside. Awake and alert in no acute distress. Maintaining O2 saturations in the mid 90s on 2 L/m per nasal cannula. On 03/09/2019 patient seen in follow-up on a general medical floor, patient states she is breathing much easier since her right-sided thoracentesis yesterday and on 03/08/2019. Cytology and pleural fluid cultures are still pending, they are negative thus far, patient's vital signs are stable, she is currently on 2 L of oxygen with a pulse ox of 97%, she is afebrile. On sounds are clear diminished at the bases, patient denies chest any evident complications status post thoracentesis, and her chest x-ray after the procedure showed improved aeration at the right lung base. Objective - Vital Signs Vital signs: Vital Signs Temp 97.9 F 03/09/19 05:51 Pulse 50 L 03/09/19 05:51 Resp 22 03/09/19 05:51 BP 102/63 03/09/19 05:51 Pulse Ox 97 03/09/19 05:51 Intake & Output 03/08/19 03/09/19 03/09/19 18:59 06:59 18:59 Intake Total 100 Output Total 400 1100 Balance -400 -1000 Weight 93 kg Intake: Oral 100 Output: Urine 400 1100 Other: Voiding Method Indwelling Catheter Indwelling Catheter # Bowel Movements 0 - Exam GENERAL EXAM: Alert, very pleasant, 89-year-old white female, in 2 L of oxygen with a pulse ox of 97%, comfortable in no apparent distress. HEAD: Normocephalic/atraumatic. EYES: Normal reaction of pupils, equal size. Conjunctiva pink, sclera white. NOSE: Clear with pink turbinates. THROAT: No erythema or exudates. NECK: No masses, no JVD, no thyroid enlargement, no adenopathy. CHEST: No chest wall deformity. Symmetrical expansion. LUNGS: Equal air entry with no crackles, wheeze, rhonchi or dullness. CVS: Regular rate and rhythm, normal S1 and S2, no gallops, no murmurs, no rubs ABDOMEN: Soft, nontender. No hepatosplenomegaly, normal bowel sounds, no guarding or rigidity. EXTREMITIES: No clubbing, 1+ pretibial edema, no cyanosis, 2+ pulses and upper and lower extremities. MUSCULOSKELETAL: Muscle strength and tone normal. SPINE: No scoliosis or deformity SKIN: No rashes CENTRAL NERVOUS SYSTEM: Alert and oriented -3. No focal deficits, tone is normal in all 4 extremities. PSYCHIATRIC: Alert and oriented -3. Appropriate affect. Intact judgment and insight. - Labs CBC & Chem 7: 03/06/19 18:46 03/09/19 07:15 Labs: Abnormal Lab Results - Last 24 Hours (Table) 03/08/19 03/08/19 03/09/19 Range/Units 16:57 20:40 07:04 Sodium (137-145) mmol/L Chloride (98-107) mmol/L Carbon Dioxide (22-30) mmol/L BUN (7-17) mg/dL Creatinine (0.52-1.04) mg/dL Glucose (74-99) mg/dL POC Glucose (mg/dL) 114 H 129 H 133 H (75-99) mg/dL Calcium (8.4-10.2) mg/dL 03/09/19 03/09/19 Range/Units 07:15 11:23 Sodium 133 L (137-145) mmol/L Chloride 94 L (98-107) mmol/L Carbon Dioxide 32 H (22-30) mmol/L BUN 30 H (7-17) mg/dL Creatinine 1.07 H (0.52-1.04) mg/dL Glucose 114 H (74-99) mg/dL POC Glucose (mg/dL) 129 H (75-99) mg/dL Calcium 8.3 L (8.4-10.2) mg/dL Microbiology - Last 24 Hours (Table) 03/08/19 10:05 Acid Fast Bacilli Smear - Final Pleural Fluid Acid Fast Bacilli Culture - Preliminary 03/08/19 10:05 Gram Stain - Preliminary Pleural Fluid Body Fluid Culture - Preliminary 03/08/19 10:05 Fungal Culture - Preliminary Pleural Fluid Assessment and Plan Plan: Assessment: 1 Acute exacerbation of systolic congestive heart failure with a large right pleural effusion 2 Large right pleural effusion 3 Coronary artery disease 4 Complete heart block status post permanent pacemaker implantation 5 Diabetes mellitus, type II 6 Hypertension 7 Hyperlipidemia. 8 History of ESBL urine 9 Anxiety/depression 10 Morbid obesity Plan: Pleural fluid cytology and pleural fluid cultures are pending, cultures are negative thus far, continue with oral diuretics, patient is doing better, breathing much easier after sided thoracentesis, vital signs are stable, she is on 2 L of oxygen, followed chest x-ray showed improvement in the right base aeration, patient is breathing easier, states she's feeling much better. Continue current medical treatment, patient is being discharged to retirement facility/ECF today, she will need outpatient appointment to follow-up on the results of the pleural fluid cytology and cultures I performed a history & physical examination of the patient and discussed their management with my nurse practitioner, Falguni Dent. I reviewed the nurse practitioner's note and agree with the documented findings and plan of care. Lung sounds are positive for diminished breaths at the bases throughout the lung brennan. The findings and the impression was discussed with the patient. I attest to the documentation by the nurse practitioner. Time with Patient: Less than 30
--- NOTE | 2019-03-09 13:34 | XR ---
EXAMINATION TYPE: XR chest 2V DATE OF EXAM: 03/09/2019 COMPARISON: Prior chest x-ray 03/08/2019 HISTORY: Status post thoracentesis TECHNIQUE: Frontal and lateral views of the chest are obtained. FINDINGS: There is blunting of the right costophrenic angle, obscured hemidiaphragms on the right, l eft costophrenic angle is obscured. No evident pneumothorax. Azygos lobe is present in the right. Hea rt remains enlarged. Pacemaker is stable. Arthropathy noted shoulders. IMPRESSION: Right pleural effusion greater than left. There is likely basilar atelectasis, correlate to exclude pneumonia. Cardiomegaly suspected.
--- NOTE | 2019-03-09 14:06 | P.PN ---
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 She follows in the office with [facility]. We have been asked to see in consultation for CHF exacerbation. She presented to the hospital with increased shortness of breath. Chest xray revealed a right sided pleural effusion to the level of the hilum. Similar to previous study from the previous week. CTA chest negative for PE, massive right pleural effusion and pulmonary edema. Ultrasound of the chest measured the effusion at 11.6 cm. She was here in the hospital 02/25/19 and treated for heart failure at that time. No cardiology or pulmonary consultation at that time. Per the family she has had worsening shortness of breath since that time. She denies chest pain, dizziness or palpitations. EKG is ventricular paced. Current daily cardiac medications include amlodipine 10 mg daily, toprol 25 mg daily, lisinopril 10 mg daily, lasix 40 mg in the am and 20 mg at 1600, atorvastatin 20 mg daily and aspirin 81 mg daily. Most recent echocardiogram obtained November 2018 revealed mildly impaired LV systolic function with EF 45- 50%, septal wall motion delay secondary to pacing, severely dilated LA, severe aortic stenosis with mean gradient of 75 mmHg, mild-moderate MR wit mean gradient of 5 mmHg and mild TR. Laboratory data reviewed, WBC 7.6, hemoglobin 12.9, platelets 203, d-dimer 3.34, sodium 131, potassium 4.3, creatinine 1.07, cardiac enzymes negative 1, magnesium 1.4 and and T proBNP 5010 03/08/2019 Patient is seen and examined sitting up in bed with daughter and at the bedside. She underwent thoracentesis this morning with Dr. Ramos. They removed 1,300 cc of fluid from the right pleural effusion. She states she noticed a significant improvement in her breathing almost immediately after the procedure. She denies chest pain, dizziness or palpitations. Blood pressure 120/60 heart rate 55 afebrile and maintaining oxygen saturation on nasal cannula. She still has lower extremity edema that is improving. Laboratory data reviewed, sodium 132, potassium 4.4, creatinine 1.19 and magnesium 2.2. Currently maintained on Lasix 40 mg IV twice a day, amlodipine 10 mg daily, atorvastatin 20 mg daily, lisinopril 10 mg daily, Toprol 25 mg daily and Aldactone 25 mg daily. She is maintaining a negative fluid balance. 03/09/2019 Patient is seen and examined sitting up in the chair with at the bedside. She just walking with Physical Therapy. Per the patient and her and her breathing was quite stable throughout the walk and she did not require any oxygen. She denies worsening shortness of breath. She has had no chest pain, dizziness or palpitations. Repeat chest x-ray this morning reveals a right pleural effusion. Laboratory data reviewed, sodium 133, potassium 4.4, creatinine 1.07 and troponin 0.14. PHYSICAL EXAMINATION CONSTITUTIONAL: No apparent distress. Morbidly obese. HEENT: Head is normocephalic. Pupils are equal, round. Sclerae anicteric. Mucous membranes of the mouth are moist. No JVD. No carotid bruit. CHEST EXAMINATION: Bibasilar rales, diminished greater on the right. No wheezes or rhonchi. No chest wall tenderness is noted on palpation or with deep breathing. HEART EXAMINATION: Regular rate and rhythm. S1, S2 heard. Systolic ejection murmur at the base and left sternal border, no gallops or rub. EXTREMITIES: 2+ peripheral pulses, trace bilateral lower extremity edema and no calf tenderness. ASSESSMENT Acute on chronic diastolic heart failure, EF 45-50% Pleural effusion Hypomagnesemia Aortic stenosis Mitral regurgitation Hypertension Dyslipidemia Coronary artery disease Complete heart block s/p permanent pacemaker implantation Diabetes mellitus Morbid obesity, BMI 40 PLAN Transition to oral diuretics. She is being transferred today to residential facility for rehabilitation. Follow-up in the office with Dr. Ybarra upon discharge. Nurse Practitioner note has been reviewed, I agree with a documented findings and plan of care. Patient was seen and examined. Objective - Vital Signs Vital signs: Vital Signs Temp 97.9 F 03/09/19 05:51 Pulse 50 L 03/09/19 05:51 Resp 22 03/09/19 05:51 BP 102/63 03/09/19 05:51 Pulse Ox 97 03/09/19 05:51 Intake & Output 03/08/19 03/09/19 03/09/19 18:59 06:59 18:59 Intake Total 100 Output Total 400 1100 Balance -400 -1000 Weight 93 kg Intake: Oral 100 Output: Urine 400 1100 Other: Voiding Method Indwelling Catheter Indwelling Catheter # Bowel Movements 0 - Labs CBC & Chem 7: 03/06/19 18:46 03/09/19 07:15 Labs: Abnormal Lab Results - Last 24 Hours (Table) 03/08/19 03/08/19 03/09/19 Range/Units 16:57 20:40 07:04 Sodium (137-145) mmol/L Chloride (98-107) mmol/L Carbon Dioxide (22-30) mmol/L BUN (7-17) mg/dL Creatinine (0.52-1.04) mg/dL Glucose (74-99) mg/dL POC Glucose (mg/dL) 114 H 129 H 133 H (75-99) mg/dL Calcium (8.4-10.2) mg/dL 03/09/19 03/09/19 Range/Units 07:15 11:23 Sodium 133 L (137-145) mmol/L Chloride 94 L (98-107) mmol/L Carbon Dioxide 32 H (22-30) mmol/L BUN 30 H (7-17) mg/dL Creatinine 1.07 H (0.52-1.04) mg/dL Glucose 114 H (74-99) mg/dL POC Glucose (mg/dL) 129 H (75-99) mg/dL Calcium 8.3 L (8.4-10.2) mg/dL Microbiology - Last 24 Hours (Table) 03/08/19 10:05 Gram Stain - Preliminary Pleural Fluid Body Fluid Culture - Preliminary 03/08/19 10:05 Acid Fast Bacilli Smear - Final Pleural Fluid Acid Fast Bacilli Culture - Preliminary 03/08/19 10:05 Fungal Culture - Preliminary Pleural Fluid
[2019-03-09] MEDS ORDERED: FUROSEMIDE 40 MG TAB PO SCH (16:00)
== END 2019-03-09 15:07 | DRG 292 ==
LOC: EC 18:28 → 6NMEDSUR 22:40
PROVIDERS: ADMIT Family Medicine; ATTEND Family Medicine
PROC: 0W993ZX Drainage of Right Pleural Cavity, Percutaneous Approach, Diagnostic (ICD-10-PCS; principal; 2019-03-08)
DX: I11.0 Hypertensive heart disease with heart failure (principal); Z68.41 Body mass index [BMI] 40.0-44.9, adult; I44.2 Atrioventricular block, complete; E87.1 Hypo-osmolality and hyponatremia; J91.8 Pleural effusion in other conditions classified elsewhere; J98.11 Atelectasis; I50.43 Acute on chronic combined systolic (congestive) and diastolic (congestive) heart failure; E11.40 Type 2 diabetes mellitus with diabetic neuropathy, unspecified; E66.01 Morbid (severe) obesity due to excess calories; E83.42 Hypomagnesemia; R33.9 Retention of urine, unspecified; R32 Unspecified urinary incontinence; E03.9 Hypothyroidism, unspecified; G25.0 Essential tremor; F32.9 Major depressive disorder, single episode, unspecified; F41.9 Anxiety disorder, unspecified; I25.10 Atherosclerotic heart disease of native coronary artery without angina pectoris; E78.5 Hyperlipidemia, unspecified; I08.0 Rheumatic disorders of both mitral and aortic valves; K21.9 Gastro-esophageal reflux disease without esophagitis; R15.9 Full incontinence of feces; M19.90 Unspecified osteoarthritis, unspecified site; Z79.82 Long term (current) use of aspirin; Z79.890 Hormone replacement therapy; Z79.84 Long term (current) use of oral hypoglycemic drugs; Z79.899 Other long term (current) drug therapy; Z86.19 Personal history of other infectious and parasitic diseases; Z90.49 Acquired absence of other specified parts of digestive tract; Z95.0 Presence of cardiac pacemaker; Z98.890 Other specified postprocedural states; Z87.891 Personal history of nicotine dependence; Z87.440 Personal history of urinary (tract) infections; Z87.19 Personal history of other diseases of the digestive system; Z87.2 Personal history of diseases of the skin and subcutaneous tissue; Z88.0 Allergy status to penicillin; Z88.2 Allergy status to sulfonamides; Z88.8 Allergy status to other drugs, medicaments and biological substances; Z88.1 Allergy status to other antibiotic agents; Z91.041 Radiographic dye allergy status; Z81.1 Family history of alcohol abuse and dependence; Z82.5 Family history of asthma and other chronic lower respiratory diseases
CPT/HCPCS: 36415; 71045; 71046; 71275; 76604; 80048; 80053; 82945; 83615; 83735; 83880; 84157; 84484; 85025; 85379; 85610; 85730; 87070; 87102; 87116; 87205; 87206; 87252; 88108; 88305; 89050; 93005; 96374; 96375; 99285

== ENCOUNTER 2019-04-07 16:23 | Inpatient (IN) | payer MEDICARE ==
--- NOTE | 2019-04-07 17:23 | ED ---
General Adult HPI - General Chief complaint: Shortness of Breath Stated complaint: Chest pain Time Seen by Provider: 04/07/19 16:34 Source: patient, EMS, RN notes reviewed, old records reviewed Mode of arrival: EMS Limitations: no limitations - History of Present Illness Initial comments: 89-year-old female history of CAD, history of CHF presenting with dyspnea, generalized weakness. Patient denying cough or fever. She has had some intermittent chest pain, no chest pain at the time my evaluation. She denies abdominal pain nausea vomiting. Denies dysuria or hematuria. Denies significant lower extremity swelling. - Related Data Home Medications Medication Instructions Recorded Confirmed Acarbose [Precose] 25 mg PO AC-SUPPER 06/17/18 03/06/19 Aspirin EC [Ecotrin Low Dose] 81 mg PO AC-SUPPER 06/17/18 03/06/19 Atorvastatin [Lipitor] 20 mg PO HS 06/17/18 03/06/19 Cholecalciferol [Vitamin D3 (25 1,000 unit PO HS 06/17/18 03/06/19 Mcg = 1000 Iu)] Hydrocortisone Pr Cream 1 applic RECTAL DAILY 06/17/18 03/06/19 [Proctosol-Hc 2.5%] Levothyroxine Sodium [Synthroid] 88 mcg PO DAILY 06/17/18 03/06/19 Magnesium Oxide [Mag-Ox] 125 mg PO BID 06/17/18 03/06/19 Sertraline HCl [Zoloft] 25 mg PO DAILY 06/17/18 03/06/19 Simethicone [Gas-X] 125 mg PO HS 06/17/18 03/06/19 metFORMIN HCL [Glucophage] 250 mg PO BID 06/17/18 03/06/19 Lisinopril [Zestril] 10 mg PO DAILY 06/30/18 03/06/19 Metoprolol Succinate (ER) [Toprol 25 mg PO DAILY 06/30/18 03/06/19 XL] Maalox 2 tab PO PC-SUPPER 11/24/18 03/06/19 amLODIPine [Norvasc] 10 mg PO DAILY 11/24/18 03/06/19 Omeprazole 40 mg PO DAILY@1900 03/06/19 03/06/19 Previous Rx's Medication Instructions Recorded ALPRAZolam [Xanax] 0.25 mg PO HS #14 tab 03/09/19 Furosemide [Lasix] 40 mg PO BID #60 tab 03/09/19 Gabapentin [Neurontin] 100 mg PO HS #30 cap 03/09/19 Spironolactone [Aldactone] 25 mg PO DAILY #30 tab 03/09/19 traMADol HCl [Ultram] 50 mg PO BID 3 Days #14 tab 03/09/19 Allergies Allergy/AdvReac Type Severity Reaction Status Date / Time amoxicillin Allergy Unknown Verified 04/07/19 16:36 Iodinated Contrast Media Allergy Unknown Verified 04/07/19 16:36 [Iodinated Contrast- Oral and IV Dye] metoclopramide [From Reglan] Allergy Unknown Verified 04/07/19 16:36 sulfamethoxazole Allergy Unknown Verified 04/07/19 16:36 [From Septra] trimethoprim [From Septra] Allergy Unknown Verified 04/07/19 16:36 ampicillin AdvReac Nausea & Verified 04/07/19 16:36 Vomiting cephalexin AdvReac Nausea & Verified 04/07/19 16:36 Vomiting levofloxacin AdvReac SHAKING,PUGA Verified 04/07/19 16:36 ICS Review of Systems ROS Statement: Those systems with pertinent positive or pertinent negative responses have been documented in the HPI. ROS Other: All systems not noted in ROS Statement are negative. Past Medical History Past Medical History: Coronary Artery Disease (CAD), Diabetes Mellitus, Eye Disorder, GERD/Reflux, Hyperlipidemia, Hypertension, Osteoarthritis (OA), Syncope, Thyroid Disorder Additional Past Medical History / Comment(s): Syncope/CHB and had temporary then permanent pacemaker, currently has 3 small decub on coccyx per pt/mindy, NIDDM type II, diabetic neuropathy bilateral feet, severe aortic stenosis, polyarthritis, essential tremors, hypothyroid, bilateral cataracts, incontinence or urine and occasionally stool, constipation, UTI. History of Any Multi-Drug Resistant Organisms: ESBL Date of last positivie culture/infection: 07/21/18 MDRO Source:: ESBL URINE Past Surgical History: Cholecystectomy, Heart Catheterization, Orthopedic Surgery, Pacemaker Additional Past Surgical History / Comment(s): 06/17/18 temporary pacemaker, 06/19/18 permanent pacemaker, R knee arthrotomy d/t chip, colonoscopy. Past Anesthesia/Blood Transfusion Reactions: No Reported Reaction Type of Cardiac Device: Permanent Pacemaker Device Placement Date:: 5/4/19 Past Psychological History: Anxiety, Depression Smoking Status: Former smoker Past Alcohol Use History: None Reported Past Drug Use History: None Reported - Past Family History Father Additional Family Medical History / Comment(s): Father was an alcoholic Mother Family Medical History: Asthma Additional Family Medical History / Comment(s): Mother at the age of 54yrs- pt unsure from what. General Exam Limitations: no limitations General appearance: alert, in no apparent distress Head exam: Present: atraumatic, normocephalic Eye exam: Present: normal appearance, PERRL ENT exam: Present: normal exam Neck exam: Present: normal inspection. Absent: tenderness, meningismus Respiratory exam: Present: rales, decreased breath sounds. Absent: respiratory distress, wheezes Cardiovascular Exam: Present: normal rhythm, bradycardia, systolic murmur GI/Abdominal exam: Present: soft. Absent: distended, tenderness, guarding Extremities exam: Present: normal capillary refill, pedal edema Neurological exam: Present: alert. Absent: motor sensory deficit Psychiatric exam: Present: normal affect, normal mood Skin exam: Present: warm, dry, intact Course Vital Signs 04/07/19 16:28 Temperature 98.5 F Pulse Rate 63 Respiratory 20 Rate Blood Pressure 117/56 O2 Sat by Pulse 96 Oximetry EKG Findings - EKG Comments: EKG Findings:: Ventricular paced rhythm, rate of 50 QRS duration 168, QTC 466, no significant change compared to previous one month ago Medical Decision Making - Medical Decision Making 89-year-old female with history of CHF presenting with increased dyspnea. History of aortic stenosis CAD with pacemaker. She has decreased breath sounds bilaterally with rales. She has mild peripheral edema. Chest x-ray shows pulmonary edema bilateral effusions. She has up trending BNP of 6000, she has worsening creatinine, mildly elevated lactic at 2.5, she has a sodium of 129. Given 40 mg Lasix in the emergency department. - Lab Data Result diagrams: 04/07/19 17:05 04/07/19 17:05 Lab Results 04/07/19 04/07/19 04/07/19 Range/Units 17:05 17:05 17:05 WBC 7.1 (3.8-10.6) k/uL RBC 4.21 (3.80-5.40) m/uL Hgb 10.7 L (11.4-16.0) gm/dL Hct 32.8 L (34.0-46.0) % MCV 78.0 L (80.0-100.0) fL MCH 25.4 (25.0-35.0) pg MCHC 32.6 (31.0-37.0) g/dL RDW 17.1 H (11.5-15.5) % Plt Count 221 (150-450) k/uL Neutrophils % 64 % Lymphocytes % 22 % Monocytes % 9 % Eosinophils % 2 % Basophils % 0 % Neutrophils # 4.6 (1.3-7.7) k/uL Lymphocytes # 1.6 (1.0-4.8) k/uL Monocytes # 0.6 (0-1.0) k/uL Eosinophils # 0.1 (0-0.7) k/uL Basophils # 0.0 (0-0.2) k/uL Anisocytosis Slight Microcytosis Slight PT (9.0-12.0) sec INR (<1.2) APTT (22.0-30.0) sec Sodium 129 L (137-145) mmol/L Potassium 4.8 (3.5-5.1) mmol/L Chloride 94 L (98-107) mmol/L Carbon Dioxide 25 (22-30) mmol/L Anion Gap 10 mmol/L BUN 32 H (7-17) mg/dL Creatinine 1.22 H (0.52-1.04) mg/dL Est GFR (CKD-EPI)AfAm 46 (>60 ml/min/1.73 sqM) Est GFR (CKD-EPI)NonAf 40 (>60 ml/min/1.73 sqM) Glucose 134 H (74-99) mg/dL Plasma Lactic Acid Jose Guadalupe (0.7-2.0) mmol/L Calcium 8.8 (8.4-10.2) mg/dL Total Bilirubin 0.5 (0.2-1.3) mg/dL AST 17 (14-36) U/L ALT 9 (4-34) U/L Alkaline Phosphatase 134 H (38-126) U/L Troponin I (0.000-0.034) ng/mL NT-Pro-B Natriuret Pep pg/mL Total Protein 6.2 L (6.3-8.2) g/dL Albumin 3.2 L (3.5-5.0) g/dL Influenza Type A RNA Not Detected (Not Detectd) Influenza Type B (PCR) Not Detected (Not Detectd) 04/07/19 04/07/19 04/07/19 Range/Units 17:05 17:05 17:05 WBC (3.8-10.6) k/uL RBC (3.80-5.40) m/uL Hgb (11.4-16.0) gm/dL Hct (34.0-46.0) % MCV (80.0-100.0) fL MCH (25.0-35.0) pg MCHC (31.0-37.0) g/dL RDW (11.5-15.5) % Plt Count (150-450) k/uL Neutrophils % % Lymphocytes % % Monocytes % % Eosinophils % % Basophils % % Neutrophils # (1.3-7.7) k/uL Lymphocytes # (1.0-4.8) k/uL Monocytes # (0-1.0) k/uL Eosinophils # (0-0.7) k/uL Basophils # (0-0.2) k/uL Anisocytosis Microcytosis PT 10.8 (9.0-12.0) sec INR 1.0 (<1.2) APTT 23.9 (22.0-30.0) sec Sodium (137-145) mmol/L Potassium (3.5-5.1) mmol/L Chloride (98-107) mmol/L Carbon Dioxide (22-30) mmol/L Anion Gap mmol/L BUN (7-17) mg/dL Creatinine (0.52-1.04) mg/dL Est GFR (CKD-EPI)AfAm (>60 ml/min/1.73 sqM) Est GFR (CKD-EPI)NonAf (>60 ml/min/1.73 sqM) Glucose (74-99) mg/dL Plasma Lactic Acid Jose Guadalupe 2.5 H* (0.7-2.0) mmol/L Calcium (8.4-10.2) mg/dL Total Bilirubin (0.2-1.3) mg/dL AST (14-36) U/L ALT (4-34) U/L Alkaline Phosphatase (38-126) U/L Troponin I (0.000-0.034) ng/mL NT-Pro-B Natriuret Pep 6130 pg/mL Total Protein (6.3-8.2) g/dL Albumin (3.5-5.0) g/dL Influenza Type A RNA (Not Detectd) Influenza Type B (PCR) (Not Detectd) 04/07/19 Range/Units 17:05 WBC (3.8-10.6) k/uL RBC (3.80-5.40) m/uL Hgb (11.4-16.0) gm/dL Hct (34.0-46.0) % MCV (80.0-100.0) fL MCH (25.0-35.0) pg MCHC (31.0-37.0) g/dL RDW (11.5-15.5) % Plt Count (150-450) k/uL Neutrophils % % Lymphocytes % % Monocytes % % Eosinophils % % Basophils % % Neutrophils # (1.3-7.7) k/uL Lymphocytes # (1.0-4.8) k/uL Monocytes # (0-1.0) k/uL Eosinophils # (0-0.7) k/uL Basophils # (0-0.2) k/uL Anisocytosis Microcytosis PT (9.0-12.0) sec INR (<1.2) APTT (22.0-30.0) sec Sodium (137-145) mmol/L Potassium (3.5-5.1) mmol/L Chloride (98-107) mmol/L Carbon Dioxide (22-30) mmol/L Anion Gap mmol/L BUN (7-17) mg/dL Creatinine (0.52-1.04) mg/dL Est GFR (CKD-EPI)AfAm (>60 ml/min/1.73 sqM) Est GFR (CKD-EPI)NonAf (>60 ml/min/1.73 sqM) Glucose (74-99) mg/dL Plasma Lactic Acid Jose Guadalupe (0.7-2.0) mmol/L Calcium (8.4-10.2) mg/dL Total Bilirubin (0.2-1.3) mg/dL AST (14-36) U/L ALT (4-34) U/L Alkaline Phosphatase (38-126) U/L Troponin I 0.017 (0.000-0.034) ng/mL NT-Pro-B Natriuret Pep pg/mL Total Protein (6.3-8.2) g/dL Albumin (3.5-5.0) g/dL Influenza Type A RNA (Not Detectd) Influenza Type B (PCR) (Not Detectd) Disposition Clinical Impression: Pulmonary edema, Congestive heart failure Disposition: ADMITTED IP TO THIS [facility] Condition: Stable Is patient prescribed a controlled substance at d/c from ED?: No Referrals: Catherine Ricardo MD [Primary Care Provider] - 1-2 days Decision to Admit Reason: Admit from EC Decision Date: 04/07/19 Decision Time: 18:22
[2019-04-07 17:45] LABS: Anisocytosis Slight; Basophils % (A) 0 %; Eosinophils # (A) 0.1 k/uL (0-0.7); Eosinophils % (A) 2 %; HCT 32.8 % (34.0-46.0); HGB 10.7 gm/dL (11.4-16.0); Lymphocytes # (A) 1.6 k/uL (1.0-4.8); Lymphocytes % (A) 22 %; MCH 25.4 pg (25.0-35.0); MCHC 32.6 g/dL (31.0-37.0); Mean Platelet Volume 8.1; Microcytosis Slight; Monocytes # (A) 0.6 k/uL (0-1.0); Monocytes % (A) 9 %; Neutrophils # (A) 4.6 k/uL (1.3-7.7); Neutrophils % (A) 64 %; Platelet Count 221 k/uL (150-450); RBC 4.21 m/uL (3.80-5.40); RDW 17.1 % (11.5-15.5); WBC 7.1 k/uL (3.8-10.6)
[2019-04-07 17:48] LABS: Albumin 3.2 g/dL (3.5-5.0); Calcium 8.8 mg/dL (8.4-10.2); Potassium 4.8 mmol/L (3.5-5.1); Total Bilirubin 0.5 mg/dL (0.2-1.3); Total Protein 6.2 g/dL (6.3-8.2)
[2019-04-07 17:51] LABS: Partial Thromboplastin Time 23.9 sec (22.0-30.0); Prothrombin Time 10.8 sec (9.0-12.0)
[2019-04-07] MEDS ORDERED: FUROSEMIDE 10 MG/ML 4 ML VIAL IV STA (18:17)
--- NOTE | 2019-04-07 18:17 | XR ---
EXAMINATION: XR chest 2V DATE AND TIME: 04/07/2019 5:55 PM CLINICAL INDICATION: PHH; difficulty breathing TECHNIQUE: Departmental protocol COMPARISON: 03/09/2019 FINDINGS: Cardiac pacemaker and EKG leads noted Pleural spaces: There is evidence of bilateral pleural effusions, moderate on the right and mild on t he left. These appear mildly increased compared the prior study. Lungs: There is moderate silhouetting of the pulmonary vasculature bilaterally by a fine reticular pa ttern of increased density with areas of alveolar space opacity, consistent with advanced stage pulmo nary edema. The cardiac silhouette is moderately enlarged, unchanged. The skeletal structures and soft tissues are negative for acute findings. However, prominent left gle nohumeral joint architectural distortion changes are redemonstrated. IMPRESSION: Advanced stage pulmonary edema with pleural effusions.
[2019-04-07] MEDS ORDERED: NALOXONE 0.4 MG/ML 1 ML VIAL IV PRN (18:44)
[2019-04-07] MEDS ORDERED: ACETAMINOPHEN TAB 325 MG TAB PO PRN (18:44)
--- NOTE | 2019-04-07 22:22 | P.HPIM ---
History of Present Illness H&P Date: 04/07/19 Chief Complaint: Shortness of breath 89-year-old female with PMH of coronary artery disease, AV block post pacemaker, severe aortic stenosis, hypertension, dyslipidemia, type 2 diabetes mellitus and hypothyroidism presented to the ED for worsening shortness of breath. She was recently admitted on February 25 and discharged on 02/27/2019 to [facility] rehab. Patient reports that she has been progressively feeling short of breath since being discharged from [facility] on 03/31/2019. Her shortness of breath is associated with a dry cough. She denies any lower extremity swelling. Patient also reports lightheadedness when attempting to stand up. She reports a bandlike headache that occurred during her admission today. When she was in the EMS, patient noticed some chest discomfort which was relieved by nitroglycerin sublingually. She denies any nausea or vomiting, fever or chills, palpitations, changes in bowel habits. Patient does report a decreased appetite and some burning with urination. In the ED, her vital signs are stable. CBC showed hemoglobin of 10.7 with MCV 78. Coagulation panel was negative. CMP showed sodium 129, chloride 94, BUN 32, creatinine 1.22, glucose 134, alkaline phosphatase 134. Lactic acid was 2.5. Influenza was negative. Troponin was 0.017, EKG showed sinus rhythm with complete heart block and ventricular paced rhythm. BNP was 6130, chest x-ray shows advanced stage pulmonary edema with pleural effusions. Patient is admitted for CHF exacerbation with cardiology consulted. Review of Systems Pertinent positives and negatives as discussed in HPI, a complete review of systems was performed and all other systems are negative. Past Medical History Past Medical History: Coronary Artery Disease (CAD), Diabetes Mellitus, Eye Di sorder, GERD/Reflux, Hyperlipidemia, Hypertension, Osteoarthritis (OA), Syncope, Thyroid Disorder Additional Past Medical History / Comment(s): Syncope/CHB and had temporary then permanent pacemaker, currently has 3 small decub on coccyx per pt/mindy, NIDDM type II, diabetic neuropathy bilateral feet, severe aortic stenosis, polyarthritis, essential tremors, hypothyroid, bilateral cataracts, incontinence or urine and occasionally stool, constipation, UTI. History of Any Multi-Drug Resistant Organisms: ESBL Date of last positivie culture/infection: 07/21/18 MDRO Source:: ESBL URINE Past Surgical History: Cholecystectomy, Heart Catheterization, Orthopedic Surgery, Pacemaker Additional Past Surgical History / Comment(s): 06/17/18 temporary pacemaker, 06/19/18 permanent pacemaker, R knee arthrotomy d/t chip, colonoscopy. Past Anesthesia/Blood Transfusion Reactions: No Reported Reaction Type of Cardiac Device: Permanent Pacemaker Device Placement Date:: 06/19/18 Past Psychological History: Anxiety, Depression Smoking Status: Former smoker Past Alcohol Use History: None Reported Past Drug Use History: None Reported - Past Family History Father Additional Family Medical History / Comment(s): Father was an alcoholic Mother Family Medical History: Asthma Additional Family Medical History / Comment(s): Mother at the age of 54yrs- pt unsure from what. Medications and Allergies Home Medications Medication Instructions Recorded Confirmed Type Acarbose [Precose] 25 mg PO AC-SUPPER 06/17/18 03/06/19 History Aspirin EC [Ecotrin Low Dose] 81 mg PO AC-SUPPER 06/17/18 03/06/19 History Atorvastatin [Lipitor] 20 mg PO HS 06/17/18 03/06/19 History Cholecalciferol [Vitamin D3 (25 1,000 unit PO HS 06/17/18 03/06/19 History Mcg = 1000 Iu)] Hydrocortisone Pr Cream 1 applic RECTAL DAILY 06/17/18 03/06/19 History [Proctosol-Hc 2.5%] Levothyroxine Sodium [Synthroid] 88 mcg PO DAILY 06/17/18 03/06/19 History Magnesium Oxide [Mag-Ox] 125 mg PO BID 06/17/18 03/06/19 History Sertraline HCl [Zoloft] 25 mg PO DAILY 06/17/18 03/06/19 History Simethicone [Gas-X] 125 mg PO HS 06/17/18 03/06/19 History metFORMIN HCL [Glucophage] 250 mg PO BID 06/17/18 03/06/19 History Lisinopril [Zestril] 10 mg PO DAILY 06/30/18 03/06/19 History Metoprolol Succinate (ER) [Toprol 25 mg PO DAILY 06/30/18 03/06/19 History XL] Maalox 2 tab PO PC-SUPPER 11/24/18 03/06/19 History amLODIPine [Norvasc] 10 mg PO DAILY 11/24/18 03/06/19 History Omeprazole 40 mg PO DAILY@1900 03/06/19 03/06/19 History ALPRAZolam [Xanax] 0.25 mg PO HS #14 tab 03/09/19 Rx Furosemide [Lasix] 40 mg PO BID #60 tab 03/09/19 Rx Gabapentin [Neurontin] 100 mg PO HS #30 cap 03/09/19 Rx Spironolactone [Aldactone] 25 mg PO DAILY #30 tab 03/09/19 Rx traMADol HCl [Ultram] 50 mg PO BID 3 Days #14 tab 03/09/19 Rx Allergies Allergy/AdvReac Type Severity Reaction Status Date / Time amoxicillin Allergy Unknown Verified 04/07/19 16:36 Iodinated Contrast Media Allergy Unknown Verified 04/07/19 16:36 [Iodinated Contrast- Oral and IV Dye] metoclopramide [From Reglan] Allergy Unknown Verified 04/07/19 16:36 sulfamethoxazole Allergy Unknown Verified 04/07/19 16:36 [From Septra] trimethoprim [From Septra] Allergy Unknown Verified 04/07/19 16:36 ampicillin AdvReac Nausea & Verified 04/07/19 16:36 Vomiting cephalexin AdvReac Nausea & Verified 04/07/19 16:36 Vomiting levofloxacin AdvReac SHAKING,PUGA Verified 04/07/19 16:36 ICS Physical Exam Vitals: Vital Signs Temp Pulse Pulse Resp BP BP Pulse Ox 04/07/19 21:25 96.4 F L 50 L 16 98/45 100 04/07/19 20:00 98.2 F 50 L 18 115/45 98 04/07/19 18:44 49 L 20 118/73 100 04/07/19 16:28 98.5 F 63 20 117/56 96 Intake and Output 04/07/19 04/07/19 04/07/19 06:59 14:59 22:59 Other: Weight 86 kg General: [non toxic], [mild distress, morbidly obese], [appears at stated age] Derm: [warm], [dry] Head: [atraumatic], [normocephalic], [symmetric] Eyes: [EOMI], [no lid lag], [anicteric sclera] Mouth: [no lip lesion], [mucus membranes moist] Cardiovascular: [S1S2 reg], [systolic murmur], [positive posterior tibial pulse bilateral], Lungs: [Decreased breath sounds bilateral], [crackles at the bases] , [no accessory muscle use] Abdominal: [soft], [suprapubic tenderness], [no guarding], [no appreciable organomegaly] Ext: [no gross muscle atrophy], [no edema], [no contractures] Neuro: [ CN II-XI grossly intact], [no focal neuro deficits] Psych: [Alert], [oriented], [appropriate affect] Results CBC & Chem 7: 04/07/19 17:05 04/07/19 17:05 Labs: Abnormal Lab Results - Last 24 Hours (Table) 04/07/19 04/07/19 04/07/19 Range/Units 17: 17: 17:05 Hgb 10.7 L (11.4-16.0) gm/dL Hct 32.8 L (34.0-46.0) % MCV 78.0 L (80.0-100.0) fL RDW 17.1 H (11.5-15.5) % Sodium 129 L (137-145) mmol/L Chloride 94 L (98-107) mmol/L BUN 32 H (7-17) mg/dL Creatinine 1.22 H (0.52-1.04) mg/dL Glucose 134 H (74-99) mg/dL Plasma Lactic Acid Jose Guadalupe 2.5 H* (0.7-2.0) mmol/L Alkaline Phosphatase 134 H (38-126) U/L Total Protein 6.2 L (6.3-8.2) g/dL Albumin 3.2 L (3.5-5.0) g/dL Assessment and Plan Assessment: Acute on chronic CHF exacerbation Lactic acidosis Chest pain with history of CAD rule out acute coronary syndrome Dysuria Hyponatremia Acute kidney injury Microcytic anemia Chronic conditions: Diabetes mellitus, GERD, dyslipidemia, hypertension, hypothyroidism Her shortness of breath is likely related to CHF exacerbation worsened with severe aortic stenosis. Her BNP is 6130 with chest x-ray showing advanced pulmonary edema. Echocardiogram done in November 2018 shows EF 45-50% with mild concentric LVH. Currently, she is hemodynamically stable. We will start the patient on Lasix 60 mg IV 3 times a day. We will monitor strict intake and output take along with daily weights. She will also be placed on telemetry monitoring. We will ensure that potassium stays above 4 and magnesium stays above 2. Plan is to repeat chest x-ray tomorrow morning. She will be restarted on metoprolol and Aldactone. Lisinopril will be held due to kidney injury. Cardiology has also been consulted. Patient had a lactic acid of 2.5 on admission. She doesn't have any concerns for infections at this time. Her lactic acidosis is likely related to dehydration. Repeat lactic acid was within normal limits. There is nothing further to do at this time. Patient initially had troponins less than 0.012 with EKG showing sinus rhythm with complete heart block and ventricular paced rhythm. Since her chest pain relieved with nitroglycerin we will plan to rule out acute coronary syndrome. Plan is to trend troponin/EKG. As above, patient will be placed on telemetry monitoring. Patient with complaints of dysuria. We will obtain urinalysis with reflex to culture. Patient was noted to have a sodium of 129. This is likely chronic in nature. And related to her congestive heart failure. She would likely benefit from some fluid restriction. Repeat BMP has been ordered for tomorrow morning. Patient is noted to have an elevated creatinine of 1.22. Her creatinine on previous admissions were within normal limits (except for last admission). There is a possibility that she could have cardiorenal syndrome. We will avoid nephrotoxins and repeat BMP tomorrow morning. I will discontinue her home medi cation of lisinopril. Patient has microcytic anemia with hemoglobin of 10.7 and MCV of 78. We will continue to monitor with daily CBCs. Plan is to transfuse if hemoglobin is less than 7 or if symptomatic. Otherwise, her home medications will be resumed. She'll be started on insulin sliding scale with regular Accu-Cheks and hypoglycemic precautions for diabetes. Synthroid to be resumed for hypothyroidism. She is admitted for anticipated greater than 48 hours admission for treatment of advanced pulmonary edema and cardiology evaluation. DVT prophylaxis: [Heparin] Discussed with: [Patient] Anticipated discharge: [2-3 days] Anticipated discharge place: [Home versus rehab] A total of [45] minutes was spent on the care of this complex patient more than 50% of the time was spent in counseling and care coordination. Patient names her daughter Christine decision maker if she can't make decisions for herself. Patient will like to be full code.
[2019-04-07] MEDS: FUROSEMIDE 10 MG/ML 4 ML VIAL IV SCH (23:31)
[2019-04-08 00:35] LABS: Appearance,Urine Cloudy (Clear); Bacteria,Urine Occasional /hpf; Bilirubin,Urine Negative (Negative); Blood,Urine Negative (Negative); Color,Urine Yellow; Glucose,Urine (UA) Negative (Negative); Ketones,Urine Negative (Negative); Leukocyte Esterase,Urine Large (Negative); Mucus,Urine Rare /hpf; Nitrite,Urine Negative (Negative); Protein,Urine Negative (Negative); RBC,Urine 1 /hpf (0-5); Specific Gravity,Urine 1.011 (1.001-1.035); Squamous Epithelial Cell,Urine 15 /hpf (0-4); Urobilinogen,Urine <2.0 mg/dL (<2.0); WBC,Urine 17 /hpf (0-5)
[2019-04-08 03:08] LABS: Glucose,Whole Blood 108 mg/dL (75-99)
[2019-04-08] MEDS: LEVOTHYROXINE 88 MCG TAB PO SCH (05:32)
[2019-04-08 06:39] LABS: Calcium 8.6 mg/dL (8.4-10.2); Potassium 4.3 mmol/L (3.5-5.1)
[2019-04-08 07:04] LABS: Glucose,Whole Blood 121 mg/dL (75-99)
[2019-04-08] MEDS: INSULIN ASPART (NovoLOG) 100 UNIT/ML VIAL SQ SCH ×4 (07:07→22:30)
--- NOTE | 2019-04-08 08:04 | XR ---
EXAMINATION TYPE: XR chest 1V portable DATE OF EXAM: 04/08/2019 COMPARISON: Prior chest x-ray 04/07/2019 HISTORY: Shortness of breath TECHNIQUE: Single frontal view of the chest is obtained. FINDINGS: The heart remains enlarged. Generator is present in the left pectoral region, there are ov erlying cardiac leads. Pacemaker lead present in the right ventricle. No evident pneumothorax. Pleura l parenchymal changes are similar to prior exam. Right hemidiaphragm is obscured. There is blunting o f the right costophrenic angle. Fluid is present along the azygos fissure. Perihilar groundglass opac ity suspected. IMPRESSION: Findings similar to prior exam. Cardiomegaly. Suspect atelectasis versus congestive hear t failure with edema and associated right pleural effusion effusion, pneumonia not excluded.
[2019-04-08] MEDS ORDERED: LISINOPRIL 10 MG TAB PO SCH (09:00)
[2019-04-08] MEDS ORDERED: HEPARIN SODIUM,PORCINE 5,000 UNIT/ML 1 ML VIAL SQ SCH (09:00)
[2019-04-08] MEDS ORDERED: FUROSEMIDE 10 MG/ML 4 ML VIAL IV SCH (09:00)
[2019-04-08] MEDS: SERTRALINE 25 MG TAB PO SCH (09:21)
[2019-04-08] MEDS: SPIRONOLACTONE 25 MG TAB PO SCH (09:21)
[2019-04-08] MEDS: amLODIPine 10 MG TAB PO SCH (09:21)
[2019-04-08] MEDS: METOPROLOL SUCCINATE (ER) 25 MG TAB.ER.24H PO SCH (09:21)
[2019-04-08] MEDS: FUROSEMIDE 10 MG/ML 4 ML VIAL IV SCH ×3 (09:22→23:13)
[2019-04-08] MEDS: traMADol 50 MG TAB PO PRN ×2 (09:23→18:17)
[2019-04-08 11:06] LABS: Glucose,Whole Blood 125 mg/dL (75-99)
--- NOTE | 2019-04-08 13:45 | P.CRDCN ---
History of Present Illness History of present illness: HISTORY OF PRESENTING ILLNESS This is a pleasant 89-year-old female past medical history significant for coronary artery disease with disease of the distal left main, severe aortic stenosis not a candidate for valve replacement, high degree AV block status post permanent pacemaker implantation, diabetes mellitus, hypertension and dyslipidemia. She follows in the office with Dr. Ybarra. We have been asked to see in consultation for heart failure. She is seen and examined resting comfortably laying flat in no acute distress. She states she presented to the hospital secondary to feeling lightheaded like she was going to pass out. This occurred while at rest. She states she has been struggling with this for the previous 6 months with no specific aggravating or alleviating factor. While this occurred yesterday she did feel some associated shortness of breath. She denies chest pain, palpitations, nausea, vomiting or diaphoresis. There was no actual loss of consciousness. Chest x-ray on arrival revealed advanced pulmonary edema with pleural effusions. She was started on IV diuresis. Repeat chest x-ray today reveals blunting of the right costophrenic angle. Laboratory data reviewed, WBC 7.1, hemoglobin 10.7, platelets 221, sodium 131, potassium 4.3, creatinine 1.25, lactic acid on admission 2.5 with a repeat of 1.1, cardiac enzymes negative 3, NT proBNP 6130. Chronic daily cardiac medications include aspirin 81 mg daily, atorvastatin 20 mg daily, Lasix 40 mg twice a day, lisinopril 10 mg daily, Toprol 25 mg daily, Aldactone 25 mg daily and amlodipine 10 mg daily. Most recent echocardiogram obtained November 2018 reveals mildly impaired LV systolic function with ejection fraction 45-50%, septal wall motion delay consistent ventricular pacing, severe aortic stenosis with a mean gradient of 75 mmHg, mild to moderate MR with a mean gradient of 5 mmHg and mild TR. In February she underwent a thoracentesis with 1300, rales of brownish fluid aspirat ed from her chronic right pleural effusion. REVIEW OF SYSTEMS At the time of my exam: CONSTITUTIONAL: Denies fever or chills. CARDIOVASCULAR: Complains of feeling lightheaded. Denies chest pain, shortness of breath, orthopnea, PND or palpitations. RESPIRATORY: Denies cough. GASTROINTESTINAL: Denies abdominal pain, diarrhea, constipation, nausea or vomiting. MUSCULOSKELETAL: Denies myalgias. NEUROLOGIC: Denies numbness, tingling or weakness. ENDOCRINE: Denies fatigue, weight change, polydipsia or polyurina. GENITOURINARY: Denies burning, hematuria or urgency with micturation. HEMATOLOGIC: Denies history of anemia or bleeding. PHYSICAL EXAMINATION Blood pressure 122/67 heart rate 99 afebrile and maintaining oxygen saturation on room air. CONSTITUTIONAL: No apparent distress. HEENT: Head is normocephalic. Pupils are equal, round. Sclerae anicteric. Mucous membranes of the mouth are moist. No JVD. No carotid bruit. CHEST EXAMINATION: Lungs are clear to auscultation. No chest wall tenderness is noted on palpation or with deep breathing. Diminished bilaterally. HEART EXAMINATION: Regular rate and rhythm. S1, S2 heard. Significant systolic ejection murmur, no gallops or rub. ABDOMEN: Soft, nontender. Positive bowel sounds. EXTREMITIES: 2+ peripheral pulses, no lower extremity edema and no calf tenderness. NEUROLOGIC EXAMINATION: Patient is awake, alert and oriented x3. ASSESSMENT Symptoms of lightheaded and shortness of breath. Clinically she does not appear in heart failure. Chronic pleural effusion s/p thoracentesis Lactic acidosis Acute kidney injury Severe aortic stenosis History of coronary artery disease with distal left main disease s/p permanent pacemaker implantation secondary to high degree AV block Hypertension Dyslipidemia Diabetes mellitus PLAN Interrogate her device and increase her rate to 60 bpm. Obtain ultrasound of the chest to assess the size of her pleural effusion. If significant will request pulmonary team to evaluate her. Check d-dimer, if abnormal VQ scan for PE. Thank you kindly for this consultation. Nurse Practitioner note has been reviewed, I agree with a documented findings and plan of care. Patient was seen and examined. Past Medical History Past Medical History: Coronary Artery Disease (CAD), Diabetes Mellitus, Eye Disorder, GERD/Reflux, Hyperlipidemia, Hypertension, Osteoarthritis (OA), Syncope, Thyroid Disorder Additional Past Medical History / Comment(s): Syncope/CHB and had temporary then permanent pacemaker, currently has 3 small decub on coccyx per pt/mindy, NIDDM type II, diabetic neuropathy bilateral feet, severe aortic stenosis, polyarthr itis, essential tremors, hypothyroid, bilateral cataracts, incontinence or urine and occasionally stool, constipation, UTI. History of Any Multi-Drug Resistant Organisms: ESBL Date of last positivie culture/infection: 07/21/18 MDRO Source:: ESBL URINE Past Surgical History: Cholecystectomy, Heart Catheterization, Orthopedic Surgery, Pacemaker Additional Past Surgical History / Comment(s): 06/17/18 temporary pacemaker, 06/19/18 permanent pacemaker, R knee arthrotomy d/t chip, colonoscopy. Past Anesthesia/Blood Transfusion Reactions: No Reported Reaction Type of Cardiac Device: Permanent Pacemaker Device Placement Date:: 06/19/18 Past Psychological History: Anxiety, Depression Smoking Status: Former smoker Past Alcohol Use History: None Reported Past Drug Use History: None Reported - Past Family History Father Additional Family Medical History / Comment(s): Father was an alcoholic Mother Family Medical History: Asthma Additional Family Medical History / Comment(s): Mother at the age of 54yrs- pt unsure from what. Medications and Allergies Home Medications Medication Instructions Recorded Confirmed Type Acarbose [Precose] 25 mg PO DAILY 06/17/18 04/07/19 History Aspirin EC [Ecotrin Low Dose] 81 mg PO DAILY 06/17/18 04/07/19 History Atorvastatin [Lipitor] 20 mg PO HS 06/17/18 04/07/19 History Cholecalciferol [Vitamin D3 (25 1,000 unit PO HS 06/17/18 04/07/19 History Mcg = 1000 Iu)] Hydrocortisone Pr Cream 1 applic RECTAL DAILY 06/17/18 04/07/19 History [Proctosol-Hc 2.5%] Levothyroxine Sodium [Synthroid] 88 mcg PO DAILY 06/17/18 04/07/19 History Sertraline HCl [Zoloft] 25 mg PO DAILY 06/17/18 04/07/19 History metFORMIN HCL [Glucophage] 250 mg PO BID 06/17/18 04/07/19 History Lisinopril [Zestril] 10 mg PO DAILY 06/30/18 04/07/19 History Metoprolol Succinate (ER) [Toprol 25 mg PO DAILY 06/30/18 04/07/19 History XL] amLODIPine [Norvasc] 10 mg PO DIRECTED 11/24/18 04/07/19 History ALPRAZolam [Xanax] 0.25 mg PO HS #14 tab 03/09/19 04/07/19 Rx Furosemide [Lasix] 40 mg PO BID #60 tab 03/09/19 04/07/19 Rx Gabapentin [Neurontin] 100 mg PO HS #30 cap 03/09/19 04/07/19 Rx Spironolactone [Aldactone] 25 mg PO DAILY #30 tab 03/09/19 04/07/19 Rx traMADol HCl [Ultram] 50 mg PO BID 3 Days #14 tab 03/09/19 04/07/19 Rx Clotrimazole/Betamethasone Dip 1 applic TOPICAL BID 04/07/19 04/07/19 History [Lotrisone Cream] Mag Hydrox/Al Hydrox/Simeth 30 ml PO DAILY 04/07/19 04/07/19 History [Maalox] Magnesium Oxide [Mag-Ox] 400 mg PO DAILY 04/07/19 04/07/19 History Omeprazole Magnesium [PriLOSEC OTC] 40 mg PO DAILY 04/07/19 04/07/19 History Simethicone [Gas-X] 125 mg PO HS 04/07/19 04/07/19 History Allergies Allergy/AdvReac Type Severity Reaction Status Date / Time amoxicillin Allergy Unknown Verified 04/07/19 22:43 Iodinated Contrast Media Allergy Unknown Verified 04/07/19 22:43 [Iodinated Contrast- Oral and IV Dye] metoclopramide [From Reglan] Allergy Unknown Verified 04/07/19 22:43 sulfamethoxazole Allergy Unknown Verified 04/07/19 22:43 [From Septra] trimethoprim [From Septra] Allergy Unknown Verified 04/07/19 22:43 ampicillin AdvReac Nausea & Verified 04/07/19 22:43 Vomiting cephalexin AdvReac Nausea & Verified 04/07/19 22:43 Vomiting levofloxacin AdvReac SHAKING,PUGA Verified 04/07/19 22:43 ICS Physical Exam Vitals: Vital Signs Temp Pulse Pulse Resp BP BP Pulse Ox 04/08/19 11:37 97.9 F 99 18 122/67 93 L 04/08/19 05:33 106/47 04/08/19 04:20 97.4 F L 50 L 16 90/42 99 04/07/19 23:28 108/46 04/07/19 22:30 50 L 16 04/07/19 21:25 96.4 F L 50 L 16 98/45 100 04/07/19 20:00 98.2 F 50 L 18 115/45 98 04/07/19 18:44 49 L 20 118/73 100 04/07/19 16:28 98.5 F 63 20 117/56 96 Intake and Output 04/07/19 04/08/19 04/08/19 22:59 06:59 14:59 Intake Total 120 Balance 120 Intake: Oral 120 Other: Voiding Method Bedpan Toilet Diaper Diaper Incontinent # Voids 4 Weight 86 kg 85.5 kg Results 04/07/19 17:05 04/08/19 05:23 Cardiac Enzymes 04/07/19 04/07/19 04/07/19 Range/Units 17:05 17:05 23:00 AST 17 (14-36) U/L Troponin I 0.017 0.023 (0.000-0.034) ng/mL 04/08/19 Range/Units 05:23 AST (14-36) U/L Troponin I 0.020 (0.000-0.034) ng/mL Coagulation 04/07/19 Range/Units 17:05 PT 10.8 (9.0-12.0) sec APTT 23.9 (22.0-30.0) sec CBC 04/07/19 Range/Units 17:05 WBC 7.1 (3.8-10.6) k/uL RBC 4.21 (3.80-5.40) m/uL Hgb 10.7 L (11.4-16.0) gm/dL Hct 32.8 L (34.0-46.0) % Plt Count 221 (150-450) k/uL Comprehensive Metabolic Panel 04/07/19 04/08/19 Range/Units 17:05 05:23 Sodium 129 L 131 L (137-145) mmol/L Potassium 4.8 4.3 (3.5-5.1) mmol/L Chloride 94 L 93 L (98-107) mmol/L Carbon Dioxide 25 29 (22-30) mmol/L BUN 32 H 31 H (7-17) mg/dL Creatinine 1.22 H 1.25 H (0.52-1.04) mg/dL Glucose 134 H 90 (74-99) mg/dL Calcium 8.8 8.6 (8.4-10.2) mg/dL AST 17 (14-36) U/L ALT 9 (4-34) U/L Alkaline Phosphatase 134 H (38-126) U/L Total Protein 6.2 L (6.3-8.2) g/dL Albumin 3.2 L (3.5-5.0) g/dL Current Medications Generic Name Dose Route Start Last Admin Trade Name Freq PRN Reason Stop Dose Admin Acetaminophen 650 mg 04/07/19 18:44 Tylenol Tab PO Q6HR PRN Mild Pain or Fever > 100.5 Alprazolam 0.25 mg 04/08/19 21:00 Xanax PO HS [facility] Amlodipine Besylate 10 mg 04/08/19 09:00 04/08/19 09:21 Norvasc PO Not Given DAILY [facility] Aspirin 81 mg 04/08/19 17:30 Aspirin PO AC-SUPPER [facility] Atorvastatin Calcium 20 mg 04/08/19 21:00 Lipitor PO HS [facility] Furosemide 60 mg 04/08/19 00:00 04/08/19 09:22 Lasix IV 60 mg Q8HR [facility] Administration Heparin Sodium (Porcine) 5,000 unit 04/08/19 09:00 04/08/19 09:21 Heparin SQ 5,000 unit Q12HR [facility] Administration Insulin Aspart 0 unit 04/08/19 07:30 04/08/19 11:23 Novolog SQ Not Given ACHS [facility] Protocol Levothyroxine Sodium 88 mcg 04/08/19 06:30 04/08/19 05:32 Synthroid PO 88 mcg DAILY@0630 [facility] Administration Metoprolol Succinate 25 mg 04/08/19 09:00 04/08/19 09:21 Toprol Xl PO Not Given DAILY [facility] Naloxone HCl 0.2 mg 04/07/19 18:44 Narcan IV Q2M PRN Opioid Reversal Pantoprazole Sodium 40 mg 04/08/19 19:00 Protonix PO DAILY@1900 [facility] Sertraline HCl 25 mg 04/08/19 09:00 04/08/19 09:21 Zoloft PO 25 mg DAILY [facility] Administration Spironolactone 25 mg 04/08/19 09:00 04/08/19 09:21 Aldactone PO 25 mg DAILY [facility] Administration Tramadol HCl 50 mg 04/07/19 21:08 04/08/19 09:23 Ultram PO 50 mg Q6H PRN Administration Moderate Pain Intake and Output 04/07/19 04/08/19 04/08/19 22:59 06:59 14:59 Intake Total 120 Balance 120 Intake: Oral 120 Other: Voiding Method Bedpan Toilet Diaper Diaper Incontinent # Voids 4 Weight 86 kg 85.5 kg 04/07/19 17:05 04/08/19 05:23
[2019-04-08 13:48] VITALS: BMI 34.4
--- NOTE | 2019-04-08 14:50 | US ---
EXAMINATION TYPE: US chest DATE OF EXAM: 04/08/2019 COMPARISON: x-ray 04/08/2019 CLINICAL HISTORY: shortness of breath, right effusion recent thorac. TECHNIQUE: Targeted ultrasound of the posterior lower right hemithorax EXAM MEASUREMENTS: Right Pleural Effusion pocket size: 6.9 cm Right skin surface to fluid distance: 2.2 cm Right side marked for possible thoracentesis outside the dept. Pulmonologists are able to review the images in the patient?s EMR. Limited scanning performed at the posterior right chest IMPRESSIONS: Right pleural effusion
--- NOTE | 2019-04-08 17:46 | NM ---
EXAMINATION TYPE: NM pul vent and perfuse DATE OF EXAM: 04/08/2019 COMPARISON: NONE HISTORY: TECHNIQUE: Utilizing inhalation of 70.8 mCi Tc 99m DTPA aerosol and intravenous injection of 5.1 mCi of Tc 99m MAA, ventilation and perfusion images are acquired post injection in multiple projections. FINDINGS: There is matched defect involving the basal segments of the right lower lobe. The chest x-ray today s hows right pleural effusion and right lower lobe infiltrate. There is matched defect involving the li ngula left upper lobe. IMPRESSION: Multiple matched defects. There are large defects in area of radiographic abnormality of the right lo wer lobe. There is intermediate probability of pulmonary embolism.
[2019-04-08] MEDS: ASPIRIN 81 MG PO SCH (18:07)
[2019-04-08 18:10] LABS: Glucose,Whole Blood 131 mg/dL (75-99)
[2019-04-08] MEDS ORDERED: HEPARIN SODIUM,PORCINE 5,000 UNIT/ML 1 ML VIAL IV PRN (18:51)
[2019-04-08] MEDS ORDERED: HEPARIN SODIUM,PORCINE 10,000 UNIT/ML 1 ML VIAL IV ONE (18:51)
--- NOTE | 2019-04-08 19:00 | P.PN ---
Subjective Progress Note Date: 04/08/19 Principal diagnosis: Patient seen in follow-up for shortness of breath due to possible underlying CHF exacerbation and severe aortic stenosis Patient seen and examined she reports feeling dizzy she is laying flat on her recliner denies any chest pain reporting trouble breathing. No fevers no chills No leg swelling Patient denies GI bleeding at bedside Objective - Vital Signs Vital signs: Vital Signs Temp 97.9 F 04/08/19 11:37 Pulse 50 L 04/08/19 16:35 Resp 18 04/08/19 16:35 BP 127/59 04/08/19 16:35 Pulse Ox 96 04/08/19 16:35 Intake & Output 04/07/19 04/08/19 04/08/19 18:59 06:59 18:59 Intake Total 120 Balance 120 Weight 83.915 kg 85.5 kg 85.5 kg Intake: Oral 120 Other: Voiding Method Bedpan Toilet Diaper Diaper Incontinent # Voids 4 - Exam Constitutional: vital signs stable, Not in acute distress, pleasant, conversant , feeling dizzy laying in her recliner Lungs: Good breath sounds bilaterally, with inspiratory rales at lung basis , normal respiratory effort Cardiovascular: Regular rate and rhythm, systolic murmurs, no gallops, no rubs, no peripheral edema Gastrointestinal: Soft, no tenderness to palpation, , bowel sounds positive, Extremities: No digital cyanosis or clubbing, peripheral pulses palpable and equal , no calf muscle tenderness Psych: Alert, oriented to place, person and time, appropriate affect, intact judgment - Labs CBC & Chem 7: 04/07/19 17:05 04/08/19 05:23 Labs: Abnormal Lab Results - Last 24 Hours (Table) 04/07/19 04/08/19 04/08/19 Range/Units 22:25 03:07 05:23 D-Dimer (<0.60) mg/L FEU Sodium 131 L (137-145) mmol/L Chloride 93 L (98-107) mmol/L BUN 31 H (7-17) mg/dL Creatinine 1.25 H (0.52-1.04) mg/dL POC Glucose (mg/dL) 108 H (75-99) mg/dL Urine Appearance Cloudy H (Clear) Ur Leukocyte Esterase Large H (Negative) Urine WBC 17 H (0-5) /hpf Ur Squamous Epith Cells 15 H (0-4) /hpf Urine Bacteria Occasional H (None) /hpf Urine Mucus Rare H (None) /hpf 04/08/19 04/08/19 04/08/19 Range/Units 07:02 11:04 13:44 D-Dimer 3.37 H (<0.60) mg/L FEU Sodium (137-145) mmol/L Chloride (98-107) mmol/L BUN (7-17) mg/dL Creatinine (0.52-1.04) mg/dL POC Glucose (mg/dL) 121 H 125 H (75-99) mg/dL Urine Appearance (Clear) Ur Leukocyte Esterase (Negative) Urine WBC (0-5) /hpf Ur Squamous Epith Cells (0-4) /hpf Urine Bacteria (None) /hpf Urine Mucus (None) /hpf 04/08/19 Range/Units 17:59 D-Dimer (<0.60) mg/L FEU Sodium (137-145) mmol/L Chloride (98-107) mmol/L BUN (7-17) mg/dL Creatinine (0.52-1.04) mg/dL POC Glucose (mg/dL) 131 H (75-99) mg/dL Urine Appearance (Clear) Ur Leukocyte Esterase (Negative) Urine WBC (0-5) /hpf Ur Squamous Epith Cells (0-4) /hpf Urine Bacteria (None) /hpf Urine Mucus (None) /hpf Microbiology - Last 24 Hours (Table) 04/07/19 22:25 Urine Culture - Preliminary Urine,Voided Assessment and Plan Assessment: 89-year-old female with severe aortic stenosis, systolic CHF 45%, 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 In the ED initial workup showed chest x-ray suggestive of congestive heart failure with vascular congestion and right pleural effusion She was also found in acute kidney injury thought to be due to cardiorenal syndrome, with hyponatremia. Flu test was negative Cardiac evaluation did not believe that the patient is an overt exacerbation of CHF. They did a workup to rule out PE d-dimer came back positive VQ scan showed intermediate possibility however her chest x-ray was suggestive of some basal atelectasis and pleural effusion. I will initiate the patient on heparin drip for now with close monitoring due to her microcytic anemia and risk of bleeding. Diagnosis of PE should be confirmed before committing the patient with blood thinners Plan: Difficulty in breathing, cardiology does not believe the patient is an acute CHF , chest x-ray showed right pleural effusion with vascular clinic congestion, VQ scan and d-dimer suggestive of intermediate possibility of PE Diagnoses of PE should be confirmed before committing patient with blood thinners Patient initiated on heparin drip Close monitoring for any evidence of GI bleeding Patient not hypoxic on room air She denies any chest pain Cardiology following Resume cardiac meds, metoprolol, spironolactone, Norvasc, statin and aspirin High degree AV block status post pacemaker Bradycardia with ventricular paced rhythm Cardiology interrogate think her pacemaker Acute kidney injury suspected cardiorenal syndrome Hyponatremia, improving Monitor renal function Avoid nephrotoxic meds Continue with IV diuresis ANGIE inhibitor on hold Microcytic anemia Check fecal occult blood Patient denies any GI bleeding Insulin-dependent diabetes Resume home insulin Hypothyroid Resume levothyroxine 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
[2019-04-08 19:03] LABS: Anisocytosis Slight; Basophils % (A) 1 %; Eosinophils # (A) 0.1 k/uL (0-0.7); Eosinophils % (A) 2 %; HCT 33.9 % (34.0-46.0); HGB 10.3 gm/dL (11.4-16.0); Hypochromasia Marked; Lymphocytes # (A) 0.9 k/uL (1.0-4.8); Lymphocytes % (A) 19 %; MCH 25.3 pg (25.0-35.0); MCHC 30.4 g/dL (31.0-37.0); Mean Platelet Volume 10.1; Monocytes # (A) 0.5 k/uL (0-1.0); Monocytes % (A) 11 %; Neutrophils % (A) 64 %; Platelet Count 190 k/uL (150-450); RBC 4.08 m/uL (3.80-5.40); RDW 16.9 % (11.5-15.5); WBC 4.6 k/uL (3.8-10.6)
[2019-04-08 19:22] LABS: INR 1.1 (<1.2); Partial Thromboplastin Time 24.9 sec (22.0-30.0); Prothrombin Time 10.9 sec (9.0-12.0)
[2019-04-08 20:02] LABS: Glucose,Whole Blood 167 mg/dL (75-99)
[2019-04-08] MEDS: HEPARIN SOD,PORK IN 0.45% NACL 25,000 UNIT in 0.45% NACL 1 250ML.BAG IV SCH (20:32)
[2019-04-08] MEDS: PANTOPRAZOLE 40 MG TABLET PO SCH (20:46)
[2019-04-08] MEDS: ALPRAZolam 0.25 MG TAB PO SCH (22:30)
[2019-04-08] MEDS: ATORVASTATIN 20 MG TAB PO SCH (22:30)
[2019-04-09 02:21] LABS: Glucose,Whole Blood 133 mg/dL (75-99)
[2019-04-09] MEDS: traMADol 50 MG TAB PO PRN (04:58)
[2019-04-09 06:01] LABS: Glucose,Whole Blood 160 mg/dL (75-99)
[2019-04-09 06:45] LABS: Anisocytosis Slight; Basophils # (A) 0.1 k/uL (0-0.2); Basophils % (A) 1 %; Eosinophils # (A) 0.2 k/uL (0-0.7); Eosinophils % (A) 2 %; HCT 33.1 % (34.0-46.0); HGB 10.1 gm/dL (11.4-16.0); Lymphocytes % (A) 21 %; MCH 24.1 pg (25.0-35.0); MCHC 30.5 g/dL (31.0-37.0); MCV 79.2 fL (80.0-100.0); Mean Platelet Volume 8.1; Microcytosis Slight; Monocytes # (A) 0.9 k/uL (0-1.0); Monocytes % (A) 9 %; Neutrophils # (A) 6.2 k/uL (1.3-7.7); Neutrophils % (A) 65 %; Platelet Count 298 k/uL (150-450); RBC 4.17 m/uL (3.80-5.40); RDW 17.2 % (11.5-15.5); WBC 9.5 k/uL (3.8-10.6)
[2019-04-09 06:59] LABS: Glucose,Whole Blood 158 mg/dL (75-99)
[2019-04-09 07:28] LABS: Calcium 8.8 mg/dL (8.4-10.2)
[2019-04-09] MEDS: amLODIPine 10 MG TAB PO SCH (07:38)
[2019-04-09] MEDS: METOPROLOL SUCCINATE (ER) 25 MG TAB.ER.24H PO SCH (07:41)
[2019-04-09] MEDS: INSULIN ASPART (NovoLOG) 100 UNIT/ML VIAL SQ SCH ×4 (07:49→20:53)
[2019-04-09] MEDS: FUROSEMIDE 10 MG/ML 4 ML VIAL IV SCH ×2 (07:50→17:22)
[2019-04-09] MEDS: SPIRONOLACTONE 25 MG TAB PO SCH (08:13)
[2019-04-09] MEDS: LEVOTHYROXINE 88 MCG TAB PO SCH (08:13)
[2019-04-09] MEDS: SERTRALINE 25 MG TAB PO SCH (08:13)
[2019-04-09] MEDS ORDERED: ONDANSETRON 4 MG/2 ML VIAL IVP STA (08:33)
[2019-04-09] MEDS ORDERED: PANTOPRAZOLE 40 MG/10 ML VIAL IVP ONE (08:34)
--- NOTE | 2019-04-09 10:16 | US ---
EXAMINATION TYPE: US venous doppler duplex LE DATE OF EXAM: 04/09/2019 9:25 AM COMPARISON: NONE CLINICAL HISTORY: clot, pain, GI bleed. SIDE PERFORMED: Bilateral TECHNIQUE: The lower extremity deep venous system is examined utilizing real time linear array sonog yaw with graded compression, doppler sonography and color-flow sonography. VESSELS IMAGED: External Iliac Vein (EIV) Common Femoral Vein Deep Femoral Vein Greater Saphenous Vein * Femoral Vein Popliteal Vein Small Saphenous Vein * Proximal Calf Veins (* superficial vessels) Right Leg: Negative for DVT Left Leg: Negative for DVT No popliteal fossa lesion was seen. IMPRESSION: THIS EXAMINATION IS NEGATIVE FOR DVT IN BOTH LEGS.
[2019-04-09 11:11] LABS: Glucose,Whole Blood 119 mg/dL (75-99)
--- NOTE | 2019-04-09 11:20 | P.CNPUL ---
History of Present Illness Consult date: 04/09/19 Reason for consult: pleural effusion History of present illness: 89-year-old female patient consulted to evaluate the right-sided pleural effusio n. The patient has a sensitive pleural effusion related to her heart disease that was drained approximately a month ago and the fluid was a transudate with negative cytology. She came in with decompensated heart failure and the clearance of the right-sided pleural effusion and for now she has a 6 cm pocket in the right lung. Request was made by the medical team to drain this fluid. Note that the patient has history of COPD, severe aortic stenosis a non- candidate for any intervention, high-grade AV block and the patient has a pacemaker in place which is being interrogated and adjusted by cardiology. She has diabetes, hypertension and hyperlipidemia. During this current hospitalization, the BNP level was in the 60,000 range. Her lactic acid level was at 2.7. Ammonia is down to 1.1. The patient has been treated with diuretics and she is on IV Lasix. She was given IV heparin considering pulmonary embolism. No indication for pulmonary embolism. IV heparin was discontinued and the Doppler of the lower extremity has been negative. Her last thoracentesis was in February 2019.. The patient has limited mobility. She is morbidly obese. Overall performance and functional status is extremely poor. Review of Systems Constitutional: Reports chronic pain, Reports fatigue, Reports poor appetite, Reports weakness, Reports weight gain Eyes: denies as per HPI, denies blurred vision, denies bulging eye, denies decreased vision, denies diplopia, denies discharge, denies dry eye, denies irritation, denies itching, denies pain, denies photophobia, denies loss of peripheral vision, denies loss of vision, denies tunnel vision/blind spots Ears: deny: decreased hearing, ear discharge, earache, tinnitus Ears, nose, mouth and throat: Denies headache, Denies sore throat Breasts: absent: as per HPI, change in shape, gynecomastia, masses, nipple discharge, pain, skin changes, swelling Cardiovascular: Reports decreased exercise tolerance, Reports dyspnea on exertion, Reports shortness of breath Respiratory: Reports dyspnea, Reports snoring Gastrointestinal: Reports as per HPI Genitourinary: Denies dysuria, Denies hematuria Menstruation: Reports as per HPI Musculoskeletal: Reports as per HPI, Reports gait dysfunction Musculoskeletal: bilateral: ankle swelling, absent: ankle pain, ankle stiffness Neurological: Reports gait dysfunction, Reports weakness Psychiatric: Reports as per HPI Endocrine: Reports as per HPI, Reports fatigue Hematologic/Lymphatic: Reports as per HPI Allergic/Immunologic: Reports as per HPI Past Medical History Past Medical History: Coronary Artery Disease (CAD), Diabetes Mellitus, Eye Disorder, GERD/Reflux, Hyperlipidemia, Hypertension, Osteoarthritis (OA), Syncope, Thyroid Disorder Additional Past Medical History / Comment(s): Syncope/CHB and had temporary then permanent pacemaker, currently has 3 small decub on coccyx per pt/mindy, NIDDM type II, diabetic neuropathy bilateral feet, severe aortic stenosis, polyarthritis, essential tremors, hypothyroid, bilateral cataracts, incontinence or urine and occasionally stool, constipation, UTI. History of Any Multi-Drug Resistant Organisms: ESBL Date of last positivie culture/infection: 07/21/18 MDRO Source:: ESBL URINE Past Surgical History: Cholecystectomy, Heart Catheterization, Orthopedic Connell rgery, Pacemaker Additional Past Surgical History / Comment(s): 06/17/18 temporary pacemaker, 06/19/18 permanent pacemaker, R knee arthrotomy d/t chip, colonoscopy. Past Anesthesia/Blood Transfusion Reactions: No Reported Reaction Type of Cardiac Device: Permanent Pacemaker Device Placement Date:: 06/19/18 Past Psychological History: Anxiety, Depression Smoking Status: Former smoker Past Alcohol Use History: None Reported Past Drug Use History: None Reported - Past Family History Father Additional Family Medical History / Comment(s): Father was an alcoholic Mother Family Medical History: Asthma Additional Family Medical History / Comment(s): Mother at the age of 54yrs- pt unsure from what. Medications and Allergies Home Medications Medication Instructions Recorded Confirmed Type Acarbose [Precose] 25 mg PO DAILY 06/17/18 04/07/19 History Aspirin EC [Ecotrin Low Dose] 81 mg PO DAILY 06/17/18 04/07/19 History Atorvastatin [Lipitor] 20 mg PO HS 06/17/18 04/07/19 History Cholecalciferol [Vitamin D3 (25 1,000 unit PO HS 06/17/18 04/07/19 History Mcg = 1000 Iu)] Hydrocortisone Pr Cream 1 applic RECTAL DAILY 06/17/18 04/07/19 History [Proctosol-Hc 2.5%] Levothyroxine Sodium [Synthroid] 88 mcg PO DAILY 06/17/18 04/07/19 History Sertraline HCl [Zoloft] 25 mg PO DAILY 06/17/18 04/07/19 History metFORMIN HCL [Glucophage] 250 mg PO BID 06/17/18 04/07/19 History Lisinopril [Zestril] 10 mg PO DAILY 06/30/18 04/07/19 History Metoprolol Succinate (ER) [Toprol 25 mg PO DAILY 06/30/18 04/07/19 History XL] amLODIPine [Norvasc] 10 mg PO DIRECTED 11/24/18 04/07/19 History ALPRAZolam [Xanax] 0.25 mg PO HS #14 tab 03/09/19 04/07/19 Rx Furosemide [Lasix] 40 mg PO BID #60 tab 03/09/19 04/07/19 Rx Gabapentin [Neurontin] 100 mg PO HS #30 cap 03/09/19 04/07/19 Rx Spironolactone [Aldactone] 25 mg PO DAILY #30 tab 03/09/19 04/07/19 Rx traMADol HCl [Ultram] 50 mg PO BID 3 Days #14 tab 03/09/19 04/07/19 Rx Clotrimazole/Betamethasone Dip 1 applic TOPICAL BID 04/07/19 04/07/19 History [Lotrisone Cream] Mag Hydrox/Al Hydrox/Simeth 30 ml PO DAILY 04/07/19 04/07/19 History [Maalox] Magnesium Oxide [Mag-Ox] 400 mg PO DAILY 04/07/19 04/07/19 History Omeprazole Magnesium [PriLOSEC OTC] 40 mg PO DAILY 04/07/19 04/07/19 History Simethicone [Gas-X] 125 mg PO HS 04/07/19 04/07/19 History Allergies Allergy/AdvReac Type Severity Reaction Status Date / Time amoxicillin Allergy Unknown Verified 04/07/19 22:43 Iodinated Contrast Media Allergy Unknown Verified 04/07/19 22:43 [Iodinated Contrast- Oral and IV Dye] metoclopramide [From Reglan] Allergy Unknown Verified 04/07/19 22:43 sulfamethoxazole Allergy Unknown Verified 04/07/19 22:43 [From Septra] trimethoprim [From Septra] Allergy Unknown Verified 04/07/19 22:43 ampicillin AdvReac Nausea & Verified 04/07/19 22:43 Vomiting cephalexin AdvReac Nausea & Verified 04/07/19 22:43 Vomiting levofloxacin AdvReac SHAKING,PUGA Verified 04/07/19 22:43 ICS Physical Exam Vitals: Vital Signs Temp Pulse Pulse Pulse Pulse Resp BP 04/09/19 07:42 50 L 04/09/19 06:04 50 L 04/09/19 06:01 47 L 04/09/19 05:00 97.3 F L 50 L 16 04/09/19 01:34 50 L 04/08/19 21:00 98.4 F 41 L 20 04/08/19 16:35 52 L 53 L 50 L 18 134/77 04/08/19 11:37 97.9 F 99 18 BP BP BP BP Pulse Ox 04/09/19 07:42 118/62 04/09/19 06:04 110/73 04/09/19 06:01 104/62 100 04/09/19 05:00 143/69 97 04/09/19 01:34 147/69 94 L 04/08/19 21:00 147/67 95 04/08/19 16:35 142/53 127/59 96 04/08/19 11:37 122/67 93 L Intake and Output 04/08/19 04/09/19 04/09/19 22:59 06:59 14:59 Intake Total 590 723.081 Balance 590 723.081 Intake: Intake, IV Titration 133.081 Amount Heparin Sod,Pork in 0.45% 133.081 NaCl 25,000 unit In 0.45 % NaCl 1 250ml.bag @ 18 UNITS/KG/HR 15.39 mls/hr IV .[id number] ON LICENSE OF [facility] Rx#: [id number] Oral 590 590 Other: Voiding Method Diaper Diaper Incontinent Incontinent # Voids 1 2 Weight 86.5 kg GENERAL EXAM: Alert, very pleasant, 89-year-old white female, in 2 L of oxygen with a pulse ox of 97%, comfortable in no apparent distress. HEAD: Normocephalic/atraumatic. EYES: Normal reaction of pupils, equal size. Conjunctiva pink, sclera white. NOSE: Clear with pink turbinates. THROAT: No erythema or exudates. NECK: No masses, no JVD, no thyroid enlargement, no adenopathy. CHEST: No chest wall deformity. Symmetrical expansion. LUNGS: Equal air entry with no crackles, wheeze, rhonchi or dullness. CVS: Regular rate and rhythm, normal S1 and S2, no gallops, no murmurs, no rubs ABDOMEN: Soft, nontender. No hepatosplenomegaly, normal bowel sounds, no guarding or rigidity. EXTREMITIES: No clubbing, 1+ pretibial edema, no cyanosis, 2+ pulses and upper and lower extremities. MUSCULOSKELETAL: Muscle strength and tone normal. SPINE: No scoliosis or deformity SKIN: No rashes CENTRAL NERVOUS SYSTEM: Alert and oriented -3. No focal deficits, tone is normal in all 4 extremities. PSYCHIATRIC: Alert and oriented -3. Appropriate affect. Intact judgment and insight. Results - Laboratory Findings CBC and BMP: 04/09/19 06:28 04/09/19 06:28 PT/INR, D-dimer PT 10.9 sec (9.0-12.0) 04/08/19 13:44 INR 1.1 (<1.2) 04/08/19 13:44 D-Dimer 3.37 mg/L FEU (<0.60) H 04/08/19 13:44 Abnormal lab findings: Abnormal Labs 04/07/19 04/07/19 04/07/19 17:05 17:05 17:05 Hgb 10.7 L Hct 32.8 L MCV 78.0 L MCH MCHC RDW 17.1 H Lymphocytes # APTT D-Dimer Sodium 129 L Chloride 94 L Carbon Dioxide BUN 32 H Creatinine 1.22 H Glucose 134 H POC Glucose (mg/dL) Plasma Lactic Acid Jose Guadalupe 2.5 H* Alkaline Phosphatase 134 H Total Protein 6.2 L Albumin 3.2 L Urine Appearance Ur Leukocyte Esterase Urine WBC Ur Squamous Epith Cells Urine Bacteria Urine Mucus 04/07/19 04/08/19 04/08/19 22:25 03:07 05:23 Hgb Hct MCV MCH MCHC RDW Lymphocytes # APTT D-Dimer Sodium 131 L Chloride 93 L Carbon Dioxide BUN 31 H Creatinine 1.25 H Glucose POC Glucose (mg/dL) 108 H Plasma Lactic Acid Jose Guadalupe Alkaline Phosphatase Total Protein Albumin Urine Appearance Cloudy H Ur Leukocyte Esterase Large H Urine WBC 17 H Ur Squamous Epith Cells 15 H Urine Bacteria Occasional H Urine Mucus Rare H 04/08/19 04/08/19 04/08/19 05:23 07:02 11:04 Hgb 10.3 L Hct 33.9 L MCV MCH MCHC 30.4 L RDW 16.9 H Lymphocytes # 0.9 L APTT D-Dimer Sodium Chloride Carbon Dioxide BUN Creatinine Glucose POC Glucose (mg/dL) 121 H 125 H Plasma Lactic Acid Jose Guadalupe Alkaline Phosphatase Total Protein Albumin Urine Appearance Ur Leukocyte Esterase Urine WBC Ur Squamous Epith Cells Urine Bacteria Urine Mucus 04/08/19 04/08/19 04/08/19 13:44 17:59 20:00 Hgb Hct MCV MCH MCHC RDW Lymphocytes # APTT D-Dimer 3.37 H Sodium Chloride Carbon Dioxide BUN Creatinine Glucose POC Glucose (mg/dL) 131 H 167 H Plasma Lactic Acid Jose Guadalupe Alkaline Phosphatase Total Protein Albumin Urine Appearance Ur Leukocyte Esterase Urine WBC Ur Squamous Epith Cells Urine Bacteria Urine Mucus 04/09/19 04/09/19 04/09/19 00:56 02:19 05:59 Hgb Hct MCV MCH MCHC RDW Lymphocytes # APTT >200.0 H* D-Dimer Sodium Chloride Carbon Dioxide BUN Creatinine Glucose POC Glucose (mg/dL) 133 H 160 H Plasma Lactic Acid Jose Guadalupe Alkaline Phosphatase Total Protein Albumin Urine Appearance Ur Leukocyte Esterase Urine WBC Ur Squamous Epith Cells Urine Bacteria Urine Mucus 04/09/19 04/09/19 04/09/19 06:28 06:28 06:28 Hgb 10.1 L Hct 33.1 L MCV 79.2 L MCH 24.1 L MCHC 30.5 L RDW 17.2 H Lymphocytes # APTT 86.4 H D-Dimer Sodium 131 L Chloride 96 L Carbon Dioxide 21 L BUN 40 H Creatinine 1.35 H Glucose 137 H POC Glucose (mg/dL) Plasma Lactic Acid Jose Guadalupe Alkaline Phosphatase Total Protein Albumin Urine Appearance Ur Leukocyte Esterase Urine WBC Ur Squamous Epith Cells Urine Bacteria Urine Mucus 04/09/19 04/09/19 06:58 11:09 Hgb Hct MCV MCH MCHC RDW Lymphocytes # APTT D-Dimer Sodium Chloride Carbon Dioxide BUN Creatinine Glucose POC Glucose (mg/dL) 158 H 119 H Plasma Lactic Acid Jose Guadalupe Alkaline Phosphatase Total Protein Albumin Urine Appearance Ur Leukocyte Esterase Urine WBC Ur Squamous Epith Cells Urine Bacteria Urine Mucus - Diagnostic Findings Chest x-ray: image reviewed Assessment and Plan Plan: 1 CHF with valvular heart disease and severe aortic stenosis with chronic right- sided pleural effusion, recently drained and the fluid was a transudate with a total of 1.3 L of fluid was evacuated from the right lung successfully without any major issues. There is some recurrence of the right-sided pleural effusion. Currently the patient on IV Lasix. 2 recurrent right pleural effusion 3 Coronary artery disease 4 Complete heart block status post permanent pacemaker implantation 5 Diabetes mellitus, type II 6 Hypertension 7 Hyperlipidemia. 8 History of ESBL urine 9 Anxiety/depression 10 Morbid obesity Plan No need for IV heparin Obtain a consent for right-sided thoracentesis Amount of fluid is smaller compared to last month. Will do the procedure to give the patient symptomatic relief. There is a transudate and it'll likely re cur and the treatment will ultimately be medical management and treatment of his congestion heart failure and valvular heart disease. Unfortunately the patient does not seem to be a good candidate for valve replacement procedure.
[2019-04-09 11:29] LABS: Anisocytosis Slight; HCT 31.7 % (34.0-46.0); HGB 10.2 gm/dL (11.4-16.0); MCH 25.1 pg (25.0-35.0); MCHC 32.1 g/dL (31.0-37.0); MCV 78.3 fL (80.0-100.0); Mean Platelet Volume 7.6; Microcytosis Slight; Platelet Count 304 k/uL (150-450); RBC 4.05 m/uL (3.80-5.40); RDW 16.8 % (11.5-15.5); WBC 8.1 k/uL (3.8-10.6)
--- NOTE | 2019-04-09 11:29 | P.PCN ---
Date of Procedure: 04/09/19 Preoperative Diagnosis: Right-sided pleural effusion Postoperative Diagnosis: Same Procedure(s) Performed: Thoracentesis Anesthesia: local Surgeon: Quyen Lee Pathology: none sent Condition: stable Disposition: floor Operative Findings: Indication: Pleural effusion. A time-out was completed verifying correct patient, procedure, site, positioning, and implant (s) or special equipment if applicable. Ultrasound guidance was used and appropriate fluid pocket was identified and marked. Patient was positioned, prepped and draped in usual sterile fashion. Lidocaine was used to anesthetize the area. A Thoracentesis catheter was introduced into the pleural space and fluid was removed. Blood loss was none. A chest x-ray was ordered to evaluate for pneumothorax. Total Fluid Removed: 350cc Color of Fluid: turbid yellow Fluid was not sent for appropriate laboratory tests. Patient tolerated the procedure well and there were no complications.
[2019-04-09] MEDS: HEPARIN SOD,PORK IN 0.45% NACL 25,000 UNIT in 0.45% NACL 1 250ML.BAG IV SCH (11:42)
--- NOTE | 2019-04-09 12:17 | XR ---
EXAMINATION TYPE: XR chest 1V DATE OF EXAM: 04/09/2019 HISTORY: post thoracentesis. REFERENCE: Previous study dated 04/08/2019. FINDINGS: There is unipolar pacemaker place on the left. There is been a decrease in amount of right pleural fluid following thoracentesis. No definite pneumo thorax is seen. There is some atelectatic change present at the right lung base. The left lung is malcolm ar. The heart is mildly enlarged. IMPRESSION: I DO NOT SEE A POSTTHORACENTESIS COMPLICATION.
--- NOTE | 2019-04-09 14:25 | P.PN ---
Subjective Progress Note Date: 04/09/19 Principal diagnosis: Shortness of breath This is a pleasant 89-year-old female patient with history of coronary artery disease, known critical disease involving the left main coronary artery, known severe aortic stenosis, as well as recurrent pleural effusion, was admitted to [facility] with increasing in the shortness of breath. Initially the patient was diagnosed was PE as she was started on anticoagulation. She was seen today, April 09. She was vomiting blood this morning and the anticoagulation was stopped. Overall she is not feeling well. She is quite nauseated and experiencing vomiting as well as. No symptoms of chest pain. Knowing the patient from before, and knowing her critical cardiac conditions, I would advise the patient to be on comfort care. Objective - Vital Signs Vital signs: Vital Signs Temp 98 F 04/09/19 11:15 Pulse 62 04/09/19 11:15 Resp 20 04/09/19 11:15 BP 104/49 04/09/19 11:15 Pulse Ox 99 04/09/19 11:15 Intake & Output 04/08/19 04/09/19 04/09/19 18:59 06:59 18:59 Intake Total 1313.081 Balance 1313.081 Weight 85.5 kg 86.5 kg Intake: Intake, IV Titration 133.081 Amount Heparin Sod,Pork in 0.45% 133.081 NaCl 25,000 unit In 0.45 % NaCl 1 250ml.bag @ 18 UNITS/KG/HR 15.39 mls/hr IV .[id number] [facility] Rx#: [id number] Oral 1180 Other: Voiding Method Toilet Diaper Diaper Diaper Incontinent Incontinent # Voids 4 2 - Constitutional General appearance: Present: no acute distress - Respiratory Respiratory: bilateral: diminished - Cardiovascular Heart sounds: normal: S1, S2 Abnormal Heart Sounds: Present: systolic murmur - Labs CBC & Chem 7: 04/09/19 11:12 04/09/19 06:28 Labs: Abnormal Lab Results - Last 24 Hours (Table) 04/08/19 04/08/19 04/08/19 Range/Units 05:23 17:59 20:00 Hgb 10.3 L (11.4-16.0) gm/dL Hct 33.9 L (34.0-46.0) % MCV (80.0-100.0) fL MCH (25.0-35.0) pg MCHC 30.4 L (31.0-37.0) g/dL RDW 16.9 H (11.5-15.5) % Lymphocytes # 0.9 L (1.0-4.8) k/uL APTT (22.0-30.0) sec Sodium (137-145) mmol/L Chloride (98-107) mmol/L Carbon Dioxide (22-30) mmol/L BUN (7-17) mg/dL Creatinine (0.52-1.04) mg/dL Glucose (74-99) mg/dL POC Glucose (mg/dL) 131 H 167 H (75-99) mg/dL 04/09/19 04/09/19 04/09/19 Range/Units 00:56 02:19 05:59 Hgb (11.4-16.0) gm/dL Hct (34.0-46.0) % MCV (80.0-100.0) fL MCH (25.0-35.0) pg MCHC (31.0-37.0) g/dL RDW (11.5-15.5) % Lymphocytes # (1.0-4.8) k/uL APTT >200.0 H* (22.0-30.0) sec Sodium (137-145) mmol/L Chloride (98-107) mmol/L Carbon Dioxide (22-30) mmol/L BUN (7-17) mg/dL Creatinine (0.52-1.04) mg/dL Glucose (74-99) mg/dL POC Glucose (mg/dL) 133 H 160 H (75-99) mg/dL 04/09/19 04/09/19 04/09/19 Range/Units 06:28 06:28 06:28 Hgb 10.1 L (11.4-16.0) gm/dL Hct 33.1 L (34.0-46.0) % MCV 79.2 L (80.0-100.0) fL MCH 24.1 L (25.0-35.0) pg MCHC 30.5 L (31.0-37.0) g/dL RDW 17.2 H (11.5-15.5) % Lymphocytes # (1.0-4.8) k/uL APTT 86.4 H (22.0-30.0) sec Sodium 131 L (137-145) mmol/L Chloride 96 L (98-107) mmol/L Carbon Dioxide 21 L (22-30) mmol/L BUN 40 H (7-17) mg/dL Creatinine 1.35 H (0.52-1.04) mg/dL Glucose 137 H (74-99) mg/dL POC Glucose (mg/dL) (75-99) mg/dL 04/09/19 04/09/19 04/09/19 Range/Units 06:58 11:09 11:12 Hgb 10.2 L (11.4-16.0) gm/dL Hct 31.7 L (34.0-46.0) % MCV 78.3 L (80.0-100.0) fL MCH (25.0-35.0) pg MCHC (31.0-37.0) g/dL RDW 16.8 H (11.5-15.5) % Lymphocytes # (1.0-4.8) k/uL APTT (22.0-30.0) sec Sodium (137-145) mmol/L Chloride (98-107) mmol/L Carbon Dioxide (22-30) mmol/L BUN (7-17) mg/dL Creatinine (0.52-1.04) mg/dL Glucose (74-99) mg/dL POC Glucose (mg/dL) 158 H 119 H (75-99) mg/dL Microbiology - Last 24 Hours (Table) 04/07/19 22:25 Urine Culture - Final Urine,Voided 04/07/19 17:05 Blood Culture - Preliminary Blood No Growth after 24 hours Assessment and Plan Assessment: Assessment #1 increasing in the shortness of breath #2 recurrent pleural effusion and status post pleurocentesis #3 coronary artery disease #4 severe aortic stenosis #5 hypertension #6 status post permanent pacemaker Plan #1 decrease the dose of amlodipine in view of the margin blood pressure #2 I will advice and suggests that the patient to be discomfort care getting care advanced cardiac conditions.
[2019-04-09] MEDS ORDERED: PROMETHAZINE INJ 6.25 MG in SODIUM CHLORIDE 0.9% 50 ML IVPB PRN (15:22)
[2019-04-09] MEDS: MORPHINE SULFATE 4 MG/ML SYRINGE IVP PRN (16:13)
--- NOTE | 2019-04-09 16:18 | P.PN ---
Subjective Progress Note Date: 04/09/19 Principal diagnosis: Shortness of breath Patient is an 89 yo CF with a hx of severe aortic stenosis, heart block s/p PPM, and severe coronary artery disease with distal left main disease who presented with shortness of breath and weakness. She had been admitted here from February 25- discharged to [facility] for rehabilitation. She was discharged from [facility] on 03/31/2019 and her shortness of breath and weakness have been getting progressively worse. On arrival to the ER her vital signs within normal limits. Initial laboratory analysis showed a hemoglobin 10.7, sodium 129 with baseline approximately 133, creatinine 1.22, troponin of 0.017, and a negative urina lysis. Influenza was negative. Chest x-ray was completed which showed pulmonary edema with pleural effusions moderate on the right and mild on the left and increasing from prior study. She was admitted for acute exacerbation of congestive heart failure and lactic acidosis as long as chest pain with a history of coronary artery disease. She was started on Lasix and was continued on her beta oscar, her ANGIE inhibitor was held secondary to acute kidney injury. She was noted to have an elevated lactic acid and was was felt to be secondary to hypoperfusion and not reflective of sepsis. Cardiology was consulted and her pacemaker was interrogated with her rate increased to 60 bpm. They recommended an ultrasound of the chest to assess size of her pleural effusion and pulmonary team to evaluate her. They also ordered a d-dimer which was found to be positive. VQ scan ordered and was indeterminate She was started on heparin gtt. Wells score is 1. Overnight on 04/08 she developed nausea and had bright red blood in her emesis basin. Bilateral lower extremity DVTs negative. Her heparin drip was stopped. Patient seen and examined at bedside. She is feeling nauseated, denies chest pain, + light headed, + Shortness of breath, No diaphoresis. Objective - Vital Signs Vital signs: Vital Signs Temp 97.3 F L 04/09/19 05:00 Pulse 50 L 04/09/19 07:42 Resp 16 04/09/19 05:00 BP 118/62 04/09/19 07:42 Pulse Ox 100 04/09/19 06:01 Intake & Output 04/08/19 04/09/19 04/09/19 18:59 06:59 18:59 Intake Total 1313.081 Balance 1313.081 Weight 85.5 kg 86.5 kg Intake: Intake, IV Titration 133.081 Amount Heparin Sod,Pork in 0.45% 133.081 NaCl 25,000 unit In 0.45 % NaCl 1 250ml.bag @ 18 UNITS/KG/HR 15.39 mls/hr IV .[id number] [facility] Rx#: [id number] Oral 1180 Other: Voiding Method Toilet Diaper Diaper Diaper Incontinent Incontinent # Voids 4 2 - Exam General: ill appearing, mild distress, appears at stated age Derm: warm, dry Head: atraumatic, normocephalic, symmetric Eyes: EOMI, no lid lag, anicteric sclera Mouth: no lip lesion, mucus membranes moist Cardiovascular: S1S2 reg, no murmur, positive posterior tibial pulse bilateral, Lungs: CTA bilateral, no rhonchi, no rales , no accessory muscle use Abdominal: soft, nontender to palpation, no guarding, no appreciable organomegaly Ext: no gross muscle atrophy, no edema, no contractures Neuro: CN II-XI grossly intact, no focal neuro deficits Psych: Alert, oriented, appropriate affect - Labs CBC & Chem 7: 04/09/19 11:12 04/09/19 06:28 Labs: Abnormal Lab Results - Last 24 Hours (Table) 04/08/19 04/08/19 04/08/19 Range/Units 05:23 11:04 13:44 Hgb 10.3 L (11.4-16.0) gm/dL Hct 33.9 L (34.0-46.0) % MCV (80.0-100.0) fL MCH (25.0-35.0) pg MCHC 30.4 L (31.0-37.0) g/dL RDW 16.9 H (11.5-15.5) % Lymphocytes # 0.9 L (1.0-4.8) k/uL APTT (22.0-30.0) sec D-Dimer 3.37 H (<0.60) mg/L FEU Sodium (137-145) mmol/L Chloride (98-107) mmol/L Carbon Dioxide (22-30) mmol/L BUN (7-17) mg/dL Creatinine (0.52-1.04) mg/dL Glucose (74-99) mg/dL POC Glucose (mg/dL) 125 H (75-99) mg/dL 04/08/19 04/08/19 04/09/19 Range/Units 17:59 20:00 00:56 Hgb (11.4-16.0) gm/dL Hct (34.0-46.0) % MCV (80.0-100.0) fL MCH (25.0-35.0) pg MCHC (31.0-37.0) g/dL RDW (11.5-15.5) % Lymphocytes # (1.0-4.8) k/uL APTT >200.0 H* (22.0-30.0) sec D-Dimer (<0.60) mg/L FEU Sodium (137-145) mmol/L Chloride (98-107) mmol/L Carbon Dioxide (22-30) mmol/L BUN (7-17) mg/dL Creatinine (0.52-1.04) mg/dL Glucose (74-99) mg/dL POC Glucose (mg/dL) 131 H 167 H (75-99) mg/dL 04/09/19 04/09/19 04/09/19 Range/Units 02:19 05:59 06:28 Hgb 10.1 L (11.4-16.0) gm/dL Hct 33.1 L (34.0-46.0) % MCV 79.2 L (80.0-100.0) fL MCH 24.1 L (25.0-35.0) pg MCHC 30.5 L (31.0-37.0) g/dL RDW 17.2 H (11.5-15.5) % Lymphocytes # (1.0-4.8) k/uL APTT (22.0-30.0) sec D-Dimer (<0.60) mg/L FEU Sodium (137-145) mmol/L Chloride (98-107) mmol/L Carbon Dioxide (22-30) mmol/L BUN (7-17) mg/dL Creatinine (0.52-1.04) mg/dL Glucose (74-99) mg/dL POC Glucose (mg/dL) 133 H 160 H (75-99) mg/dL 04/09/19 04/09/19 04/09/19 Range/Units 06:28 06:28 06:58 Hgb (11.4-16.0) gm/dL Hct (34.0-46.0) % MCV (80.0-100.0) fL MCH (25.0-35.0) pg MCHC (31.0-37.0) g/dL RDW (11.5-15.5) % Lymphocytes # (1.0-4.8) k/uL APTT 86.4 H (22.0-30.0) sec D-Dimer (<0.60) mg/L FEU Sodium 131 L (137-145) mmol/L Chloride 96 L (98-107) mmol/L Carbon Dioxide 21 L (22-30) mmol/L BUN 40 H (7-17) mg/dL Creatinine 1.35 H (0.52-1.04) mg/dL Glucose 137 H (74-99) mg/dL POC Glucose (mg/dL) 158 H (75-99) mg/dL Microbiology - Last 24 Hours (Table) 04/07/19 17:05 Blood Culture - Preliminary Blood No Growth after 24 hours 04/07/19 22:25 Urine Culture - Preliminary Urine,Voided Assessment and Plan Assessment: Acute systolic CHF with EF 45-50% with Severe aortic stenosis - lasix, aldactone - lsinopril on hold due to TENISHA - metorpolol - strict I and O, difficult due to incontinence - cardio recs TENISHA - likely cardio renal - lilsiopril on hold - continue diuresis - follow Cr Chest pain with known Severe CAD - ASA, BB, statin - cardio recs Right pleural effusion - s/p thoarcentesis with removal of 350 cc of fluid - transudative in the past and related to CHF GI bleed due to heparin gtt - Protonix IVP X 1 - CBC stable on repeat - keep ASA due to chest pain and severe CAD + D-dimer - Clincally doubt DVT, V/Q scan is indeterminant but has known right sided ef fusion, Venous doppler negative, and Wells Score is 1. Risks greater than benefit as patient is currently bleeding. - stop hepatin gtt Morbid Obesity - weight loss Multiple decubitus ulcers - frequent turns - off loading - barrier cream Chronic anemia - Stable - follow CBC - outpatient evaluation High degree Heart block status post permanent pacemaker -Has been optimized by cardiology Chronic conditions: GERD Hypertension Dyslipidemia Osteoarthritis Diabetic neuropathy DVT prophylaxis: SCDs Discussed with: Patient, , Dr. Ybarra Anticipated discharge: 3-[address]: home vs SNF A total of 35 minutes was spent on the care of this complex patient more than 50% of the time was spent in counseling and care coordination.
[2019-04-09 16:52] LABS: Glucose,Whole Blood 139 mg/dL (75-99)
[2019-04-09] MEDS: ASPIRIN 81 MG PO SCH (17:31)
--- NOTE | 2019-04-09 17:45 | XR ---
EXAMINATION TYPE: XR abdomen 2V DATE OF EXAM: 04/09/2019 COMPARISON: NONE HISTORY: Abdominal pain and vomiting TECHNIQUE: 4 views were obtained supine and upright FINDINGS: There is no sign of intestinal obstruction or pneumoperitoneum. Fecal pattern is normal. Th ere are multiple densities over the right upper quadrant that are somewhat oval-shaped. These measure up to 1.5 cm. This could be ingested material. Gallstones also possible. There is no evidence of a m ass. There is slight blunting right costophrenic angle. Heart appears enlarged. IMPRESSION: Small right pleural effusion and cardiomegaly. No sign of an acute abdomen. No free air.
[2019-04-09 19:58] LABS: Glucose,Whole Blood 114 mg/dL (75-99)
[2019-04-09] MEDS: ATORVASTATIN 20 MG TAB PO SCH (20:53)
[2019-04-09] MEDS: ALPRAZolam 0.25 MG TAB PO SCH (20:53)
[2019-04-09] MEDS: PANTOPRAZOLE 40 MG TABLET PO SCH (20:55)
[2019-04-09 21:08] VITALS: RESP 16
[2019-04-10] MEDS: FUROSEMIDE 10 MG/ML 4 ML VIAL IV SCH ×2 (01:15→08:42)
[2019-04-10 02:34] LABS: Glucose,Whole Blood 110 mg/dL (75-99)
[2019-04-10] MEDS: LEVOTHYROXINE 88 MCG TAB PO SCH (05:59)
[2019-04-10 07:00] LABS: Glucose,Whole Blood 123 mg/dL (75-99)
[2019-04-10] MEDS: INSULIN ASPART (NovoLOG) 100 UNIT/ML VIAL SQ SCH ×2 (07:32→12:45)
[2019-04-10 07:34] LABS: Anisocytosis Slight; Basophils % (A) 0 %; Eosinophils % (A) 0 %; HCT 29.3 % (34.0-46.0); HGB 9.2 gm/dL (11.4-16.0); Lymphocytes # (A) 1.1 k/uL (1.0-4.8); Lymphocytes % (A) 13 %; MCH 24.8 pg (25.0-35.0); MCHC 31.5 g/dL (31.0-37.0); MCV 78.6 fL (80.0-100.0); Microcytosis Slight; Monocytes # (A) 0.8 k/uL (0-1.0); Monocytes % (A) 9 %; Neutrophils # (A) 6.3 k/uL (1.3-7.7); Neutrophils % (A) 74 %; Platelet Count 258 k/uL (150-450); RBC 3.73 m/uL (3.80-5.40); RDW 17.3 % (11.5-15.5); WBC 8.6 k/uL (3.8-10.6)
[2019-04-10 07:57] LABS: Albumin 2.9 g/dL (3.5-5.0); Calcium 8.6 mg/dL (8.4-10.2); Potassium 4.6 mmol/L (3.5-5.1); Total Bilirubin 0.6 mg/dL (0.2-1.3); Total Protein 5.8 g/dL (6.3-8.2)
[2019-04-10] MEDS: METOPROLOL SUCCINATE (ER) 25 MG TAB.ER.24H PO SCH (08:41)
[2019-04-10] MEDS: SERTRALINE 25 MG TAB PO SCH (08:41)
[2019-04-10] MEDS: SPIRONOLACTONE 25 MG TAB PO SCH (08:42)
[2019-04-10] MEDS ORDERED: amLODIPine 5 MG TAB PO SCH (09:00)
--- NOTE | 2019-04-10 09:49 | P.PN ---
Progress Note - Text Progress Note Date: 04/10/19 This is a pleasant 89-year-old female patient with history of coronary artery disease, known critical disease involving the left main coronary artery, known severe aortic stenosis, as well as recurrent pleural effusion, was admitted to the hospital with increasing in the shortness of breath. Initially the patient was diagnosed was PE as she was started on anticoagulation. The patient was seen today, April 10. She is not in distress as yesterday and the nausea and vomiting have improved. She denies any chest pain or chest discomfort. I had a long discussion with her in the room today about the need to make the patient comfortable and to call [facility] care. The patient's daughter as well as her relative from out of the state are coming later on today.
[2019-04-10 11:35] LABS: Glucose,Whole Blood 134 mg/dL (75-99)
--- NOTE | 2019-04-10 12:18 | P.PN ---
Subjective Progress Note Date: 04/10/19 On today's evaluation of 04/09/2019, the patient is laying comfortably in bed. No chest pain. No shortness of breath at rest. As mentioned earlier I performed a thoracentesis in her lungs and a total of 350 mL of fluid was aspirated. This is obviously related to her congestion heart failure. The niru ent was seen by cardiology. The patient was seen by the medical team. Her renal function continues to get worse. She is on IV Lasix. She is being considered for hospice. No fever. No chills. No nausea no vomiting. No other new complaints. Her creatinine is up to 2.11 Objective - Vital Signs Vital signs: Vital Signs Temp 97.9 F 04/10/19 05:00 Pulse 60 04/10/19 08:37 Resp 16 04/10/19 05:08 BP 103/69 04/10/19 08:37 Pulse Ox 97 04/10/19 05:08 Intake & Output 04/09/19 04/10/19 04/10/19 18:59 06:59 18:59 Intake Total 590 Balance 590 Weight 82.5 kg Intake: Oral 590 Other: Voiding Method Diaper Diaper Diaper Incontinent Incontinent Incontinent # Voids 2 - Exam GENERAL EXAM: Alert, very pleasant, 89-year-old white female, in 2 L of oxygen with a pulse ox of 97%, comfortable in no apparent distress. HEAD: Normocephalic/atraumatic. EYES: Normal reaction of pupils, equal size. Conjunctiva pink, sclera white. NOSE: Clear with pink turbinates. THROAT: No erythema or exudates. NECK: No masses, no JVD, no thyroid enlargement, no adenopathy. CHEST: No chest wall deformity. Symmetrical expansion. LUNGS: Equal air entry with no crackles, wheeze, rhonchi or dullness. CVS: Regular rate and rhythm, normal S1 and S2, no gallops, no murmurs, no rubs ABDOMEN: Soft, nontender. No hepatosplenomegaly, normal bowel sounds, no guarding or rigidity. EXTREMITIES: No clubbing, 1+ pretibial edema, no cyanosis, 2+ pulses and upper and lower extremities. MUSCULOSKELETAL: Muscle strength and tone normal. SPINE: No scoliosis or deformity SKIN: No rashes CENTRAL NERVOUS SYSTEM: Alert and oriented -3. No focal deficits, tone is normal in all 4 extremities. PSYCHIATRIC: Alert and oriented -3. Appropriate affect. Intact judgment and insight. - Labs CBC & Chem 7: 04/10/19 06:54 04/10/19 06:54 Labs: Abnormal Lab Results - Last 24 Hours (Table) 04/09/19 04/09/19 04/09/19 Range/Units 14:45 16:49 19:57 RBC (3.80-5.40) m/uL Hgb (11.4-16.0) gm/dL Hct (34.0-46.0) % MCV (80.0-100.0) fL MCH (25.0-35.0) pg RDW (11.5-15.5) % Sodium (137-145) mmol/L Chloride (98-107) mmol/L BUN (7-17) mg/dL Creatinine (0.52-1.04) mg/dL Glucose (74-99) mg/dL POC Glucose (mg/dL) 139 H 114 H (75-99) mg/dL Total Protein (6.3-8.2) g/dL Albumin (3.5-5.0) g/dL Stool Occult Blood Positive H (Negative) 04/10/19 04/10/19 04/10/19 Range/Units 02:33 06:54 06:54 RBC 3.73 L (3.80-5.40) m/uL Hgb 9.2 L (11.4-16.0) gm/dL Hct 29.3 L (34.0-46.0) % MCV 78.6 L (80.0-100.0) fL MCH 24.8 L (25.0-35.0) pg RDW 17.3 H (11.5-15.5) % Sodium 133 L (137-145) mmol/L Chloride 95 L (98-107) mmol/L BUN 68 H (7-17) mg/dL Creatinine 2.11 H (0.52-1.04) mg/dL Glucose 112 H (74-99) mg/dL POC Glucose (mg/dL) 110 H (75-99) mg/dL Total Protein 5.8 L (6.3-8.2) g/dL Albumin 2.9 L (3.5-5.0) g/dL Stool Occult Blood (Negative) 04/10/19 04/10/19 Range/Units 06:59 11:33 RBC (3.80-5.40) m/uL Hgb (11.4-16.0) gm/dL Hct (34.0-46.0) % MCV (80.0-100.0) fL MCH (25.0-35.0) pg RDW (11.5-15.5) % Sodium (137-145) mmol/L Chloride (98-107) mmol/L BUN (7-17) mg/dL Creatinine (0.52-1.04) mg/dL Glucose (74-99) mg/dL POC Glucose (mg/dL) 123 H 134 H (75-99) mg/dL Total Protein (6.3-8.2) g/dL Albumin (3.5-5.0) g/dL Stool Occult Blood (Negative) Microbiology - Last 24 Hours (Table) 04/07/19 17:05 Blood Culture - Preliminary Blood No Growth after 48 hours 04/07/19 22:25 Urine Culture - Final Urine,Voided Assessment and Plan Plan: 1 CHF with valvular heart disease and severe aortic stenosis with chronic right- sided pleural effusion, recently drained and the fluid was a transudate with a total of 1.3 L of fluid was evacuated from the right lung successfully without a ny major issues. There is some recurrence of the right-sided pleural effusion. Currently the patient on IV Lasix. A repeat thoracentesis was done and it drained an additional 350 mL from the right lung. 2 recurrent right pleural effusion, secondary to CHF 3 Coronary artery disease 4 Complete heart block status post permanent pacemaker implantation 5 Diabetes mellitus, type II 6 Hypertension 7 Hyperlipidemia. 8 History of ESBL urine 9 Anxiety/depression 10 Morbid obesity 11 acute kidney injury in the creatinine is on the rise Plan Nothing much can be added from the pulmonary standpoint. The patient is being considered for hospice care. We will sign off the case.
[2019-04-10 12:48] VITALS: BP 106/46; PULSE 59; TEMP 98.7
[2019-04-10] MEDS: MORPHINE SULFATE 4 MG/ML SYRINGE IVP PRN (13:45)
[2019-04-10] MEDS ORDERED: ALPRAZolam 0.25 MG TAB PO PRN (14:25)
[2019-04-10] MEDS ORDERED: ALBUTEROL NEBULIZED 2.5 MG/3 ML INHALATION PRN (14:26)
[2019-04-10] MEDS ORDERED: SCOPOLAMINE 1.5MG/72HR PATCH TRANSDERM PRN (15:25)
--- NOTE | 2019-04-10 18:13 | P.DS ---
Providers Date of admission: 04/07/19 18:45 Expected date of discharge: 04/10/19 Attending physician: Anna Aquino MD Consults: 04/07/19 18:45 Consult Physician Routine Consulting Provider: Dominick Ybarra Consult Reason/Comments: CHF Do you want consulting provider notified?: Yes 04/09/19 08:57 Consult Physician Routine Consulting Provider: Quyen Lee Consult Reason/Comments: pleural effusion Do you want consulting provider notified?: Yes Primary care physician: Catherine Ricardo Hospital Course: Discharge Diagnosis: Discharged to inpatient hospice Acute systolic CHF with EF 45-50% with Severe aortic stenosis TENISHA Chest pain with known Severe CAD Right pleural effusion GI bleed due to heparin gtt + D-dimer Morbid Obesity Multiple decubitus ulcers Chronic anemia High degree Heart block status post permanent pacemaker GERD Hypertension Dyslipidemia Osteoarthritis Diabetic neuropathy Hospital Course: Patient is an 89 yo CF with a hx of severe aortic stenosis, heart block s/p PPM, and severe coronary artery disease with distal left main disease who presented with shortness of breath and weakness. She had been admitted here from February 25- discharged to [facility] for rehabilitation. She was discharged from [facility] on 03/31/2019 and her shortness of breath and weakness have been getting progressively worse. On arrival to the ER her vital signs within normal limits. Initial laboratory analysis showed a hemoglobin 10.7, sodium 129 with baseline approximately 133, creatinine 1.22, troponin of 0.017, and a negative urinalysis. Influenza was negative. Chest x-ray was completed which showed pulmonary edema with pleural effusions moderate on the right and mild on the left and increasing from prior study. She was admitted for acute exacerbation of congestive heart failure and lactic acidosis as long as chest pain with a history of coronary artery disease. She was started on Lasix and was continued on her beta oscar, her ANGIE inhibitor was held secondary to acute kidney injury. She was noted to have an elevated lactic acid and was was felt to be secondary to hypoperfusion and not reflective of sepsis. Cardiology was consulted and her pacemaker was interrogated with her rate increased to 60 bpm. They recommended an ultrasound of the chest to assess size of her pleural effusion and pulmonary team to evaluate her. They also ordered a d-dimer which was found to be positive. VQ scan ordered and was indeterminate She was started on heparin gtt. Wells score is 1. Overnight on 04/08 she developed nausea and had bright red blood in her emesis basin. Bilateral lower extremity DVTs negative. Her heparin drip was stopped. She was given 2 doses of IV protonix. Acute abdominal series negative. Hemoglobin remained relatively stable. Her Creatinine continued to worsen. She was recommended for hospice care due to overall decline. Patient and family agreed and she was signed onto inpatient hospice. Patient seen and examined at bedside. Pain is better than yesterday, nausea is better still not gone. She is in agreement with comfort care and hospice. She is very thankful to Dr. Ybarra for the extra 8 good months she had. Vital signs reviewed and stable. General: non toxic, mild distress due to pain, appears at stated age Derm: warm, dry Head: atraumatic, normocephalic, symmetric Eyes: EOMI, no lid lag, anicteric sclera Mouth: no lip lesion, mucus membranes moist Cardiovascular: S1S2 reg, no murmur, positive posterior tibial pulse bilateral, Lungs: CTA bilateral, no rhonchi, no rales , no accessory muscle use Abdominal: soft, nontender to palpation, no guarding, no appreciable organomegaly Ext: no gross muscle atrophy, no edema, no contractures Neuro: CN II-XI grossly intact, no focal neuro deficits Psych: Alert, oriented, appropriate affect A total of 35 minutes of time were spent preparing this complex discharge summary . Patient Condition at Discharge: Poor Plan - Discharge Summary New Discharge Prescriptions: No Action Cholecalciferol [Vitamin D3 (25 Mcg = 1000 Iu)] 1,000 unit PO HS Aspirin EC [Ecotrin Low Dose] 81 mg PO DAILY Sertraline HCl [Zoloft] 25 mg PO DAILY Hydrocortisone Pr Cream [Proctosol-Hc 2.5%] 1 applic RECTAL DAILY Atorvastatin [Lipitor] 20 mg PO HS Levothyroxine Sodium [Synthroid] 88 mcg PO DAILY metFORMIN HCL [Glucophage] 250 mg PO BID Acarbose [Precose] 25 mg PO DAILY Metoprolol Succinate (ER) [Toprol XL] 25 mg PO DAILY Lisinopril [Zestril] 10 mg PO DAILY amLODIPine [Norvasc] 10 mg PO DIRECTED Spironolactone [Aldactone] 25 mg PO DAILY #30 tab Furosemide [Lasix] 40 mg PO BID #60 tab traMADol HCl [Ultram] 50 mg PO BID 3 Days #14 tab Gabapentin [Neurontin] 100 mg PO HS #30 cap ALPRAZolam [Xanax] 0.25 mg PO HS #14 tab Clotrimazole/Betamethasone Dip [Lotrisone Cream] 1 applic TOPICAL BID Mag Hydrox/Al Hydrox/Simeth [Maalox] 30 ml PO DAILY Magnesium Oxide [Mag-Ox] 400 mg PO DAILY Omeprazole Magnesium [PriLOSEC OTC] 40 mg PO DAILY Simethicone [Gas-X] 125 mg PO HS Discharge Medication List Acarbose [Precose] 25 mg PO DAILY 06/17/18 [History] Aspirin EC [Ecotrin Low Dose] 81 mg PO DAILY 06/17/18 [History] Atorvastatin [Lipitor] 20 mg PO HS 06/17/18 [History] Cholecalciferol [Vitamin D3 (25 Mcg = 1000 Iu)] 1,000 unit PO HS 06/17/18 [History] Hydrocortisone Pr Cream [Proctosol-Hc 2.5%] 1 applic RECTAL DAILY 06/17/18 [History] Levothyroxine Sodium [Synthroid] 88 mcg PO DAILY 06/17/18 [History] Sertraline HCl [Zoloft] 25 mg PO DAILY 06/17/18 [History] metFORMIN HCL [Glucophage] 250 mg PO BID 06/17/18 [History] Lisinopril [Zestril] 10 mg PO DAILY 06/30/18 [History] Metoprolol Succinate (ER) [Toprol XL] 25 mg PO DAILY 06/30/18 [History] amLODIPine [Norvasc] 10 mg PO DIRECTED 11/24/18 [History] ALPRAZolam [Xanax] 0.25 mg PO HS #14 tab 03/09/19 [Rx] Furosemide [Lasix] 40 mg PO BID #60 tab 03/09/19 [Rx] Gabapentin [Neurontin] 100 mg PO HS #30 cap 03/09/19 [Rx] Spironolactone [Aldactone] 25 mg PO DAILY #30 tab 03/09/19 [Rx] traMADol HCl [Ultram] 50 mg PO BID 3 Days #14 tab 03/09/19 [Rx] Clotrimazole/Betamethasone Dip [Lotrisone Cream] 1 applic TOPICAL BID 04/07/19 [History] Mag Hydrox/Al Hydrox/Simeth [Maalox] 30 ml PO DAILY 04/07/19 [History] Magnesium Oxide [Mag-Ox] 400 mg PO DAILY 04/07/19 [History] Omeprazole Magnesium [PriLOSEC OTC] 40 mg PO DAILY 04/07/19 [History] Simethicone [Gas-X] 125 mg PO HS 04/07/19 [History] Follow up Appointment(s)/Referral(s): [facility], [NON-STAFF] - 1 Week Catherine Ricardo MD [Primary Care Provider] - 1-2 days
[2019-04-10] MEDS ORDERED: FUROSEMIDE 10 MG/ML 4 ML VIAL IV SCH (21:00)
== END 2019-04-10 17:15 | disposition hospice, inpatient (51) | DRG 291 ==
LOC: EC 16:23 → 5NMEDONC 18:45
PROVIDERS: ADMIT Family Medicine; ATTEND Family Medicine
PROC: 0W993ZZ Drainage of Right Pleural Cavity, Percutaneous Approach (ICD-10-PCS; principal; 2019-04-09)
PROC: 4B02XSZ Measurement of Cardiac Pacemaker, External Approach (ICD-10-PCS; 2019-04-09)
DX: I11.0 Hypertensive heart disease with heart failure (principal); I50.21 Acute systolic (congestive) heart failure; E87.2 Acidosis; E87.1 Hypo-osmolality and hyponatremia; N17.9 Acute kidney failure, unspecified; I44.2 Atrioventricular block, complete; K92.0 Hematemesis; J91.8 Pleural effusion in other conditions classified elsewhere; D68.32 Hemorrhagic disorder due to extrinsic circulating anticoagulants; I42.9 Cardiomyopathy, unspecified; L89.152 Pressure ulcer of sacral region, stage 2; E11.40 Type 2 diabetes mellitus with diabetic neuropathy, unspecified; E86.0 Dehydration; Z66 Do not resuscitate; Z51.5 Encounter for palliative care; I35.0 Nonrheumatic aortic (valve) stenosis; E66.01 Morbid (severe) obesity due to excess calories; Z68.33 Body mass index [BMI] 33.0-33.9, adult; J44.9 Chronic obstructive pulmonary disease, unspecified; R32 Unspecified urinary incontinence; D50.9 Iron deficiency anemia, unspecified; E78.5 Hyperlipidemia, unspecified; G25.0 Essential tremor; K59.00 Constipation, unspecified; R15.9 Full incontinence of feces; T45.515A Adverse effect of anticoagulants, initial encounter; F32.9 Major depressive disorder, single episode, unspecified; E03.9 Hypothyroidism, unspecified; F41.9 Anxiety disorder, unspecified; I25.10 Atherosclerotic heart disease of native coronary artery without angina pectoris; K21.9 Gastro-esophageal reflux disease without esophagitis; M19.90 Unspecified osteoarthritis, unspecified site; R30.0 Dysuria; H26.9 Unspecified cataract; Z79.82 Long term (current) use of aspirin; Z79.890 Hormone replacement therapy; Z79.84 Long term (current) use of oral hypoglycemic drugs; Z79.899 Other long term (current) drug therapy; Z71.3 Dietary counseling and surveillance; Z86.19 Personal history of other infectious and parasitic diseases; Z87.440 Personal history of urinary (tract) infections; Z95.0 Presence of cardiac pacemaker; Z90.49 Acquired absence of other specified parts of digestive tract; Z87.891 Personal history of nicotine dependence; Z85.840 Personal history of malignant neoplasm of eye; Z98.890 Other specified postprocedural states; Z88.0 Allergy status to penicillin; Z88.2 Allergy status to sulfonamides; Z88.8 Allergy status to other drugs, medicaments and biological substances; Z88.1 Allergy status to other antibiotic agents; Z91.041 Radiographic dye allergy status; Y92.230 Patient room in hospital as the place of occurrence of the external cause; Z81.1 Family history of alcohol abuse and dependence; Z82.5 Family history of asthma and other chronic lower respiratory diseases
CPT/HCPCS: 36415; 71045; 71046; 74019; 76604; 78582; 80048; 80053; 81001; 82272; 83605; 83735; 83880; 84484; 85025; 85027; 85379; 85610; 85730; 87040; 87086; 87502; 93005; 93970; 96374; 99285

== ENCOUNTER 2019-04-10 16:22 | Inpatient (IN) | payer MEDICAID ==
[2019-04-10] MEDS ORDERED: ACETAMINOPHEN TAB 325 MG TAB PO PRN (16:57)
[2019-04-10] MEDS ORDERED: SCOPOLAMINE 1.5MG/72HR PATCH TRANSDERM SCH (17:00)
[2019-04-10] MEDS ORDERED: ALPRAZolam 0.25 MG TAB PO PRN (17:02)
[2019-04-10] MEDS ORDERED: ALBUTEROL NEBULIZED 2.5 MG/3 ML INHALATION PRN (17:03)
[2019-04-10] MEDS ORDERED: PROMETHAZINE INJ 6.25 MG in SODIUM CHLORIDE 0.9% 50 ML IVPB PRN (17:07)
[2019-04-10] MEDS ORDERED: traMADol 50 MG TAB PO PRN (17:18)
--- NOTE | 2019-04-10 18:15 | P.PN ---
Progress Note - Text Progress Note Date: 04/10/19 patient transitioned from inpatient care to general inpatient hospice care. Currently comfortable. Hospice meds reviewed with hospice nurse. Formal H and P to follow in AM.
[2019-04-10] MEDS: FUROSEMIDE 40 MG TAB PO SCH (19:41)
[2019-04-10] MEDS: ALPRAZolam 0.25 MG TAB PO SCH (19:41)
[2019-04-10] MEDS: MORPHINE SULFATE 4 MG/ML SYRINGE IV PRN (19:41)
[2019-04-10] MEDS: ONDANSETRON 4 MG/2 ML VIAL IVP PRN (19:50)
[2019-04-11] MEDS: FUROSEMIDE 40 MG TAB PO SCH ×2 (08:24→21:24)
[2019-04-11] MEDS: amLODIPine 5 MG TAB PO SCH (08:24)
[2019-04-11] MEDS: PANTOPRAZOLE 40 MG TABLET PO SCH (08:24)
[2019-04-11] MEDS: METOPROLOL SUCCINATE (ER) 25 MG TAB.ER.24H PO SCH (08:24)
[2019-04-11] MEDS: LEVOTHYROXINE 88 MCG TAB PO SCH (08:24)
[2019-04-11] MEDS ORDERED: FUROSEMIDE 20 MG TAB PO SCH (09:00)
[2019-04-11] MEDS: MORPHINE SULFATE 4 MG/ML SYRINGE IV PRN (11:08)
[2019-04-11] MEDS: ONDANSETRON 4 MG/2 ML VIAL IVP PRN (12:50)
--- NOTE | 2019-04-11 17:04 | P.HPIM ---
History of Present Illness H&P Date: 04/11/19 (delayed charting seen at 0845) Chief Complaint: shortness of breath Patient is an 89 yo CF with a hx of severe aortic stenosis, heart block s/p PPM, and severe coronary artery disease with distal left main disease who presented with shortness of breath and weakness. She had been admitted here from February 25- discharged to [facility] for rehabilitation. She was discharged from [facility] on 03/31/2019 and her shortness of breath and weakness have been getting pro gressively worse. On arrival to the ER her vital signs within normal limits. Initial laboratory analysis showed a hemoglobin 10.7, sodium 129 with baseline approximately 133, creatinine 1.22, troponin of 0.017, and a negative urinalysis. Influenza was negative. Chest x-ray was completed which showed pulmonary edema with pleural effusions moderate on the right and mild on the left and increasing from prior study. She was admitted for acute exacerbation of congestive heart failure and lactic acidosis as long as chest pain with a history of coronary artery disease. She was started on Lasix and was continued on her beta oscar, her ANGIE inhibitor was held secondary to acute kidney injury. She was noted to have an elevated lactic acid and was was felt to be secondary to hypoperfusion and not reflective of sepsis. Cardiology was consulted and her pacemaker was interrogated with her rate increased to 60 bpm. They recommended an ultrasound of the chest to assess size of her pleural ef fusion and pulmonary team to evaluate her. They also ordered a d-dimer which was found to be positive. VQ scan ordered and was indeterminate She was started on heparin gtt. Wells score is 1. Overnight on 04/08 she developed nausea and had bright red blood in her emesis basin. Bilateral lower extremity DVTs negative. Her heparin drip was stopped. She was given 2 doses of IV protonix. Acute abdominal series negative. Hemoglobin remained relatively stable. Her Creatinine continued to worsen. She was recommended for hospice care due to overall decline. Patient and family agreed and she was signed onto inpatient hospice. Patient doing well on hospice care this AM, pain better controlled today, less nausea. Had CP overnight but better now, breathing is okay. Review of Systems Pertinent positives and negatives as discussed in HPI, a complete review of systems was performed and all other systems are negative. Past Medical History Past Medical History: Coronary Artery Disease (CAD), Diabetes Mellitus, Eye Disorder, GERD/Reflux, Hyperlipidemia, Hypertension, Osteoarthritis (OA), Syncope, Thyroid Disorder Additional Past Medical History / Comment(s): Syncope/CHB and had temporary then permanent pacemaker, currently has 3 small decub on coccyx per pt/mindy, NIDDM type II, diabetic neuropathy bilateral feet, severe aortic stenosis, polyarthritis, essential tremors, hypothyroid, bilateral cataracts, incontinence or urine and occasionally stool, constipation, UTI. History of Any Multi-Drug Resistant Organisms: ESBL Date of last positivie culture/infection: 07/21/18 MDRO Source:: ESBL URINE Past Surgical History: Cholecystectomy, Heart Catheterization, Orthopedic Surgery, Pacemaker Additional Past Surgical History / Comment(s): 06/17/18 temporary pacemaker, 06/19/18 permanent pacemaker, R knee arthrotomy d/t chip, colonoscopy. Past Anesthesia/Blood Transfusion Reactions: No Reported Reaction Type of Cardiac Device: Permanent Pacemaker Device Placement Date:: 06/19/18 Past Psychological History: Anxiety, Depression Additional Psychological History / Comment(s): Pt resides with her spouse. She is using a wheelchair. Spouse is pts caregiver. Her mindy, Christine manages her medications and is her DPOA. She has an aide thru [facility] that bathes her once a week and recieved PT/OT thru [facility]. Smoking Status: Former smoker Past Alcohol Use History: None Reported Additional Past Alcohol Use History / Comment(s): Pt started smoking in her 20s and quit about 1978. As a young women, she drank beer but none for years now. Past Drug Use History: None Reported - Past Family History Father Additional Family Medical History / Comment(s): Father was an alcoholic Mother Family Medical History: Asthma Additional Family Medical History / Comment(s): Mother at the age of 54yrs- pt unsure from what. Medications and Allergies Home Medications Medication Instructions Recorded Confirmed Type Acarbose [Precose] 25 mg PO DAILY 06/17/18 04/11/19 History Aspirin EC [Ecotrin Low Dose] 81 mg PO DAILY 06/17/18 04/11/19 History Atorvastatin [Lipitor] 20 mg PO HS 06/17/18 04/11/19 History Cholecalciferol [Vitamin D3 (25 1,000 unit PO HS 06/17/18 04/11/19 History Mcg = 1000 Iu)] Hydrocortisone Pr Cream 1 applic RECTAL DAILY 06/17/18 04/11/19 History [Proctosol-Hc 2.5%] Levothyroxine Sodium [Synthroid] 88 mcg PO DAILY 06/17/18 04/11/19 History Sertraline HCl [Zoloft] 25 mg PO DAILY 06/17/18 04/11/19 History metFORMIN HCL [Glucophage] 250 mg PO BID 06/17/18 04/11/19 History Lisinopril [Zestril] 10 mg PO DAILY 06/30/18 04/11/19 History Metoprolol Succinate (ER) [Toprol 25 mg PO DAILY 06/30/18 04/11/19 History XL] amLODIPine [Norvasc] 10 mg PO DIRECTED 11/24/18 04/11/19 History ALPRAZolam [Xanax] 0.25 mg PO HS #14 tab 03/09/19 04/11/19 Rx Furosemide [Lasix] 40 mg PO BID #60 tab 03/09/19 04/11/19 Rx Gabapentin [Neurontin] 100 mg PO HS #30 cap 03/09/19 04/11/19 Rx Spironolactone [Aldactone] 25 mg PO DAILY #30 tab 03/09/19 04/11/19 Rx traMADol HCl [Ultram] 50 mg PO BID 3 Days #14 tab 03/09/19 04/11/19 Rx Clotrimazole/Betamethasone Dip 1 applic TOPICAL BID 04/07/19 04/11/19 History [Lotrisone Cream] Mag Hydrox/Al Hydrox/Simeth 30 ml PO DAILY 04/07/19 04/11/19 History [Maalox] Magnesium Oxide [Mag-Ox] 400 mg PO DAILY 04/07/19 04/11/19 History Omeprazole Magnesium [PriLOSEC OTC] 40 mg PO DAILY 04/07/19 04/11/19 History Simethicone [Gas-X] 125 mg PO HS 04/07/19 04/11/19 History Nitroglycerin Sl Tabs [Nitrostat] 0.4 mg SUBLINGUAL Q5M PRN 04/11/19 04/11/19 History Allergies Allergy/AdvReac Type Severity Reaction Status Date / Time amoxicillin Allergy Unknown Verified 04/11/19 11:36 Iodinated Contrast Media Allergy Unknown Verified 04/11/19 11:36 [Iodinated Contrast- Oral and IV Dye] metoclopramide [From Reglan] Allergy Unknown Verified 04/11/19 11:36 sulfamethoxazole Allergy Unknown Verified 04/11/19 11:36 [From Septra] trimethoprim [From Septra] Allergy Unknown Verified 04/11/19 11:36 ampicillin AdvReac Nausea & Verified 04/11/19 11:36 Vomiting cephalexin AdvReac Nausea & Verified 04/11/19 11:36 Vomiting levofloxacin AdvReac SHAKING,PUGA Verified 04/11/19 11:36 ICS Physical Exam Osteopathic Statement: *. No significant issues noted on an osteopathic structural exam other than those noted in the History and Physical/Consult. Vitals: Intake and Output 04/11/19 04/11/19 04/11/19 06:59 14:59 22:59 Other: Voiding Method Diaper Diaper Incontinent Incontinent # Voids 2 General: ill appearing, no distress, appears at stated age, normal weight Derm: + sacral decub, no unusual ecchymoses, warm, dry Head: atraumatic, normocephalic, symmetric Eyes: EOMI, no lid lag, anicteric sclera, pupils equal round reactive to light ENT: Nose and ears atraumatic, no thrush, no pharyngeal erythema Neck: No thyromegaly, no cervical lymphadenopathy, trachea midline, supple Mouth: no lip lesion, mucus membranes moist Cardiovascular: S1S2 reg, + systolic ejection murmur, positive posterior tibial pulse bilateral, trace edema, capillary refill less than 2 seconds Lungs: decrease bs bilateral, no rhonchi, no rales , no accessory muscle use Abdominal: soft, nontender to palpation, no guarding, no appreciable organomegaly, normal bowel sounds Ext: + gross muscle atrophy, muscle strength 3-4 out of 5 in all 4 extremities grossly, no contractures, Neuro: CN II-XI grossly intact, light touch intact all 4 extremities, finger to nose within normal limits, Psych: Awake, oriented, flat affect Thrombosis Risk Factor Assmnt - DVT/VTE Prophylaxis DVT/VTE Prophylaxis: Low risk, early ambulation encouraged - Choose All That Apply Each Factor Represents 1 point: Heart failure (<1month) Each Risk Factor Represents 3 Points: Age 75 years or older Other congenital or acquired thrombophilia - If yes, enter type in comment: No Thrombosis Risk Factor Assessment Total Risk Factor Score: 4 Thrombosis Risk Factor Assessment Level: Moderate Risk Assessment and Plan Assessment: Systolic CHF with EF 45-50% with Severe aortic stenosis TENISHA Chest pain with known Severe CAD Right pleural effusion GI bleed due to heparin gtt + D-dimer Morbid Obesity Multiple decubitus ulcers Chronic anemia High degree Heart block status post permanent pacemaker GERD Hypertension Dyslipidemia Osteoarthritis Hospice and comfort care initiated. Price in place for comfort. Conitnue with BP meds, Xanax, morphine, antiemetics. Plan is for home vs SNF with hospice on 04/12/19
[2019-04-11] MEDS ORDERED: ONDANSETRON ODT 4 MG TAB PO PRN (20:32)
[2019-04-11] MEDS ORDERED: MORPHINE CONC SOLN 10mg/0.5mL ORAL SYRG PO PRN (20:32)
[2019-04-11] MEDS ORDERED: PROCHLORPERAZINE 5 MG TAB PO PRN (20:33)
[2019-04-11] MEDS: ALPRAZolam 0.25 MG TAB PO SCH (21:24)
[2019-04-12] MEDS: LEVOTHYROXINE 88 MCG TAB PO SCH (05:36)
[2019-04-12 08:16] VITALS: BMI 33.3
[2019-04-12] MEDS: PANTOPRAZOLE 40 MG TABLET PO SCH (08:33)
[2019-04-12] MEDS: METOPROLOL SUCCINATE (ER) 25 MG TAB.ER.24H PO SCH (08:33)
[2019-04-12] MEDS: amLODIPine 5 MG TAB PO SCH (08:34)
[2019-04-12] MEDS: FUROSEMIDE 40 MG TAB PO SCH (08:34)
[2019-04-12 09:37] VITALS: RESP 16
--- NOTE | 2019-04-12 10:14 | P.DS ---
Providers Date of admission: 04/10/19 17:39 Expected date of discharge: 04/12/19 Attending physician: Antonia Romero DO Primary care physician: Catherine Ricardo [facility] Course: Patient is an 89 yo CF with a hx of severe aortic stenosis, heart block s/p PPM, and severe coronary artery disease with distal left main disease who presented with shortness of breath and weakness. She had been admitted here from February 25- discharged to [facility] for rehabilitation. She was discharged from [facility] on 03/31/2019 and her shortness of breath and weakness have been getting progressively worse. On arrival to the ER her vital signs within normal limits. Initial laboratory analysis showed a hemoglobin 10.7, sodium 129 with baseline approximately 133, creatinine 1.22, troponin of 0.017, and a negative urinalysis. Influenza was negative. Chest x-ray was completed which showed pulmonary edema with pleural effusions moderate on the right and mild on the left and increasing from prior study. She was admitted for acute exacerbation of congestive heart failure and lactic acidosis as long as chest pain with a history of coronary artery disease. She was started on Lasix and was continued on her beta oscar, her ANGIE inhibitor was held secondary to acute kidney injury. She was noted to have an elevated lactic acid and was was felt to be secondary to hypoperfusion and not reflective of sepsis. Cardiology was consulted and her pacemaker was interrogated with her rate increased to 60 bpm. They recommended an ultrasound of the chest to assess size of her pleural effusion and pulmonary team to evaluate her. They also ordered a d-dimer which was found to be positive. VQ scan ordered and was indeterminate She was started on heparin gtt. Wells score is 1. Overnight on 04/08 she developed nausea and had bright red blood in her emesis basin. Bilateral lower extremity DVTs negative. Her heparin drip was stopped. She was given 2 doses of IV protonix. Acute abdominal series negative. Hemoglobin remained relatively stable. Her Creatinine continued to worsen. She was recommended for hospice care due to overall decline. Patient and family agreed and she was signed onto inpatient hospice. Patient was seen and examined. No acute events overnight. Family is at bedside. Arrangements made for hospice at home. Patient appears to be in no acute distress. Assessment and Plan Systolic CHF with EF 45-50% with Severe aortic stenosis TENISHA Chest pain with known Severe CAD Right pleural effusion GI bleed due to heparin gtt + D-dimer Morbid Obesity Multiple decubitus ulcers Chronic anemia High degree Heart block status post permanent pacemaker GERD Hypertension Dyslipidemia Osteoarthritis Hospice and comfort care initiated. Price in place for comfort. Conitnue with BP meds, Xanax, morphine, antiemetics. Patient Condition at Discharge: Serious Plan - Discharge Summary Discharge Rx Participant: No New Discharge Prescriptions: New Prochlorperazine [Compazine] 5 mg PO Q8HR PRN tab PRN Reason: Nausea And Vomiting Scopolamine 1.5MG/72Hr Patch [TransDerm Scop] 1 patch TRANSDERM Q72H patch Albuterol Nebulized [Ventolin Nebulized] 2.5 mg INHALATION RT-Q4H PRN ml PRN Reason: Shortness Of Breath Ondansetron Odt [Zofran ODT] 4 mg PO Q8HR PRN tab PRN Reason: Nausea Continue Sertraline HCl [Zoloft] 25 mg PO DAILY Metoprolol Succinate (ER) [Toprol XL] 25 mg PO DAILY amLODIPine [Norvasc] 10 mg PO DIRECTED Furosemide [Lasix] 40 mg PO BID #60 tab traMADol HCl [Ultram] 50 mg PO BID 3 Days #14 tab Gabapentin [Neurontin] 100 mg PO HS #30 cap ALPRAZolam [Xanax] 0.25 mg PO HS #14 tab Mag Hydrox/Al Hydrox/Simeth [Maalox] 30 ml PO DAILY Simethicone [Gas-X] 125 mg PO HS Discontinued Cholecalciferol [Vitamin D3 (25 Mcg = 1000 Iu)] 1,000 unit PO HS Aspirin EC [Ecotrin Low Dose] 81 mg PO DAILY Hydrocortisone Pr Cream [Proctosol-Hc 2.5%] 1 applic RECTAL DAILY Atorvastatin [Lipitor] 20 mg PO HS Levothyroxine Sodium [Synthroid] 88 mcg PO DAILY metFORMIN HCL [Glucophage] 250 mg PO BID Acarbose [Precose] 25 mg PO DAILY Lisinopril [Zestril] 10 mg PO DAILY Spironolactone [Aldactone] 25 mg PO DAILY #30 tab Clotrimazole/Betamethasone Dip [Lotrisone Cream] 1 applic TOPICAL BID Magnesium Oxide [Mag-Ox] 400 mg PO DAILY Omeprazole Magnesium [PriLOSEC OTC] 40 mg PO DAILY Nitroglycerin Sl Tabs [Nitrostat] 0.4 mg SUBLINGUAL Q5M PRN PRN Reason: Chest Pain Discharge Medication List Sertraline HCl [Zoloft] 25 mg PO DAILY 06/17/18 [History] Metoprolol Succinate (ER) [Toprol XL] 25 mg PO DAILY 06/30/18 [History] amLODIPine [Norvasc] 10 mg PO DIRECTED 11/24/18 [History] ALPRAZolam [Xanax] 0.25 mg PO HS #14 tab 03/09/19 [Rx] Furosemide [Lasix] 40 mg PO BID #60 tab 03/09/19 [Rx] Gabapentin [Neurontin] 100 mg PO HS #30 cap 03/09/19 [Rx] traMADol HCl [Ultram] 50 mg PO BID 3 Days #14 tab 03/09/19 [Rx] Mag Hydrox/Al Hydrox/Simeth [Maalox] 30 ml PO DAILY 04/07/19 [History] Simethicone [Gas-X] 125 mg PO HS 04/07/19 [History] Albuterol Nebulized [Ventolin Nebulized] 2.5 mg INHALATION RT-Q4H PRN ml 04/12/19 [Rx] Ondansetron Odt [Zofran ODT] 4 mg PO Q8HR PRN tab 04/12/19 [Rx] Prochlorperazine [Compazine] 5 mg PO Q8HR PRN tab 04/12/19 [Rx] Scopolamine 1.5MG/72Hr Patch [TransDerm Scop] 1 patch TRANSDERM Q72H patch 04/12/19 [Rx] Activity/Diet/Wound Care/Special Instructions: Diet: Regular Patient enrolling into hospice at home. Discharge Disposition: HOME WITH HOSPICE
== END 2019-04-12 11:05 | disposition hospice, home (50) | DRG 951 ==
LOC: 5NMEDONC 17:39
PROVIDERS: ADMIT Internal Medicine; ATTEND Internal Medicine
DX: Z51.5 Encounter for palliative care (principal); K92.2 Gastrointestinal hemorrhage, unspecified; I44.2 Atrioventricular block, complete; I50.22 Chronic systolic (congestive) heart failure; I11.0 Hypertensive heart disease with heart failure; L89.152 Pressure ulcer of sacral region, stage 2; E11.40 Type 2 diabetes mellitus with diabetic neuropathy, unspecified; D64.9 Anemia, unspecified; E03.9 Hypothyroidism, unspecified; E66.01 Morbid (severe) obesity due to excess calories; E78.5 Hyperlipidemia, unspecified; F32.9 Major depressive disorder, single episode, unspecified; F41.9 Anxiety disorder, unspecified; G25.0 Essential tremor; I25.10 Atherosclerotic heart disease of native coronary artery without angina pectoris; I35.0 Nonrheumatic aortic (valve) stenosis; M13.0 Polyarthritis, unspecified; H26.9 Unspecified cataract; K21.9 Gastro-esophageal reflux disease without esophagitis; R15.9 Full incontinence of feces; R32 Unspecified urinary incontinence; Z79.82 Long term (current) use of aspirin; Z79.84 Long term (current) use of oral hypoglycemic drugs; Z79.890 Hormone replacement therapy; Z79.899 Other long term (current) drug therapy; Z79.891 Long term (current) use of opiate analgesic; Z95.0 Presence of cardiac pacemaker; Z87.891 Personal history of nicotine dependence; Z90.49 Acquired absence of other specified parts of digestive tract; Z88.0 Allergy status to penicillin; Z88.2 Allergy status to sulfonamides; Z88.8 Allergy status to other drugs, medicaments and biological substances; Z88.1 Allergy status to other antibiotic agents; Z91.041 Radiographic dye allergy status; Z82.5 Family history of asthma and other chronic lower respiratory diseases; Z81.1 Family history of alcohol abuse and dependence

== ENCOUNTER 2019-04-17 17:33 | Inpatient (IN) | payer MEDICAID ==
[2019-04-17 18:31] VITALS: TEMP 98.5
[2019-04-17] MEDS ORDERED: ONDANSETRON 4 MG/2 ML VIAL IVP PRN (19:52)
[2019-04-17] MEDS ORDERED: ACETAMINOPHEN SUPPOSITORY 650 MG SUPP RECTAL PRN (19:52)
[2019-04-17] MEDS ORDERED: ATROPINE OPHTH SOLN 1% 5ML BTL SUBLINGUAL PRN (19:52)
[2019-04-17] MEDS ORDERED: LORazepam 2 MG/ML INJ IV PRN (19:52)
[2019-04-17] MEDS ORDERED: MORPHINE SULFATE 2 MG/ML SYRINGE IV PRN (19:52)
[2019-04-17] MEDS ORDERED: BISACODYL 10 MG SUPP RECTAL PRN (19:55)
--- NOTE | 2019-04-17 22:37 | P.HPIM ---
History of Present Illness H&P Date: 04/17/19 Chief Complaint: constipation , pain control 89 year old female with severe aortic valve stenosis, heart block s/p PPM. severe CAD with frequent hospitalizations over the past 2 months due to severe shortness of breath due to pulmonary edema nad pleural effusions from systolic CHF exacerbation and severe aortic valve stenosis. during her most recent hospitalization , family agreed to sign up patient for hospice care, and was discharged home. today she is returning to control her pain symptoms , and she has been constipated for over a week now. it seems like pain is not well controlled at home . patient unable to provide any meaningful history . history obtained by discussing history with hospice nurse and floor RN. Review of Systems ROS unobtainable: due to mental status Past Medical History Past Medical History: Coronary Artery Disease (CAD), Diabetes Mellitus, Eye Disorder, GERD/Reflux, Hyperlipidemia, Hypertension, Osteoarthritis (OA), Syncope, Thyroid Disorder Additional Past Medical History / Comment(s): Syncope/CHB and had temporary then permanent pacemaker, currently has 3 small decub on coccyx per pt/mindy, NIDDM type II, diabetic neuropathy bilateral feet, severe aortic stenosis, polyarthritis, essential tremors, hypothyroid, bilateral cataracts, incontinence or urine and occasionally stool, constipation, UTI. History of Any Multi-Drug Resistant Organisms: ESBL Date of last positivie culture/infection: 07/21/18 MDRO Source:: ESBL URINE Past Surgical History: Cholecystectomy, Heart Catheterization, Orthopedic Surgery, Pacemaker Additional Past Surgical History / Comment(s): 06/17/18 temporary pacemaker, 06/19 permanent pacemaker, R knee arthrotomy d/t chip, colonoscopy. Past Anesthesia/Blood Transfusion Reactions: No Reported Reaction Type of Cardiac Device: Permanent Pacemaker Device Placement Date:: 06/19/18 Past Psychological History: Anxiety, Depression Additional Psychological History / Comment(s): Pt resides with her spouse. She is using a wheelchair. Spouse is pts caregiver. Her mindy, Christine manages her medications and is her DPOA. She has an aide thru [facility] that bathes her once a week and recieved PT/OT thru [facility]. Smoking Status: Former smoker Past Alcohol Use History: None Reported Additional Past Alcohol Use History / Comment(s): Pt started smoking in her 20s and quit about 1978. As a young women, she drank beer but none for years now. Past Drug Use History: None Reported - Past Family History Father Additional Family Medical History / Comment(s): Father was an alcoholic Mother Family Medical History: Asthma Additional Family Medical History / Comment(s): Mother at the age of 54yrs- pt unsure from what. Medications and Allergies Home Medications Medication Instructions Recorded Confirmed Type Sertraline HCl [Zoloft] 25 mg PO DAILY 06/17/18 04/11/19 History Metoprolol Succinate (ER) [Toprol 25 mg PO DAILY 06/30/18 04/11/19 History XL] amLODIPine [Norvasc] 10 mg PO DIRECTED 11/24/18 04/11/19 History ALPRAZolam [Xanax] 0.25 mg PO HS #14 tab 03/09/19 04/11/19 Rx Furosemide [Lasix] 40 mg PO BID #60 tab 03/09/19 04/11/19 Rx Gabapentin [Neurontin] 100 mg PO HS #30 cap 03/09/19 04/11/19 Rx traMADol HCl [Ultram] 50 mg PO BID 3 Days #14 tab 03/09/19 04/11/19 Rx Mag Hydrox/Al Hydrox/Simeth 30 ml PO DAILY 04/07/19 04/11/19 History [Maalox] Simethicone [Gas-X] 125 mg PO HS 04/07/19 04/11/19 History Albuterol Nebulized [Ventolin 2.5 mg INHALATION RT-Q4H PRN ml 04/12/19 Rx Nebulized] Ondansetron Odt [Zofran ODT] 4 mg PO Q8HR PRN tab 04/12/19 Rx Prochlorperazine [Compazine] 5 mg PO Q8HR PRN tab 04/12/19 Rx Scopolamine 1.5MG/72Hr Patch 1 patch TRANSDERM Q72H patch 04/12/19 Rx [TransDerm Scop] Allergies Allergy/AdvReac Type Severity Reaction Status Date / Time amoxicillin Allergy Unknown Verified 04/11/19 11:36 Iodinated Contrast Media Allergy Unknown Verified 04/11/19 11:36 [Iodinated Contrast- Oral and IV Dye] metoclopramide [From Reglan] Allergy Unknown Verified 04/11/19 11:36 sulfamethoxazole Allergy Unknown Verified 04/11/19 11:36 [From Septra] trimethoprim [From ] Allergy Unknown Verified 04/11/19 11:36 ampicillin AdvReac Nausea & Verified 04/11/19 11:36 Vomiting cephalexin AdvReac Nausea & Verified 04/11/19 11:36 Vomiting levofloxacin AdvReac SHAKING,PUGA Verified 04/11/19 11:36 ICS Physical Exam Vitals: Vital Signs Temp Pulse Resp Pulse Ox 04/17/19 18:30 98.5 F 65 16 97 Intake and Output 04/17/19 04/17/19 04/17/19 06:59 14:59 22:59 Other: Weight 82.5 kg Constitutional: No acute distress, patient lethargic, opens eyes to verbal stimulation Eyes: Anicteric sclerae, moist conjunctiva, Pupils equal round reactive to light ENMT: NC/AT Oropharynx clear, no erythema, or exudates Neck: supple, no masses, or JVD No carotid bruits No thyromegaly Lungs: Clear to auscultation Clear to percussion Normal respiratory effort, no accessory muscle use Cardiovascular: Heart regular in rate and rhythm, systolic murmurs, no gallops, or rubs No peripheral edema Abdominal: Soft Nontender, no guarding, rebound or rigidity Abdomen moving with respiration Normoactive bowel sounds No hepatomegaly, No splenomegaly No palpable mass No abdominal wall hernia noted Skin: Normal temperature, tone, texture, turgor No induration No subcutaneous nodules No rash, lesions No ulcers Extremities: No digital cyanosis No clubbing Pedal pulses intact and symmetrical Radial pulses intact and symmetrical No calf tenderness Psychiatric: lethargic ,opens eyes to verbal stimulation Neuro unable to perform neuro exam Lymphatics: no palpable cervical or supraclavicular , or inguinal lymph nodes Assessment and Plan Assessment: 89 year old female at home on hospice care, pain is not well controlled at home, patient was brought in for IV pain control . admitted under observation with anticipated length of stay <2 midnights. Plan: hospice care IV morphine for pain control symptomatic control ativan PRN scopolamin for secretions landis cath care for comfort chronic conditions severe aortic valve stenosis systolic CHF DM thyroid disorder Preformed a thorough record review from recent hospitalization frequent hospitalizations for systolic CHF exacerbation. CODE STATUS: no code Anticipated length of stay < than [address]: home on hospice care A total of 60 minutes was spent on the care of this complex patient more than 50% of the time was spent in counseling and care coordination.
[2019-04-17] MEDS: MORPHINE SULFATE (100 MG/2 ML) 100 MG in SODIUM CHLORIDE 0.9% 100 ML IV SCH (22:58)
--- NOTE | 2019-04-18 15:03 | P.PN ---
Subjective Progress Note Date: 04/18/19 Principal diagnosis: Intractable pain Patient was seen and examined. No acute events overnight. Family is at bedside. Patient appears to be in no discomfort. Objective - Vital Signs Vital signs: Vital Signs Temp 98.5 F 04/17/19 18:30 Pulse 66 04/18/19 08:00 Resp 14 04/18/19 08:00 BP Pulse Ox 97 04/17/19 18:30 Intake & Output 04/17/19 04/18/19 04/18/19 18:59 06:59 18:59 Intake Total 0 21.386 Output Total 50 Balance -50 .386 Weight 82.5 kg 82.5 kg Intake: Intake, IV Titration .386 Amount Morphine Sulfate (100 mg/ 2 ml) 100 mg In Sodium Chloride 0.9% 100 ml @ 2 MG/HR 2.04 mls/hr IV . Q24H [facility] Rx#:[id number] Oral 0 0 Output: Urine 50 Other: Voiding Method Indwelling Catheter Indwelling Catheter # Voids 1 # Bowel Movements 1 1 - Exam General: [non toxic], [no distress unresponsive], [appears at stated age] Derm: [warm], [dry] Head: [atraumatic], [normocephalic], [symmetric] Eyes: [no lid lag], [anicteric sclera] Mouth: [no lip lesion], [mucus membranes moist] Assessment and Plan Assessment: Systolic CHF with EF 45-50% with Severe aortic stenosis Severe CAD Morbid Obesity Multiple decubitus ulcers Chronic anemia High degree Heart block status post permanent pacemaker GERD Hypertension Dyslipidemia Osteoarthritis Hospice and comfort care initiated. Price in place for comfort. Atropine for secretions. Suppository for constipation. Ativan as needed for anxiety. Continue morphine drip with IV injections as needed for breakthrough pain. Zofran as needed for nausea or vomiting. Cardiology consulted to turn pacemaker off.
[2019-04-18 15:08] VITALS: PULSE 38
[2019-04-18 21:24] VITALS: RESP 7
[2019-04-18] MEDS: MORPHINE SULFATE (100 MG/2 ML) 100 MG in SODIUM CHLORIDE 0.9% 100 ML IV SCH (22:01)
== END 2019-04-19 05:08 | disposition expired | DRG 951 ==
LOC: 6NMEDSUR 18:22
PROVIDERS: ADMIT Internal Medicine; ATTEND Internal Medicine
DX: Z51.5 Encounter for palliative care (principal); I44.2 Atrioventricular block, complete; I50.22 Chronic systolic (congestive) heart failure; D64.9 Anemia, unspecified; E03.9 Hypothyroidism, unspecified; E11.40 Type 2 diabetes mellitus with diabetic neuropathy, unspecified; E66.01 Morbid (severe) obesity due to excess calories; Z68.33 Body mass index [BMI] 33.0-33.9, adult; E78.5 Hyperlipidemia, unspecified; F32.9 Major depressive disorder, single episode, unspecified; F41.9 Anxiety disorder, unspecified; G25.0 Essential tremor; I11.0 Hypertensive heart disease with heart failure; I25.10 Atherosclerotic heart disease of native coronary artery without angina pectoris; I35.0 Nonrheumatic aortic (valve) stenosis; K59.00 Constipation, unspecified; L89.159 Pressure ulcer of sacral region, unspecified stage; M13.0 Polyarthritis, unspecified; Z79.899 Other long term (current) drug therapy; Z81.1 Family history of alcohol abuse and dependence; Z82.5 Family history of asthma and other chronic lower respiratory diseases; Z87.891 Personal history of nicotine dependence; Z95.0 Presence of cardiac pacemaker; Z98.42 Cataract extraction status, left eye; Z98.41 Cataract extraction status, right eye; R32 Unspecified urinary incontinence; R15.9 Full incontinence of feces; Z66 Do not resuscitate; Z88.0 Allergy status to penicillin; Z88.2 Allergy status to sulfonamides; Z88.1 Allergy status to other antibiotic agents; Z91.041 Radiographic dye allergy status